=== PATIENT | female | born 1945 | race Hispanic/Latino ===

== ENCOUNTER 2020-02-06 12:02 | Emergency (ER) | payer OTHER ==
--- OUTSIDE RECORDS SUMMARY | 2020-02-06 12:04 | XMS REPORT ---
:1945 Author Organization eClinicalWorks Care Team Providers Name Role Phone Sylvia Sebastian Provider Role Unavailable Allergies No Known Allergies Problems Problem Type Condition Code Onset Dates Condition Statu s Problem Pain in left knee M25.562 Active Problem Other chronic pain G89.29 Active Problem Heart disease I51.9 Active Problem Fatigue, unspecified type R53.83 Ac tive Problem Body mass index (BMI) 45.0-49.9, Z68.42 Active adult Problem Shortness of breath R06.02 Active Problem Asthma J45.909 Active Problem Essential hypertension I10 Activ e Problem Pain in right knee M25.561 Active Problem Gallstone K80.20 Active Problem Edema R60.9 Active Problem Morbid obesity E66.01 Active Medications No Known Medications Results No Known Results Summary Purpose eClinicalWorks Submission
--- OUTSIDE RECORDS SUMMARY | 2020-02-06 12:04 | XMS REPORT ---
:1945 [facility] Team Providers Name Role Phone Sylvia Sebastian Provider Role Unavailable Allergies, Adverse Reactions, Alerts Substance Reaction Event Type N.K.D.A. Info Not Available Non Drug Allergy Problems Problem Type Condition Code Onset Dates Condition Statu s Problem Pain in left knee M25.562 Active Problem Other chronic pain G89.29 Active Problem Heart disease I51.9 Active Problem Shortness of breath R06.02 Active Assessment Pain in left knee M25.562 Active Problem Asthma J45.909 Active Assessment Other chronic pain G89.29 Active Problem Essential hypertension I10 Activ e Problem Pain in right knee M25.561 Active Problem Gallstone K80.20 Active Problem Edema R60.9 Active Problem Morbid obesity E66.01 Active Assessment Morbid obesity E66.01 Active Assessment Lipid screening Z13.220 Active Assessment Pain in right knee M25.561 Active Assessment Body mass index (BMI) 45.0-49.9, Z68.42 Active adult Assessment Essential hypertension I10 Activ e Assessment Fatigue, unspecified type R53.83 Ac tive Problem Fatigue, unspecified type R53.83 Ac tive Assessment Shortness of breath R06.02 Active Problem Body mass index (BMI) 45.0-49.9, Z68.42 Active adult Medications Medication Code Code Instructions Start End Status Dosage System Date Date Amlodipine [facility] 74668734467 10 MG Orally Active 1 ta blet Besylate Once a day Enalapril ND 04708285824 10 MG Orally Aug 21, Active 1 tab let Maleate Once a day for 2019 high blood pressure Voltaren [facility] [address]-15 75 MG Orally Aug 21, Inactive 1 t ablet Twice a day 2018 Meloxicam [facility] 74347908062 7.5 MG Orally Aug 21, Sep 20, Active 1-2 Once a day 2018 2018 tablets as needed for pain; take with food or milk Acetaminophen [facility] 87564735750 300-30 MG Oct 20, Active 1 ta blet -Codeine Orally Twice 2020 as needed daily for pain; take with food or milk Lasix [facility] 79054926847 20 MG Orally Active 1 table t Once a day as needed for swelling Results No Known Results Summary Purpose eClinicalWorks Submission
--- OUTSIDE RECORDS SUMMARY | 2020-02-06 12:04 | XMS REPORT ---
:1945 Author Organization eClinicalWorks Care Team Providers Name Role Phone Sylvia Sebastian Provider Role Unavailable Allergies No Known Allergies Problems Problem Type Condition Code Onset Dates Condition Statu s Problem Fatigue, unspecified type R53.83 Ac tive Problem Pain in left knee M25.562 Active Problem Body mass index (BMI) 45.0-49.9, Z68.42 Active adult Problem Asthma J45.909 Active Problem Shortness of breath R06.02 Active Problem Essential hypertension I10 Activ e Problem Edema R60.9 Active Problem Morbid obesity E66.01 Active Problem Vitamin D deficiency E55.9 Active Problem Other chronic pain G89.29 Active Problem Heart disease I51.9 Active Problem Pain in right knee M25.561 Active Problem Gallstone K80.20 Active Medications No Known Medications Results No Known Results Summary Purpose eClinicalWorks Submission
--- OUTSIDE RECORDS SUMMARY | 2020-02-06 12:04 | XMS REPORT ---
:1945 Author Organization [facility] Address [address] [place] [address] Care Team Providers Name Role Phone Unavailable Unavailable Unavailable Problems Condition Condition Condition Status Onset Resolution Last Treating Co mments Source Name Details Category Date Date Treatment Clinician Date Pain in Pain in Problem Active [facility] left [facility] left knee [facility] Other Other Problem Active [facility] chronic chronic [facility] pain pain [facility] Heart Heart Problem Active [facility] disease disease [facility] Shortness Shortness Problem Active [facility] of breath of breath [facility] Asthma Asthma Problem Active [facility] Essential Essential Problem Active [facility] hypertensi hypertensi Patricia kes - on on [facility] l [facility] Pain in Pain in Problem Active [facility] right knee right knee Patricia kes - [facility] Gallstone Gallstone Problem Active [facility] Edema Edema Problem Active [facility] Morbid Morbid Problem Active [facility] obesity obesity [facility] Body mass Body mass Problem Active [facility] index index [facility] - (BMI) (BMI) Memoria 45.0-49.9, 45.0-49.9, l adult adult [facility] Fatigue, Fatigue, Problem [facility] unspecifie unspecifie Patricia kes - d type d type [facility] Vitamin D Vitamin D Problem Active [facility] deficiency deficiency Patricia kes - [facility]ics Prediabete Prediabete Problem Active [facility] Chronic Chronic Diagnosis [facility] pain [facility] - syndrome syndrome [facility] a [facility] Allergies, Adverse Reactions, Alerts This patient has no known allergies or adverse reactions. Medications Ordered Filled Start Stop Current Ordering Indication Dosage Frequency Signature Comments Components Source Medication Medication Date Date Medication? Clinician (SIG) Name Name Gabapentin Gabapentin Yes Sylvia [address] [facility] 10-26 [place] for pain [facility] Procedures This patient has no known procedures. Encounters Start End Encounter Admission Attending Care Care Encounter Source Date/Time Date/Time Type Type Clinicians Facility Department ID 2020-01-23 2020-01-23 [facility] [id number] [facility] 16:41:00 16:41:00 [facility] Medicine Outpati ent Clinics 2019-12-25 2019-12-25 [facility] [id number] [facility] 13:50:00 13:50:00 [facility] Medicine Outpati ent Clinics 2019-10-26 2019-10-26 [facility] [id number] [facility] 16:15:00 16:15:00 [facility] Medicine Outpati ent Clinics 2019-10-04 2019-10-04 [facility] [id number] [facility] 23:40:00 23:40:00 [facility] Medicine Outpati ent Clinics 2019-09-21 2019-09-21 [facility] [id number] [facility] 16[facility]00:00 16:00:00 [facility] Medicine Outpati ent Clinics 2019-08-31 2019-08-31 [facility] [id number] [facility] 00:42:00 00:42:00 [facility] Medicine Outpati ent Clinics 2019-08-22 2019-08-22 [facility] [id number] 01:28:00 01:28:00 [facility] Medicine Outpati ent Clinics 2019-08-21 2019-08-21 [facility] [id number] [facility] 11:20:00 11:20:[address] [facility] Outpat[facility] ent Clinics Results This patient has no known results.
--- OUTSIDE RECORDS SUMMARY | 2020-02-06 12:04 | XMS REPORT ---
:1945 Author Organization eClinicalWorks Care Team Providers Name Role Phone Jaz Sylvia Provider Role Unavailable Allergies, Adverse Reactions, Alerts Substance Reaction Event Type N.K.D.A. Info Not Available Non Drug Allergy Problems Problem Type Condition Code Onset Dates Condition Statu s Problem Fatigue, unspecified type R53.83 Ac tive Problem Pain in left knee M25.562 Active Problem Body mass index (BMI) 45.0-49.9, Z68.42 Active adult Problem Edema R60.9 Active Problem Morbid obesity E66.01 Active Problem Vitamin D deficiency E55.9 Active Problem Other chronic pain G89.29 Active Problem Heart disease I51.9 Active Problem Pain in right knee M25.561 Active Problem Gallstone K80.20 Active Problem Asthma J45.909 Active Assessment Vitamin D deficiency E55.9 Active Problem Shortness of breath R06.02 Active Assessment Hyperglycemia R73.9 Active Problem Essential hypertension I10 Activ e Medications Medication Code Code Instructions Start End Date Status Dosage System Date Enalapril [facility] 70370180717 10 MG Orally Aug 21, Active 1 tab let Maleate Once a day for 2019 high blood pressure Diclofenac ND 54965526521 75 MG Orally Active 1 ta blet Sodium Twice a day Acetaminophen- [facility] 71240909545 300-30 MG Oct 20, Active 1 t ablet as Codeine Orally Twice 2019 needed for daily pain; take with food or milk Amlodipine ND 55437958183 10 MG Orally Active 1 ta blet Besylate Once a day Lasix ND 40842523870 20 MG Orally Active 1 table t as Once a day needed for swelling Vitamin D [facility] 40922012248 1.25 MG (76358 Sep 21November Active 1 c apsule (Ergocalcifero [place]) Orally Once 2018 l) weekly Results No Known Results Summary Purpose eClinicalWorks Submission
--- OUTSIDE RECORDS SUMMARY | 2020-02-06 12:04 | XMS REPORT ---
:1945 Author Organization eClinicalWorks Care Team Providers Name Role Phone Sylvia Sebastian Provider Role Unavailable Allergies No Known Allergies Problems Problem Type Condition Code Onset Dates Condition Statu s Problem Gallstone K80.20 Active Problem Asthma J45.909 Active Problem Pain in right knee M25.561 Active Problem Prediabetes R73.03 Active Problem Vitamin D deficiency E55.9 Active Problem Chronic pain syndrome G89.4 Active Problem Essential hypertension I10 Activ e Problem Shortness of breath R06.02 Active Problem Edema R60.9 Active Problem Morbid obesity E66.01 Active Assessment Chronic pain syndrome G89.4 Active Problem Body mass index (BMI) 45.0-49.9, Z68.42 Active adult Problem Pain in left knee M25.562 Active Problem Heart disease I51.9 Active Problem Fatigue, unspecified type R53.83 Ac tive Problem Other chronic pain G89.29 Active Medications Medication Code System Code Instructions Start End Date Status Dos age Date Gabapentin [facility] 63868969163 300 MG Orally Oct 26, Active 1 c apsule Twice a day; 2019 for pain start off taking in evening, then titrate to twice daily as tolerates Results No Known Results Summary Purpose eClinicalWorks Submission
--- OUTSIDE RECORDS SUMMARY | 2020-02-06 12:04 | XMS REPORT ---
[...] Active Problem Morbid obesity E66.01 Active Assessment Vitamin D deficiency E55.9 Active Assessment Prediabetes R73.03 Active Assessment Chronic pain syndrome G89.4 Active Problem Body mass index (BMI) 45.0-49.9, Z68.42 Active adult Problem Pain in left knee M25.562 Active Problem Heart disease I51.9 Active Problem Fatigue, unspecified type R53.83 Ac tive Problem Other chronic pain G89.29 Active Medications Medication Code Code Instructions Start End Date Status Dosage System Date Gabapentin ND 61734181452 300 MG Orally Oct 26, Active 1 c apsule Twice a day; 2019 for pain start off taking in evening, then titrate to twice daily as tolerates Enalapril ND 62258096417 10 MG Orally Aug 21, Active 1 tab let Maleate Once a day for 2019 high blood pressure Vitamin D ND 29671465474 1.25 MG (Sep 21November Active 1 c apsule (Ergocalcifero [place]) Orally Once 2018 l) weekly Diclofenac ND 79811533742 75 MG Orally Active 1 ta blet Sodium Twice a day Lasix ND 07154210569 20 MG Orally Active 1 table t as Once a day needed for swelling Vitamin D ND 07063831946 125 MCG (4999Oct 29, Active (otc ) 1 UT) Orally Once 2019 capsule daily Amlodipine ND 03380811943 10 MG Orally Active 1 ta blet Besylate Once a day Results No Known Results Summary Purpose eClinicalWorks Submission
--- OUTSIDE RECORDS SUMMARY | 2020-02-06 12:04 | XMS REPORT ---
[...] Active Problem Morbid obesity E66.01 Active Problem Body mass index (BMI) 45.0-49.9, Z68.42 Active adult Problem Pain in left knee M25.562 Active Problem Heart disease I51.9 Active Problem Fatigue, unspecified type R53.83 Ac tive Problem Other chronic pain G89.29 Active Medications Medication Code System Code Instructions Start End Date Status Dos age Date ProAir A [facility] 55517883254 108 (90 Base) December 26, Active 2 puff as MCG/ACT 2019 needed Inhalation every 4-6 hrs Results No Known Results Summary Purpose eClinicalWorks Submission
[2020-02-06] MEDS ORDERED: HYDROCODONE/APAP 5/325 MG TAB ONE (13:35)
--- NOTE | 2020-02-06 14:00 | RAD REPORT ---
EXAM DESCRIPTION: Shoulder Right 2 View - 02/06/2020 1:48 pm CLINICAL HISTORY: PAIN, fall with right shoulder pain COMPARISON: No comparisons TECHNIQUE: Internal and external rotation views of the right shoulder were obtained. FINDINGS: There is no fracture or dislocation. AC joint degenerative changes are present. Acromial humeral joint space is normal. Minimal tendon calcifications suspected along the posterolateral aspec t of the humeral head as well as at the deltoid attachment to the acromion. No pathologic bone proces s. No acute right upper chest finding. IMPRESSION: Degenerative change present as detailed. No fracture or acute finding seen.
--- NOTE | 2020-02-06 14:01 | EDPHYS ---
Physician Documentation [facility] Name: Nabila Jain Age: 74 yrs Sex: Female : 1945 Arrival Date: 02/06/2020 Time: 12:05 Bed 4 Private MD: Sylvia Sebastian ED Physician Fabiano Diaz HPI: 02/05 13:57 This 74 yrs old Female presents to ER via Wheelchair with complaints of ma2 Shoulder Pain, Arm Pain, Fall Injury. 13:57 The patient or guardian complains of decreased range of motion, pain. right shoulder. ma2 Onset: The symptoms/episode began/occurred gradually, 1 day(s) ago. Associated signs and symptoms: Pertinent negatives: chest pain, diaphoresis, dyspnea. Severity of symptoms: At their worst the symptoms were moderate, in the emergency department the symptoms are unchanged. The patient has not experienced similar symptoms in the past. Historical: - Allergies: 12:22 No Known Allergies; ss - Home Meds: 13:46 unknown BP medications [Active]; tw2 - PMHx: 12:22 cardiomegaly; Hypertension; ss - PSHx: 13:46 None; tw2 - Immunization history:: Adult Immunizations up to date. - Social history:: Smoking status: Patient denies any tobacco usage or history of. Patient/guardian denies using alcohol, street drugs, The patient lives with family. - Family history:: not pertinent. ROS: 13:57 Constitutional: Negative for fever, chills, and weight loss. ma2 13:57 All other systems are negative. Exam: 13:57 Constitutional: This is a well developed, well nourished patient who is awake, alert, ma2 and in no acute distress. Chest/axilla: Normal chest wall appearance and motion. Nontender with no deformity. No lesions are appreciated. Cardiovascular: Regular rate and rhythm with a normal S1 and S2. No gallops, murmurs, or rubs. Normal PMI, no JVD. No pulse deficits. Respiratory: Lungs have equal breath sounds bilaterally, clear to auscultation and percussion. No rales, rhonchi or wheezes noted. No increased work of breathing, no retractions or nasal flaring. Abdomen/GI: Soft, non-tender, with normal bowel sounds. No distension or tympany. No guarding or rebound. No evidence of tenderness throughout. Skin: Warm, dry with normal turgor. Normal color with no rashes, no lesions, and no evidence of cellulitis. MS/ Extremity: right shoulder tenderness yet able to fully range the shoulder. Pulses equal, no cyanosis. Neurovascular intact. Full, normal range of motion. Neuro: Awake and alert, GCS 15, oriented to person, place, time, and situation. Cranial nerves II-XII grossly intact. Motor strength 5/5 in all extremities. Sensory grossly intact. Cerebellar exam normal. Normal gait. Vital Signs: 12:20 BP 157 / 79; Pulse 72; Resp 16; Temp 98.2; Pulse Ox 96% on R/A; Weight 115.67 kg; Pain ss 9/10; 14:14 BP 160 / 6; Pulse 69; Resp 17; Pulse Ox 99% on R/A; tw2 MDM: 12:56 Patient medically screened. ma2 13:57 Differential diagnosis: Anterior dislocation without fracture, Posterior dislocation ma2 with fracture, Posterior dislocation without fracture, humeral head fracture. Data reviewed: vital signs, nurses notes. Counseling: I had a detailed discussion with the patient and/or guardian regarding: the historical points, exam findings, and any diagnostic results supporting the discharge/admit diagnosis, the presence of at least one elevated blood pressure reading (>120/80) during this emergency department visit, the need for outpatient follow up. Response to treatment: the patient's symptoms have markedly improved after treatment. 02/05 12:59 Order name: XRAY Shoulder RIGHT 2 view [facility] 02/05 14:00 Order name: Sling; Complete Time: 14:11 wv2 Administered Medications: 13:38 Drug: Carmel 5 mg-325 mg 1 tabs Route: PO; tw2 14:11 Follow up: Response: No adverse reaction; Pain is decreased; RASS: Alert and Calm (0) tw2 Disposition: 02/06/20 13:59 Discharged to Home. Impression: Pain in right shoulder. - Condition is Stable. - Discharge Instructions: Joint Pain. - Prescriptions for Cyclobenzaprine 10 mg Oral Tablet - take 1 tablet by ORAL route every 8 hours As needed; 30 tablet. Diclofenac Sodium 75 mg Oral Tablet Sustained Release - take 1 tablet by ORAL route 2 times per day; 30 tablet. - Medication Reconciliation Form, Thank You Letter, Antibiotic Education, Prescription Opioid Use form. - Follow up: Private Physician; When: Tomorrow; Reason: Continuance of care. Signatures: Dispatcher [employer] Paulina Garcia RN RN Dawna Butler RN RN tw2 Fabiano Diaz MD MD ma2 Corrections: (The following items were deleted from the chart) 14:15 13:59 02/06/2020 13:59 Discharged to Home. Impression: Pain in right shoulder. tw2 Condition is Stable. Forms are Medication Reconciliation Form, Thank You Letter, Antibiotic Education, Prescription Opioid Use. Follow up: Private Physician; When: Tomorrow; Reason: Continuance of care. ma2
--- NOTE | 2020-02-06 14:01 | ER ---
Nurse's Notes [facility] Name: Nabila Jain Age: 74 yrs Sex: Female : 1945 Arrival Date: 02/06/2020 Time: 12:05 Bed 4 Private MD: Sylvia Sebastian Diagnosis: Pain in right shoulder Presentation: 02/05 12:17 Chief complaint: Patient states: Fell from standing last night. Pt c/o R shoulder pain. ss Care prior to arrival: None. Mechanism of Injury: Fall from standing position. 12:17 Acuity: CHARLEEN 4 ss 12:17 Method Of Arrival: Wheelchair ss 12:20 Coronavirus screen: Patient denies a cough. Patient denies shortness of breath or ss difficulty breathing. Patient denies measured and/or subjective temperature greater than 100.4F prior to today's visit. Patient denies travel on a cruise ship or to a country the [facility] currently lists as an affected area. Patient denies contact with known and/or suspected case of COVID-19. Ebola Screen: Patient denies exposure to infectious person. Patient denies travel to an Ebola-affected area in the 21 days before illness onset. Initial Sepsis Screen: Does the patient meet any 2 criteria? No. Patient's initial sepsis screen is negative. Does the patient have a suspected source of infection? No. Patient's initial sepsis screen is negative. Risk Assessment: Do you want to hurt yourself or someone else? Patient reports no desire to harm self or others. Onset of symptoms was February 05, 2020. Historical: - Allergies: 12:22 No Known Allergies; ss - Home Meds: 13:46 unknown BP medications [Active]; tw2 - PMHx: 12:22 cardiomegaly; Hypertension; ss - PSHx: 13:46 None; tw2 - Immunization history:: Adult Immunizations up to date. - Social history:: Smoking status: Patient denies any tobacco usage or history of. Patient/guardian denies using alcohol, street drugs, The patient lives with family. - Family history:: not pertinent. Screenin:46 Abuse screen: Denies threats or abuse. Nutritional screening: No deficits noted. tw2 Tuberculosis screening: No symptoms or risk factors identified. Fall Risk Fall in past 12 months (25 points). Secondary diagnosis (15 points) impaired mobility. Assessment: 13:44 General: Appears in no apparent distress. uncomfortable, obese, Behavior is calm, tw2 cooperative, appropriate for age. Pain: Complains of pain in right shoulder. Neuro: Level of Consciousness is awake, alert, obeys commands, Oriented to person, place, time, situation. Cardiovascular: Patient's skin is warm and dry. Respiratory: Airway is patent Respiratory effort is even, unlabored, Respiratory pattern is regular, symmetrical. GI: No signs and/or symptoms were reported involving the gastrointestinal system. : No signs and/or symptoms were reported regarding the genitourinary system. EENT: No signs and/or symptoms were reported regarding the EENT system. Derm: No signs and/or symptoms reported regarding the dermatologic system. Musculoskeletal: Range of motion: limited in right shoulder Reports pain in right shoulder since last night when she fell and landed on the right shoulder.. 14:14 Reassessment: Patient appears in no apparent distress at this time. Patient and/or tw2 family updated on plan of care and expected duration. Pain level reassessed. Patient is alert, oriented x 3, equal unlabored respirations, skin warm/dry/pink. Patient states feeling better. Vital Signs: 12:20 BP 157 / 79; Pulse 72; Resp 16; Temp 98.2; Pulse Ox 96% on R/A; Weight 115.67 kg; Pain ss 9/10; 14:14 BP 160 / 6; Pulse 69; Resp 17; Pulse Ox 99% on R/A; tw2 ED Course: 12:05 Patient arrived in ED. am2 12:05 Sylvia Sebastian MD is Private Physician. am2 12:20 Triage completed. ss 12:22 Arm band placed on right wrist. ss 12:56 Fabiano Diaz MD is Attending Physician. ma2 13:00 Call light in reach. tw2 13:27 Dawna Butler RN is Primary Nurse. tw2 13:45 Placed in gown. Side rails up X 1. Warm blanket given. Pillow given. Verbal reassurance tw2 given. 13:50 XRAY Shoulder RIGHT 2 view In Process Unspecified. EDMS 14:14 No provider procedures requiring assistance completed. Patient did not have IV access tw2 during this emergency room visit. Administered Medications: 13:38 Drug: Firth 5 mg-325 mg 1 tabs Route: PO; tw2 14:11 Follow up: Response: No adverse reaction; Pain is decreased; RASS: Alert and Calm (0) tw2 Outcome: 13:59 Discharge ordered by . ma2 14:14 Discharged to home via wheelchair. tw2 14:14 Condition: stable 14:14 Discharge instructions given to patient, Instructed on discharge instructions, follow up and referral plans. no drinking with medication, no driving heavy equipment, medication usage, Demonstrated understanding of instructions, follow-up care, medications, Prescriptions given X 2. 14:15 Patient left the ED. tw2 Signatures: Dispatcher [employer] EDMS Paulina Joy RN RN ss Wise, Tara, RN RN tw2 Rufina Padgett am2 Fabiano Diaz MD MD wv2
[2020-02-06 14:38] VITALS: TEMP 98.2
[2020-02-06 14:40] VITALS: BP 160/6; O2SAT 99
== END 2020-02-06 14:15 | disposition home or self-care (01) ==
LOC: ER 12:02
DX: M25.511 Pain in right shoulder (principal); I10 Essential (primary) hypertension
CPT/HCPCS: 99283

== ENCOUNTER 2021-03-04 09:23 | Emergency (ER) | payer OTHER ==
--- OUTSIDE RECORDS SUMMARY | 2021-03-04 09:27 | XMS REPORT | Continuity of Care Document ---
:1945 Author Organization Formerly [facility] t Address [address] [place] [address] Care Team Providers Name Role Phone Unavailable Unavailable Unavailable Problems This patient has no known problems. Allergies, Adverse Reactions, Alerts This patient has no known allergies or adverse reactions. Medications Ordered Filled Start Stop Current Ordering Indication Dosage Frequency Signature Comments Components Source Medication Medication Date Date Medication? Clinician (SIG) Name Name Meloxicam Meloxicam 2020-0 2020- No Sylvia 1/[address] [facility] 5-29 08-29 [facility] tablet as [facility] - 00:00: 00:00 needed for [facility] 00 :00 pain; take l with food Outpati or milk ent Clinics ProAir HFA ProAir HFA Yes Sylvia [address] [facility] 4[facility]02 [facility] Gabapentin Gabapentin Yes Sylvia as [facility] Diclofenac Diclofenac Yes Sylvia [address] [facility] Sodium Sodium [facility] Vitamin D Vitamin D Yes Sylvia (otc) [address] [facility] capsule [facility] Amlodipine Amlodipine Yes Sylvia [address] [facility] Besylate Besylate Millender Patricia k[facility] Enalapril Enalapril Yes Sylvia [address] [facility] Maleate Maleate Mill[facility] Cyclobenzap Cyclobenzap Yes Sylvia [address] [facility] rine HCl rine HCl [facility] at bedtime [facility] Lasix Lasix Yes Sylvia [address] [facility] Millender as needed [facility] swelling [facility] Procedures This patient has no known procedures. Encounters Start End Encounter Admission Attending Care Care Encounter Source Date/Time Date/Time Type Type Clinicians Facility Department ID 2020-12-03 2020-12-03 [id number] 2020-10-16 2020-10-16 [facility] [id number] [facility] 2020-10-01 2020-10-01 [facility] [id number] [facility] 2020-09-24 2020-09-24 [facility] [id number] [facility] 2020-09-10 2020-09-10 [facility] [id number] [facility] 2020-09-02 2020-09-02 [facility] [id number] [facility] 2020-08-12 2020-08-12 [facility] [id number] [facility] 2020-07-03 2020-07-03 [facility] [id number] [facility] 2020-06-19 2020-06-19 [facility] [id number] [facility] 2020-05-23 2020-05-23 [facility] [id number] [facility] 15[facility]00[facility]00 15:00:00 [facility] Outpat[facility] Clinics 2020-04-23 2020-04-23 [facility] [id number] 16:40:00 16:40:[address] [facility] Medicine Outpati ent Clinics 2020-04-16 2020-04-16 [facility] [id number] [facility] 13:30:00 13:30:00 [facility] Medicine Outpati ent Clinics 2020-02-22 2020-02-22 [facility] [id number] [facility] 13[facility]40:00 13:40:00 [facility] Medicine Outpati ent Clinics 2020-01-23 2020-01-23 [facility] [id number] [facility] 16:41:00 16:41:00 [facility] Medicine Outpati ent Clinics 2019-12-25 2019-12-25 [facility] [id number] [facility] 13:50:00 13:50:00 [facility] Medicine Outpati ent Clinics 2019-10-26 2019-10-26 [facility] [id number] [facility] 16[facility]15:00 16:15:00 [facility] Medicine Outpati ent Clinics 2019-10-04 2019-10-04 [facility] [id number] [facility] 23:40:00 23:40:00 [facility] Medicine Outpati ent Clinics 2019-09-21 2019-09-21 [facility] [id number] [facility] 16:00:00 16:00:00 [facility] Medicine Outpati ent Clinics 2019-08-31 2019-08-31 [facility] [id number] [facility] 00:42:00 00:42:00 [facility] Medicine Outpati ent Clinics 2019-08-22 2019-08-22 [facility] [id number] 01:28:00 01:28:00 [facility] 2019-08-21 2019-08-21 Outpatient Betty Demarco [id number] [facility] 11:20:00 11:20:00 [facility] Clinics Results This patient has no known results.
[2021-03-04] MEDS ORDERED: LEVALBUTEROL 1.25 MG/3 ML NEB ONE (10:22)
[2021-03-04] MEDS ORDERED: FUROSEMIDE 40 MG/4 ML VIAL ONE (10:23)
[2021-03-04 10:58] LABS: Protime INR 0.97
[2021-03-04 11:01] LABS: Albumin 2.9 g/dL (3.4-5.0); Bilirubin Direct 0.1 mg/dL (0-0.2); Bilirubin Total 0.3 mg/dL (0.2-1.0); Magnesium 2.4 mg/dL (1.8-2.4); Potassium 3.7 mmol/L (3.5-5.1); Protein, Total 6.9 g/dL (6.4-8.2); Troponin (Emerg Dept Use Only) 0.03 ng/mL (0.0-0.045)
[2021-03-04 11:07] LABS: Absolute Lymphocytes (CBC) 2.4 K/uL (0.7-4.9); Basophils % 0.4 % (0-1.3); Hematocrit 37.2 % (36.0-45.0); Lymphocytes % 21.2 % (15.3-44.8); MPV 9.5 fL (7.6-11.3); RBC Red Blood Cell Count 4.11 M/uL (3.86-4.86)
--- NOTE | 2021-03-04 11:57 | RAD REPORT ---
EXAM DESCRIPTION: RAD - Chest Single View - 03/04/2021 10:31 am CLINICAL HISTORY: shortness of breath COMPARISON: Portable August 2015 TECHNIQUE: AP portable chest image was obtained 03/04/2021 10:31 am . FINDINGS: Exam is limited by under penetrated technique and very large body habitus. Heart size is u pper normal. Central vasculature and lung markings are prominent. No peripheral consolidation or mass . Retrocardiac left base assessment is limited. No measurable pleural effusion and no pneumothorax. No acute bony abnormality seen. No acute aortic findings suspected. IMPRESSION: Limited examination shows mild CHF/ volume overload pattern.
--- NOTE | 2021-03-04 12:57 | ER ---
Nurse's Notes [facility] Name: Nabila Jain Age: 75 yrs Sex: Female : 1945 Arrival Date: 03/04/2021 Time: 09:24 Bed 5 Private MD: Lucia Ramirez Diagnosis: Heart failure;Edema, unspecified Presentation: 03/04 09:37 Chief complaint: Patient states: SOB on exertion and leg swelling X 2 weeks. iw Coronavirus screen: At this time, the client does not indicate any symptoms associated with coronavirus-19. Ebola Screen: Patient negative for fever greater than or equal to 101.5 degrees Fahrenheit, and additional compatible Ebola Virus Disease symptoms Patient denies exposure to infectious person. Patient denies travel to an Ebola-affected area in the 21 days before illness onset. No symptoms or risks identified at this time. Initial Sepsis Screen: Does the patient meet any 2 criteria? No. Patient's initial sepsis screen is negative. Does the patient have a suspected source of infection? No. Patient's initial sepsis screen is negative. Risk Assessment: Do you want to hurt yourself or someone else? Patient reports no desire to harm self or others. Onset of symptoms was February 17, 2021. 09:37 Method Of Arrival: Wheelchair iw 09:37 Acuity: CHARLEEN 3 iw Triage Assessment: 13:18 General: Appears in no apparent distress. comfortable. Respiratory: Respiratory: ld1 Reports shortness of breath Onset: The symptoms/episode began/occurred at an unknown time. Historical: - Allergies: 09:41 NKA; iw - Home Meds: 10:31 gabapentin 300 mg oral cap twice a day [Active]; amlodipine 10 mg tab 1 tab once daily iw [Active]; meloxicam 7.5 mg oral tab 1 tab once daily [Active]; furosemide 20 mg Oral tab 1 tab once daily [Active]; enalapril maleate 10 mg Oral tab 1 tab once daily [Active]; - PMHx: 09:41 cardiomegaly; Hypertension; iw - PSHx: 09:41 gall stones; ; iw - Immunization history:: Adult Immunizations up to date. - Social history:: Smoking status: Patient denies any tobacco usage or history of. Patient/guardian denies using alcohol. Screenin:00 Fall Risk None identified. ld1 10:01 Abuse screen: Denies threats or abuse. Denies injuries from another. Nutritional sv screening: No deficits noted. Tuberculosis screening: No symptoms or risk factors identified. Assessment: 10:00 General: Appears in no apparent distress. comfortable, Behavior is calm, cooperative, ld1 appropriate for age. 10:00 Pain: Denies pain. Neuro: Level of Consciousness is awake, alert, obeys commands, ld1 Oriented to person, place, time, situation, Appropriate for age. Cardiovascular: Reports shortness of breath, Denies chest pain, Capillary refill < 3 seconds Patient's skin is warm and dry. Rhythm is sinus rhythm. Cardiovascular: Edema is 3+ to left foot and right foot pitting to left foot and right foot. Respiratory: Airway is patent Respiratory effort is even, unlabored, Respiratory pattern is regular, symmetrical, Breath sounds are diminished bilaterally. GI: Abdomen is round distended, obese, Bowel sounds present X 4 quads. : No signs and/or symptoms were reported regarding the genitourinary system. EENT: No signs and/or symptoms were reported regarding the EENT system. Derm: No signs and/or symptoms reported regarding the dermatologic system. Musculoskeletal: No signs and/or symptoms reported regarding the musculoskeletal system. 11:20 Reassessment: No changes from previously documented assessment. Patient and/or family ld1 updated on plan of care and expected duration. Pain level reassessed. Patient is alert, oriented x 3, equal unlabored respirations, skin warm/dry/pink. Laying in bed with daughter at bedside. Patient denies pain at this time. 12:30 Reassessment: No changes from previously documented assessment. Patient and/or family ld1 updated on plan of care and expected duration. Pain level reassessed. Patient is alert, oriented x 3, equal unlabored respirations, skin warm/dry/pink. Patient denies pain at this time. 13:17 Reassessment: No changes from previously documented assessment. Patient and/or family ld1 updated on plan of care and expected duration. Pain level reassessed. Patient is alert, oriented x 3, equal unlabored respirations, skin warm/dry/pink. Patient denies pain at this time. Patient states feeling better. Vital Signs: 09:41 BP 188 / 80; Pulse 97; Resp 22 S; Temp 97.9(O); Weight 117.93 kg; ld1 10:30 BP 169 / 73; Pulse 87; Resp 22; Pulse Ox 96% on R/A; ld1 11:20 BP 123 / 50; Pulse 84; Resp 20; Pulse Ox 98% on R/A; ld1 12:30 BP 122 / 61; Pulse 86; Resp 18; Pulse Ox 98% on R/A; ld1 13:17 BP 126 / 70; Pulse 88; Resp 20; Pulse Ox 99% on R/A; ld1 ED Course: 09:24 Patient arrived in ED. hh 09:25 Lucia Ramirez MD is Private Physician. hh 09:29 Silver Peralta PA is PHCP. jmm 09:29 Dandy Franklin MD is Attending Physician. [facility] 09:40 Triage completed. iw 09:41 Arm band placed on. iw 09:48 Holly Cantu, RN is Primary Nurse. ld1 09:57 Patient has correct armband on for positive identification. Placed in gown. Bed in low mh5 position. Call light in reach. Side rails up X2. Adult w/ patient. Warm blanket given. monitoring analyst on. Pulse ox on. NIBP on. 10:00 Peters cath inserted, using sterile technique, 16 Fr., by ED staff, balloon inflated, to sv gravity drainage, other done by Holly MATHUR returned clear yellow urine. Patient tolerated well. 10:10 EKG done, by ED staff, reviewed by Dandy Franklin MD. 5 10:28 Missed attempt(s): 22 gauge in left antecubital area. Bleeding controlled, band aid hb applied, catheter tip intact. 10:30 XRAY Chest (1 view) In Process Unspecified. EDMS 10:33 Inserted saline lock: 22 gauge in left antecubital area, using aseptic technique. Blood hb collected. 12:55 Lucia Ramirez MD is Referral Physician. [facility] 13:18 No provider procedures requiring assistance completed. IV discontinued, intact, ld1 bleeding controlled, No redness/swelling at site. Administered Medications: 10:17 Drug: Xopenex (levalbuterol) (3) 1.25 mg Route: Inhalation; ld1 10:33 Drug: Lasix (furosemide) 40 mg Route: IVP; Site: left antecubital; ld1 Outcome: 12:56 Discharge ordered by . jude 13:18 Discharged to home via wheelchair. ld1 13:18 Condition: stable 13:18 Discharge instructions given to patient, family, Instructed on discharge instructions, follow up and referral plans. medication usage, Demonstrated understanding of instructions, follow-up care, medications. 13:18 Patient left the ED. ld1 Signatures: Dispatcher [employer] EDMS Rosy Navas RN RN Silver Peralta PA PA jmm Williams, Irene, RN RN Annie Farfan RN RN hb Martinez, Maria [facility] Holly Cantu RN RN ld1 Dahlia Lomeli Corrections: (The following items were deleted from the chart) 10:10 09:37 Chief complaint: Patient states: SOB on exertion and keg swelling X 2 weeks iw iw 10:27 09:41 BP 188 / 80; Pulse 97bpm; Resp 22bpm; Spontaneous; iw iw 10:27 10:10 CORONAVIRUS+MR.LAB.BRZ drawn and sent. [facility] EDVA 11:08 09:41 BP 188 / 80; Pulse 97bpm; Resp 22bpm; Spontaneous; Temp 97.9F Oral; 117.93 kg; iw ld1
--- NOTE | 2021-03-04 12:57 | EDPHYS ---
Physician Documentation [facility] Name: Nabila Jain Age: 75 yrs Sex: Female : 1945 Arrival Date: 03/04/2021 Time: 09:24 Bed 5 Private MD: Lucia Ramirez ED Physician Dandy Franklin HPI: 03/04 09:57 This 75 yrs old Female presents to ER via Wheelchair with complaints of jmm Shortness Of Breath, Feet Swelling. 09:57 Onset: The symptoms/episode began/occurred gradually, 2 week(s) ago. The patient's jmm shortness of breath is aggravated by nothing, is alleviated by nothing. Associated signs and symptoms: Pertinent positives: non-productive cough. This is a 75 year old female with a history of cardiomegaly, htn that presents to the ED with complaints of cough, shortness of breath, wheezing worsening over the past 2 weeks. Prescribed diuretics have not helped. Denies fever. Complains of bilateral leg swelling. . Historical: - Allergies: 09:41 NKA; iw - Home Meds: 10:31 gabapentin 300 mg oral cap twice a day [Active]; amlodipine 10 mg tab 1 tab once daily iw [Active]; meloxicam 7.5 mg oral tab 1 tab once daily [Active]; furosemide 20 mg Oral tab 1 tab once daily [Active]; enalapril maleate 10 mg Oral tab 1 tab once daily [Active]; - PMHx: 09:41 cardiomegaly; Hypertension; iw - PSHx: 09:41 gall stones; ; iw - Immunization history:: Adult Immunizations up to date. - Social history:: Smoking status: Patient denies any tobacco usage or history of. Patient/guardian denies using alcohol. ROS: 10:33 Constitutional: Negative for fever, chills, and weight loss, Cardiovascular: Negative jmm for chest pain, palpitations, and edema. 10:33 Respiratory: Positive for shortness of breath. 10:33 MS/extremity: Positive for swelling. 10:33 All other systems are negative. Exam: 10:33 Constitutional: This is a well developed, well nourished patient who is awake, alert, jmm and in no acute distress. Head/Face: atraumatic. Eyes: EOMI, no conjunctival erythema appreciated ENT: Moist Mucus Membranes Neck: Trachea midline, Supple Chest/axilla: Normal chest wall appearance and motion. Cardiovascular: Regular rate and rhythm. No edema appreciated 10:33 Back: Normal ROM Skin: General appearance color normal MS/ Extremity: Moves all extremities, no obvious deformities appreciated, no edema noted to the lower extremities Neuro: Awake and alert, normal gait Psych: Behavior is normal, Mood is normal, Patient is cooperative and pleasant 10:33 Respiratory: the patient does not display signs of respiratory distress, Respirations: Breath sounds: wheezing: Vital Signs: 09:41 BP 188 / 80; Pulse 97; Resp 22 S; Temp 97.9(O); Weight 117.93 kg; ld1 10:30 BP 169 / 73; Pulse 87; Resp 22; Pulse Ox 96% on R/A; ld1 11:20 BP 123 / 50; Pulse 84; Resp 20; Pulse Ox 98% on R/A; ld1 12:30 BP 122 / 61; Pulse 86; Resp 18; Pulse Ox 98% on R/A; ld1 13:17 BP 126 / 70; Pulse 88; Resp 20; Pulse Ox 99% on R/A; ld1 MDM: 09:37 Patient medically screened. [facility] 12:55 Data reviewed: vital signs, nurses notes. Counseling: I had a detailed discussion with jude the patient and/or guardian regarding: the historical points, exam findings, and any diagnostic results supporting the discharge/admit diagnosis, lab results, radiology results, the need for outpatient follow up, to return to the emergency department if symptoms worsen or persist or if there are any questions or concerns that arise at home. ED course: Patient states she feels much better. Advised to increased lasix and f/u with cardio/pcp for reevaluation. Family/patient understood and agrees with the plan of care. . 03/04 09:38 Order name: Basic Metabolic Panel [facility] 03/04 09:38 Order name: CBC with Diff; Complete Time: 11:20 [facility] 03/04 09:38 Order name: LFT's; Complete Time: 11:02 [facility] 03/04 09:38 Order name: Magnesium; Complete Time: 11:02 [facility] 03/04 09:38 Order name: NT PRO-BNP; Complete Time: 11:02 [facility] 03/04 09:38 Order name: PT-INR; Complete Time: 11:20 [facility] 03/04 09:38 Order name: Troponin (emerg Dept Use Only); Complete Time: 11:02 [facility] 03/04 09:38 Order name: XRAY Chest (1 view); Complete Time: 12:08 [facility] 03/04 09:39 Order name: Basic Metabolic Panel; Complete Time: 11:02 [facility] 03/04 11:20 Order name: SARS-COV-2 RT PCR; Complete Time: 11:21 [facility] 03/04 13:05 Order name: Urine Dipstick-Ancillary; Complete Time: 13:11 [facility] 03/04 09:38 Order name: EKG; Complete Time: 09:39 jm 03/04 09:38 Order name: Cardiac monitoring; Complete Time: 09:48 [facility] 03/04 09:38 Order name: EKG - Nurse/Tech; Complete Time: 09:57 [facility] 03/04 09:38 Order name: IV Saline Lock; Complete Time: 10:37 [facility] 03/04 09:38 Order name: Labs collected and sent; Complete Time: 10:37 [facility] 03/04 09:38 Order name: O2 Per Protocol; Complete Time: 09:48 jmm 03/04 09:38 Order name: O2 Sat Monitoring; Complete Time: 09:48 [facility] 03/04 09:59 Order name: Peters; Complete Time: 10:00 jmm Administered Medications: 10:17 Drug: Xopenex (levalbuterol) (3) 1.25 mg Route: Inhalation; ld1 10:33 Drug: Lasix (furosemide) 40 mg Route: IVP; Site: left antecubital; ld1 Disposition: 13:52 Co-signature as Attending Physician, Dandy Franklin MD. rn Disposition: 03/04/21 12:56 Discharged to Home. Impression: Heart failure, Edema, unspecified. - Condition is Stable. - Discharge Instructions: Heart Failure, Peripheral Edema. - Prescriptions for Lasix 20 mg Oral Tablet - take 2 tablet by ORAL route once daily; 20 tablet. - Medication Reconciliation Form, Thank You Letter, Antibiotic Education, Prescription Opioid Use form. - Follow up: Lucia Ramirez MD; When: 2 - 3 days; Reason: Recheck today's complaints, Continuance of care, Re-evaluation by your physician. Signatures: Dispatcher [employer] EDMS Silver Peralta PA PA Mita Christopher RN RN iw Nieto, Roman, MD MD rn Dibbern, Lauren, RN RN ld1 Corrections: (The following items were deleted from the chart) 10:27 09:41 CORONAVIRUS+ ordered. [facility] EDAZ 13:18 12:56 03/04/2021 12:56 Discharged to Home. Impression: Heart failure; Edema, ld1 unspecified. Condition is Stable. Forms are Medication Reconciliation Form, Thank You Letter, Antibiotic Education, Prescription Opioid Use. Follow up: Lucia Ramirez; When: 2 - 3 days; Reason: Recheck today's complaints, Continuance of care, Re-evaluation by your physician. jude
[2021-03-04 13:06] LABS: Urine Blood Negative (Negative); Urine Glucose Negative (Negative); Urine Protein Negative (Negative); Urine Specific Gravity 1.025 (1.005-1.030)
[2021-03-04 13:39] VITALS: TEMP 97.9
[2021-03-04 13:45] VITALS: BP 126/70; O2SAT 99
--- NOTE | 2021-03-04 16:00 | EKG ---
Test Date: 2021-03-04 Test Time: 10:05:57 Chemical Unit Operator: HERNANDEZ MEASUREMENT RESULTS: Intervals: Rate: 86 TX: 184 QRSD: 92 QT: 376 QTc: 449 Mcclellan: P: 51 TX: 184 QRS: -36 T: 55 INTERPRETIVE STATEMENTS: Normal sinus rhythm Left axis deviation Incomplete right bundle branch block Nonspecific T wave abnormality Abnormal ECG Compared to ECG 01/08/2008 09:56:33 Incomplete right bundle-branch block now present T-wave abnormality now present Left ventricular hypertrophy no longer present Electronically Signed On 03-04-21 15:59:55 CDT by Pal Menjivar
== END 2021-03-04 13:18 | disposition home or self-care (01) ==
LOC: ER 09:23
DX: I50.9 Heart failure, unspecified (principal); R60.9 Edema, unspecified; I10 Essential (primary) hypertension; I51.7 Cardiomegaly; Z20.822 Contact with and (suspected) exposure to COVID-19
CPT/HCPCS: 93005; 85025; 80048; 36415; 83735; 85610; 80076; 81003; 84484; 83880; 71045; U0003; J1940; 51702; 96374; 99285

== ENCOUNTER 2021-04-23 13:11 | Inpatient (IN) | payer OTHER ==
--- OUTSIDE RECORDS SUMMARY | 2021-04-23 13:14 | XMS REPORT | Continuity of Care Document ---
:1945 Author Organization [facility] t Address [address] [place] [address] Care Team Providers Name Role Phone Unavailable [...] milk ent Clinics ProAir HFA ProAir HFA 2019-0 Yes Sylvia [address] [facility] [...] Date/Time Type Type Clinicians Facility Department ID 2021-03-11 2021-03-11 [id number] 2021-03-05 2021-03-05 [facility] [id number] 2020-12-03 2020-12-03 [facility] [id number] 2020-10-16 2020-10-16 [facility] [id number] 2020-10-01 2020-10-01 [id number] [facility] 2020-09-24 2020-09-24 [facility] [id number] [facility] 2020-09-10 2020-09-10 [facility] [id number] [facility] 2020-09-02 2020-09-02 [facility] [id number] [facility] 2020-08-12 2020-08-12 [facility] [id number] 2020-07-03 2020-07-03 [facility] [id number] 2020-06-19 2020-06-[address] [facility] [id number] [facility] 2020-05-23 2020-05-23 [facility] [id number] [facility] 15:00:00 15:00:00 [facility] l Medicine Outpati ent Clinics 2020-04-23 2020-04-23 [facility] [id number] [facility] 16:40:00 16:40:00 [facility] Medicine Outpati ent Clinics 2020-04-16 2020-04-16 [facility] [id number] [facility] 13:30:00 13:30:00 [facility] Medicine Outpati ent Clinics 2020-02-22 2020-02-22 [facility] [id number] 13[facility]40:00 13:40:00 [facility] Medicine Outpati ent Clinics 2020-01-23 2020-01-23 [facility] [id number] [facility] 16:41:00 16:41:00 [facility] Medicine Outpati ent Clinics 2019-12-25 2019-12-25 [facility] [id number] 13[facility]50:00 13:50:00 [facility] Medicine Outpati ent Clinics 2019-10-26 2019-10-26 [facility] [id number] 16[facility]15:00 16:15:00 [facility] Medicine Outpati ent Clinics 2019-10-04 2019-10-04 [facility] [id number] 23:40:00 23:40:00 [facility] Medicine Outpati ent Clinics 2019-09-21 2019-09-21 [facility] [id number] [facility] 16:00:00 16:00:00 [facility] 2019-08-31 2019-08-31 Out[facility] [id number] [facility] 00:42:00 00:42:00 [facility] 2019-08-22 2019-08-22 Outpatient Betty [facility] [id number] [facility] 01:28:00 01:28:00 [facility] 2019-08-21 2019-08-21 Out[facility] [id number] [facility] 11:20:00 11:20:00 [facility] ent Clinics Results This patient has no known results.
--- NOTE | 2021-04-23 16:45 | RAD REPORT ---
EXAM DESCRIPTION: RAD - Chest Single View - 04/23/2021 4:34 pm CLINICAL HISTORY: COUGH COMPARISON: Chest Single View dated 03/04/2021; CHEST SINGLE VIEW dated 09/18/2015; CHEST PA AND LAT 2 VIEW dated 08/18/2012; CHEST PA AND LAT 2 VIEW dated 08/17/2008 FINDINGS: Vascular congestion. No alveolar edema identified. No consolidation. CardiomegalyNo acute osseous abnormality. No significant pleural effusions or pneumothorax. IMPRESSION: Vascular congestion without sarah pulmonary edema or consolidative airspace disease.
[2021-04-23 17:26] LABS: Albumin 3.1 g/dL (3.4-5.0); Bilirubin Direct 0.2 mg/dL (0-0.2); Bilirubin Total 0.6 mg/dL (0.2-1.0); Potassium 3.3 mmol/L (3.5-5.1); Protein, Total 7.4 g/dL (6.4-8.2); Troponin (Emerg Dept Use Only) 0.09 ng/mL (0.0-0.045)
[2021-04-23 17:29] LABS: Absolute Lymphocytes (CBC) 2.2 K/uL (0.7-4.9); Hematocrit 34.5 % (36.0-45.0); Lymphocytes % 25.4 % (15.3-44.8); MPV 8.8 fL (7.6-11.3); RBC Red Blood Cell Count 3.77 M/uL (3.86-4.86)
[2021-04-23 17:42] LABS: Protime INR 1.15
[2021-04-23] MEDS ORDERED: ONDANSETRON 4 MG/2 ML VIAL ONE (18:13)
[2021-04-23] MEDS ORDERED: MORPHINE 2 MG/ML SYR ONE ×2 (18:13→19:06)
--- NOTE | 2021-04-23 18:35 | EDPHYS ---
Physician Documentation [facility] Name: Nabila Jain Age: 75 yrs Sex: Female : 1945 Arrival Date: 04/23/2021 Time: 13:13 Bed 8 Private MD: ED Physician Ramses Posadas HPI: 04/23 18:20 This 75 yrs old Female presents to ER via EMS with complaints of Edema. iván 18:20 The patient presents with pain, swelling, tenderness. The complaints affect the right iván leg and left leg. Context: The problem was sustained at an unknown site. Onset: The symptoms/episode began/occurred 3 day(s) ago. Modifying factors: The symptoms are alleviated by elevating leg, the symptoms are aggravated by movement, weight bearing. Associated signs and symptoms: The patient has no apparent associated signs or symptoms. no cp, weight gain, lower ext edema. Severity of symptoms: At their worst the symptoms were mild moderate in the emergency department the symptoms are unchanged. Historical: - Allergies: 13:15 NKA; aa5 - PMHx: 13:15 cardiomegaly; Hypertension; Diabetes mellitus; aa5 - Immunization history:: Client reports having NOT received the Covid vaccine. Flu vaccine is not up to date. - Social history:: Smoking status: Patient denies any tobacco usage or history of. - Family history:: not pertinent. ROS: 18:20 Constitutional: Negative for fever, chills, and weight loss, Eyes: Negative for injury, iván pain, redness, and discharge, ENT: Negative for injury, pain, and discharge, Neck: Negative for injury, pain, and swelling, Cardiovascular: Negative for chest pain, palpitations, and edema, Respiratory: Negative for shortness of breath, cough, wheezing, and pleuritic chest pain, Abdomen/GI: Negative for abdominal pain, nausea, vomiting, diarrhea, and constipation, Back: Negative for injury and pain, : Negative for injury, bleeding, discharge, and swelling, Skin: Negative for injury, rash, and discoloration, Neuro: Negative for headache, weakness, numbness, tingling, and seizure, Psych: Negative for depression, anxiety, suicide ideation, homicidal ideation, and hallucinations, Allergy/Immunology: Negative for hives, rash, and allergies, Endocrine: Negative for neck swelling, polydipsia, polyuria, polyphagia, and marked weight changes, Hematologic/Lymphatic: Negative for swollen nodes, abnormal bleeding, and unusual bruising. 18:20 MS/extremity: Positive for decreased range of motion, pain, swelling, tenderness, of the . Exam: 18:20 Constitutional: This is a well developed, well nourished patient who is awake, alert, iván and in no acute distress. Head/Face: Normocephalic, atraumatic. Eyes: Pupils equal round and reactive to light, extra-ocular motions intact. Lids and lashes normal. Conjunctiva and sclera are non-icteric and not injected. Cornea within normal limits. Periorbital areas with no swelling, redness, or edema. ENT: Nares patent. No nasal discharge, no septal abnormalities noted. Tympanic membranes are normal and external auditory canals are clear. Oropharynx with no redness, swelling, or masses, exudates, or evidence of obstruction, uvula midline. Mucous membranes moist. Neck: Trachea midline, no thyromegaly or masses palpated, and no cervical lymphadenopathy. Supple, full range of motion without nuchal rigidity, or vertebral point tenderness. No Meningismus. Chest/axilla: Normal chest wall appearance and motion. Nontender with no deformity. No lesions are appreciated. Cardiovascular: Regular rate and rhythm with a normal S1 and S2. No gallops, murmurs, or rubs. Normal PMI, no JVD. No pulse deficits. Respiratory: Lungs have equal breath sounds bilaterally, clear to auscultation and percussion. No rales, rhonchi or wheezes noted. No increased work of breathing, no retractions or nasal flaring. Abdomen/GI: Soft, non-tender, with normal bowel sounds. No distension or tympany. No guarding or rebound. No evidence of tenderness throughout. Back: No spinal tenderness. No costovertebral tenderness. Full range of motion. Female : Normal external genitalia. Skin: Warm, dry with normal turgor. Normal color with no rashes, no lesions, and no evidence of cellulitis. Neuro: Awake and alert, GCS 15, oriented to person, place, time, and situation. Cranial nerves II-XII grossly intact. Motor strength 5/5 in all extremities. Sensory grossly intact. Cerebellar exam normal. Normal gait. Psych: Awake, alert, with orientation to person, place and time. Behavior, mood, and affect are within normal limits. 18:20 Musculoskeletal/extremity: Extremities: grossly normal except: decreased ROM, swelling, tenderness, ROM: full active range of motion, full passive range of motion, Circulation is intact in all extremities. Sensation intact. DVT Exam: negative Homans' sign noted on exam, no appreciated bluish discoloration, no erythema, no increased warmth, pain, swelling, tenderness. 18:26 ECG was reviewed by the Attending Physician. [facility] Vital Signs: 13:14 BP 168 / 61; Pulse 77; Resp 18 S; Temp 98.6(TE); Pulse Ox 94% on R/A; aa5 17:54 BP 171 / 104; Pulse 83; Resp 17; Pulse Ox 99% ; hb 18:18 BP 169 / 109; Pulse 83; Resp 18; Pulse Ox 99% on R/A; hb 18:56 BP 163 / 90; Pulse 84; Resp 24; Pulse Ox 94% on R/A; hb 19:50 BP 162 / 86; Pulse 90; Resp 20; Pulse Ox 99% on R/A; ea 21:30 BP 131 / 60; Pulse 90; Resp 20; Pulse Ox 97% on R/A; jb4 MDM: 16:16 Patient medically screened. [facility] 18:24 Differential diagnosis: contusion, tendonitis. Data reviewed: vital signs, nurses [facility] notes, lab test result(s), EKG, radiologic studies, plain films. Data interpreted: secured entrance monitor: rate is 83 beats/min, rhythm is regular. Test interpretation: by ED physician or midlevel provider: ECG, plain radiologic studies. Counseling: I had a detailed discussion with the patient and/or guardian regarding: the historical points, exam findings, and any diagnostic results supporting the discharge/admit diagnosis, lab results, radiology results, the need for further work-up and treatment in the hospital. 04/23 16:19 Order name: Basic Metabolic Panel [facility] 04/23 16:19 Order name: CBC with Diff [facility] 04/23 16:19 Order name: LFT's; Complete Time: 18:09 [facility] 04/23 16:19 Order name: Magnesium; Complete Time: 18:09 [facility] 04/23 16:19 Order name: NT PRO-BNP; Complete Time: 18:09 [facility] 04/23 16:19 Order name: PT-INR; Complete Time: 18:09 [facility] 04/23 16:19 Order name: Troponin (emerg Dept Use Only); Complete Time: 18:06 [facility] 04/23 16:19 Order name: Lipase; Complete Time: 18:09 [facility] 04/23 16:19 Order name: Urine Culture [facility] 04/23 16:20 Order name: Basic Metabolic Panel; Complete Time: 18:09 [facility] 04/23 16:20 Order name: CBC with Automated Diff; Complete Time: 18:09 [facility] 04/23 18:26 Order name: COVID-19 : Document "Date of Symptom Onset" if Symptomatic. em1 04/23 19:13 Order name: Urine Dipstick-Ancillary [facility] 04/23 20:54 Order name: SARS-COV-2 RT PCR [facility] 04/23 16:19 Order name: XRAY Chest (1 view); Complete Time: 18:09 [facility] 04/23 16:19 Order name: EKG; Complete Time: 16:20 [facility] 04/23 16:19 Order name: Cardiac monitoring; Complete Time: 16:41 [facility] 04/23 16:19 Order name: EKG - Nurse/Tech; Complete Time: 16:41 [facility] 04/23 16:19 Order name: IV Saline Lock; Complete Time: 16:41 [facility] 04/23 16:19 Order name: Labs collected and sent; Complete Time: 16:41 [facility] 04/23 17:49 Order name: US Extremity Venous W Compression Fritz 04/23 17:49 Order name: Knee Right 3 View XRAY 04/23 16:19 Order name: O2 Per Protocol; Complete Time: 16:41 [facility] 04/23 16:19 Order name: O2 Sat Monitoring; Complete Time: 16:41 [facility] 04/23 18:50 Order name: Peters; Complete Time: 19:09 hb EC:26 Rate is 82 beats/min. Rhythm is regular. QRS Sterling is Normal. OH interval is normal. QRS iván interval is normal. QT interval is normal. No Q waves. T waves are Normal. No ST changes noted. Clinical impression: NSR w/ Non-specific ST/T Changes and No evidence of ischemia. Interpreted by me. Reviewed by me. Administered Medications: 17:54 Drug: morphine 2 mg Route: IVP; Site: right antecubital; hb 17:54 Drug: Zofran (Ondansetron) 4 mg Route: IVP; Site: right antecubital; hb 18:48 Follow up: Response: No adverse reaction hb 18:53 Drug: morphine 2 mg Route: IVP; Site: right antecubital; hb 20:00 Follow up: Response: No adverse reaction ea 18:53 Drug: Aspirin Chewable Tablet 324 mg Route: PO; hb 23:12 Follow up: Response: No adverse reaction ea 18:53 Drug: Potassium Effervescent Tablet 50 mEq Route: PO; hb 23:12 Follow up: Response: No adverse reaction ea 18:53 Drug: Lasix (furosemide) 20 mg Route: IVP; Site: right antecubital; hb 23:11 Follow up: Response: No adverse reaction ea 18:53 Drug: Lovenox (enoxaparin) 100 mg Route: Sub-Q; Site: abdomen; hb 23:11 Follow up: Response: No adverse reaction ea 19:09 Drug: Lasix (furosemide) 40 mg Route: IVP; Site: right antecubital; hb 23:11 Follow up: Response: No adverse reaction ea 19:34 Drug: Rocephin (cefTRIAXone) 1 grams Route: IV; Rate: per protocol; Site: right ea antecubital; 21:28 Follow up: Response: No adverse reaction; IV Status: Completed infusion ea Disposition Summary: 04/23/21 18:34 Hospitalization Ordered Hospitalization Status: Observation iván Provider: Carlos A Donnelly cha Location: Telemetry/MedSurg (observation) iván Condition: Stable iván Problem: new iván Symptoms: have improved iván Bed/Room Type: Standard iván Room Assignment: 207(04/23/21 21:36) tl1 Diagnosis - Systolic (congestive) heart failure iván - Type 2 diabetes mellitus with hyperglycemia iván - Hypokalemia iván - Essential (primary) hypertension iván - Obesity, unspecified iván - Edema, unspecified iván - UTI/ Urinary tract infection, site not specified iván Forms: - Medication Reconciliation Form iván - SBAR form iván Signatures: Dispatcher [employer] Ramses Lopes MD MD cha Williams, Irene, RN RN Ayde eBck RN RN aa5 Maik Campbell, FUR OPERATOR-C FUR OPERATOR-Cla1 Eliane Wagoner RN RN tl1 Annie Farfan RN RN Shi, Cristiana, RN RN ea Corrections: (The following items were deleted from the chart) 21:36 18:34 iván tl1
--- NOTE | 2021-04-23 18:35 | ER ---
Nurse's Notes [facility] Name: Nabila Jain Age: 75 yrs Sex: Female : 1945 Arrival Date: 04/23/2021 Time: 13:13 Bed 8 Private MD: Diagnosis: Systolic (congestive) heart failure;Type 2 diabetes mellitus with hyperglycemia;Hypokalemia;Essential (primary) hypertension;Obesity, unspecified;Edema, unspecified;UTI/ Urinary tract infection, site not specified Presentation: 04/23 13:14 Chief complaint: EMS states: edema X 2 months, worse over past two weeks. Coronavirus iw screen: At this time, the client does not indicate any symptoms associated with coronavirus-19. Ebola Screen: Patient negative for fever greater than or equal to 101.5 degrees Fahrenheit, and additional compatible Ebola Virus Disease symptoms Patient denies exposure to infectious person. Patient denies travel to an Ebola-affected area in the 21 days before illness onset. No symptoms or risks identified at this time. 13:14 Method Of Arrival: EMS: [facility] iw 13:14 Acuity: CHARLEEN 3 iw 13:14 Initial Sepsis Screen: Does the patient meet any 2 criteria? No. Patient's initial aa5 sepsis screen is negative. Does the patient have a suspected source of infection? No. Patient's initial sepsis screen is negative. Risk Assessment: Do you want to hurt yourself or someone else? Patient reports no desire to harm self or others. Onset of symptoms was 2020. Historical: - Allergies: 13:15 NKA; aa5 - PMHx: 13:15 cardiomegaly; Hypertension; Diabetes mellitus; aa5 - Immunization history:: Client reports having NOT received the Covid vaccine. Flu vaccine is not up to date. - Social history:: Smoking status: Patient denies any tobacco usage or history of. - Family history:: not pertinent. Screenin:42 Abuse screen: Denies threats or abuse. Denies injuries from another. Nutritional hb screening: No deficits noted. Tuberculosis screening: No symptoms or risk factors identified. Fall Risk None identified. Assessment: 16:42 General: Appears in no apparent distress. uncomfortable, Behavior is calm, cooperative. hb Pain: Denies pain. Neuro: Level of Consciousness is awake, alert, obeys commands, Oriented to person, place, time, situation. Cardiovascular: Patient's skin is warm and dry. Edema is 4+ to BLEs. Respiratory: Respiratory effort is even, unlabored, Respiratory pattern is regular, symmetrical. GI: No signs and/or symptoms were reported involving the gastrointestinal system. : No signs and/or symptoms were reported regarding the genitourinary system. EENT: No signs and/or symptoms were reported regarding the EENT system. Derm: Skin is pink, warm \T\ dry. Musculoskeletal: No signs and/or symptoms reported regarding the musculoskeletal system. 17:47 Reassessment: Patient appears in no apparent distress at this time. Patient and/or hb family updated on plan of care and expected duration. Pain level reassessed. Patient is alert, oriented x 3, equal unlabored respirations, skin warm/dry/pink. 18:18 Reassessment: Patient appears in no apparent distress at this time. Patient and/or hb family updated on plan of care and expected duration. Pain level reassessed. Patient is alert, oriented x 3, equal unlabored respirations, skin warm/dry/pink. 18:38 Reassessment: Maik TRAVELERS' AID WORKER at bedside. hb 19:50 General: Appears in no apparent distress. Behavior is calm, cooperative. Pain: Denies ea pain. Neuro: Level of Consciousness is awake, alert, obeys commands, Oriented to person, place, time, situation. Cardiovascular: Patient's skin is warm and dry. Respiratory: Respiratory effort is even, unlabored, Respiratory pattern is regular, symmetrical. Derm: Skin is pink, warm \T\ dry. 21:15 Reassessment: Patient appears in no apparent distress at this time. Patient and/or jb4 family updated on plan of care and expected duration. Pain level reassessed. Patient is alert, oriented x 3, equal unlabored respirations, skin warm/dry/pink. 23:10 Reassessment: Patient and/or family updated on plan of care and expected duration. Pain ea level reassessed. Patient is alert, oriented x 3, equal unlabored respirations, skin warm/dry/pink. Pt admitted to second floor, pt left ED via stretcher per audiology technician, pt tolerating well. Vital Signs: 13:14 BP 168 / 61; Pulse 77; Resp 18 S; Temp 98.6(TE); Pulse Ox 94% on R/A; aa5 17:54 BP 171 / 104; Pulse 83; Resp 17; Pulse Ox 99% ; hb 18:18 BP 169 / 109; Pulse 83; Resp 18; Pulse Ox 99% on R/A; hb 18:56 BP 163 / 90; Pulse 84; Resp 24; Pulse Ox 94% on R/A; hb 19:50 BP 162 / 86; Pulse 90; Resp 20; Pulse Ox 99% on R/A; ea 21:30 BP 131 / 60; Pulse 90; Resp 20; Pulse Ox 97% on R/A; jb4 ED Course: 13:13 Patient arrived in ED. iw 13:14 Triage completed. iw 13:14 Arm band placed on. aa5 16:16 Ramses Posadas MD is Attending Physician. iván 16:29 Gentry Roman, RN is Primary Nurse. bp 16:32 Inserted saline lock: 20 gauge in right antecubital area, using aseptic technique. hb Blood collected. 16:33 XRAY Chest (1 view) In Process Unspecified. EDMS 16:42 Annie Farfan, RN is Primary Nurse. hb 16:42 Patient has correct armband on for positive identification. Bed in low position. Call hb light in reach. alarm security or surveillance monitor on. Pulse ox on. NIBP on. 18:16 Knee Right 3 View XRAY In Process Unspecified. EDMS 18:31 US Extremity Venous W Compression Fritz In Process Unspecified. EDMS 18:31 Fabiano Sterling MD is Hospitalizing Provider. iván 18:34 Carlos A Donnelly is Hospitalizing Provider. iván 19:09 Peters cath inserted, using sterile technique, 16 Fr., by az, balloon inflated, to hb gravity drainage, urine specimen collected. 19:51 No provider procedures requiring assistance completed. Patient admitted, IV remains in ea place. Administered Medications: 17:54 Drug: morphine 2 mg Route: IVP; Site: right antecubital; hb 17:54 Drug: Zofran (Ondansetron) 4 mg Route: IVP; Site: right antecubital; hb 18:48 Follow up: Response: No adverse reaction hb 18:53 Drug: morphine 2 mg Route: IVP; Site: right antecubital; hb 20:00 Follow up: Response: No adverse reaction ea 18:53 Drug: Aspirin Chewable Tablet 324 mg Route: PO; hb 23:12 Follow up: Response: No adverse reaction ea 18:53 Drug: Potassium Effervescent Tablet 50 mEq Route: PO; hb 23:12 Follow up: Response: No adverse reaction ea 18:53 Drug: Lasix (furosemide) 20 mg Route: IVP; Site: right antecubital; hb 23:11 Follow up: Response: No adverse reaction ea 18:53 Drug: Lovenox (enoxaparin) 100 mg Route: Sub-Q; Site: abdomen; hb 23:11 Follow up: Response: No adverse reaction ea 19:09 Drug: Lasix (furosemide) 40 mg Route: IVP; Site: right antecubital; hb 23:11 Follow up: Response: No adverse reaction ea 19:34 Drug: Rocephin (cefTRIAXone) 1 grams Route: IV; Rate: per protocol; Site: right ea antecubital; 21:28 Follow up: Response: No adverse reaction; IV Status: Completed infusion ea Outcome: 18:34 Decision to Hospitalize by Provider. iván 19:51 Instructed on the need for admit. ea 23:09 Admitted to Med/surg accompanied by irasema, via stretcher, with chart, Report called to ea Receiving nurse on second floor 23:09 Condition: stable 23:11 Patient left the ED. ea Signatures: Dispatcher [employer] EDMS Ramses Posadas MD MD cha Williams, Irene, RN Ayde Zuñiga RN RN aa5 Annie Farfan RN RN hb Bryson, James, RN RN jb4 Cristiana Shi RN RN ea Peltier, Brian RN RN bp
--- NOTE | 2021-04-23 18:42 | RAD REPORT ---
EXAM DESCRIPTION: RAD - Knee Right 3 View - 04/23/2021 6:16 pm CLINICAL HISTORY: PAIN COMPARISON: Knee Right 2 View dated 03/14/2017 FINDINGS: Moderate to advanced medial compartment joint space narrowing and sclerosis. Spurring is n oted in both compartments. At least moderate if not severe degenerative changes are present at patell ofemoral compartment. Small knee effusion which is likely secondary to underlying degenerative change s. . IMPRESSION: No right knee fracture identified.
--- NOTE | 2021-04-23 18:42 | RAD REPORT ---
EXAM DESCRIPTION: US - Extrem Venous W Compress Fritz - 04/23/2021 6:31 pm CLINICAL HISTORY: Pain COMPARISON: None. TECHNIQUE: Real-time sonographic evaluation of the bilateral lower extremity deep venous systems was performed. FINDINGS: Normal compressibility, flow augmentation, phasic flow and spontaneous flow is identified in both the left and right lower extremity deep venous systems. No intraluminal filling defects seen. IMPRESSION: No DVT in either lower extremity.
[2021-04-23] MEDS ORDERED: ASPIRIN 81 MG CHEWABLE TABLET ONE (19:06)
[2021-04-23] MEDS ORDERED: FUROSEMIDE 20 MG/ 2ML VIAL ONE (19:06)
[2021-04-23] MEDS ORDERED: ENOXAPARIN 100 MG/ML SYR SQ ONE (19:07)
[2021-04-23] MEDS ORDERED: POTASSIUM 25 MEQ EFFERV TAB ONE (19:07)
[2021-04-23 19:13] LABS: Urine Blood Trace-intact (Negative); Urine Glucose Negative (Negative); Urine Protein Negative (Negative); Urine Specific Gravity 1.025 (1.005-1.030); Urine pH 5.5 (5.0-7.0)
[2021-04-23] MEDS ORDERED: FUROSEMIDE 40 MG/4 ML VIAL ONE (19:17)
--- NOTE | 2021-04-23 19:34 | P.HP ---
Certification for Inpatient Patient admitted to: Observation With expected LOS: <2 Midnights Patient will require the following post-hospital care: None Practitioner: I am a practitioner with admitting privileges, knowledge of patient current condition, hospital course, and medical plan of care. Services: Services provided to patient in accordance with Admission requirements found in Title 42 Section 412.3 of the Code of Federal Regulations Patient History Date of Service: 04/23/21 Primary Care Provider: Dr. Ramirez Reason for admission: CHF exacerbation History of Present Illness: 75-year-old female with history of CHFunknown EF, diabetes mellitus type 2, hypertension presents emergency department for lower extremity edema, shortness of breath. Daughter at bedside reports patient with increasing swelling over the course of the last couple of weeks, currently patient with 3+ pitting edema bilateral lower extremities and shortness of breath on exam. Patient evaluated in the emergency department, labs significant for potassium 3.3 GFR 74 BNP 204 troponin 0 0.09 urinalysis with nitrate positive. Patient without previous echocardiogram was scheduled for 1 but unable to make appointment, currently taking Lasix 20 mg p.o. daily at home. ED provider wishes to admit for CHF exacerbation. Allergies No Known Drug Allergies Allergy (Verified 04/01/15 22:27) Unknown No Known Allergie Allergy (Uncoded 03/14/17 21:53) Unknown Home Medications: Amlodipine [Norvasc*] 10 mg PO BID 04/01/15 Clindamycin HCl 300 mg PO Q6HR 04/01/15 lisinopriL [Prinivil*] 20 mg PO DAILY 04/02/15 predniSONE [Prednisone*] 100 mg PO DAILY #30 tab 04/05/15 - Past Medical/Surgical History Diabetic: No -: HTN -: Diabetes mellitus type 2 -: CHFunknown EF -: -: GALL STONES REMOVED Psychosocial/ Personal History: Patient lives at home with her family - Family History Father Notes: UNKNOWN- PATIENT WAS T[age] YEARS OLD WHEN FATHER . Mother Notes: UNKNOWN- PATIENT WAS 1 WHEN MOTHER . - Social History Alcohol use: No CD- Drugs: No Caffeine use: Yes Place of Residence: Home Review of Systems 10-point ROS is otherwise unremarkable Respiratory: Shortness of Breath Cardiovascular: Edema, As per HPI Physical Examination - Physical Exam General: Alert, In no apparent distress, Oriented x3 HEENT: Atraumatic, PERRLA, Mucous membr. moist/pink Neck: Supple, 2+ carotid pulse no bruit, No LAD Respiratory: Normal air movement, Crackles/rales Cardiovascular: Regular rate/rhythm, Normal S1 S2, Edema (3+ pitting edema bilateral lower extremity) Gastrointestinal: Normal bowel sounds, No tenderness Musculoskeletal: No tenderness Integumentary: No rashes Neurological: Normal speech, Normal strength at 5/5 x4 extr, Normal tone, Normal affect - Studies Laboratory Data (last 24 hrs) 04/23/21 17:10: PT 13.2 H, INR 1.15 04/23/21 17:10: WBC 8.50, Hgb 11.5 L, Hct 34.5 L, Plt Count 247 04/23/21 16:35: Sodium 142, Potassium 3.3 L, BUN 16, Creatinine 0.76, Glucose 119 H, Magnesium 2.0, Total Bilirubin 0.6, AST 17, ALT 22, Alkaline Phosphatase 64, Lipase 36 L Assessment and Plan - Plan Assessment: Acute on chronic CHFunknown EF Hypokalemia Diabetes mellitus type 2 Hypertension Plan: Acute on chronic CHFunknown EF: 1500 cc/day fluid restriction, daily weights. IV Lasix, echocardiogram ordered. Cardiology consulted. Peters catheter in place as patient is unable to ambulate to restroom/needs accurate intake/output. Appreciate further input from cardiology. Hypokalemia: Potassium protocol in place. Diabetes mellitus type 2: AC at bedtime Accu-Chek, sliding scale insulin therapy. Hypertension: Continue medications, adjust as necessary. DVT PPX: Lovenox Code status: Full Discharge Plan: Home Plan to discharge in: 24 Hours - Advance Directives Does patient have a Living Will: No Does patient have a Durable POA for Healthcare: No - Code Status/Comfort Care Code Status Assessed: Yes (Full code) Critical Care: No Time Spent Managing Pts Care (In Minutes): 55
[2021-04-23] MEDS ORDERED: CEFTRIAXONE/SWI 1gm 1 GM/10 ML SYR ONE (19:51)
[2021-04-23] MEDS ORDERED: ONDANSETRON 4 MG/2 ML VIAL IV PRN (22:31)
[2021-04-23] MEDS: INSULIN -REGULAR HUMAN 50 UNIT/0.5 ML ML SQ SCH (22:31)
[2021-04-23 23:34] VITALS: BMI 54.6
[2021-04-24 06:16] LABS: Absolute Lymphocytes (CBC) 2.3 K/uL (0.7-4.9); Basophils % 0.9 % (0-1.3); Hematocrit 32.5 % (36.0-45.0); Lymphocytes % 27.5 % (15.3-44.8); MPV 8.6 fL (7.6-11.3); RBC Red Blood Cell Count 3.55 M/uL (3.86-4.86)
[2021-04-24 06:39] LABS: Albumin 2.8 g/dL (3.4-5.0); Bilirubin Total 0.4 mg/dL (0.2-1.0); Potassium 3.3 mmol/L (3.5-5.1); Protein, Total 6.7 g/dL (6.4-8.2); Thyroid Stimulating Hormone 1.51 uIU/mL (0.360-3.740); Troponin I 0.09 ng/mL (0.0-0.045)
[2021-04-24] MEDS: INSULIN -REGULAR HUMAN 50 UNIT/0.5 ML ML SQ SCH ×4 (07:30→21:00)
[2021-04-24] MEDS ORDERED: POTASSIUM 25 MEQ EFFERV TAB PO ONE (09:00)
[2021-04-24] MEDS ORDERED: PNEUMOCOCCAL VACCINE 0.5 ML IMVAC ONE (09:00)
[2021-04-24] MEDS ORDERED: FUROSEMIDE 40 MG/4 ML VIAL IV SCH (09:00)
[2021-04-24] MEDS: ENOXAPARIN 40 MG/0.4 ML SQ SCH (09:53)
[2021-04-24] MEDS: ACETAMINOPHEN 500 MG TAB PO PRN ×2 (11:43→23:57)
--- NOTE | 2021-04-24 12:14 | P.PN ---
Subjective Date of Service: 04/24/21 Primary Care Provider: Dr. Ramirez Chief Complaint: CHF exacerbation Patient reports feeling better but not back to baseline. She is still complaining of shortness of breath. Currently on 3 L oxygen by nasal cannula. Physical Examination - Vital Signs Temperature: 100.4 F Blood Pressure: 127/62 Pulse: 78 Respirations: 18 Pulse Ox (%): 97 - Physical Exam General: In no apparent distress, Oriented x3, Obese HEENT: Mucous membr. moist/pink, Other (Oxygen by nasal cannula) Neck: JVD not distended Respiratory: Normal air movement, Crackles/rales (Bibasilar rales), Other (No wheezes) Cardiovascular: Regular rate/rhythm, Normal S1 S2, Edema (Bilateral lower extremities) Gastrointestinal: Normal bowel sounds, Soft and benign, Non-distended, No tenderness Musculoskeletal: No swelling Integumentary: No rashes, No erythema Neurological: Normal speech, Normal strength at 5/5 x4 extr - Studies Laboratory Data (last 24 hrs) 04/23/21 17:10: PT 13.2 H, INR 1.15 04/23/21 17:10: WBC 8.50, Hgb 11.5 L, Hct 34.5 L, Plt Count 247 04/23/21 16:35: Sodium 142, Potassium 3.3 L, BUN 16, Creatinine 0.76, Glucose 119 H, Magnesium 2.0, Total Bilirubin 0.6, AST 17, ALT 22, Alkaline Phosphatase 64, Lipase 36 L Assessment And Plan - Current Problems (Diagnosis) (1) Acute on chronic diastolic (congestive) heart failure Current Visit: Yes Status: Acute (2) Acute respiratory failure with hypoxia Current Visit: Yes Status: Acute (3) Diabetes mellitus type 2 in obese Current Visit: Yes Status: Acute (4) Obesity due to excess calories Current Visit: Yes Status: Acute (5) UTI (urinary tract infection) Current Visit: Yes Status: Acute - Plan Continue IV Lasix. Monitor renal function on the Lasix. Restrict fluid to 1500 mL per day. Echocardiogram is pending. Continue Coreg. Troponin mildly elevated but trended flat. Troponin elevation likely secondary to demand ischemia. No ACS Wean oxygen as tolerated. Start IV Rocephin for UTI. Insulin sliding scale for glucose management. Holding Metformin. Monitor and optimize electrolytes Increase activity as tolerated.
--- NOTE | 2021-04-24 14:06 | CON ---
Date of Consultation: 04/24/2021 Reason For Consultation: CHF. History Of Present Illness: A 75-year-old female, history of diabetes, hypertension, CHF, who presen lavon with worsening lower extremity edema, shortness of breath and orthopnea. Denies having any chest pain. Evaluation showed significant fluid retention status. The patient is currently taking 20 mg Lasix daily by mouth. Since admission, she has felt better. She felt better with IV diuresis. Past Medical History: As outlined above in HPI. Medications: Refer to reconciliation sheet for detailed list. Allergies: NO KNOWN DRUG ALLERGIES. Past Surgical History: . Family History: No premature coronary artery disease or cancer. Social History: Does not smoke or drink. Does not use any drugs. Review of Systems: All systems reviewed and they were negative except mentioned in the HPI. Physical Examination: Vital Signs: Temperature is 99.9, pulse 78, breathing at 18, blood pressure 127/62, saturating 97%. General: Pleasant elderly female, in no apparent distress. Head and Neck: Pupils are equal, reactive to light. Intact eye movements. No JVD. No cervical lym phadenopathy. Neck: Supple. Thyroid is not enlarged. Lungs: Clear to auscultation bilaterally. No rhonchi, rales, or crackles. No accessory muscle use. Heart: Regular rate and rhythm. No extra sounds. Abdomen: Soft, nontender. Bowel sounds positive. No organomegaly. No tenderness. No rigidity or rebound. Extremities: 3+ pitting edema. No clubbing, cyanosis. Intact pulses. Skin: No rash. Neurologic: Alert, awake, oriented x3. No acute focal deficits appreciated. Investigations: Creatinine is 1.06 and BUN is 18. Glucose 120. Troponin 0.07 and then 0.09. Chest x-ray, pulmonary edema. Assessment And Recommendation: 1.Acute on chronic congestive heart failure exacerbation. EF is not known. Obtain echocardiogram a nd change Lasix to 40 mg IV q.8 hours. Monitor BUN, creatinine, electrolytes, and please provide lisbet p venous thrombosis prophylaxis. 2.Troponin elevation, borderline, likely due to demand and congestive heart failure exacerbation. S he denies having any chest pain. However, I recommend that the patient will be appropriately diurese d over the weekend intravenously for symptoms relief and we will evaluate the echocardiogram today an d make further plans. The patient will need ischemia evaluation, which will be done once the heart f ailure symptoms are under better control. Thank you for the consult. /YAMEL Voice ID: [id number] Report ID: [id number]
[2021-04-24] MEDS: CEFTRIAXONE/SWI 1gm 1 GM/10 ML SYR IV SCH (16:43)
[2021-04-24] MEDS: FUROSEMIDE 40 MG/4 ML VIAL IV SCH (16:43)
[2021-04-25] MEDS: FUROSEMIDE 40 MG/4 ML VIAL IV SCH ×3 (02:16→16:29)
[2021-04-25] MEDS: TRAMADOL HCL 50 MG TAB PO PRN ×2 (03:22→09:59)
[2021-04-25 05:47] LABS: Absolute Lymphocytes (CBC) 2.9 K/uL (0.7-4.9); Basophils % 0.5 % (0-1.3); Hematocrit 30.4 % (36.0-45.0); MPV 8.8 fL (7.6-11.3); RBC Red Blood Cell Count 3.33 M/uL (3.86-4.86)
[2021-04-25 06:07] LABS: Albumin 2.7 g/dL (3.4-5.0); Bilirubin Total 0.5 mg/dL (0.2-1.0); Magnesium 1.9 mg/dL (1.8-2.4); Potassium 3.1 mmol/L (3.5-5.1); Protein, Total 6.8 g/dL (6.4-8.2)
[2021-04-25] MEDS: INSULIN -REGULAR HUMAN 50 UNIT/0.5 ML ML SQ SCH ×4 (07:30→21:00)
[2021-04-25] MEDS ORDERED: POTASSIUM CL SA 10 MEQ TAB PO ONE (09:00)
[2021-04-25] MEDS: POTASSIUM CL SA 10 MEQ TAB PO SCH (09:00)
[2021-04-25] MEDS: ENOXAPARIN 40 MG/0.4 ML SQ SCH (09:58)
[2021-04-25] MEDS: carvediloL 12.5 MG TAB PO SCH (09:59)
--- NOTE | 2021-04-25 11:36 | RAD REPORT ---
EXAM DESCRIPTION: RAD - Shoulder Left 2 View - 04/25/2021 11:01 am CLINICAL HISTORY: Shoulder pain COMPARISON: No comparisons FINDINGS: No left shoulder fracture dislocation. Moderate left AC joint degenerative changes. High-r iding humeral head may indicate rotator cuff pathology. IMPRESSION: No left shoulder fracture.
--- NOTE | 2021-04-25 13:11 | P.PN ---
Subjective Date of Service: 04/25/21 Primary Care Provider: Dr. Ramirez Chief Complaint: CHF exacerbation Patient denies She is still complaining of shortness of breath. Currently on 3 L oxygen by nasal cannula. Patient desaturate to 85% on room air. Not much urine output this morning. Physical Examination - Vital Signs Temperature: 99.5 F Blood Pressure: 128/67 Pulse: 82 Respirations: 20 Pulse Ox (%): 95 - Physical Exam General: In no apparent distress, Obese HEENT: Mucous membr. moist/pink Neck: JVD not distended Respiratory: Diminished, Other (Mild bibasilar crackles) Cardiovascular: Normal S1 S2, No murmurs, Edema (2+ bilateral lower extremity edema) Gastrointestinal: Normal bowel sounds, Soft and benign, Non-distended Musculoskeletal: No tenderness Integumentary: No rashes Neurological: Normal strength at 5/5 x4 extr Assessment And Plan - Current Problems (Diagnosis) (1) Acute on chronic diastolic (congestive) heart failure Current Visit: Yes Status: Acute (2) Acute respiratory failure with hypoxia Current Visit: Yes Status: Acute (3) Diabetes mellitus type 2 in obese Current Visit: Yes Status: Acute (4) Obesity due to excess calories Current Visit: Yes Status: Acute (5) UTI (urinary tract infection) Current Visit: Yes Status: Acute - Plan Increased IV Lasix dose. Repeat chest x-ray Monitor renal function on the Lasix. Restrict fluid to 1500 mL per day. Echocardiogram is pending. Continue Coreg. Troponin mildly elevated but trended flat. Troponin elevation likely secondary to demand ischemia. No ACS Wean oxygen as tolerated. Continue IV Rocephin for UTI. Urine culture grew mixed desirae. Insulin sliding scale for glucose management. Holding Metformin. Monitor and optimize electrolytes Increase activity as tolerated.
[2021-04-25 13:31] LABS: Arterial Blood Carboxyhemoglob 1.7 % (0-1.5); Blood Gas Oxyhemoglobin 79.1 % (94-97); Blood O2 Saturation 81.5 % (92-98.5)
--- NOTE | 2021-04-25 13:37 | RAD REPORT ---
EXAM DESCRIPTION: RAD - Chest Single View - 04/25/2021 12:59 pm CLINICAL HISTORY: Pulmonary edema. COMPARISON: Chest Single View dated 04/23/2021; Chest Single View dated 03/04/2021; CHEST SINGLE VIEW d ated 09/18/2015; CHEST PA AND LAT 2 VIEW dated 08/18/2012 FINDINGS: Decreased lung volumes. Cardiomegaly. Diffuse prominence of the pulmonary interstitium.No acute osseous abnormality. No significant pleural effusions or pneumothorax. IMPRESSION: Decreased lung volumes with vascular congestion, possibly interstitial edema as well. No consolidative airspace disease.
[2021-04-25] MEDS: CEFTRIAXONE/SWI 1gm 1 GM/10 ML SYR IV SCH (16:30)
[2021-04-26] MEDS: FUROSEMIDE 40 MG/4 ML VIAL IV SCH ×3 (00:41→16:14)
[2021-04-26] MEDS ORDERED: ALBUTEROL 2.5 MG/3 ML NEB SOL NEB ONE (01:34)
[2021-04-26] MEDS ORDERED: IPRATROPIUM BROM 0.5MG/2.5ML NEB ONE (01:34)
[2021-04-26] MEDS: TRAMADOL HCL 50 MG TAB PO PRN ×2 (03:04→11:02)
[2021-04-26 06:12] LABS: Absolute Lymphocytes (CBC) 2.1 K/uL (0.7-4.9); Basophils % 0.7 % (0-1.3); Hematocrit 30.8 % (36.0-45.0); Lymphocytes % 23.2 % (15.3-44.8); MPV 8.8 fL (7.6-11.3); RBC Red Blood Cell Count 3.36 M/uL (3.86-4.86)
[2021-04-26 06:30] LABS: Albumin 2.7 g/dL (3.4-5.0); Bilirubin Total 0.5 mg/dL (0.2-1.0); Magnesium 1.9 mg/dL (1.8-2.4); Potassium 3.4 mmol/L (3.5-5.1); Protein, Total 6.9 g/dL (6.4-8.2)
[2021-04-26] MEDS: INSULIN -REGULAR HUMAN 50 UNIT/0.5 ML ML SQ SCH ×4 (07:30→20:35)
[2021-04-26] MEDS: POTASSIUM CL SA 10 MEQ TAB PO SCH (09:00)
[2021-04-26] MEDS: ENOXAPARIN 40 MG/0.4 ML SQ SCH (09:00)
[2021-04-26] MEDS ORDERED: POTASSIUM CL SA 10 MEQ TAB PO ONE (09:00)
[2021-04-26] MEDS: carvediloL 12.5 MG TAB PO SCH (09:25)
--- NOTE | 2021-04-26 14:04 | P.PN ---
Subjective Date of Service: 04/26/21 Primary Care Provider: Dr. Ramirez Chief Complaint: CHF exacerbation Patient reports improvement in his shortness of breath. Oxygen requirement has decreased from 4 L to 2 L. Lower extremity edema is improving. Physical Examination - Vital Signs Temperature: 99.3 F Blood Pressure: 124/56 Pulse: 81 Respirations: 21 Pulse Ox (%): 91 - Physical Exam General: In no apparent distress, Oriented x3, Obese HEENT: Mucous membr. moist/pink Neck: JVD not distended Respiratory: Diminished, Other (Bibasilar crackles) Cardiovascular: Regular rate/rhythm, Normal S1 S2, Edema (2+ bilateral lower extremity edema) Gastrointestinal: Soft and benign, Non-distended Musculoskeletal: Swelling Integumentary: No erythema Neurological: Normal strength at 5/5 x4 extr - Studies Microbiology Data (last 24 hrs): 04/23/21 19:10 Clean Catch Urine [place] Count - Final >100,000 CFU/ML. 04/23/21 19:10 Clean Catch Urine - Final Escherichia Coli Assessment And Plan - Current Problems (Diagnosis) (1) Acute on chronic diastolic (congestive) heart failure Current Visit: Yes Status: Acute (2) Acute respiratory failure with hypoxia Current Visit: Yes Status: Acute (3) Diabetes mellitus type 2 in obese Current Visit: Yes Status: Acute (4) Obesity due to excess calories Current Visit: Yes Status: Acute (5) UTI (urinary tract infection) Current Visit: Yes Status: Acute - Plan Continue IV Lasix for 1 more day. Monitor renal function on the Lasix. Fluid restriction Echocardiogram is pending. Continue Coreg. Troponin mildly elevated but trended flat. No ACS Wean oxygen as tolerated. Continue IV Rocephin for UTI. Urine culture grew mixed desirae. Patient to complete 3 days of treatment. Insulin sliding scale for glucose management. Metformin on hold. Monitor and optimize electrolytes Increase activity as tolerated. PT evaluation.
[2021-04-26] MEDS: CEFTRIAXONE/SWI 1gm 1 GM/10 ML SYR IV SCH (16:14)
--- NOTE | 2021-04-26 17:56 | PN ---
Date of Progress Note: 04/26/2021 Subjective: Seen by bedside. She seems to be doing better. Breathing is improved and significant i mprovement in swelling. No chest pain. Mild orthopnea. Still present. Review of Systems: All other systems reviewed were negative. Physical Examination: Vital Signs: Temperature is 99.3, pulse 81, breathing at 21, blood pressure 124/56, saturating 92% o n oxygen. General: Pleasant elderly female, in no distress. Head and Neck: Pupils are equal, reactive to light. Intact eye movements. No JVD. No cervical lym phadenopathy. Neck: Supple. Thyroid is not enlarged. Lungs: Decreased breathing sounds bilaterally. No rhonchi, rales, or crackles. No accessory muscle use. Heart: Irregular. No extra sounds. Abdomen: Soft, nontender. Bowel sounds positive. No organomegaly. No masses or hernia. No rigidi ty or rebound. Extremities: No clubbing or cyanosis. Intact pulses. Skin: No rash noted. Neurologic: Alert, awake, oriented x3. No acute focal deficits appreciated. Lymph Nodes: No cervical or axillary lymphadenopathy. Investigations: BUN is 23, creatinine 1.1. Assessment And Recommendations: Acute on chronic congestive heart failure exacerbation. Echo was do ne and ejection fraction is normal. The patient is improving. Continue diuresis and plan for a Monica scan nuclear stress test if it is feasible to be done tomorrow, otherwise can be arranged for as an o utpatient. I believe the patient will benefit from 1 more day of IV diuretics and then switch to ora l by tomorrow. Thank you for the consult. /YAMEL Voice ID: [id number] Report ID: [id number]
[2021-04-27] MEDS: FUROSEMIDE 40 MG/4 ML VIAL IV SCH ×3 (01:08→17:33)
[2021-04-27 05:56] LABS: Basophils % 0.7 % (0-1.3); Hematocrit 32.1 % (36.0-45.0); Lymphocytes % 25.5 % (15.3-44.8); MPV 9.1 fL (7.6-11.3); RBC Red Blood Cell Count 3.52 M/uL (3.86-4.86)
[2021-04-27 06:17] LABS: Magnesium 2.2 mg/dL (1.8-2.4); Potassium 3.4 mmol/L (3.5-5.1)
[2021-04-27] MEDS: INSULIN -REGULAR HUMAN 50 UNIT/0.5 ML ML SQ SCH ×4 (07:30→21:00)
[2021-04-27] MEDS: POTASSIUM CL SA 10 MEQ TAB PO SCH (08:42)
[2021-04-27] MEDS: carvediloL 12.5 MG TAB PO SCH (08:42)
[2021-04-27] MEDS: ENOXAPARIN 40 MG/0.4 ML SQ SCH (08:42)
--- NOTE | 2021-04-27 08:57 | ECHO ---
HEIGHT: 5 ft 1 in WEIGHT: 290 lb 12.8 oz DATE OF STUDY: 04/24/[address]: Maik Campbell NP 2-DIMENSIONAL: YES M.MODE: YES DOPPLER: YES COLOR FLOW: YES TDS: YES PORTABLE: NO DEFINITY: NO BUBBLE STUDY: NO DIAGNOSIS: CONGESTIVE HEART FAILURE CARDIAC HISTORY: CATHERIZATION: NO SURGERY: NO PROSTHETIC VALVE: NO PACEMAKER: NO MEASUREMENTS (cm) DIASTOLIC (NORMALS) SYSTOLIC (NORMALS) IVSd 1.3 (0.6-1.2) LA Diam 3.4 (1.9-4.0) LVEF 52% LVIDd 4.9 (3.5-5.7) LVIDs 3.6 (2.0-3.5) %FS 26% LVPWd 1.3 (0.6-1.2) Ao Diam 2.6 (2.0-3.7) 2 DIMENSIONAL ASSESSMENT: RIGHT ATRIUM: NORMAL LEFT ATRIUM: NORMAL RIGHT VENTRICLE: NORMAL LEFT VENTRICLE: LEFT VENTRICULAR HYPERTROPHY TRICUSPID VALVE: NORMAL MITRAL VALVE: NORMAL PULMONIC VALVE: NOT SEEN WELL AORTIC VALVE: NOT SEEN WELL PERICARDIAL EFFUSION: NONE AORTIC ROOT: NORMAL LEFT VENTRICULAR WALL MOTION: NORMAL DOPPLER/COLOR FLOW: POOR STUDY. COMMENTS: VERY POOR WINDOWS. LEFT VENTRICULAR EJECTION FRACTION APPEARS NORMAL AT 55-60%. DIASTOLIC DYSFUNCTION. TECHNOLOGIST: Andie MUNOZ
[2021-04-27] MEDS ORDERED: POTASSIUM CL SA 10 MEQ TAB PO ONE (09:00)
--- NOTE | 2021-04-27 18:36 | P.PN ---
Subjective Date of Service: 04/27/21 Primary Care Provider: Dr. Ramirez Chief Complaint: CHF exacerbation Patient reports improvement in his shortness of breath. She is maintained on 2 L of oxygen by nasal canula. She is complaining of knee pain and would not participate in physical therapy today. Lower extremity edema has significantly improved. Physical Examination - Vital Signs Temperature: 98.2 F Blood Pressure: 144/63 Pulse: 85 Respirations: 16 Pulse Ox (%): 96 - Physical Exam General: In no apparent distress, Oriented x3, Obese Neck: Supple, JVD not distended Respiratory: Diminished (Bilateral), Other (Scattered wheezes) Cardiovascular: Regular rate/rhythm, Normal S1 S2, Edema (Edema of lower extremities improved) Gastrointestinal: Soft and benign, Non-distended, No tenderness Musculoskeletal: No erythema Integumentary: No rashes Neurological: Normal strength at 5/5 x4 extr Assessment And Plan - Current Problems (Diagnosis) (1) Acute on chronic diastolic (congestive) heart failure Current Visit: Yes Status: Acute (2) Acute respiratory failure with hypoxia Current Visit: Yes Status: Acute (3) Diabetes mellitus type 2 in obese Current Visit: Yes Status: Acute (4) Obesity due to excess calories Current Visit: Yes Status: Acute (5) UTI (urinary tract infection) Current Visit: Yes Status: Acute (6) COPD (chronic obstructive pulmonary disease) Current Visit: Yes Status: Acute - Plan Continue IV Lasix. Bronchodilators Monitor renal function on the Lasix. Fluid restriction Echocardiogram: Unremarkable. Normal EF. Continue Coreg. Troponin mildly elevated but trended flat. No ACS Patient with obesity hypoventilation and COPD. She is hypoxic on room air. Patient will need home oxygen. IV Rocephin transition to oral Omnicef to continue treatment for the UTI. Insulin sliding scale for glucose management. Metformin on hold. Monitor and optimize electrolytes Increase activity as tolerated. Continue PT as tolerated. Pain management for knee pain-tramadol p.r.n. Awaiting home oxygen for discharge to home with home health.
--- NOTE | 2021-04-27 20:06 | PN ---
Date of Progress Note: 04/27/2021 Subjective: The patient seen by bedside, doing clinically well. Does not have any chest pain. No s hortness of breath, lower extremity edema is significantly better. Review of Systems: All other systems were reviewed and were negative. Physical Examination: Vital Signs: Temperature is 98.2, pulse 85, breathing at 16, blood pressure 144/60, saturating 96%. General: Pleasant elderly female, in no distress. She is obese. Head and Neck: Pupils are equal, reactive to light. Intact eye movements. No JVD. No cervical lym phadenopathy. Neck: Supple. Thyroid is not enlarged. Lungs: Clear to auscultation bilaterally. No rhonchi, rales, or crackles. No accessory muscle use. Heart: Regular rate and rhythm. No extra sounds. Abdomen: Soft, nontender. Bowel sounds positive. No organomegaly. No masses or hernia. No rigidi ty or rebound. Extremities: No clubbing, cyanosis. Intact pulses. Skin: No rashes. Neurologic: Alert, awake, oriented x3. No acute focal deficits appreciated. Investigations: Labs were reviewed. Assessment And Recommendations: Acute on chronic systolic and diastolic congestive heart failure exa cerbation. I believe she can be switched to oral Lasix 40 mg twice a day and potassium supplements. The patient can be released. Follow up with Dr. Menjivar as an outpatient as scheduled. /YAMEL Voice ID: [id number] Report ID: [id number]
[2021-04-27] MEDS: CEFDINIR 300 MG CAP PO SCH (21:09)
[2021-04-28] MEDS: FUROSEMIDE 40 MG/4 ML VIAL IV SCH ×3 (01:19→16:57)
[2021-04-28] MEDS ORDERED: HYDRALAZINE HCL 20 MG/ML VIAL IV ONE (04:06)
[2021-04-28] MEDS ORDERED: IPRATROPIUM BROM 0.5MG/2.5ML NEB ONE (05:13)
[2021-04-28] MEDS ORDERED: ALBUTEROL 2.5 MG/3 ML NEB SOL NEB ONE (05:13)
[2021-04-28 06:09] LABS: Magnesium 2.1 mg/dL (1.8-2.4); Potassium 3.1 mmol/L (3.5-5.1)
[2021-04-28] MEDS: INSULIN -REGULAR HUMAN 50 UNIT/0.5 ML ML SQ SCH ×4 (07:23→21:00)
[2021-04-28] MEDS: POTASSIUM CL SA 10 MEQ TAB PO SCH (07:23)
[2021-04-28] MEDS ORDERED: POTASSIUM CL SA 10 MEQ TAB PO ONE (07:30)
[2021-04-28] MEDS: ENOXAPARIN 40 MG/0.4 ML SQ SCH (09:00)
[2021-04-28] MEDS: CEFDINIR 300 MG CAP PO SCH ×2 (09:07→20:42)
[2021-04-28] MEDS: carvediloL 12.5 MG TAB PO SCH (09:07)
--- NOTE | 2021-04-28 11:06 | RAD REPORT ---
EXAM DESCRIPTION: RAD - Chest Single View - 04/28/2021 10:29 am CLINICAL HISTORY: f/u edema, chf COMPARISON: Chest Single View dated 04/25/2021; Chest Single View dated 04/23/2021; Chest Single View dated 03/04/2021; CHEST SINGLE VIEW dated 09/18/2015 FINDINGS: Diffuse prominence of the pulmonary interstitium. Cardiomegaly.No acute osseous abnormalit y. No significant pleural effusions or pneumothorax. IMPRESSION: Diffuse prominence of the pulmonary interstitium may reflect vascular congestion. No ade eolar edema or consolidative airspace disease. Similar appearance to 04/25/2021.
--- NOTE | 2021-04-28 15:05 | P.PN ---
Subjective Date of Service: 04/28/21 Primary Care Provider: Dr. Ramirez Chief Complaint: CHF exacerbation Subjective: No new changes (feels ok, breathing hard, didn't sleep well last night, out of breath from having to move for bed calderón. wants to go home, but hasn't gotten out of bed in several days) Review of Systems 10-point ROS is otherwise unremarkable Physical Examination - Vital Signs Temperature: 98.0 F Blood Pressure: 138/63 Pulse: 84 Respirations: 20 Pulse Ox (%): 94 Assessment & Plan Physician Review Additional Text: Physical Exam General: mild distress/ breathing heavy Respiratory: diminished bilaterally with basilar crackles, mild labored respirations at rest Cardiovascular: Regular rate/rhythm, Normal S1 S2, trace-1+ b/l edema Gastrointestinal: Soft, nontender, nondistended Musculoskeletal: No erythema / no swelling Integumentary: No rashes Neuro: moves all extremities Assessment And Plan acute hypoxemic respiratory failure secondary to acute on chronic diastolic CHF DM2, non-insulin dependent super morbid obesity UTI COPD reduce dose of IV lasix to BID from q8h -avoid dose overnight, dueñas removed on 04/27 Echocardiogram: Unremarkable. Normal EF. Continue Coreg. Troponin mildly elevated but trended flat. No ACS Patient with obesity hypoventilation and COPD. She is hypoxic on room air. Patient will need home oxygen. IV Rocephin transition to oral Omnicef to continue treatment for the UTI. Insulin sliding scale for glucose management. Metformin on hold. Increase activity as tolerated. Continue PT as tolerated. patient has not gotten out of bed in several days, daughter concerned she won't be able to lift the patient at home patient seems to be max/full assist at this time encouraged to participate more with PT Dispo: daughter asking about rehab potential - she would definitely benefit from rehab, however i think she needs to be participate more Time Spent Managing Pts Care (In Minutes): 40
[2021-04-28] MEDS ORDERED: HYDRALAZINE HCL 20 MG/ML VIAL IV PRN (16:00)
[2021-04-28] MEDS: TRAMADOL HCL 50 MG TAB PO PRN (22:32)
[2021-04-29 06:12] LABS: Absolute Lymphocytes (CBC) 2.5 K/uL (0.7-4.9); Basophils % 0.8 % (0-1.3); Hematocrit 31.6 % (36.0-45.0); Lymphocytes % 31.3 % (15.3-44.8); MPV 9.2 fL (7.6-11.3); RBC Red Blood Cell Count 3.45 M/uL (3.86-4.86)
[2021-04-29 06:27] LABS: Albumin 2.6 g/dL (3.4-5.0); Bilirubin Total 0.5 mg/dL (0.2-1.0); Magnesium 2.2 mg/dL (1.8-2.4); Potassium 3.2 mmol/L (3.5-5.1); Protein, Total 6.7 g/dL (6.4-8.2)
[2021-04-29] MEDS: INSULIN -REGULAR HUMAN 50 UNIT/0.5 ML ML SQ SCH ×2 (07:30→11:30)
[2021-04-29] MEDS ORDERED: POTASSIUM CL SA 10 MEQ TAB PO ONE (07:30)
[2021-04-29] MEDS: ENOXAPARIN 40 MG/0.4 ML SQ SCH (09:00)
[2021-04-29] MEDS: POTASSIUM CL SA 10 MEQ TAB PO SCH (09:00)
[2021-04-29] MEDS: FUROSEMIDE 40 MG/4 ML VIAL IV SCH (09:16)
[2021-04-29] MEDS: CEFDINIR 300 MG CAP PO SCH (09:18)
[2021-04-29] MEDS: carvediloL 12.5 MG TAB PO SCH (09:18)
[2021-04-29 12:22] VITALS: BP 106/57; TEMP 97.5
--- NOTE | 2021-04-29 12:49 | P.DS ---
Admission Date: 04/25/21 Discharge Date: 04/29/21 Primary Care Provider: Dr. Ramirez Disposition: DC HOME/HOME HEALTH CARE Discharge Condition: FAIR Reason for Admission: CHF exacerbation Consultations: Cardiology - Dr. Stewart / Dr. Menjivar Procedures: CXR (04/23): Vascular congestion. No alveolar edema identified. No consolidation. CardiomegalyNo acute osseous abnormality. No significant pleural effusions or pneumothorax. IMPRESSION: Vascular congestion without sarah pulmonary edema or consolidative airspace disease. b/l venous doppler (04/23): No DVT in either lower extremity. Echo (04/24): VERY POOR WINDOWS. LEFT VENTRICULAR EJECTION FRACTION APPEARS NORMAL AT 55-60%. DIASTOLIC DYSFUNCTION. Problem List acute hypoxemic respiratory failure secondary to acute on chronic diastolic CHF DM2, non-insulin dependent super morbid obesity UTI chronic COPD Brief History of Present Illness: 75-year-old female with history of CHFunknown EF, diabetes mellitus type 2, hypertension presents emergency department for lower extremity edema, shortness of breath. Daughter at bedside reports patient with increasing swelling over the course of the last couple of weeks, currently patient with 3+ pitting edema bilateral lower extremities and shortness of breath on exam. Patient evaluated in the emergency department, labs significant for potassium 3.3 GFR 74 BNP 204 troponin 0 0.09 urinalysis with nitrate positive. Patient without previous echocardiogram was scheduled for 1 but unable to make appointment, currently taking Lasix 20 mg p.o. daily at home. ED provider wishes to admit for CHF exacerbation. Hospital Course: She had gradual improvement of her symptoms with IV lasix. Echocardiogram revealed normal EF, +diastolic dysfunction. troponin mildly elevated but trended flat. Cardiology was consulted, recommended no further workup/evaluation, ACS ruled out. She had generalized weakness / debilitation, but improved as well. On day of discharge she was ambulating to bedside commode and breathing comfortably on 2-3 L NC. Discharged home with home health / PT, with home oxygen, and prescription for lasix. She was incidentally found to have bacteruria which was treated for UTI as it was unclear if the mild confusion she had was secondary to this. Vital Signs/Physical Exam: Physical Exam General: NAD Respiratory: diminished bilaterally, nonlabored respirations on 3L NC Cardiovascular: Regular rate/rhythm, Normal S1 S2, trace b/l edema to ankles Gastrointestinal: Soft, nontender, nondistended Musculoskeletal: No erythema / no swelling Integumentary: No rashes Neuro: moves all extremities Temp Pulse Resp BP Pulse Ox 97.5 F 76 19 106/57 L 95 04/29/21 12:00 04/29/21 12:00 04/29/21 12:00 04/29/21 12:00 04/29/21 12:00 Laboratory Data at Discharge: WBC 7.90 K/uL (4.3-10.9) 04/29/21 05:46 Hgb 10.6 g/dL (12.0-15.0) L 04/29/21 05:46 Hct 31.6 % (36.0-45.0) L 04/29/21 05:46 Plt Count 241 K/uL (152-406) 04/29/21 05:46 PT 13.2 SECONDS (9.5-12.5) H 04/23/21 17:10 INR 1.15 04/23/21 17:10 Sodium 140 mmol/L (136-145) 04/29/21 05:46 Potassium 3.2 mmol/L (3.5-5.1) L 04/29/21 05:46 BUN 25 mg/dL (7-18) H 04/29/21 05:46 Creatinine 1.02 mg/dL (0.55-1.3) 04/29/21 05:46 Glucose 111 mg/dL (74-106) H 04/29/21 05:46 Magnesium 2.2 mg/dL (1.8-2.4) 04/29/21 05:46 Total Bilirubin 0.5 mg/dL (0.2-1.0) 04/29/21 05:46 AST 18 U/L (15-37) 04/29/21 05:46 ALT 20 U/L (12-78) 04/29/21 05:46 Alkaline Phosphatase 51 U/L (45-117) 04/29/21 05:46 Troponin I 0.09 ng/mL (0.0-0.045) H 04/24/21 06:03 Triglycerides 91 mg/dL (<150) 04/24/21 06:03 Cholesterol 153 mg/dL (<200) 04/24/21 06:03 HDL Cholesterol 41 mg/dL (40-60) 04/24/21 06:03 Cholesterol/HDL Ratio 3.73 04/24/21 06:03 Lipase 36 U/L (73-393) L 04/23/21 16:35 Home Medications: Carvedilol [Coreg] 1 tab PO DAILY 04/23/21 Meloxicam 1 tab PO DAILY 04/23/21 Metformin HCl 500 mg PO BID 04/23/21 Potassium Chloride 1 tab PO DAILY 04/23/21 Cefdinir [Cefdinir*] 300 mg PO Q12HR #2 cap 04/27/21 traMADol HCL [Ultram*] 50 mg PO Q6H PRN #20 tab 04/27/21 Furosemide 2 tab PO DAILY 30 Days #60 tablet 04/29/21 New Medications: Cefdinir [Cefdinir*] 300 mg PO Q12HR #2 cap Furosemide 2 tab PO DAILY 30 Days #60 tablet traMADol HCL [Ultram*] 50 mg PO Q6H PRN #20 tab PRN Reason: Pain Scale 5-7 (Moderate) Physician Discharge Instructions: PROBLEM: CHF, UTI GOAL: Clear understanding of disease process E-scripts sent to [facility] in [place]. INSTRUCTIONS: Your symptoms were due to acute congestive heart failure and you improved with IV lasix to help remove the fluid. You were also found to have some bacteria in your urine concerning for a urinary tract infection. You were treated with antibiotics and discharged with 1 more day of antibiotics. You are discharged home with home health and physical therapy. Please follow up with your Primary Care Provider in 3-5 days. Follow up with Cardiology in ~2 weeks. Diet: 1800 calorie diabetic diet Activity: As tolerated DME DME: Home Oxygen Date Ordered: 04/28/21 Name of Company: [facility] Services Needed: Home Health Name of Company: [facility] Date or Referral: 04/28/21 IMMUNIZATION Influenza Vaccine Indicated: Influenza Vaccine Given: Date Given: Pneumonia Vaccine Indicated: Yes Pneumonia Vaccine Given: No Date Given: Follow up with a [facility] of your choice: JOHNNY SAHA, TOBI S [address] [place] [id number] MEHNAZ SAHA, JUNO [address] [place] [id number] Diet: ADA Activity: Ad delonte Followup: [facility] [Primary Care Provider] - Time spent managing pt's care (in minutes): 40
[2021-04-29 13:00] VITALS: O2SAT 96
== END 2021-04-29 16:13 | disposition home health service (06) | DRG 291 ==
LOC: ER 13:11 → OBSVTOIN 19:36 → ERHOLD 19:36 → INTOOBSV 19:36 → 2ND 21:43 → OBSVTOIN 04-25 16:16
PROVIDERS: ADMIT Internal Medicine; ATTEND Internal Medicine
DX: I11.0 Hypertensive heart disease with heart failure (principal); J96.01 Acute respiratory failure with hypoxia; Z68.43 Body mass index [BMI] 50.0-59.9, adult; N39.0 Urinary tract infection, site not specified; E66.2 Morbid (severe) obesity with alveolar hypoventilation; I50.33 Acute on chronic diastolic (congestive) heart failure; E11.9 Type 2 diabetes mellitus without complications; J44.9 Chronic obstructive pulmonary disease, unspecified; E87.6 Hypokalemia; Z20.822 Contact with and (suspected) exposure to COVID-19
CPT/HCPCS: 36415; 51702; 71045; 80048; 80053; 80061; 80076; 81003; 82805; 82947; 83690; 83735; 83880; 84132; 84439; 84443; 84484; 85025; 85610; 87077; 87086; 87088; 87186; 93005; 93306; 93970; 94640; 96365; 96366; 96372; 96375; 97110; 97116; 97161; 97530; 99285; G0378; J0360; J0696; J1650; J1940; J2270; J2405; U0003

== ENCOUNTER 2021-12-03 14:37 | Emergency (ER) | payer OTHER ==
--- OUTSIDE RECORDS SUMMARY | 2021-12-03 14:40 | XMS REPORT | Continuity of Care Document ---
:[address] [facility] t Address [address] [place] [address] Care Team Providers Name Role Phone [phone] Attending Clinician Unavailable Dara Ramirez Attending Clinician Unavailable Gideon Attending Clinician Unavailable Jaz Attending Clinician Unavailable [id number] Admitting Clinician Unavailable Problems This patient has no known [...] milk ent Clinics ProAir HFA ProAir HFA 0 Yes Sylvia [address] [facility] [...] Date/Time Type Type Clinicians Facility Department ID 2021-10-22 Out[place] 3 [id number] [place] [id number] [facility] 12:39:34 0807 2021-10-22 Outpatient 3 [id number] [facility] REF [id number] [facility] 12:38:20 0804 2021-10-21 Outpatient Ramirez, Na STLMLC ST[facility]ML[facility] [id number] [facility] 13:43:38 [id number] [facility] 2021-10-21 Outpatient Ramirez, Na STLMLC STLMLC [id number] [facility] 13:30:30 [id number] [facility] 2021-10-21 Outpatient Ramirez, Na STLMLC STLMLC [id number] [facility] 13:29:49 [id number] [facility] 2021-10-21 Outpatient Ramirez, Na STLMLC STLMLC [id number] [facility] 13:14:45 [id number] [facility] 2021-10-21 Outpatient Ramirez, Na STLMLC STLMLC [id number] [facility] 13:14:19 [id number] [facility] 2021-10-21 Outpatient Ramirez, Na STLMLC STLMLC [id number] [facility] 12[facility]44:50 [id number] [facility] 2021-10-21 Outpatient Ramirez, Na STLMLC STLMLC [id number] [facility] 12:38:32 [id number] [facility] 2021-10-21 Outpatient Ramirez, Na STLMLC STLMLC [id number] [facility] 12:37:09 [id number] [facility] 2021-10-21 Outpatient Ramirez, Na STLMLC STLMLC [id number] [facility] 12:32:08 [id number] [facility] 2021-10-21 Outpatient James, Na STLMLC STLMLC [id number] [facility] 12:29:25 [id number] [facility] 2021-10-21 Outpatient James, Na STLC STLMLC [id number] [facility] 12:18:08 [id number] [facility] 2021-10-21 Outpatient James, Na STLMLC STLMLC [id number] [facility] 12:17:07 [id number] [facility] 2021-10-21 Outpatient Trevon Meneses STLC STLC [id number] [facility] 12:16:47 [id number] [facility] 2021-10-21 Outpatient Trevon Meneses STLC STLC [id number] [facility] 12:13:25 [id number] [facility] 2021-10-21 Outpatient Trevon Meneses STLC STLC [id number] [facility] 12:08:59 [id number] [facility] 2021-10-21 Outpatient Trevon Meneses STLC STLC [id number] [facility] 12:00:30 [id number] [facility] 2021-10-21 Outpatient Jaz [facility] STLC [id number] [facility] [address] 11:52:47 Sylvia [id number] [facility] 2021-10-21 Outpatient Jaz, STLC STLC [id number] 11:48:48 Sylvia [id number] [facility] 2021-10-21 Outpatient Jaz, STLC STLC [id number] 11:48:25 Sylvia 71130 [facility] 2021-10-21 Outpatient Jaz, STLC STLC [id number] [facility] [address] 11:41:35 Sylvia 87420 [facility] 2021-10-21 Outpatient Jaz, STLMLC STLC [id number] 11:19:52 Sylvia [id number] [facility] 2021-10-21 Outpatient Jaz [facility]DE[facility]AH[facility] STLC [id number] 11:19:15 Sylvia [id number] [facility] 2021-10-21 Outpatient Jaz [facility]DE[facility]AH[facility] STLC [id number] 11:04:48 Sylvia [id number] [facility] 2021-04-20 2021-04-20 Outpatient STLC STLC [id number] [facility] 2021-03-11 2021-03-11 Outpatient [facility]LMLC STLC [id number] [facility] 2021-03-05 2021-03-05 Outpatient STLC STLC [id number] [facility] 2020-12-03 2020-12-03 Outpatient STLMLC STLC [id number] [facility] 2020-10-16 2020-10-16 Outpatient STLMLC STLC [id number] [facility] 2020-10-01 2020-10-01 Outpatient STLMLC STLC [id number] [facility] 2020-09-24 2020-09-24 Outpatient STLMLC [facility]C [id number] [facility] 2020-09-10 2020-09-10 Outpatient STLMLC STLC [id number] [facility] 2020-09-02 2020-09-02 Outpatient STLMLC STLC [id number] [facility] 2020-08-12 2020-08-12 Outpatient [facility] [id number] [facility] 2020-07-03 2020-07-03 Outpatient [facility] [id number] [facility] 2020-06-19 2020-06-19 Outpatient [facility] [id number] [facility] 2020-05-23 2020-05-23 [facility] [id number] [facility] 15:00:00 15:00:00 [facility] Medicine l Medicine Outpati ent Clinics 2020-04-23 2020-04-23 [facility] [id number] [facility] 16[facility]40:00 16:40:00 [facility] Medicine Medicine Outpati ent Clinics 2020-04-16 2020-04-16 [facility] [id number] 13:30:00 13:30:00 [facility] Medicine Medicine Outpati ent Clinics 2020-02-22 2020-02-22 [facility] [id number] 13:40:00 13:40:00 [facility] Medicine Outpati ent Clinics 2020-01-23 2020-01-23 [facility] [id number] 16:41:00 16:41:00 [facility] Medicine Medicine Outpati ent Clinics 2019-12-25 2019-12-25 [facility] [id number] [facility] 13:50:00 13:50:00 [facility] Medicine l Medicine Outpati ent Clinics 2019-10-26 2019-10-26 [facility] [id number] [facility] 16:15:00 16:15:00 [facility] Medicine Outpati ent Clinics 2019-10-04 2019-10-04 [facility] [id number] [facility] 23:40:00 23:40:00 t [facility] Medicine Outpati ent Clinics 2019-09-21 2019-09-21 [place] [id number] 16:00:00 16:00:00 [facility] Medicine Outpati ent Clinics 2019-08-31 2019-08-31 [facility] [id number] [facility] 00:42:00 00:42:00 [facility] Medicine Outpati ent Clinics 2019-08-22 2019-08-22 [place] [id number] 01:28:00 01:28:00 [facility] Medicine Outpati ent Clinics 2019-08-21 2019-08-21 Outpatient Betty Hernándezt [id number] 11:20:00 11:20:00 [facility] Outpat[facility] ent Clinics Results This patient has no known results.
[2021-12-03 15:06] LABS: Absolute Lymphocytes (CBC) 0.7 K/uL (0.7-4.9); Hematocrit 40.1 % (36.0-45.0); Lymphocytes % 17.8 % (15.3-44.8); MPV 9.4 fL (7.6-11.3); RBC Red Blood Cell Count 4.59 M/uL (3.86-4.86)
[2021-12-03 15:17] LABS: Albumin 3.1 g/dL (3.4-5.0); Potassium 3.8 mmol/L (3.5-5.1); Protein, Total 7.3 g/dL (6.4-8.2)
[2021-12-03] MEDS ORDERED: Ringers Lactate 1,000 ML IV ONE (15:42)
[2021-12-03] MEDS ORDERED: ONDANSETRON 4 MG/2 ML VIAL ONE (15:42)
--- NOTE | 2021-12-03 15:46 | ER ---
Nurse's Notes [facility] Name: Nabila Jain Age: 76 yrs Sex: Female : 1945 Arrival Date: 12/03/2021 Time: 14:41 Bed 5 Private MD: Diagnosis: Nausea with vomiting, unspecified;Diarrhea, unspecified Presentation: 12/03 14:45 Chief complaint: EMS states: NVD since last night; pt denies ABD pain. Coronavirus vg1 screen: Vaccine status: Patient reports being unvaccinated. Client denies travel out of the [place] in the last 14 days. diarrhea, nausea, vomiting. Client presents with at least one sign or symptom that may indicate coronavirus-19. Standard/surgical mask placed on the client. Ebola Screen: Patient negative for fever greater than or equal to 101.5 degrees Fahrenheit, and additional compatible Ebola Virus Disease symptoms. Initial Sepsis Screen: Does the patient meet any 2 criteria? No. Patient's initial sepsis screen is negative. Does the patient have a suspected source of infection? No. Patient's initial sepsis screen is negative. Risk Assessment: Do you want to hurt yourself or someone else? Patient reports no desire to harm self or others. Onset of symptoms was December 02, 2021. 14:45 Method Of Arrival: EMS: [facility] 14:45 Acuity: CHARLEEN 3 vg1 Triage Assessment: 14:46 General: Appears in no apparent distress. comfortable, Behavior is calm, cooperative. vg1 Pain: Denies pain. EENT: No signs and/or symptoms were reported regarding the EENT system. Neuro: Level of Consciousness is awake, alert, obeys commands, Oriented to person, place, time, situation. Cardiovascular: Patient's skin is warm and dry. Respiratory: Airway is patent Respiratory effort is even, unlabored. GI: Reports diarrhea, nausea, vomiting, since 12/02/2021. : No signs and/or symptoms were reported regarding the genitourinary system. Derm: Skin is intact, is healthy with good turgor. Musculoskeletal: Circulation, motion, and sensation intact. Historical: - Allergies: 14:46 NKA; vg1 - Home Meds: 14:46 carvedilol oral [Active]; furosemide 20 mg Oral tab 1 tab once daily [Active]; vg1 gabapentin 300 mg Oral cap twice a day [Active]; Metformin Oral [Active]; Tramadol Oral [Active]; - PMHx: 14:46 cardiomegaly; diabetes mellitus; Hypertension; vg1 - Immunization history:: Client reports having NOT received the Covid vaccine. - Social history:: Smoking status: Patient denies any tobacco usage or history of. Screenin:50 Abuse screen: Denies threats or abuse. Nutritional screening: No deficits noted. vg1 Tuberculosis screening: No symptoms or risk factors identified. Fall Risk No fall in past 12 months (0 pts). No secondary diagnosis (0 pts). IV access (20 points). Ambulatory Aid- None/Bed Rest/Nurse Assist (0 pts). Gait- Normal/Bed Rest/Wheelchair (0 pts) Mental Status- Oriented to own ability (0 pts). Total Mohr Fall Scale indicates No Risk (0-24 pts). Assessment: 14:51 Reassessment: SEE TRIAGE. vg1 15:51 Reassessment: Patient appears in no apparent distress at this time. Patient and/or vg1 family updated on plan of care and expected duration. Pain level reassessed. Patient is alert, oriented x 3, equal unlabored respirations, skin warm/dry/pink. Patient denies pain at this time. 15:52 Reassessment: Spoke with pt son of pt status of discharge, son upset do to pt d/c, vg1 stated 'yall are wrong for discharging my mom, if anything happens to her yall are going to be in trouble'. Explained to pt son, pt is stable and provider explained disposition to pt and pt agreed with discharge. Vital Signs: 14:45 BP 160 / 90; Pulse 99; Resp 18; Temp 98.8(O); Pulse Ox 96% on R/A; Weight 113.4 kg; vg1 Height 4 ft. 11 in. (149.86 cm); Pain 0/10; 15:50 BP 149 / 72; Pulse 91; Resp 18; Pulse Ox 95% on R/A; vg1 14:45 Body Mass Index 50.49 (113.40 kg, 149.86 cm) vg1 ED Course: 14:41 Patient arrived in ED. em1 14:41 Isaiah Mondragon DO is Attending Physician. ms3 14:44 Meagan Del Toro, RN is Primary Nurse. vg1 14:46 Triage completed. vg1 14:50 Patient has correct armband on for positive identification. Bed in low position. Call vg1 light in reach. Side rails up X2. 14:50 Initial lab(s) drawn, by ED staff, sent to lab. Inserted saline lock: 20 gauge in right vg1 antecubital area, using aseptic technique. Blood collected. Inserted saline lock: ,using aseptic technique. completed by KESHIA, iphone developer. 14:51 Arm band placed on. vg1 15:45 Magan Burdick MD is Referral Physician. ms3 16:03 No provider procedures requiring assistance completed. IV discontinued, intact, vg1 bleeding controlled, No redness/swelling at site. Pressure dressing applied. Administered Medications: 15:40 Drug: Zofran (Ondansetron) 4 mg Route: IVP; Site: right antecubital; vg1 16:03 Follow up: Response: No adverse reaction; Marked relief of symptoms vg1 16:03 Not Given (Physician Discretion): Lactated Ringers Solution 1000 ml IV at 1000 ml/hr vg1 continuous Outcome: 15:45 Discharge ordered by . ms3 16:03 Discharged to home via wheelchair. vg1 16:03 Condition: good 16:03 Discharge instructions given to patient, Instructed on discharge instructions, follow up and referral plans. medication usage, Demonstrated understanding of instructions, follow-up care, medications, Prescriptions given X 1. 16:11 Patient left the ED. vg1 Signatures: Matthew Landry em1 Meagan Del Toro, RN RN vg1 Isaiah Mondragon DO DO ms3 Corrections: (The following items were deleted from the chart) 15:57 14:51 GI: Reports vg1 vg1
--- NOTE | 2021-12-03 15:46 | EDPHYS ---
Physician Documentation [facility] [place] [place] Name: Nabila Jain Age: 76 yrs Sex: Female : 1945 Arrival Date: 12/03/2021 Time: 14:41 Bed 5 Private MD: ED Physician Isaiah Mondragon HPI: 12/03 14:41 This 76 yrs old Female presents to ER via EMS with complaints of ms3 Nausea/Vomiting/Diarrhea. 14:41 The patient presents to the emergency department with nausea, vomiting, that is ms3 intermittent, 3 times today, diarrhea. Onset: The symptoms/episode began/occurred 2 day(s) ago. Possible causes: unknown. The symptoms are aggravated by nothing. The symptoms are alleviated by nothing. Associated signs and symptoms: Pertinent negatives: abdominal pain, fever. 76 yo female presents via [facility] for N/V/D x 2 days. Patient's last episode of emesis per EMS was 1030. Patient denies pain. Patient denies alleviating or inciting factors. Patient denies fevers, chills, shortness of breath or chest pain.. Historical: - Allergies: 14:46 NKA; vg1 - Home Meds: 14:46 carvedilol oral [Active]; furosemide 20 mg Oral tab 1 tab once daily [Active]; vg1 gabapentin 300 mg Oral cap twice a day [Active]; Metformin Oral [Active]; Tramadol Oral [Active]; - PMHx: 14:46 cardiomegaly; diabetes mellitus; Hypertension; vg1 - Immunization history:: Client reports having NOT received the Covid vaccine. - Social history:: Smoking status: Patient denies any tobacco usage or history of. ROS: 14:41 Constitutional: Negative for fever, and chills. Eyes: Negative for injury, pain, ms3 redness, and discharge, ENT: Negative for injury, pain, and discharge, Neck: Negative for injury, pain, and swelling, Cardiovascular: Negative for chest pain, and palpitations. Respiratory: Negative for shortness of breath, cough, wheezing, and pleuritic chest pain, Back: Negative for injury and pain, MS/Extremity: Negative for injury and deformity, Skin: Negative for injury, rash, and discoloration, Neuro: Negative for headache, weakness, numbness, tingling. 14:41 Abdomen/GI: Positive for nausea, vomiting, and diarrhea. 14:41 All other systems are negative. Exam: 14:41 Constitutional: This is a well developed, well nourished patient who is awake, alert, ms3 and in no acute distress. Head/Face: Normocephalic, atraumatic. Eyes: Pupils equal round and reactive to light, extra-ocular motions intact. Lids and lashes normal. Conjunctiva and sclera are non-icteric and not injected. Periorbital areas with no swelling, redness, or edema. Neck: Trachea midline, no cervical lymphadenopathy. Supple, full range of motion without nuchal rigidity, or vertebral point tenderness. No Meningismus. Chest/axilla: Normal chest wall appearance and motion. Nontender with no deformity. Cardiovascular: Regular rate and rhythm with a normal S1 and S2. No gallops, murmurs, or rubs. Normal PMI, no JVD. No pulse deficits. Respiratory: Lungs have equal breath sounds bilaterally, clear to auscultation and percussion. No rales, rhonchi or wheezes noted. No increased work of breathing, no retractions or nasal flaring. Abdomen/GI: Soft, non-tender, with normal bowel sounds. No distension or tympany. No guarding or rebound. No evidence of tenderness throughout. Back: No spinal tenderness. No costovertebral tenderness. Full range of motion. Skin: Warm, dry with normal turgor. Normal color with no rashes, no lesions, and no evidence of cellulitis. MS/ Extremity: Pulses equal, no cyanosis. Neurovascular intact. Full, normal range of motion. Neuro: Awake and alert, GCS 15, oriented to person, place, time, and situation. Cranial nerves II-XII grossly intact. Motor strength 5/5 in all extremities. Sensory grossly intact. Cerebellar exam normal. Normal gait. Vital Signs: 14:45 BP 160 / 90; Pulse 99; Resp 18; Temp 98.8(O); Pulse Ox 96% on R/A; Weight 113.4 kg; vg1 Height 4 ft. 11 in. (149.86 cm); Pain 0/10; 15:50 BP 149 / 72; Pulse 91; Resp 18; Pulse Ox 95% on R/A; vg1 14:45 Body Mass Index 50.49 (113.40 kg, 149.86 cm) vg1 MDM: 14:41 Patient medically screened. ms3 14:41 Differential diagnosis: gastritis, viral gastroenteritis, gastroenteritis, Electrolyte ms3 abnormality vs anemia. 15:45 Data reviewed: vital signs, nurses notes, lab test result(s), CBC, electrolytes. Data ms3 interpreted: Pulse oximetry: on room air is 95 %. Counseling: I had a detailed discussion with the patient and/or guardian regarding: the historical points, exam findings, and any diagnostic results supporting the discharge/admit diagnosis, lab results, the need for outpatient follow up, to return to the emergency department if symptoms worsen or persist or if there are any questions or concerns that arise at home. ED course: Discussed labs and PE findings with patient. Patient to follow up with PMD as instructed. Patient understands/ agrees with plan. All questions answered. Return precautions given to include worsening symptoms, or any other concerns. On re-evaluation patient is a/o x4, nad, non-toxic, ambulatory in ED, speaking full sentences.. 12/03 14:42 Order name: CMP; Complete Time: 15:30 ms3 12/03 14:42 Order name: CBC with Diff; Complete Time: 15:30 ms3 12/03 15:03 Order name: Glucose, Ancillary Testing; Complete Time: 15:30 EDMS Administered Medications: 15:40 Drug: Zofran (Ondansetron) 4 mg Route: IVP; Site: right antecubital; vg1 16:03 Follow up: Response: No adverse reaction; Marked relief of symptoms vg1 16:03 Not Given (Physician Discretion): Lactated Ringers Solution 1000 ml IV at 1000 ml/hr vg1 continuous Disposition Summary: 12/03/21 15:45 Discharge Ordered Location: Home ms3 Condition: Stable ms3 Diagnosis - Nausea with vomiting, unspecified ms3 - Diarrhea, unspecified ms3 Followup: ms3 - With: Magan Burdick MD - When: 1 - 2 days - Reason: Recheck today's complaints Discharge Instructions: - Discharge Summary Sheet ms3 - Diarrhea, Adult ms3 - Nausea and Vomiting, Adult ms3 Forms: - Medication Reconciliation Form ms3 - Thank You Letter ms3 - Antibiotic Education ms3 - Prescription Opioid Use ms3 Prescriptions: - Zofran 4 mg Oral Tablet - take 1 tablet by ORAL route every 12 hours As needed; 10 tablet; Refills: 0, ms3 Product Selection Permitted Signatures: Dispatcher [employer] Meagan Pruett, KAREEN RN vg1 Isaiah Mondragon DO DO ms3
[2021-12-03 16:57] VITALS: TEMP 98.8
[2021-12-03 16:58] VITALS: BP 149/72; O2SAT 95
== END 2021-12-03 16:11 | disposition home or self-care (01) ==
LOC: ER 14:37
DX: R11.2 Nausea with vomiting, unspecified (principal); R19.7 Diarrhea, unspecified; I10 Essential (primary) hypertension; E11.9 Type 2 diabetes mellitus without complications; I51.7 Cardiomegaly
CPT/HCPCS: 85025; 36415; 82947; 80053; 96374; 99284; J7120; J2405

== ENCOUNTER 2021-12-12 06:53 | Inpatient (IN) | payer OTHER ==
--- OUTSIDE RECORDS SUMMARY | 2021-12-12 06:56 | XMS REPORT | Continuity of Care Document ---
:1945 Author Organization [facility] t Address [address] [place] [address] Care Team Providers Name Role Phone [phone] Attending Clinician Unavailable Dara Ramirez Attending Clinician Unavailable Gideon Attending Clinician Unavailable Jaz Attending Clinician Unavailable [id number] Admitting Clinician Unavailable Problems This patient has [...] Clinicians Facility Department ID 2021-10-22 Outpatient 3 [id number] [place] [id number] [facility] 12:39:34 0807 2021-10-22 Outpatient 3 [id number] [facility] REF [id number] [facility] 12:38:20 0804 2021-10-21 Outpatient Ramirez, Na STLMLC STLMLC [id number] [facility] 13:43:38 [id number] [facility] 2021-10-21 Outpatient Ramirez, Na STLMLC STLMLC [id number] [facility] 13:30:30 [id number] [facility] 2021-10-21 Outpatient Ramirez, Na STLMLC STLMLC [id number] [facility] 13:29:49 [id number] [facility] 2021-10-21 Outpatient Ramirez, Na STLMLC STLMLC [id number] [facility] 13:14:45 [id number] [facility] 2021-10-21 Outpatient Ramirez, Na STLMLC STLMLC [id number] [facility] 13:14:19 [id number] [facility] 2021-10-21 Outpatient Ramirez, Na STLMLC STLMLC [id number] [facility] 12:44:50 [id number] [facility] 2021-10-21 Outpatient Ramirez, Na STLMLC STLMLC [id number] [facility] 12:38:32 [id number] [facility] 2021-10-21 Outpatient Ramirez, Na STLMLC STLMLC [id number] [facility] 12:37:09 [id number] [facility] 2021-10-21 Outpatient Ramirez, Na STLMLC STLMLC [id number] [facility] 12:32:08 [id number] [facility] 2021-10-21 Outpatient James, Na STLMLC STLMLC [id number] [facility] 12:29:25 [id number] [facility] 2021-10-21 Outpatient James, Na STLC STLMLC [id number] [facility] 12:18:08 [id number] [facility] 2021-10-21 Outpatient James, Na STLMLC STLMLC [id number] [facility] 12:17:07 [id number] [facility] 2021-10-21 Outpatient Trevon eMneses STLC STLC [id number] [facility] 12:16:47 [id number] [facility] 2021-10-21 Outpatient Trevon Meneses STLC STLC [id number] [facility] 12:13:25 [id number] [facility] 2021-10-21 Outpatient Trevon Meneses STLC STLC [id number] [facility] 12:08:59 [id number] [facility] 2021-10-21 Outpatient Trevon Meneses STLC STLC [id number] [facility] 12:00:30 [id number] [facility] 2021-10-21 Outpatient Jaz [facility] STLC [id number] [facility] [address] 11:52:47 Sylvia 75625 [facility] 2021-10-21 Outpatient Jaz, STLC STLC [id number] 11:48:48 Sylvia 41654 [facility] 2021-10-21 Outpatient Jaz, STLC STLC [id number] 11:48:25 Sylvia 83935 [facility] 2021-10-21 Outpatient Jaz, STLC STLC [id number] [facility] [address] 11:41:35 Sylvia 12299 [facility] 2021-10-21 Outpatient Jaz, STLMLC STLC [id number] [facility] [address] 11:19:52 Sylvia [id number] [facility] 2021-10-21 Outpatient Jaz [facility] STLC [id number] [address] 11:19:15 Sylvia [id number] [facility] 2021-10-21 Outpatient Jaz [facility] STLC [id number] 11:04:48 Sylvia [id number] [facility] 2021-04-20 2021-04-20 Outpatient STLC STLC [id number] [facility]00 [facility] 2021-03-11 2021-03-11 Outpatient STLMLC STLC [id number] [facility] 2021-03-05 2021-03-05 Outpatient STLC STLC [id number] [facility] 2020-12-03 2020-12-03 Outpatient STLMLC STLC [id number] [facility] 2020-10-16 2020-10-16 Outpatient [facility]LMLC ST[facility] [id number] [facility] 2020-10-01 2020-10-01 Outpatient STLMLC STLC [id number] [facility] 2020-09-24 2020-09-24 Outpatient STLMLC [facility]C [id number] [facility] 2020-09-10 2020-09-10 Outpatient [facility]LMLC STLC [id number] [facility] 2020-09-02 2020-09-02 Outpatient [facility]LMLC ST[facility] [id number] [facility] 2020-08-12 2020-08-12 Outpatient [facility] [id number] [facility] 2020-07-03 2020-07-03 Outpatient [facility] [id number] [facility] 2020-06-19 2020-06-19 Outpatient [facility] [id number] [facility] 2020-05-23 2020-05-23 [facility] [id number] [facility] 15:00:00 15:00:00 [facility] Medicine Outpati ent Clinics 2020-04-23 2020-04-23 [facility] [id number] [facility] 16:40:00 16:40:00 [facility] Medicine Outpati ent Clinics 2020-04-16 2020-04-16 [facility] [id number] [facility] 13:30:00 13:30:00 t [facility] Medicine Medicine Outpati ent Clinics 2020-02-22 2020-02-22 [facility] [id number] [facility] 13:40:00 13:40:00 [facility] Medicine Outpati ent Clinics 2020-01-23 2020-01-23 [facility] [id number] [facility] 16:41:00 16:41:00 [facility] Medicine Medicine Outpati ent Clinics 2019-12-25 2019-12-25 [facility] [id number] [facility] 13:50:00 13:50:00 [facility] Medicine l Medicine Outpati ent Clinics 2019-10-26 2019-10-26 [facility] [id number] [facility] 16:15:00 16:15:00 [facility] Medicine Outpati ent Clinics 2019-10-04 2019-10-04 [facility] [id number] [facility] 23:40:00 23:40:00 t [facility] Medicine Outpati ent Clinics 2019-09-21 2019-09-21 [facility] [id number] [facility] 16:00:00 16:00:00 [facility] Medicine Outpati ent Clinics 2019-08-31 2019-08-31 [facility] [id number] [facility] 00:42:00 00:42:00 [facility] Medicine Outpati ent Clinics 2019-08-22 2019-08-22 [facility] [id number] [facility] 01:28:00 01:28:00 [facility] Medicine Outpati ent Clinics 2019-08-21 2019-08-21 Outpatient Betty Hernándezt [id number] 11:20:00 11:20:00 [facility] Outpat[facility] ent Clinics Results This patient has no known results.
[2021-12-12 08:01] LABS: Absolute Lymphocytes (CBC) 0.6 K/uL (0.7-4.9); Hematocrit 38.9 % (36.0-45.0); Lymphocytes % 6.9 % (15.3-44.8); MPV 8.7 fL (7.6-11.3); RBC Red Blood Cell Count 4.36 M/uL (3.86-4.86)
[2021-12-12 08:19] LABS: Potassium 4.3 mmol/L (3.5-5.1)
[2021-12-12 08:26] LABS: SARS-COV-2 RT PCR NEGATIVE (NEGATIVE)
--- NOTE | 2021-12-12 08:42 | EDPHYS ---
Physician Documentation [facility] Name: Nabila Jain Age: 76 yrs Sex: Female : 1945 Arrival Date: 12/12/2021 Time: 06:55 Bed 19 Private MD: ED Physician Mp Moreland HPI: 12/12 08:35 This 76 yrs old Female presents to ER via EMS with complaints of chest pain, kb shortness of breath. 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 States pt is on home O2 intermittently, but isn't sure why. [facility] pt does have CHF. EMS reports 88% O2 sat on room air upon their arrival. States O2 was next to bed, but pt was not wearing it. . 08:35 The patient or guardian reports chest pain that is located primarily in the anterior kb chest wall, left. Onset: this morning. The pain does not radiate. Associated signs and symptoms: Pertinent positives: lower extremity swelling, shortness of breath. The chest pain is described as a heaviness. Duration: The patient or guardian reports a single episode, that is still ongoing. Modifying factors: The symptoms are alleviated by nothing. the symptoms are aggravated by nothing. Severity of pain: At its worst the pain was mild moderate in the emergency department the pain is unchanged. The patient has experienced similar episodes in the past. The patient has not recently seen a physician. Historical: - PMHx: 08:39 cardiomegaly; diabetes mellitus; Hypertension; cb5 - Immunization history:: Adult Immunizations up to date, Client reports having NOT received the Covid vaccine. - Social history:: Smoking status: Patient denies any tobacco usage or history of. ROS: 08:08 Constitutional: Negative for fever, chills, and weight loss. kb 08:08 Cardiovascular: Positive for chest pain, Negative for edema, orthopnea, palpitations, paroxysmal nocturnal dyspnea. 08:08 Respiratory: Positive for shortness of breath, Negative for cough, dyspnea on exertion, hemoptysis, orthopnea, pleurisy, sputum production, wheezing. Exam: 08:04 Constitutional: This is a well developed, well nourished patient who is awake, alert, kb and in no acute distress. Head/Face: Normocephalic, atraumatic. ENT: Moist Mucous membranes Cardiovascular: Regular rate and rhythm with a normal S1 and S2. No gallops, murmurs, or rubs. No pulse deficits. Abdomen/GI: Soft, non-tender. No distention Skin: Warm, dry with normal turgor. Normal color. MS/ Extremity: Pulses equal, no cyanosis. Neurovascular intact. Full, normal range of motion. 08:04 ECG was reviewed by the Attending Physician. 08:04 Respiratory: mild respiratory distress is noted, moderate respiratory distress is noted, Respirations: labored breathing, that is moderate, Breath sounds: are clear throughout. Vital Signs: 06:55 BP 150 / 85; Pulse 106; Resp 18; Temp 98.6; Pulse Ox 96% ; Weight 107.95 kg; Height 5 cb5 ft. 6 in. (167.64 cm); Pain 4/10; 08:34 BP 150 / 96; Pulse 102; Resp 18; Pulse Ox 97% ; Pain 2/10; cb5 09:30 BP 142 / 73; Pulse 100; Resp 16; Pulse Ox 100% ; Pain 2/10; cb5 11:00 BP 100 / 58; Pulse 91; Resp 16; Pulse Ox 98% ; Pain 2/10; cb5 06:55 Body Mass Index 38.41 (107.95 kg, 167.64 cm) cb5 MDM: 07:01 Patient medically screened. 08:08 Data reviewed: vital signs, nurses notes. Data interpreted: Pulse oximetry: on 2L(s) kb per nasal canula, is 95 %. Interpretation: normal. 08:34 Counseling: I had a detailed discussion with the patient and/or guardian regarding: the kb historical points, exam findings, and any diagnostic results supporting the discharge/admit diagnosis, lab results, radiology results, the need for further work-up and treatment in the hospital. 08:42 The patient was given aspirin in the Emergency Department. Physician consultation: pascale Driver MD was contacted at 08:42, regarding admission, to the telemetry unit. patient's condition, and will see patient in ED, would like consultation with cardiology. 08:43 Physician consultation: Michel Stewart MD message sent. pascale 12/12 07:01 Order name: Basic Metabolic Panel; Complete Time: 08:25 pascale 12/12 07:01 Order name: CBC with Diff; Complete Time: 08:49 kb 12/12 07:01 Order name: NT PRO-BNP; Complete Time: 08:25 kb 12/12 07:01 Order name: Troponin HS; Complete Time: 08:25 kb 12/12 07:02 Order name: COVID-19/FLU A+B (Document "Date of Onset" if Symptomatic); Complete Time: kb 08:26 12/12 08:05 Order name: CBC Smear Scan; Complete Time: 08:49 EDMS 12/12 07:01 Order name: XRAY Chest (1 view); Complete Time: 08:53 kb 12/12 07:01 Order name: EKG; Complete Time: 07:02 kb 12/12 07:01 Order name: Cardiac monitoring; Complete Time: 08:40 kb 12/12 07:01 Order name: EKG - Nurse/Tech; Complete Time: 07:06 kb 12/12 07:01 Order name: IV Saline Lock; Complete Time: 08:40 kb 12/12 11:24 Order name: US; Complete Time: 11:33 EDMS 12/12 07:01 Order name: Labs collected and sent; Complete Time: 08:40 kb 12/12 07:01 Order name: O2 Per Protocol; Complete Time: 07:22 kb 12/12 07:01 Order name: O2 Sat Monitoring; Complete Time: 07:22 kb 12/12 09:15 Order name: Peters; Complete Time: 09:27 kb EC:04 Rate is 107 beats/min. Rhythm is regular. Left axis deviation noted. MS interval is kb normal at 194 msec. QRS interval is normal at 88 msec. QT interval is normal at 322 msec. Administered Medications: 09:03 Drug: Lasix (furosemide) 40 mg Route: IVP; Site: right forearm; cb5 09:10 Drug: Aspirin Chewable Tablet 324 mg Route: PO; cb5 Disposition: 12/13 09:36 Co-signature as Attending Physician, Mp Moreland MD I agree with the assessment and kdr plan of care. 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 [facility] pt is on home O2 at all times, but isn't sure why. [facility] pt does have CHF. EMS reports 88% O2 sat on room air upon their arrival. [facility] O2 was next to bed, but pt was not wearing it. . kb 11:40 08:41 kb eb
--- NOTE | 2021-12-12 08:42 | ER ---
Nurse's Notes [facility] Name: Nabila Jain Age: 76 yrs Sex: Female : 1945 Arrival Date: 12/12/2021 Time: 06:55 Bed 19 Private MD: Diagnosis: Acute on chronic combined systolic (congestive) and diastolic (congestive) heart failure;Chest pain, unspecified;Acute pulmonary edema Presentation: 12/12 06:55 Chief complaint: Patient states: back pain. Coronavirus screen: Client denies travel cb5 out of the [place] in the last 14 days. At this time, the client does not indicate any symptoms associated with coronavirus-19. Ebola Screen: Patient negative for fever greater than or equal to 101.5 degrees Fahrenheit, and additional compatible Ebola Virus Disease symptoms. Initial Sepsis Screen: Does the patient meet any 2 criteria? No. Patient's initial sepsis screen is negative. Does the patient have a suspected source of infection? No. Patient's initial sepsis screen is negative. Risk Assessment: Do you want to hurt yourself or someone else? Patient reports no desire to harm self or others. 06:55 Method Of Arrival: EMS: [facility] cb5 06:55 Acuity: CHARLEEN 3 cb5 Triage Assessment: 06:55 General: Appears uncomfortable, Behavior is cooperative, appropriate for age, restless. cb5 Pain: Complains of pain in back Pain currently is 5 out of 10 on a pain scale. Historical: - PMHx: 08:39 cardiomegaly; diabetes mellitus; Hypertension; cb5 - Immunization history:: Adult Immunizations up to date, Client reports having NOT received the Covid vaccine. - Social history:: Smoking status: Patient denies any tobacco usage or history of. Screenin:00 Abuse screen: Denies threats or abuse. Denies injuries from another. Nutritional cb5 screening: No deficits noted. Tuberculosis screening: No symptoms or risk factors identified. 08:39 Fall Risk None identified. cb5 Assessment: 07:00 General: Appears. cb5 07:00 Pain: Complains of pain in back pain Pain currently is 5 out of 10 on a pain scale. cb5 Neuro: No deficits noted. Level of Consciousness is awake, alert, obeys commands. Cardiovascular: Rhythm is sinus tachycardia. Respiratory: Airway is patent Respiratory effort is even, Breath sounds with wheezes in right posterior lower lobe. GI: No deficits noted. : No deficits noted. EENT: No deficits noted. Derm: No deficits noted. Musculoskeletal: Reports pain in lower back. 08:00 Reassessment: Patient and/or family updated on plan of care and expected duration. Pain cb5 level reassessed. 09:29 Reassessment: Patient and/or family updated on plan of care and expected duration. Pain cb5 level reassessed. 10:30 Reassessment: Patient and/or family updated on plan of care and expected duration. Pain cb5 level reassessed. 11:50 Reassessment: gave report to Jose G Prince [facility] Vital Signs: 06:55 BP 150 / 85; Pulse 106; Resp 18; Temp 98.6; Pulse Ox 96% ; Weight 107.95 kg; Height 5 cb5 ft. 6 in. (167.64 cm); Pain 4/10; 08:34 BP 150 / 96; Pulse 102; Resp 18; Pulse Ox 97% ; Pain 2/10; cb5 09:30 BP 142 / 73; Pulse 100; Resp 16; Pulse Ox 100% ; Pain 2/10; cb5 11:00 BP 100 / 58; Pulse 91; Resp 16; Pulse Ox 98% ; Pain 2/10; cb5 06:55 Body Mass Index 38.41 (107.95 kg, 167.64 cm) 5 ED Course: 06:55 Patient arrived in ED. sf1 07:01 Erika Vidal FNP-C is [facility]. kb 07:01 Mp Moreland MD is Attending Physician. kb 07:06 Patient has correct armband on for positive identification. Bed in low position. Call [facility] light in reach. Side rails up X2. Adult w/ patient. Warm blanket given. radiation monitor on. Pulse ox on. NIBP on. 07:06 EKG done, by ED staff, reviewed by Erika DUNN. 5 07:22 COVID-19/FLU A+B (Document "Date of Onset" if Symptomatic) Sent. 5 07:22 COVID swab sent to lab. 5 07:52 XRAY Chest (1 view) In Process Unspecified. EDMS 08:04 Inserted saline lock: 20 gauge in right forearm, using aseptic technique. Blood ic1 collected. 08:29 Tarsha Love, RN is Primary Nurse. cb5 08:32 Triage completed. cb5 08:40 Arm band placed on left wrist. cb5 08:40 No provider procedures requiring assistance completed. cb5 08:41 Prince Driver MD is Hospitalizing Provider. kb 09:27 Peters cath inserted, using sterile technique, 18 Fr., by vt, balloon inflated, to cb5 gravity drainage. Administered Medications: 09:03 Drug: Lasix (furosemide) 40 mg Route: IVP; Site: right forearm; cb5 09:10 Drug: Aspirin Chewable Tablet 324 mg Route: PO; cb5 Outcome: 08:41 Decision to Hospitalize by Provider. kb 11:58 Patient left the ED. eb Signatures: Dispatcher [employer] EDMS Erika Vidal, LIFT SUPERVISOR-C LIFT SUPERVISOR-Nabila Randhawa Zoe Hunt Iesha, RN RN ic1 Tarsha Love, RN RN cb5 Yumiko Keys RN RN sf1
[2021-12-12 08:48] LABS: Blood Morphology Comment NOT SEEN (NOT SEEN); Platelet Estimate ADEQ; White Blood Cell Scan OK (OK)
--- NOTE | 2021-12-12 08:49 | RAD REPORT ---
EXAM DESCRIPTION: Cesia Single View3 7:52 am CLINICAL HISTORY: Chest pain COMPARISON: 2020 FINDINGS: [id number] bilateral pulmonary opacities. Heart remains enlarged IMPRESSION: These findings probably indicate CHF
[2021-12-12] MEDS ORDERED: FUROSEMIDE 40 MG/4 ML VIAL ONE (09:07)
[2021-12-12] MEDS ORDERED: ASPIRIN 81 MG CHEWABLE TABLET ONE (09:07)
--- NOTE | 2021-12-12 09:55 | P.HP ---
Certification for Inpatient Patient admitted to: Inpatient With expected LOS: >2 Midnights Practitioner: I am a practitioner with admitting privileges, knowledge of patient current condition, hospital course, and medical plan of care. Services: Services provided to patient in accordance with Admission requirements found in Title 42 Section 412.3 of the Code of Federal Regulations Patient History Date of Service: 12/12/21 Reason for admission: Chest pain and shortness of breath History of Present Illness: Patient is a 76-year-old [place]-speaking female with a known past medical history of congestive heart failure, chronic respiratory failure on supplemental oxygen at home, type 2 diabetes mellitus, hypertension and morbid obesity. She is presenting to the ER today via EMS after she woke up with a sudden onset of chest pain and shortness of breath. A family member was at bedside to facilitate history. Apparently, she has been doing well all this time until what happened today. She was last seen here in March 2021 after hospitalization for CHF exacerbation. During this admission, her chest x-ray showing volume overload suggestive of CHF exacerbation. Her high-sensitivity troponin was 302. She has a left lower extremity edema. Allergies No Known Drug Allergies Allergy (Verified 04/23/21 23:42) Unknown Home Medications: Carvedilol [Coreg] 1 tab PO DAILY 04/23/21 Meloxicam 1 tab PO DAILY 04/23/21 Metformin HCl 500 mg PO BID 04/23/21 Potassium Chloride 1 tab PO DAILY 04/23/21 Cefdinir [Cefdinir*] 300 mg PO Q12HR #2 cap 04/27/21 traMADol HCL [Ultram*] 50 mg PO Q6H PRN #20 tab 04/27/21 Furosemide 2 tab PO DAILY 30 Days #60 tablet 04/29/21 - Past Medical/Surgical History Diabetic: No -: HTN -: Diabetes mellitus type 2 -: CHFunknown EF -: -: GALL STONES REMOVED Psychosocial/ Personal History: Patient lives at home with her family - Family History Father Notes: UNKNOWN- PATIENT WAS TEN YEARS OLD WHEN FATHER . Mother Notes: UNKNOWN- PATIENT WAS 1 WHEN MOTHER . - Social History Alcohol use: No CD- Drugs: No Caffeine use: Yes Physical Examination - Physical Exam General: Cooperative, Moderate distress, Obese HEENT: Atraumatic, Normocephalic Neck: JVD distended Respiratory: Diminished Cardiovascular: Regular rate/rhythm, Normal S1 S2, Edema Gastrointestinal: Soft and benign, Non-distended Neurological: Normal speech, Normal affect - Studies Laboratory Data (last 24 hrs) 12/12/21 07:53: WBC 8.40 D, Hgb 12.8, Hct 38.9, Plt Count 201 D 12/12/21 07:53: Sodium 141, Potassium 4.3, BUN 25 H, Creatinine 1.30, Glucose 126 H Assessment and Plan - Problems (Diagnosis) (1) Acute on chronic diastolic (congestive) heart failure Current Visit: No Status: Acute (2) Acute respiratory failure with hypoxia Current Visit: No Status: Acute (3) COPD (chronic obstructive pulmonary disease) Current Visit: No Status: Acute (4) Diabetes mellitus type 2 in obese Current Visit: No Status: Acute (5) Obesity due to excess calories Current Visit: No Status: Acute (6) Hypertension Current Visit: No Status: Chronic (7) NSTEMI (non-ST elevated myocardial infarction) Current Visit: Yes Status: Acute - Advance Directives Does patient have a Living Will: No Does patient have a Durable POA for Healthcare: No Physician Review Additional Text: Assessment Patient is a 76 year old [place]ayan-speaking female with a PMH of morbid obesity, COPD, chronic respiratory failure and CHF. She is presenting with an acute onset of shortness of breath and chest pain that woke her up from sleep. CXR suggestive of pulmonary edema and CHF exacerbation. She also has elevated troponin at 302. Acute on chronic respiratory failure CHF exacerbation NSTEMI COPD HTN Type II diabetes mellitus PLAN: Plan to transfer for a urgent coronary angiogram We will continue patient on diuresis at 40 mg twice daily 2D echo has been ordered Monitor ins and out I will obtain a Doppler of the lower extremity to rule out DVTs Troponin elevation is most likely secondary to demand ischemia. Nevertheless, I will obtain a cardiology consult given her co-morbidities Will at least start ASA and high intensity statin. Follow up TTE DVT ppx Resume home medications once reconciled
[2021-12-12] MEDS ORDERED: HYDROMORPHONE HCL 1 MG/ML INJ IV ONE (10:00)
--- NOTE | 2021-12-12 11:23 | RAD REPORT ---
EXAM DESCRIPTION: US - Extrem Venous W Compress Fritz - 12/12/2021 11:11 am CLINICAL HISTORY: Pain COMPARISON: None. TECHNIQUE: Real-time sonographic evaluation of the bilateral lower extremity deep venous systems was performed. FINDINGS: Normal compressibility, flow augmentation, phasic flow and spontaneous flow is identified in both the left and right lower extremity deep venous systems. No intraluminal filling defects seen. IMPRESSION: No DVT in either lower extremity.
[2021-12-12] MEDS ORDERED: TRAMADOL HCL 50 MG TAB PO PRN (12:11)
[2021-12-12] MEDS ORDERED: HEPARIN/D5W 25,000 UNIT/500 ML BAG IV SCH (13:34)
[2021-12-12 14:03] VITALS: O2SAT 93
[2021-12-12 14:12] VITALS: BMI 41.7
[2021-12-12] MEDS ORDERED: HEPARIN 5000 UNIT/ML 1 ML VIAL IV ONE (15:00)
--- NOTE | 2021-12-12 16:01 | P.DS ---
Admission Date: 12/12/21 Discharge Date: 12/12/21 Reason for Admission: Chest pain and shortness of breath - Problems (1) Acute on chronic diastolic (congestive) heart failure Current Visit: No Status: Acute (2) Acute respiratory failure with hypoxia Current Visit: No Status: Acute (3) COPD (chronic obstructive pulmonary disease) Current Visit: No Status: Acute (4) Diabetes mellitus type 2 in obese Current Visit: No Status: Acute (5) Obesity due to excess calories Current Visit: No Status: Acute (6) Hypertension Current Visit: No Status: Chronic (7) NSTEMI (non-ST elevated myocardial infarction) Current Visit: Yes Status: Acute Brief History of Present Illness: Patient is a 76-year-old Nigerian-speaking female with a known past medical history of congestive heart failure, chronic respiratory failure on supplemental oxygen at home, type 2 diabetes mellitus, hypertension and morbid obesity. She is presenting to the ER today via EMS after she woke up with a sudden onset of chest pain and shortness of breath. A family member was at bedside to facilitate history. Apparently, she has been doing well all this time until what happened today. She was last seen here in March 2021 after hospitalization for CHF exacerbation. During this admission, her chest x-ray showing volume overload suggestive of CHF exacerbation. Her high-sensitivity troponin was 302. She has a left lower extremity edema. Hospital Course: 76-year-old Nigerian-speaking female with a known past medical history of morbid obesity, congestive heart failure and chronic respiratory failure. She was admitted with chest pain and shortness of breath which woke her up from sleep. She had troponin elevation and they have increased approximately 4 fold. Maximum troponin of 1189 (high-sensitivity troponin). Patient was started on heparin infusion. Cardiology onsite recommended transfer for urgent coronary angiogram. Patient was accepted at [facility] in [facility]. Vital Signs/Physical Exam: Temp Pulse Resp BP Pulse Ox 98.6 F 89 24 H 106/53 L 100 12/12/21 12:00 12/12/21 12:00 12/12/21 12:00 12/12/21 12:00 12/12/21 12:00 Laboratory Data at Discharge: WBC 8.40 K/uL (4.3-10.9) D 12/12/21 07:53 Hgb 12.8 g/dL (12.0-15.0) 03/19/22 07:53 Hct 38.9 % (36.0-45.0) 12/12/21 07:53 Plt Count 201 K/uL (152-406) D 12/12/21 07:53 APTT 39.3 SECONDS (24.3-36.9) H 12/12/21 14:36 Sodium 141 mmol/L (136-145) 12/12/21 07:53 Potassium 4.3 mmol/L (3.5-5.1) 12/12/21 07:53 BUN 25 mg/dL (7-18) H 12/12/21 07:53 Creatinine 1.30 mg/dL (0.55-1.3) 12/12/21 07:53 Glucose 126 mg/dL (74-106) H 12/12/21 07:53 Home Medications: RX: Carvedilol [Coreg] 1 tab PO DAILY 04/23/21 RX: Meloxicam 1 tab PO DAILY 04/23/21 RX: Metformin HCl 500 mg PO BID 04/23/21 RX: Potassium Chloride 1 tab PO DAILY 04/23/21 RX: Cefdinir [Cefdinir*] 300 mg PO Q12HR #2 cap 04/27/21 RX: traMADol HCL [Ultram*] 50 mg PO Q6H PRN #20 tab 04/27/21 RX: Furosemide 2 tab PO DAILY 30 Days #60 tablet 04/29/21 Followup: NONE,NONE [Primary Care Provider] -
[2021-12-12] MEDS ORDERED: HEPARIN 5000 UNIT/ML 1 ML VIAL SQ SCH (17:00)
[2021-12-12] MEDS ORDERED: FUROSEMIDE 40 MG/4 ML VIAL IV SCH (17:00)
[2021-12-12] MEDS ORDERED: carvediloL 12.5 MG TAB PO SCH (18:00)
--- NOTE | 2021-12-12 19:12 | CON ---
Date of Consultation: 12/12/2021 Reason For Consultation: Heart failure and chest pain. History Of Present Illness: 76-year-old female, history of congestive heart failure, on oxygen at [facility] with chronic respiratory failure, diabetes, hypertension, morbid obesity, presented to the emergen cy room with chest pain and shortness of breath and has lower extremity edema, and orthopnea. The kya levin is a poor historian. Past Medical History: As outlined above in HPI. Medications: Refer reconciliation sheet for detailed list. Past Surgical History: . Allergies: NO KNOWN DRUG ALLERGIES. Family History: No premature coronary artery disease or cancer. Social History: Does not smoke or drink. Does not use any drugs. Review of Systems: All systems reviewed and they were negative except as mentioned in the HPI. Physical Examination: Vital Signs: Reviewed. Head and Neck: Pupils are equal, reactive to light. Intact eye movements. No JVD. No cervical lym phadenopathy. Neck: Supple. Thyroid is not enlarged. Lungs: Decreased breathing sounds with faint crackles in the bases. No accessory muscle use or musc le retraction. Heart: Regular rate and rhythm with no extra sounds. Abdomen: Soft, nontender. Bowel sounds positive. No organomegaly. No masses or hernia. No rigidi ty or rebound. Extremities: No clubbing, cyanosis. Intact pulses. 3+ pitting edema. Neurologic: Alert, awake, no acute focal deficits appreciated. Lymph Nodes: No cervical lymphadenopathy. Investigations: Hemoglobin is 12.8. Creatinine is 1.3. Her troponin went up from 302 to 1189. Assessment And Recommendation: Non-ST elevation myocardial infarction. A significant rise in her tr oponin and she appears very short of breath. I load her with aspirin, continue IV heparin, and I rec ommend that she be transferred for urgent coronary angiogram during the weekend as she appears in acu te congestive heart failure and not doing well clinically. The patient is hypotensive, she is not go ing to allow for proper diuresis. A transfer to a higher level of care facility for rather urgent co ronary angiogram is recommended. I will discuss with Dr. Driver. SR/MODL Voice ID: [id number] Report ID: [id number]
[2021-12-12] MEDS ORDERED: ATORVASTATIN 40 MG TAB PO SCH (21:00)
[2021-12-12 21:41] LABS: Arterial Blood Carboxyhemoglob 1.1 % (0-1.5); Blood Gas Oxyhemoglobin 92.8 % (94-97); Blood O2 Saturation 95.2 % (92-98.5)
--- NOTE | 2021-12-12 21:42 | P.PN ---
Date of Service: 12/12/21 Rapid response was called at 1938 by nursing staff. I immediately went to evaluate the patient who was found to be sitting in the recliner nursing staff was concerned as patient was difficult to arouse from sleeping in the recliner. Daughter was at bedside reports that patient seemed like she was just tired and typically does have difficulty arousing. I obtained a repeat EKG which demonstrated normal sinus rhythm without STEMI or other acute changes, ABG was obtained as well which was acceptable. EMS was at bedside at that point to transfer patient to receiving facility, they were told that we would be holding the patient for a few more hours and dismissed. Patient remained stable over the course the next few hours is back at baseline per daughter vital signs are stable last set 146/66 respiratory rate 22 heart rate 90 normal sinus rhythm she is 95% on 2 L per nasal cannula temperature was 98.7 patient is alert, oriented x3 sitting in bed complaining of pain to her backside from the bed. I discussed the case with hospitalist at [facility] in [place] to update on the events and current condition, she accepted the patient. Family updated patient to be transported this evening for urgent cardiac evaluation.
[2021-12-12 23:07] VITALS: BP 146/66; TEMP 98.7
[2021-12-13] MEDS ORDERED: carvediloL 12.5 MG TAB PO SCH (09:00)
[2021-12-13] MEDS ORDERED: ASPIRIN EC 81 MG TAB PO SCH (09:00)
--- NOTE | 2021-12-14 08:24 | EKG ---
Test Date: 2021-12-12 Test Time: 07:19:21 [employer] Tr[employer] Helper: HERNANDEZ MEASUREMENT RESULTS: Intervals: Rate: 107 CO: 194 QRSD: 88 QT: 322 QTc: 429 [place]: P: 56 CO: 194 QRS: -47 T: 77 INTERPRETIVE STATEMENTS: Sinus tachycardia Left anterior fascicular block Minimal voltage criteria for LVH, may be normal variant Abnormal ECG Compared to ECG 04/23/2021 16:36:45 Left anterior fascicular block now present Left ventricular hypertrophy now present Sinus rhythm no longer present Left-axis deviation no longer present Electronically Signed On 12-14-21 08:20:59 CDT by Pal Menjivar
--- NOTE | 2021-12-15 08:47 | EKG ---
Test Date: 2021-12-12 Test Time: 19:46:43 [employer] Consultant: RT Canseco MEASUREMENT RESULTS: Intervals: Rate: 97 NE: 184 QRSD: 86 QT: 352 QTc: 447 [place]: P: 31 NE: 184 QRS: -44 T: 8 INTERPRETIVE STATEMENTS: Normal sinus rhythm with sinus arrhythmia Left axis deviation Abnormal ECG Compared to ECG 12/12/2021 07:19:21 Left-axis deviation now present Sinus tachycardia no longer present Left anterior fascicular block no longer present Left ventricular hypertrophy no longer present Electronically Signed On 12-15-21 08:42:39 CDT by Pal Menjivar
== END 2021-12-12 21:58 | disposition short-term general hospital (02) | DRG 280 ==
LOC: ER 06:53 → ERHOLD 09:16 → 2ND 11:48
PROVIDERS: ADMIT Internal Medicine; ATTEND Internal Medicine
DX: I21.4 Non-ST elevation (NSTEMI) myocardial infarction (principal); J96.20 Acute and chronic respiratory failure, unspecified whether with hypoxia or hypercapnia; I50.33 Acute on chronic diastolic (congestive) heart failure; Z68.41 Body mass index [BMI] 40.0-44.9, adult; I11.0 Hypertensive heart disease with heart failure; J44.9 Chronic obstructive pulmonary disease, unspecified; I95.9 Hypotension, unspecified; E11.9 Type 2 diabetes mellitus without complications; E66.01 Morbid (severe) obesity due to excess calories; Z99.81 Dependence on supplemental oxygen; Z20.822 Contact with and (suspected) exposure to COVID-19
CPT/HCPCS: 0240U; 36415; 51702; 71045; 80048; 82805; 82947; 83036; 83880; 84484; 85025; 85730; 93005; 93970; 94760; 96374; 99285; J1644; J1940

== ENCOUNTER 2022-01-22 16:09 | Inpatient (IN) | payer OTHER ==
--- OUTSIDE RECORDS SUMMARY | 2022-01-22 16:13 | XMS REPORT | Continuity of Care Document ---
:1945 [facility] Organization [facility] t Address [address] [place] [address] Care Team Providers Name Role Phone [phone] Attending Clinician Unavailable Dara Ramirez Attending Clinician Unavailable Gideon Attending Clinician Unavailable Jaz Attending Clinician Unavailable SIMONE NIELSEN Attending Clinician Unavailab yobani KELLEY Attending Clinician Unavailable [id number] Admitting Clinician Unavailable SIMONE NIELSEN Admitting Clinician Unavailab le Payers Payer Name Policy Type Policy Number Effective Date Expiration Date S ource MEDICARE A B [id number] 2011 00:00:00 Problems This patient has no known problems. Allergies, Adverse Reactions, Alerts Allergy Allergy Status Severity Reaction(s) Onset Inactive Treating Comm ents Source Name Type Date Date Clinician NO KNOWN Allergy Active [facility] Medications Ordered Filled Start Stop Current Ordering Indication Dosage Frequency Signature Comments Components Source Medication Medication Date Date Medication? Clinician (SIG) Name Name Meloxicam Meloxicam 2020- No Sylvia 1/[address] [facility] 02-21- [facility] tablet as [facility] - 00:00: 00:00 needed for [facility] 00 :00 pain; take l with food Outpati or milk ent Clinics ProAir HFA ProAir HFA Yes Sylvia [address] [facility] 4-02 [facility] Gabapentin Gabapentin Yes Sylvia as [facility] Diclofenac Diclofenac Yes Sylvia [address] [facility] Sodium Sodium [facility] Vitamin D Vitamin D Yes Sylvia (otc) [address] [facility] capsule [facility] Amlodipine Amlodipine Yes Sylvia [address] [facility] Besylate Besylate [facility] Patricia kes [facility] Enalapril Enalapril Yes Sylvia [address] [facility] Maleate Maleate [facility] Cyclobenzap Cyclobenzap Yes Sylvia [address] [facility] rine HCl rine HCl [facility] at bedtime [facility] Lasix Lasix Yes Sylvia [address] [facility] Millender as needed [facility] Vital Signs Vital Name Observation Time Observation Value Comments Source WEIGHT 2021-12-18 04:00:00 122.199 kg WEIGHT 2021-12-17 05:00:00 122.018 kg WEIGHT 2021-12-16 05:00:00 122.925 kg WEIGHT 2021-12-15 04:00:00 126.4 kg HEIGHT 2021-12-13 00:00:00 157.5 cm WEIGHT 2021-12-13 00:00:00 125 kg WEIGHT 2021-12-18 04:00:00 122.199 kg WEIGHT 2021-12-17 05:00:00 122.018 kg WEIGHT 2021-12-16 05:00:00 122.925 kg WEIGHT 2021-12-15 04:00:00 126.4 kg HEIGHT 2021-12-13 00:00:00 157.5 cm WEIGHT 2021-12-13 00:00:00 125 kg Procedures This patient has no known procedures. Encounters Start End Encounter Admission Attending Care Care Encounter Source Date/Time Date/Time Type Type Clinicians Facility Department ID 2021-10-22 Out[place] [id number] [id number] [facility] 12:39:34 0807 2021-10-22 Outpatient [id number] [facility] REF [id number] [facility] 12:38:20 0804 2021-10-21 Outpatient Ramirez, Na STLMLC [facility] [id number] [facility] 13:43:38 [id number] [facility] 2021-10-21 Outpatient Ramirez, Na [facility]LMLC [facility] [id number] [facility] 13:30:30 [id number] [facility] 2021-10-21 Outpatient Ramirez, Na [facility]LMLC ST[facility] [id number] [facility] 13:29:49 [id number] [facility] 2021-10-21 Outpatient Ramirez, Na [facility]LMLC [facility] [id number] [facility] 13:14:45 [id number] [facility] 2021-10-21 Outpatient Ramirez, Na STLMLC STLMLC [id number] [facility] 13:14:19 [id number] [facility] 2021-10-21 Outpatient Ramirez, Na STLMLC [facility] [id number] [facility] 12:44:50 [id number] [facility] 2021-10-21 Outpatient Ramirez, Na [facility]LMLC [facility] [id number] [facility] 12:38:32 [id number] [facility] 2021-10-21 Outpatient Ramirez, Na [facility]LML[facility] [id number] [facility] 12:37:09 [id number] [facility] 2021-10-21 Outpatient Ramirez, Na [facility]LMLC ST[facility] [id number] [facility] 12:32:08 [id number] [facility] 2021-10-21 Outpatient Ramirez, Na [facility]LMLC [facility] [id number] [facility] 12:29:25 [id number] [facility] 2021-10-21 Outpatient Ramirez, Na [facility]LML[facility] ST[facility] [id number] [facility] 12:18:08 [id number] [facility] 2021-10-21 Outpatient Ramirez, Na [facility]LMLC [facility] [id number] [facility] 12:17:07 [id number] [facility] 2021-10-21 [facility] [id number] [facility] 12:16:47 [id number] [facility] 2021-10-21 [facility] [id number] [facility] 12:13:25 [id number] [facility] 2021-10-21 [facility] [id number] [facility] [address] 12:08:59 [id number] [facility] 2021-10-21 [facility] [id number] [facility] [address] 12:00:30 [id number] [facility] 2021-10-21 Outpatient Jaz, [facility] [id number] 11:52:47 Sylvia [id number] [facility] 2021-10-21 Outpatient Jaz, [facility] [id number] 11:48:48 Sylvia [id number] [facility] 2021-10-21 [id number] 11:[facility]25 Sylvia [id number] [facility] 2021-10-21 Outpatient Jaz, [facility] [id number] 11:41:35 Sylvia [id number] [facility] 2021-10-21 [facility] [id number] 11:[facility]:52 [facility]via [id number] [facility] 2021-10-21 [facility] [id number] 11:19:15 Sylvia [id number] [facility] 2021-10-21 Outpatient Jaz, [facility] [id number] 11:04:48 Sylvia [id number] [facility] 2021-12-12 2021-12-19 Inpatient [facility] Card[facility] 2 [id number] [facility] 23:31:00 00:46:00 [facility] 2021-04-20 2021-04-20 Outpatient [facility] [id number] [facility] 2021-03-11 2021-03-11 Outpatient [facility] [id number] [facility] 2021-03-05 2021-03-05 Outpatient [facility] [id number] [facility] 2020-12-03 2020-12-03 Outpatient [facility] [id number] [facility] 2020-10-16 2020-10-16 Outpatient [facility] [id number] [facility] 2020-10-01 2020-10-01 Outpatient [facility] [id number] [facility] 2020-09-24 2020-09-24 Outpatient [facility] [id number] [facility] 2020-09-10 2020-09-10 Outpatient [facility] [id number] [facility] 2020-09-02 2020-09-02 Outpatient [facility] [id number] [facility] 2020-08-12 2020-08-12 Outpatient [facility] [id number] [facility] 2020-07-03 2020-07-03 Outpatient [facility] [id number] [facility] 2020-06-19 2020-06-19 Outpatient [facility] [id number] [facility]00 [facility] Outpati ent Clinics 2020-05-23 2020-05-23 [facility] [id number] [facility] 15:00:00 15:00:00 [facility] Medicine Outpati ent Clinics 2020-04-23 2020-04-23 [facility] [id number] [facility] 16:40:00 16:40:00 [facility] Medicine Outpati ent Clinics 2020-04-16 2020-04-16 [facility] [id number] [facility] 13:30:00 13:30:00 [facility] Medicine Outpati ent Clinics 2020-02-22 2020-02-22 [facility] [id number] [facility] 13:40:00 13:40:00 [facility] Outpati ent Clinics 2020-01-23 2020-01-23 [facility] [id number] [facility] 16:41:00 16:41:00 [facility] Outpati ent Clinics 2019-12-25 2019-12-25 [facility] [id number] [facility] 13[facility]50:00 13:50:00 [facility] Outpati ent Clinics 2019-10-26 2019-10-26 [facility] [id number] [facility] 16:15:00 16:15:00 [facility] Outpati ent Clinics 2019-10-04 2019-10-04 [facility] [id number] [facility] 23:40:00 23:40:00 [facility] Outpati ent Clinics 2019-09-21 2019-09-21 [facility] [id number] [facility] 16:00:00 16:00:00 [facility] Outpati ent Clinics 2019-08-31 2019-08-31 [facility] [id number] [facility] 00:42:00 00:42:00 [facility] 2019-08-22 2019-08-22 Outpatient Betty Hernándezt [id number] 01:28:00 01:28:00 [facility] 2019-08-21 2019-08-21 [place] [id number] 11:20:00 11:20:00 [facility] Results Test Description Test Time Test Comments Results Result Comments Source BLOOD CULTURE 2021-12-21 10:00:48 Test Item Value Reference Range Interpretation Comme nts CULTURE (BEAKER) (test code = 1095) No growth in 5 days BLOOD [id number] 10:00:47 Test Item Value Reference Range Interpretation Comments CULTURE (BEAKER) (test No growth in 5 days code = 1095) BLOOD [id number] 08:58:19 Test Item Value Reference Range Interpretation Comments CULTURE A From Aerobic An d (BEAKER) (test Anaerobic Bot tles Same code = 1095) organism has be en isolated from cultures(s) of the same body site within 3 days. Repeat identification and susceptibility testing performed only after consultation wi the clinical microb iology laboratory.Refe r to previous cultur e ofProteus mirab ilis GRAM STAIN From anaerobic RESULT (BEAKER) bottle only: gram (test code = variable rods 1123) GRAM STAIN From aerobic RESULT (BEAKER) bottle only: gram (test code = variable rods [id number]) RAD, CHEST, 1 VIEW, NON [id number] 18:50:00Reason for exam:->post PICC placement.Should this be performed at the bedside?->[facility] 1945 Sex: FFINAL REPORT Chest, one view. HISTORY: post PICC placement. COMPARISON: Radiograph from 12/13/2021 IMPRESSION: Interval insertion of a right PICC with the tip over the superior cavoatrial junction. There are prominent interstitial opacities of lungs which are concerning for interstitial pulmonary edema. No pleural effusion or pneumothorax. The cardiac silhouette is unchanged in size. No acute bone abnormality. Signed: Cristiano Tejada Verified Date/Time: 12/18/2021 18:50:34 POCT-GLUCOSE [id number] 16:04:01 Test Item Value Reference Range Interpretation Comments POC-GLUCOSE METER 113 mg/dL 70-110 H : TESTED A T [facility] [address] (BEAKER) (test code [address], = 1538) [place] [address] 384: Medical Record Transcriber/Techni bandar ID = [id number] for S Mamie means POCT-GLUCOSE [id number] 11:41:36 Test Item Value Reference Range Interpretation Comments POC-GLUCOSE METER 115 mg/dL 70-110 H : TESTED A T [facility] [address] (BEAKER) (test code [address], = 1538) [place] [address] 384: Medical Record Transcriber/Techni bandar ID = [id number] for R Amelia hancock POCT-GLUCOSE [id number] 06:09:01 Test Item Value Reference Range Interpretation Comments POC-GLUCOSE METER 107 mg/dL 70-110 : TESTED A T [facility] [address] (BEAKER) (test code [address], = 1538) [place] [address] 384: Medical Record Transcriber/Techni bandar ID = [id number] for B otz, Ana POCT-GLUCOSE [id number] 20:32:11 Test Item Value Reference Range Interpretation Comments POC-GLUCOSE METER 109 mg/dL 70-110 : TESTED A T [facility] [address] (BEAKER) (test code [address], = 1538) [place] [address] 384: Medical Record Transcriber/Techni bandar ID = [id number] for B Ana wilson POCT-GLUCOSE [id number] 15:47:51 Test Item Value Reference Range Interpretation Comments POC-GLUCOSE METER 108 mg/dL 70-110 : TESTED A T [facility] [address] (BEAKER) (test code [address], = 1538) [place] [address] 384: Medical Record Transcriber/Techni bandar ID = [id number] for T u-Cami, Aquilito POCT-GLUCOSE [id number] 10:52:11 Test Item Value Reference Range Interpretation Comments POC-GLUCOSE METER 108 mg/dL 70-110 : TESTED A T [facility] [address] (BEAKER) (test code [address], = 1538) [place] [address] 384: Medical Record Transcriber/Techni bandar ID = [id number] for T u-Cami, Aquilito BLOOD [id number] 10:13:51 Test Item Value Reference Range Interpretation Comments CULTURE A From Aerobic An d (BEAKER) (test Anaerobic Bot tles Same code = 1095) organism has be en isolated from cultures(s) of the same body site within 3 days. Repeat identification and susceptibility testing performed only after consultation wi th the clinical microb iology laboratory.Refe r to previous cultur e ofProteus mirab ilis GRAM STAIN From aerobic RESULT (BEAKER) bottle only: gram (test code = negative rods 1123) GRAM STAIN From anaerobic RESULT (BEAKER) bottle only: gram (test code = variable rods [id number]) TSH/FREE T4 IF [id number] 05:27:19 Test Item Value Reference Range Interpretation Comments THYROID STIMULATING HORMONE 2.380 uIU/mL 0.350-5.500 (BEAKER) (test code = 772) Medical Record Transcriber ID - ZCHRISBASIC METABOLIC [id number] 05:10:27 Test Item Value Reference Range Interpretation Comments SODIUM (BEAKER) 140 meq/L 135-148 (test code = 381) POTASSIUM (BEAKER) 3.7 meq/L 3.5-5.5 (test code = 379) CHLORIDE (BEAKER) 99 meq/L 98-106 (test code = 382) CO2 (BEAKER) (test 30 meq/L code = 355) BLOOD UREA NITROGEN 40 mg/dL 10-26 H (BEAKER) (test code = 354) CREATININE (BEAKER) 0.82 mg/dL 0.50-1.20 (test code = 358) GLUCOSE RANDOM 112 mg/dL 70-110 H (BEAKER) (test code = 652) CALCIUM (BEAKER) 8.7 mg/dL 8.5-10.5 (test code = 697) EGFR (BEAKER) (test 68 mL/min/1.73 ESTIMA KATH GFR IS code = 1092) sq m NOT ACCURATE CREATININE CLEARANCE IN PREDICTING GLOMERULAR FILTRATION RATE . ESTIMATED GFR I S NOT APPLICABLE FOR DIALYSIS PATIEN TS. Medical Record Transcriber ID - ZCHRISPOCT-GLUCOSE [id number] 04:35:23 Test Item Value Reference Range Interpretation Comments POC-GLUCOSE METER 111 mg/dL 70-110 H : TESTED A T [facility] [address] (BEAKER) (test code [address], = 1538) [place] [address] 384: Medical Record Transcriber/Techni bandar ID = [id number] for Magalys Hillmanl POCT-GLUCOSE [id number] 20:40:35 Test Item Value Reference Range Interpretation Comments POC-GLUCOSE METER 109 mg/dL 70-110 : TESTED A T [facility] [address] (BEAKER) (test code [address], = 1538) [place] [address] 384: Medical Record Transcriber/Techni bandar ID = [id number] for Marito Hillmanquel POCT-GLUCOSE [id number] 15:58:46 Test Item Value Reference Range Interpretation Comments POC-GLUCOSE METER 118 mg/dL 70-110 H : TESTED A T [facility] [address] (BEAKER) (test code [address], = 1538) [place] [address] 384: Medical Record Transcriber/Techni bandar ID = [id number] for Wil eugene Iris POCT-GLUCOSE [id number] 11:20:32 Test Item Value Reference Range Interpretation Comments POC-GLUCOSE METER 112 mg/dL 70-110 H : TESTED A T [facility] [address] (BEAKER) (test code [address], = 1538) [place] [address] 384: Medical Record Transcriber/Techni bandar ID = [id number] for Wil eugene Iris POCT-GLUCOSE [id number] 06:13:03 Test Item Value Reference Range Interpretation Comments POC-GLUCOSE METER 98 mg/dL 70-110 : TESTED A T [facility] [address] (BEAKER) (test code = [address], 1538) [facility] 77 384: Medical Record Transcriber/Techni bandar ID = [id number] for Arlene Tay BASIC METABOLIC [id number] 04:12:42 Test Item Value Reference Range Interpretation Comments SODIUM (BEAKER) 140 meq/L 135-148 (test code = 381) POTASSIUM (BEAKER) 3.6 meq/L 3.5-5.5 Specimen slightly (test code = 379) hemolyzed CHLORIDE (BEAKER) 103 meq/L 98-106 (test code = 382) CO2 (BEAKER) (test 24 meq/L 20-31 code = 355) BLOOD UREA NITROGEN 48 mg/dL 10-26 H (BEAKER) (test code = 354) CREATININE (BEAKER) 0.86 mg/dL 0.50-1.20 Specimen slightly (test code = 358) hemolyzed GLUCOSE RANDOM 103 mg/dL 70-110 (BEAKER) (test code = 652) CALCIUM (BEAKER) 8.5 mg/dL 8.5-10.5 (test code = 697) EGFR (BEAKER) (test 64 mL/min/1.73 ESTIMA KATH GFR IS code = 1092) sq m NOT ACCURATE CREATININE CLEARANCE IN PREDICTING GLOMERULAR FILTRATION RATE . ESTIMATED GFR I S NOT APPLICABLE FOR DIALYSIS PATIEN TS. Medical Record Transcriber ID - [id number] W/PLT COUNT & AUTO [id number] 03:42:27 Test Item Value Reference Range Interpretation Comments WHITE BLOOD CELL COUNT (BEAKER) 13.4 K/ L 4.0-10.0 H (test code = 775) RED BLOOD CELL COUNT (BEAKER) 3.88 M/ L 4.00-5.00 L (test code = 761) HEMOGLOBIN (BEAKER) (test code = 11.2 GM/DL 12.0-15.5 L 410) HEMATOCRIT (BEAKER) (test code = 35.2 % 36.0-46.0 L 411) MEAN CORPUSCULAR VOLUME (BEAKER) 90.7 fL 82.0-99.0 (test code = 753) MEAN CORPUSCULAR HEMOGLOBIN 28.9 pg 27.0-33.0 (BEAKER) (test code = 751) MEAN CORPUSCULAR HEMOGLOBIN CONC 31.8 GM/DL 32.0-36.0 L (BEAKER) (test code = 752) RED CELL DISTRIBUTION WIDTH 15.2 % 12.0-15.0 H (BEAKER) (test code = 412) PLATELET COUNT (BEAKER) (test 122 K/CU MM 150-430 L code = 756) MEAN PLATELET VOLUME (BEAKER) 11.9 fL 6.0-11.5 H (test code = 754) NUCLEATED RED BLOOD CELLS 0 /100 WBC 0-0 (BEAKER) (test code = 413) NEUTROPHILS RELATIVE PERCENT 74 % (BEAKER) (test code = 429) LYMPHOCYTES RELATIVE PERCENT 16 % (BEAKER) (test code = 430) MONOCYTES RELATIVE PERCENT 9 % (BEAKER) (test code = 431) EOSINOPHILS RELATIVE PERCENT 1 % (BEAKER) (test code = 432) BASOPHILS RELATIVE PERCENT 0 % (BEAKER) (test code = 437) NEUTROPHILS ABSOLUTE COUNT 9.83 K/ L 1.80-8.00 H (BEAKER) (test code = 670) LYMPHOCYTES ABSOLUTE COUNT 2.09 K/ L 1.48-4.50 (BEAKER) (test code = 414) MONOCYTES ABSOLUTE COUNT (BEAKER) 1.22 K/ L 0.00-1.30 (test code = 415) EOSINOPHILS ABSOLUTE COUNT 0.08 K/ L 0.00-0.50 (BEAKER) (test code = 416) BASOPHILS ABSOLUTE COUNT (BEAKER) 0.04 K/ L 0.00-0.20 (test code = 417) IMMATURE GRANULOCYTES-RELATIVE 1 % 0-0 H PERCENT (BEAKER) (test code = 2801) POCT-GLUCOSE [id number] 21:18:49 Test Item Value Reference Range Interpretation Comments POC-GLUCOSE METER 103 mg/dL 70-110 : TESTED A T [facility] [address] (BEAKER) (test code [facility] [address] THE, = 1538) [place] [address] 384: Medical Record Transcriber/Techni bandar ID = [id number] for Arlene Tay POCT-GLUCOSE [id number] 15:31:36 Test Item Value Reference Range Interpretation Comments POC-GLUCOSE METER 115 mg/dL 70-110 H : TESTED A T [facility] [address] (BEAKER) (test code [facility] [address], = 1538) [place] [address] 384: Medical Record Transcriber/Techni bandar ID = [id number] for H Alba lam POCT-GLUCOSE [id number] 11:34:02 Test Item Value Reference Range Interpretation Comments POC-GLUCOSE METER 135 mg/dL 70-110 H : TESTED A T [facility] [address]16[address] (BEAKER) (test code [address], = 1538) [place] [address] 384: Medical Record Transcriber/Techni bandar ID = [id number] for H Alba lam BLOOD [id number] 08:26:19 Test Item Value Reference Range Interpretation Comments CULTURE A From Aerobic An d (BEAKER) (test Anaerobic Bot tles Same code = 1095) organism has be en isolated from cultures(s) of the same body site and collection date . Repeat identifi cation and susceptibil ity testing perform ed only after consultat ion with the [facility] microbiology laboratory.Refe r to previous cultur e ofProteus mirab ilis GRAM STAIN From aerobic and RESULT (BEAKER) anaerobic (test code = bottles: gram 1123) negative rods BLOOD [id number] 08:25:37 Test Item Value Reference Range Interpretation Comments CULTURE (BEAKER) (test PROTEUS A From Aerobic code = 1095) MIRABILIS And Anaerobic Bottles Proteus mirabilis Amikacin (test code = S 1) Ampicillin + Sulbactam S (test code = 6) Aztreonam (test code = S 32) Cefazolin (test code = S 9) Cefepime (test code = S 51) Cefoxitin (test code = R 68) Ceftazidime (test code S = 27) Ceftriaxone (test code S = 52) Ertapenem (test code = S 38) Gentamicin (test code = S 18) Levofloxacin (test code R = 22) Meropenem (test code = S 34) Piperacillin + S Tazobactam (test code = 29) Tobramycin (test code = S 25) Trimethoprim + R Sulfamethoxazole (test code = 47) GRAM STAIN RESULT From aerobic and (BEAKER) (test code = anaerobic 1123) bottles: gram negative rods POCT-GLUCOSE [id number] 05:55:11 Test Item Value Reference Range Interpretation Comments POC-GLUCOSE METER 125 mg/dL 70-110 H : TESTED A T [facility] [address] (BEAKER) (test code [facility] [address] [facility], = 1538) [facility] 77 384: Medical Record Transcriber/Techni bandar ID = [id number] for Arlene Tay BASIC METABOLIC [id number] 04:22:40 Test Item Value Reference Range Interpretation Comments SODIUM (BEAKER) 143 meq/L 135-148 (test code = 381) POTASSIUM (BEAKER) 4.0 meq/L 3.5-5.5 (test code = 379) CHLORIDE (BEAKER) 102 meq/L 98-106 (test code = 382) CO2 (BEAKER) (test 27 meq/L 20-31 code = 355) BLOOD UREA NITROGEN 65 mg/dL 10-26 H (BEAKER) (test code = 354) CREATININE (BEAKER) 1.93 mg/dL 0.50-1.20 H (test code = 358) GLUCOSE RANDOM 136 mg/dL 70-110 H (BEAKER) (test code = 652) CALCIUM (BEAKER) 8.5 mg/dL 8.5-10.5 (test code = 697) EGFR (BEAKER) (test 25 mL/min/1.73 ESTIMA KATH GFR IS code = 1092) sq m NOT ACCURATE CREATININE CLEARANCE IN PREDICTING GLOMERULAR FILTRATION RATE . ESTIMATED GFR I S NOT APPLICABLE FOR DIALYSIS PATIEN TS. Medical Record Transcriber ID - [id number] W/PLT COUNT & AUTO [id number] 04:03:41 Test Item Value Reference Range Interpretation Comments WHITE BLOOD CELL COUNT (BEAKER) 21.8 K/ L 4.0-10.0 H (test code = 775) RED BLOOD CELL COUNT (BEAKER) 3.81 M/ L 4.00-5.00 L (test code = 761) HEMOGLOBIN (BEAKER) (test code = 11.2 GM/DL 12.0-15.5 L 410) HEMATOCRIT (BEAKER) (test code = 34.7 % 36.0-46.0 L 411) MEAN CORPUSCULAR VOLUME (BEAKER) 91.1 fL 82.0-99.0 (test code = 753) MEAN CORPUSCULAR HEMOGLOBIN 29.4 pg 27.0-33.0 (BEAKER) (test code = 751) MEAN CORPUSCULAR HEMOGLOBIN CONC 32.3 GM/DL 32.0-36.0 (BEAKER) (test code = 752) RED CELL DISTRIBUTION WIDTH 15.9 % 12.0-15.0 H (BEAKER) (test code = 412) PLATELET COUNT (BEAKER) (test 121 K/CU MM 150-430 L code = 756) MEAN PLATELET VOLUME (BEAKER) 12.1 fL 6.0-11.5 H (test code = 754) NUCLEATED RED BLOOD CELLS 0 /100 WBC 0-0 (BEAKER) (test code = 413) NEUTROPHILS RELATIVE PERCENT 84 % (BEAKER) (test code = 429) LYMPHOCYTES RELATIVE PERCENT 8 % (BEAKER) (test code = 430) MONOCYTES RELATIVE PERCENT 6 % (BEAKER) (test code = 431) EOSINOPHILS RELATIVE PERCENT 0 % (BEAKER) (test code = 432) BASOPHILS RELATIVE PERCENT 0 % (BEAKER) (test code = 437) NEUTROPHILS ABSOLUTE COUNT 18.37 K/ L 1.80-8.00 H (BEAKER) (test code = 670) LYMPHOCYTES ABSOLUTE COUNT 1.75 K/ L 1.48-4.50 (BEAKER) (test code = 414) MONOCYTES ABSOLUTE COUNT (BEAKER) 1.31 K/ L 0.00-1.30 H (test code = 415) EOSINOPHILS ABSOLUTE COUNT 0.03 K/ L 0.00-0.50 (BEAKER) (test code = 416) BASOPHILS ABSOLUTE COUNT (BEAKER) 0.04 K/ L 0.00-0.20 (test code = 417) IMMATURE GRANULOCYTES-RELATIVE 2 % 0-0 H PERCENT (BEAKER) (test code = 2801) POCT-GLUCOSE [id number] 21:15:57 Test Item Value Reference Range Interpretation Comments POC-GLUCOSE METER 150 mg/dL 70-110 H : TESTED A T [facility] [id number] (BEAKER) (test code [facility] [address] [facility], = 1538) [place] [id number] 384: Medical Record Transcriber/Techni bandar ID = [id number] for F belensArlene SODIUM, RANDOM [id number] 17:18:05 Test Item Value Reference Range Interpretation Comments SODIUM URINE (BEAKER) (test code = 70 meq/L 243) Reference Range: No NormalsOperator ID - [id number], RANDOM URINE 2021-12-14 17:18:04 Test Item Value Reference Range Interpretation Comments CREATININE URINE (BEAKER) (test 49.1 mg/dL code = 375) Reference Range: No NormalsOperator ID - [id number] W/ MICROSCOPIC 2021-12-14 17:15:37 Test Item Value Reference Range Interpretation Comments COLOR (BEAKER) (test code = 470) Misty CLARITY (BEAKER) (test code = 469) Turbid SPECIFIC GRAVITY UA (BEAKER) (test 1.014 1.001-1.035 code = 468) PH UA (BEAKER) (test code = 467) 5.0 5.0-8.0 PROTEIN UA (BEAKER) (test code = 30 mg/dL Negative A 464) GLUCOSE UA (BEAKER) (test code = Negative Negative 365) KETONES UA (BEAKER) (test code = Negative Negative 371) BILIRUBIN UA (BEAKER) (test code = Negative Negative 462) BLOOD UA (BEAKER) (test code = 461) Large Negative A NITRITE UA (BEAKER) (test code = Negative Negative 465) LEUKOCYTE ESTERASE UA (BEAKER) Large Negative A (test code = 466) UROBILINOGEN UA (BEAKER) (test code < mg/dL 0.2-1.0 = 463) RBC UA (BEAKER) (test code = 519) 134 /HPF WBC UA (BEAKER) (test code = 520) 2297 /HPF BACTERIA (BEAKER) (test code = 517) Moderate SQUAMOUS EPITHELIAL (BEAKER) (test 2 /HPF code = 516) SOURCE(BEAKER) (test code = 2795) Medical Record Transcriber ID - [auto]Medical Record Transcriber ID - techU/S, RENAL, [id number] 17:01:00 Reason for exam:->khalida [facility] 1945 Sex: FFINAL REPORT Ultrasound of the Kidneys, 12/14/2021. Clinical History: Abnormal renal function. Discussion:Sonographic evaluation of the kidneys is performed. Right kidney: 12.1 cm in length, normal in size, with cortical thickness of 1.9 cm. Normal cortical echogenicity. No mass. No shadowing calculus. No hydronephrosis. Left kidney: 11.7 cm in length, normal in size, with cortical thickness of 1.6 cm. Normal cortical echogenicity. No mass. A 4 mm cortical echogenic focus is present in the interpolar region. No hydronephrosis. Limited Doppler evaluation demonstrates normal color Doppler flow within bilateral renal alpesh. Fluid: No perinephric fluid. Bladder:Empty, Peters catheter is present. IMPRESSION:Small nonobstructing left renal calculus. Otherwise unremarkable exam. Signed: Sathish Ariasort Verified Date/Time: 12/14/2021 17:01:45 Reading Location: [facility] Radiology Reading Room POCT- GLUCOSE [id number] 16:35:29 Test Item Value Reference Range Interpretation Comments POC-GLUCOSE METER 155 mg/dL 70-110 H : TESTED A T [facility] [address] ([employer]) (test code [facility], = 1538) [place] [id number] 384: Medical Record Transcriber/Techni bandar ID = [id number] for H Missy adams POCT-GLUCOSE [id number] 11:12:03 Test Item Value Reference Range Interpretation Comments POC-GLUCOSE METER 172 mg/dL 70-110 H : TESTED A T [facility] [address] (BEAKER) (test code [facility], = 1538) [place] [address] 384: Medical Record Transcriber/Techni bandar ID = [id number] for H osanford, Missy POCT-GLUCOSE [id number] 07:18:20 Test Item Value Reference Range Interpretation Comments POC-GLUCOSE METER 172 mg/dL 70-110 H : TESTED A T [facility] [address] (BEAKER) (test code [facility], = 1538) [facility] 77 384: Medical Record Transcriber/Techni bandar ID = [id number] for Rian Lomeli BASIC METABOLIC [id number] 04:52:38 Test Item Value Reference Range Interpretation Comments SODIUM (BEAKER) 142 meq/L 135-148 (test code = 381) POTASSIUM (BEAKER) 4.7 meq/L 3.5-5.5 (test code = 379) CHLORIDE (BEAKER) 105 meq/L 98-106 (test code = 382) CO2 (BEAKER) (test 25 meq/L 20-31 code = 355) BLOOD UREA NITROGEN 58 mg/dL 10-26 H (BEAKER) (test code = 354) CREATININE (BEAKER) 3.03 mg/dL 0.50-1.20 H (test code = 358) GLUCOSE RANDOM 189 mg/dL 70-110 H (BEAKER) (test code = 652) CALCIUM (BEAKER) 8.0 mg/dL 8.5-10.5 L (test code = 697) EGFR (BEAKER) (test 15 mL/min/1.73 ESTIMA KATH GFR IS code = 1092) sq m NOT ACCURATE CREATININE CLEARANCE IN PREDICTING GLOMERULAR FILTRATION RATE . ESTIMATED GFR I S NOT APPLICABLE FOR DIALYSIS PATIEN TS. Medical Record Transcriber ID - [id number] (HEMOGRAM ONLY)2021-12-14 04:26:28 Test Item Value Reference Range Interpretation Comments WHITE BLOOD CELL COUNT (BEAKER) 24.4 K/ L 4.0-10.0 H (test code = 775) RED BLOOD CELL COUNT (BEAKER) 3.54 M/ L 4.00-5.00 L (test code = 761) HEMOGLOBIN (BEAKER) (test code = 10.4 GM/DL 12.0-15.5 L 410) HEMATOCRIT (BEAKER) (test code = 32.8 % 36.0-46.0 L 411) MEAN CORPUSCULAR VOLUME (BEAKER) 92.7 fL 82.0-99.0 (test code = 753) MEAN CORPUSCULAR HEMOGLOBIN 29.4 pg 27.0-33.0 (BEAKER) (test code = 751) MEAN CORPUSCULAR HEMOGLOBIN CONC 31.7 GM/DL 32.0-36.0 L (BEAKER) (test code = 752) RED CELL DISTRIBUTION WIDTH 16.1 % 12.0-15.0 H (BEAKER) (test code = 412) PLATELET COUNT (BEAKER) (test 114 K/CU MM 150-430 L code = 756) MEAN PLATELET VOLUME (BEAKER) 12.2 fL 6.0-11.5 H (test code = 754) NUCLEATED RED BLOOD CELLS 0 /100 WBC 0-0 (BEAKER) (test code = 413) POCT-GLUCOSE [id number] 22:30:13 Test Item Value Reference Range Interpretation Comments POC-GLUCOSE METER 190 mg/dL 70-110 H : TESTED A T [facility] [address] (BEAKER) (test code [facility], = 1538) [place] [address] 384: Medical Record Transcriber/Techni bandar ID = [id number] for Rian Lomeli POCT-GLUCOSE [id number] 17:23:11 Test Item Value Reference Range Interpretation Comments POC-GLUCOSE METER 227 mg/dL 70-110 H : TESTED A T [facility] [address] (BEAKER) (test code [facility], = 1538) [place] [address] 384: Medical Record Transcriber/Techni bandar ID = [id number] for Laurel Morales BLOOD GAS, [id number] 15:33:02 Test Item Value Reference Range Interpretation Comments PH ARTERIAL (BEAKER) (test code = 7.33 7.35-7.45 L 383) PCO2 ARTERIAL (BEAKER) (test code 45 mm Hg 35-45 = 384) PO2 ARTERIAL (BEAKER) (test code 67 mm Hg 80-90 L = 385) O2 SATURATION ARTERIAL (BEAKER) 92.2 % 96.0-97.0 L (test code = 386) HCO3 ARTERIAL (BEAKER) (test code 23 mmol/L 21-29 = 388) BASE EXCESS ARTERIAL (BEAKER) -2.5 mmol/L -2.0-3.0 L (test code = 387) PATIENT TEMPERATURE (BEAKER) 37.0 (test code = 1818) FIO2 (BEAKER) (test code = 1819) 35.0 [id number] 13:02:37 Test Item Value Reference Range Interpretation Comments PARTIAL THROMBOPLASTIN TIME 107.8 seconds 23.2-36.1 H (BEAKER) (test code = 760) POCT-GLUCOSE [id number] 11:10:40 Test Item Value Reference Range Interpretation Comments POC-GLUCOSE METER 167 mg/dL 70-110 H : TESTED A T [facility] [address] (BEAKER) (test code [facility], = 1538) [place] [address] 384: Medical Record Transcriber/Techni bandar ID = [id number] for Julianna rosario, Laurel POCT-GLUCOSE [id number] 07:31:56 Test Item Value Reference Range Interpretation Comments POC-GLUCOSE METER 122 mg/dL 70-110 H : TESTED A T [facility] [address] (BEAKER) (test code [facility], = 1538) [place] [address] 384: Medical Record Transcriber/Techni bandar ID = [id number] for Julianna rosario, Laurel [id number] 07:25:52 Test Item Value Reference Range Interpretation Comments PARTIAL THROMBOPLASTIN TIME 65.4 seconds 23.2-36.1 H (BEAKER) (test code = 760) RAD, CHEST, 1 VIEW, NON [id number] 06:57:00Reason for exam:->shortness of breathShould this be performed at the bedside?->Yes [facility] 1945 Sex: FFINAL REPORT INDICATION: shortness of breath COMPARISON: None TECHNIQUE: Single frontal view of the chest. FINDINGS: Lungs and pleura: Mild diffuse interstitial thickening,representing singly or in combination, interstitial edema and/or pneumonitis. No effusion.Heart and mediastinum: Normal heart size. Unremarkable mediastinal contours.Osseous structures: No acute abnormality.Other: None. IMPRESSION: Mild diffuse interstitial thickening, representing singly or in combination, interstitial edema and/or pneumonitis. Signed: Josselyn Lockwood MDReport Verified Date/Time:12/13/2021 06:57:44 ONIN [id number] 06:50:07 Test Item Value Reference Range Interpretation Comments TROPONIN I (BEAKER) (test code = 0.21 ng/mL 0.00-0.15 HH 397) Troponin I (TnI) levels must be interpreted in the context of the presenting symptoms and the clinical findings. Elevated TnI levels indicate myocardial damage, but are not specific for ischemic heart disease. Elevated TnI levels are seen in patients with other cardiac conditions (including myocarditis and congestive heart failure), and slight TnI elevations occur in patients with other conditions, including sepsis, renal failure, acidosis, acute neurological disease, and persistent tachyarrhythmia.Medical Record Transcriber ID - [id number] (HEMOGRAM ONLY)2021-12-13 06:19:49 Test Item Value Reference Range Interpretation Comments WHITE BLOOD CELL COUNT (BEAKER) 23.4 K/ L 4.0-10.0 H (test code = 775) RED BLOOD CELL COUNT (BEAKER) 3.74 M/ L 4.00-5.00 L (test code = 761) HEMOGLOBIN (BEAKER) (test code = 10.9 GM/DL 12.0-15.5 L 410) HEMATOCRIT (BEAKER) (test code = 34.8 % 36.0-46.0 L 411) MEAN CORPUSCULAR VOLUME (BEAKER) 93.0 fL 82.0-99.0 (test code = 753) MEAN CORPUSCULAR HEMOGLOBIN 29.1 pg 27.0-33.0 (BEAKER) (test code = 751) MEAN CORPUSCULAR HEMOGLOBIN CONC 31.3 GM/DL 32.0-36.0 L (BEAKER) (test code = 752) RED CELL DISTRIBUTION WIDTH 15.9 % 12.0-15.0 H (BEAKER) (test code = 412) PLATELET COUNT (BEAKER) (test 121 K/CU MM 150-430 L code = 756) MEAN PLATELET VOLUME (BEAKER) 11.5 fL 6.0-11.5 (test code = 754) NUCLEATED RED BLOOD CELLS 0 /100 WBC 0-0 (BEAKER) (test code = 413) POCT-GLUCOSE [id number] 06:18:04 Test Item Value Reference Range Interpretation Comments POC-GLUCOSE METER 111 mg/dL 70-110 H : TESTED A T [facility] [address] ([facility]) (test code [facility], = 1538) [place] [address] 384: Medical Record Transcriber/Techni bandar ID = [id number] for G aspar, Deede LACTIC ACID, [id number] 01:36:01 Test Item Value Reference Range Interpretation Comments LACTATE BLOOD VENOUS (2) (BEAKER) 1.88 mmol/L 0.50-2.20 (test code = 2872) Medical Record Transcriber ID - [id number], CAROTID, [id number] 01:35:00Unlisted Reason for Exam - Click Yes and Enter Reason Below->No [facility] 1945 Sex: FFINAL REPORT EXAM: CT, CTANGIO BRAIN, CT, CAROTID, ANGIO INDICATION: Neuro deficit, acute, stroke suspected TECHNIQUE: Helical CTA of the head and CTA of the neck with IV contrast. Multiplanar reconstructed images. 3D reconstructions with MIP images were performed. This exam was performed according to our departmental dose-optimization program, which includes automated exposure control, adjustment of the mA and/or kV according to patient size and/or use of iterative reconstruction technique. COMPARISON: Same day noncontrast CT head. FINDINGS: Examination is somewhat limited by motion degradation involving the intracranial structures at the vertex. Within this constraint, results are as follows. CTA HEAD: Anterior Circulation:Right intracranial internal carotid artery(ICA): Atherosclerotic changes without significant narrowing. Right anterior cerebral artery (FREDDIE): Mildly hypoplastic with the remainder of the right FREDDIE partially supplied by the anterior communicating artery.Right middle cerebral artery (MCA): Normal Left intracranial internal carotid artery (ICA):Atherosclerotic changes without significant narrowing. Left anterior cerebral artery (FREDDIE): NormalLeft middle cerebral artery (MCA): Normal Anterior communicating artery (AComm): PresentPosterior communicating arteries (PComm): Right PComm present. Left PComm not well visualized. Posterior Circulation:Right posterior cerebral artery (WARBLE SAW OPERATOR): Hypoplastic P1 segment with the remainder of the right WARBLE SAW OPERATOR supplied by the right posterior communicating arteryLeft posterior cerebral artery (WARBLE SAW OPERATOR): Normal Right vertebral artery (VA): NormalLeft vertebral artery (VA): NormalBasilar artery (BA): Normal Other: Normal Dural Venous Sinuses: Normal CTA NECK:Aortic arch and proximal great vessels: Normal Right carotid arterial system: No stenosis. There is retropharyngeal course of the right common carotid artery and ICA.Left carotid arterial system: No stenosis. There is retropharyngeal course of the left commoncarotid artery. Right vertebral artery: NormalLeft vertebral artery: Normal Where applicable, evaluation of internal carotid artery (ICA) stenosis was performed using NASCET-like criteria, where the site of greatest stenosis is compared to the diameter of the ICA distal to the stenosis at a point where the ICA carpenter become parallel. Neck Soft Tissues: Unremarkable Osseous Structures: No acute bone abnormality Included Lung Apices: Unremarkable IMPRESSION: Exam is somewhat limited by motion degradation, as described. However, there is no large vessel cut off or hemodynamically significant stenosison CTA of the head and neck. Signed: Apryl Ritter [facility] Verified Date/Time: 12/13/2021 01:35:53 [facility] [id number] 01:35:00Unlisted Reason for Exam - Click Yes and Enter Reason Below->No [facility] 1945 Sex: FFINAL REPORT EXAM: CT, CTANGIO BRAIN, CT, CAROTID, ANGIO INDICATION: Neuro deficit, acute, stroke suspected TECHNIQUE: Helical CTA of the head and CTA of the neck with IV contrast. Multiplanar reconstructed images. 3D reconstructions with MIP images were performed. This exam was performed according to our departmental dose-optimization program, which includes automated exposure control, adjustment of the mA and/or kV according to patient size and/or use of iterative reconstruction technique. COMPARISON: Same day noncontrast CT head. FINDINGS: Examination is somewhat limited by motion degradation involving the intracranial structures at the vertex. Within this constraint, results are as follows. CTA HEAD: Anterior Circulation:Right intracranial internal carotid artery(ICA): Atherosclerotic changes without significant narrowing. Right anterior cerebral artery (FREDDIE): Mildly hypoplastic with the remainder of the right FREDDIE partially supplied by the anterior communicating artery.Right middle cerebral artery (MCA): Normal Left intracranial internal carotid artery (ICA):Atherosclerotic changes without significant narrowing. Left anterior cerebral artery (FREDDIE): NormalLeft middle cerebral artery (MCA): Normal Anterior communicating artery (AComm): PresentPosterior communicating arteries (PComm): Right PComm present. Left PComm not well visualized. Posterior Circulation:Right posterior cerebral artery (WARBLE SAW OPERATOR): Hypoplastic P1 segment with the remainder of the right WARBLE SAW OPERATOR supplied by the right posterior communicating arteryLeft posterior cerebral artery (WARBLE SAW OPERATOR): Normal Right vertebral artery (VA): NormalLeft vertebral artery (VA): NormalBasilar artery (BA): Normal Other: Normal Dural Venous Sinuses: Normal CTA NECK:Aortic arch and proximal great vessels: Normal Right carotid arterial system: No stenosis. There is retropharyngeal course of the right common carotid artery and ICA.Left carotid arterial system: No stenosis. There is retropharyngeal course of the left commoncarotid artery. Right vertebral artery: NormalLeft vertebral artery: Normal Where applicable, evaluation of internal carotid artery (ICA) stenosis was performed using NASCET-like criteria, where the site of greatest stenosis is compared to the diameter of the ICA distal to the stenosis at a point where the ICA carpenter become parallel. Neck Soft Tissues: Unremarkable Osseous Structures: No acute bone abnormality Included Lung Apices: Unremarkable IMPRESSION: Exam is somewhat limited by motion degradation, as described. However, there is no large vessel cut off or hemodynamically significant stenosison CTA of the head and neck. Signed: Apryl Ritter MDReport Verified Date/Time: 12/13/2021 01:35:53 LIPID [id number] 01:32:38 Test Item Value Reference Range Interpretation Comments TRIGLYCERIDES (BEAKER) 60 mg/dL Speci men moderately (test code = 540) hemolyzed CHOLESTEROL (BEAKER) 127 mg/dL Specime n moderately (test code = 631) hemolyzed HDL CHOLESTEROL (BEAKER) 42 mg/dL (test code = 976) LDL CHOLESTEROL 73 mg/dL CALCULATED (BEAKER) (test code = 633) Triglyceride Reference Range: Low Risk <150 Borderline 150-199 High Risk 200-499 Very High Risk >=500Cholesterol Reference Range: Low Risk <200 Borderline 200-239 High Risk >240HDL Cholesterol Reference Range: Low Risk >=60 High Risk <40LDL Cholesterol Reference Range: Optimal <100 Near Optimal 100-129 Borderline 130-159 High 160-189 Very High >=190 Medical Record Transcriber ID - [id number] W/ REFLEX URINE [id number] 01:21:21 Test Item Value Reference Range Interpretation Comments COLOR (BEAKER) (test code = 470) Misty CLARITY (BEAKER) (test code = 469) Cloudy SPECIFIC GRAVITY UA (BEAKER) (test 1.015 1.001-1.035 code = 468) PH UA (BEAKER) (test code = 467) 9.0 5.0-8.0 H PROTEIN UA (BEAKER) (test code = 100 mg/dL Negative A 464) GLUCOSE UA (BEAKER) (test code = Negative Negative 365) KETONES UA (BEAKER) (test code = Negative Negative 371) BILIRUBIN UA (BEAKER) (test code = Negative Negative 462) BLOOD UA (BEAKER) (test code = Large Negative A 461) NITRITE UA (BEAKER) (test code = Negative Negative 465) LEUKOCYTE ESTERASE UA (BEAKER) Moderate Negative A (test code = 466) UROBILINOGEN UA (BEAKER) (test < mg/dL 0.2-1.0 code = 463) RBC UA (BEAKER) (test code = 519) 265 /HPF WBC UA (BEAKER) (test code = 520) 19 /HPF BACTERIA (BEAKER) (test code = Occasional 517) MUCUS (BEAKER) (test code = 1574) Rare SQUAMOUS EPITHELIAL (BEAKER) (test 1 /HPF code = 516) HYALINE CASTS (BEAKER) (test code 17 /LPF = 514) AMORPHOUS CRYSTALS (BEAKER) (test Rare code = 1584) SOURCE(BEAKER) (test code = 2795) Medical Record Transcriber ID - [auto]Medical Record Transcriber ID - techBLOOD GAS, [id number] 01:02:06 Test Item Value Reference Range Interpretation Comments PH ARTERIAL (BEAKER) (test code = 7.35 7.35-7.45 383) PCO2 ARTERIAL (BEAKER) (test code 48 mm Hg 35-45 H = 384) PO2 ARTERIAL (BEAKER) (test code = 78 mm Hg 80-90 L 385) O2 SATURATION ARTERIAL (BEAKER) 94.9 % 96.0-97.0 L (test code = 386) HCO3 ARTERIAL (BEAKER) (test code 26 mmol/L 21-29 = 388) BASE EXCESS ARTERIAL (BEAKER) 0.2 mmol/L -2.0-3.0 (test code = 387) PATIENT TEMPERATURE (BEAKER) (test 37.0 code = 1818) FIO2 (BEAKER) (test code = 1819) 28.0 CT, BRAIN/STROKE [id number] 00:55:00 [facility] : 1945 Sex: FFINAL REPORT EXAM: CT, BRAIN/STROKE PROTOCOL INDICATION: Head trauma, mental status change TECHNIQUE: CT images from skull base to vertex without IV contrast. This exam was performed according to the departmental dose optimization program which includes automated exposurecontrol, adjustment of the mA and/or kV according to the patient size, and/or use of an iterative rec onstruction technique. COMPARISON: None. FINDINGS: Parenchyma: No evidence of acute infarction. No hemorrhage. No mass or mass effect. Patchy areas of hypoattenuation are present in the cerebral white matter that are nonspecific but compatible with mild chronic microvascular ischemic changes. Extra-axial Collection: None Ventricular System: Normal Osseous Structures: No acute osseous abnormality. Included Orbits: Normal Paranasal Sinuses: Predominantly clear Tympanomastoid Cavities: Normal Other: None IMPRESSION: 1. No acute abnormality on CT head without contrast. 2. Mild chronic microvascular ischemic changes. Discussed with Dr. Jack (sp?) At 12:55 AM 12/13/2021 Signed: Apryl Ritter Verified Date/Time: 12/13/2021 00:55:29 PROTHROMBIN TIME/INR 2021-12-13 00:45:34 Test Item Value Reference Range Interpretation Comments PROTIME (BEAKER) (test code = 14.7 seconds 11.8-14.4 H 759) INR (ELIO) (test code = 370) 1.21 1.20-1.50 RECOMMENDED COUMADIN/WARFARIN INR THERAPY RANGESSTANDARD DOSE: 2.0 - 3.0 Includes: PROPHYLAXIS forvenous thrombosis, systemic embolization; TREATMENT for venous thrombosis and/or pulmonary embolus.HIGH RISK: Target INR is 2.5-3.5 for patients with mechanical heart valves.TROPONIN [id number] 00:41:04 Test Item Value Reference Range Interpretation Comments TROPONIN I (BEAKER) (test code = 0.23 ng/mL 0.00-0.15 397) Troponin I (TnI) levels must be interpreted in the context of the presenting symptoms and the clinical findings. Elevated TnI levels indicate myocardial damage, but are not specific for ischemic heart disease. Elevated TnI levels are seen in patients with other cardiac conditions (including myocarditis and congestive heart failure), and slight TnI elevations occur in patients with other conditions, including sepsis, renal failure, acidosis, acute neurological disease, and persistent tachyarrhythmia.Medical Record Transcriber ID - [id number] METABOLIC [id number] 00:34:01 Test Item Value Reference Range Interpretation Comments SODIUM (BEAKER) 141 meq/L 135-148 (test code = 381) POTASSIUM (BEAKER) 5.1 meq/L 3.5-5.5 Specimen moderately (test code = 379) hemolyzed CHLORIDE (BEAKER) 105 meq/L 98-106 (test code = 382) CO2 (BEAKER) (test 22 meq/L 20-31 code = 355) BLOOD UREA NITROGEN 32 mg/dL 10-26 H (BEAKER) (test code = 354) CREATININE (BEAKER) 2.22 mg/dL 0.50-1.20 H Specimen moderately (test code = 358) hemolyzed GLUCOSE RANDOM 125 mg/dL 70-110 H (BEAKER) (test code = 652) CALCIUM (BEAKER) 8.3 mg/dL 8.5-10.5 L (test code = 697) EGFR (BEAKER) (test 22 mL/min/1.73 ESTIMA KATH GFR IS code = 1092) sq m NOT ACCURATE CREATININE CLEARANCE IN PREDICTING GLOMERULAR FILTRATION RATE . ESTIMATED GFR I S NOT APPLICABLE FOR DIALYSIS PATIEN TS. Medical Record Transcriber ID - [id number] 00:27:47 Test Item Value Reference Range Interpretation Comments PARTIAL THROMBOPLASTIN TIME 63.5 seconds 23.2-36.1 H (BEAKER) (test code = 760) CBC W/PLT COUNT & AUTO [id number] 00:16:08 Test Item Value Reference Range Interpretation Comments WHITE BLOOD CELL COUNT (BEAKER) 27.2 K/ L 4.0-10.0 H (test code = 775) RED BLOOD CELL COUNT (BEAKER) 3.89 M/ L 4.00-5.00 L (test code = 761) HEMOGLOBIN (BEAKER) (test code = 11.5 GM/DL 12.0-15.5 L 410) HEMATOCRIT (BEAKER) (test code = 36.1 % 36.0-46.0 411) MEAN CORPUSCULAR VOLUME (BEAKER) 92.8 fL 82.0-99.0 (test code = 753) MEAN CORPUSCULAR HEMOGLOBIN 29.6 pg 27.0-33.0 (BEAKER) (test code = 751) MEAN CORPUSCULAR HEMOGLOBIN CONC 31.9 GM/DL 32.0-36.0 L (BEAKER) (test code = 752) RED CELL DISTRIBUTION WIDTH 15.9 % 12.0-15.0 H (BEAKER) (test code = 412) PLATELET COUNT (BEAKER) (test 159 K/CU MM 150-430 code = 756) MEAN PLATELET VOLUME (BEAKER) 11.4 fL 6.0-11.5 (test code = 754) NUCLEATED RED BLOOD CELLS 0 /100 WBC 0-0 (BEAKER) (test code = 413) NEUTROPHILS RELATIVE PERCENT 87 % (BEAKER) (test code = 429) LYMPHOCYTES RELATIVE PERCENT 6 % (BEAKER) (test code = 430) MONOCYTES RELATIVE PERCENT 6 % (BEAKER) (test code = 431) EOSINOPHILS RELATIVE PERCENT 0 % (BEAKER) (test code = 432) BASOPHILS RELATIVE PERCENT 0 % (BEAKER) (test code = 437) NEUTROPHILS ABSOLUTE COUNT 23.66 K/ L 1.80-8.00 H (BEAKER) (test code = 670) LYMPHOCYTES ABSOLUTE COUNT 1.55 K/ L 1.48-4.50 (BEAKER) (test code = 414) MONOCYTES ABSOLUTE COUNT (BEAKER) 1.57 K/ L 0.00-1.30 H (test code = 415) EOSINOPHILS ABSOLUTE COUNT 0.02 K/ L 0.00-0.50 (BEAKER) (test code = 416) BASOPHILS ABSOLUTE COUNT (BEAKER) 0.09 K/ L 0.00-0.20 (test code = 417) IMMATURE GRANULOCYTES-RELATIVE 1 % 0-0 H PERCENT (BEAKER) (test code = 2801) POCT-GLUCOSE [id number] 00:05:57 Test Item Value Reference Range Interpretation Comments POC-GLUCOSE METER 125 mg/dL 70-110 H : TESTED A T [facility] [address] ([employer]) (test code [facility], = 1538) [facility] 77 384: Medical Record Transcriber/Techni bandar ID = [id number] for Ashwini Quinteros
[2022-01-22] MEDS ORDERED: HYDROCODONE/APAP 5/325 MG TAB ONE (18:36)
--- NOTE | 2022-01-22 19:11 | RAD REPORT ---
EXAM DESCRIPTION: US - UPPER EXTREMITY VENOUS UNILATE - 01/22/2022 6:37 pm CLINICAL HISTORY: Right upper extremity swelling COMPARISON: None. FINDINGS: Echogenic material is present within the right axillary and right basilic veins. Veins are partially compressible. The right internal jugular, subclavian, brachial, cephalic, radial and ulnar veins demonstrate phasi c signal.The veins are generally compressible. Doppler demonstrates good flow IMPRESSION: Nonocclusive thrombus within the right axillary and right basilic veins appears subacute
[2022-01-22] MEDS ORDERED: dexAMETHasone 10 MG/ML VIAL ONE (20:02)
[2022-01-22 20:30] LABS: Absolute Lymphocytes (CBC) 2.4 K/uL (0.7-4.9); Hematocrit 34.6 % (36.0-45.0); MPV 9.6 fL (7.6-11.3)
[2022-01-22 20:35] LABS: Protime INR 1.04
[2022-01-22 21:12] LABS: Bilirubin Total 0.5 mg/dL (0.2-1.0); Potassium 4.2 mmol/L (3.5-5.1); Protein, Total 7.1 g/dL (6.4-8.2)
[2022-01-22 21:13] LABS: Troponin High Sensitivity 138.6 pg/mL (<58.9)
[2022-01-22] MEDS ORDERED: ENOXAPARIN 100 MG/ML SYR SQ ONE (23:03)
--- NOTE | 2022-01-22 23:23 | EDPHYS ---
Physician Documentation [facility] Name: Nabila Jain Age: 76 yrs Sex: Female : 1945 Arrival Date: 01/22/2022 Time: 16:18 Bed 18 Private MD: Madi Flannery E ED Physician Arcenio Carter HPI: 01/22 17:28 This 76 yrs old Female presents to ER via Wheelchair with complaints of Arm jmm Pain - swelling. 17:28 The patient or guardian complains of pain. Onset: The symptoms/episode began/occurred jmm gradually, 1 week(s) ago. Modifying factors: The symptoms are alleviated by nothing. the symptoms are aggravated by nothing. Is a 76-year-old female with a history of diabetes mellitus and hypertension the presents emerged part with complaints of right upper extremity pain radiating into the right trapezius region. Swelling began approximately a week ago. Patient recently had an IV placed in the same arm. Denies fever or chills.. Historical: - Allergies: 16:43 NKA; ab2 - Home Meds: 17:22 amlodipine 10 mg tab 1 tab once daily [Active]; carvedilol Oral [Active]; enalapril young maleate 10 mg Oral tab 1 tab once daily [Active]; furosemide 20 mg Oral tab 1 tab once daily [Active]; gabapentin 300 mg Oral cap twice a day [Active]; meloxicam 7.5 mg Oral tab 1 tab once daily [Active]; Metformin Oral [Active]; Tramadol Oral [Active]; unknown BP medications [Active]; - PMHx: 16:43 cardiomegaly; diabetes mellitus; Hypertension; ab2 - Immunization history:: Adult Immunizations up to date. - Social history:: Smoking status: Patient denies any tobacco usage or history of. ROS: 17:28 Constitutional: Negative for fever, chills, and weight loss, Cardiovascular: Negative jmm for chest pain, palpitations, and edema, Respiratory: Negative for shortness of breath, cough, wheezing, and pleuritic chest pain. 17:28 MS/extremity: Positive for swelling. 17:28 All other systems are negative. Exam: 17:28 Constitutional: This is a well developed, well nourished patient who is awake, alert, jmm and in no acute distress. Head/Face: atraumatic. Eyes: EOMI, no conjunctival erythema appreciated ENT: Moist Mucus Membranes Neck: Trachea midline, Supple Chest/axilla: Normal chest wall appearance and motion. Cardiovascular: Regular rate and rhythm. No edema appreciated Respiratory: Normal respirations, no respiratory distress appreciated Abdomen/GI: Non distended, soft Back: Normal ROM Skin: General appearance color normal 17:28 Musculoskeletal/extremity: Mild swelling and erythema noted to the right arm, full radial pulse, full auto damage adjuster strength, compartments are soft, neurovascular intact. 17:28 Skin: Appearance: Color: normal in color. 17:28 Neuro: Orientation: is normal, Mentation: is normal, Memory: is normal. 17:28 Psych: Behavior/mood is pleasant, cooperative. Vital Signs: 16:42 BP 130 / 61; Pulse 66; Resp 18; Temp 98.2(TE); Pulse Ox 94% ; Weight 125.65 kg; Height ab2 5 ft. 1 in. (154.94 cm); Pain 0/10; 21:00 BP 167 / 70; Pulse 64; Resp 18; Temp 97.5; Pulse Ox 100% on R/A; Pain 0/10; lesa 22:48 BP 157 / 73; Pulse 62; Resp 16; Pulse Ox 100% on R/A; Pain 0/10; lesa 23:11 Weight 119.7 kg; lesa 01/23 00:37 BP 163 / 75; Pulse 72; Resp 18; Pulse Ox 100% on R/A; Pain 0/10; lesa 01/22 23:11 Body Mass Index 49.86 (119.70 kg, 154.94 cm) lesa MDM: 01/22 17:28 Patient medically screened. [facility] 20:03 Data reviewed: vital signs, nurses notes. Counseling: I had a detailed discussion with jude the patient and/or guardian regarding: the historical points, exam findings, and any diagnostic results supporting the discharge/admit diagnosis, lab results, radiology results, the need for outpatient follow up. 20:08 Transition of care: After a detail discussion of the patient's case, care is [facility] transferred to Arcenio Carter MD. 23:20 Differential diagnosis: contusion, abrasion, tendonitis. Data interpreted: Pulse mh7 oximetry: on room air is 100 %. Interpretation: normal. Response to treatment: the patient's symptoms have mildly improved after treatment. 01/22 19:18 Order name: CBC with Diff; Complete Time: 20:58 [facility] 01/22 19:37 Order name: Troponin High Sensitivity; Complete Time: 21:19 [facility] 01/22 19:37 Order name: PT-INR; Complete Time: 20:58 [facility] 01/22 20:31 Order name: Comprehensive Metabolic Panel; Complete Time: 21:19 EDTN 01/22 21:28 Order name: BNP; Complete Time: 22:29 la1 01/22 18:02 Order name: UPPER EXTREMITY VENOUS UNILATE; Complete Time: 19:15 [facility] 01/22 19:32 Order name: CT Chest For PE Angio [facility] 01/22 21:22 Order name: Chest Single View XRAY [facility] 01/22 22:35 Order name: COVID-19 SARS RT PCR (Document "Date of Onset" if Symptomatic); Complete la1 Time: 23:59 01/22 19:18 Order name: Saline Lock; Complete Time: 22:38 [facility] 01/22 21:20 Order name: EKG; Complete Time: 21:21 [facility] 01/22 21:20 Order name: EKG - Nurse/Tech; Complete Time: 22:57 [facility] Administered Medications: 18:37 Drug: HYDROcodone-acetaminophen 5 mg-325 mg 1 tabs Route: PO; young 18:37 Follow up: Response: No adverse reaction young 22:57 Drug: Decadron - Dexamethasone 10 mg Route: IVP; Site: left forearm; lesa 23:08 Follow up: Response: No adverse reaction lesa 23:10 Drug: Lovenox (enoxaparin) 1 mg/kg Route: Sub-Q; Site: abdomen; lesa Disposition: 01/23 07:11 Co-signature as Attending Physician, Arcenio Carter MD. [facility] Disposition Summary: 01/22/22 23:22 Hospitalization Ordered Hospitalization Status: Inpatient Admission [facility] Provider: Wilfredo Franklin Location: Telemetry/MedSurg (Inpatient) [facility] Condition: Stable [facility] Problem: new [facility] Symptoms: have improved [facility] Bed/Room Type: Standard [facility] Room Assignment: [facility](01/23/22 00:27) Diagnosis - Acute embolism and thrombosis of deep veins of right upper extremity [facility] - Elevated Troponin [facility] Discharge Instructions: - Discharge Summary Sheet jmm - Deep Vein Thrombosis jm Forms: - Medication Reconciliation Form [facility] - SBAR form [facility] Prescriptions: - Eliquis DVT-PE Treat 30D Start 5 mg (74 tabs) Oral tablets,dose pack - take 1 tablet by ORAL route as directed; 74 tablet; Refills: 0, Product jmm Selection Permitted Signatures: Dispatcher [employer] EDTN Silver Peralta PA PA singh Campbell, Maik, KNOT CUTTER-C KNOT CUTTER-Cla1 Karina Del Toro, RN RN Arcenio Woodruff MD MD [facility] Nina Perdue, RN RN Annie Ang RN Mk Barnhart Corrections: (The following items were deleted from the chart) 01/22 18:02 17:35 Extremity Venous Uni Ltd+US.RAD.BRZ ordered. EDMS EDMS 20:31 19:19 COMPREHENSIVE METABOLIC PANEL+C.LAB.BRZ ordered. EDTN EDMS 01/23 00:27 01/22 23:22 mh7
--- NOTE | 2022-01-22 23:23 | ER ---
Nurse's Notes [facility] Name: Nabila Jain Age: 76 yrs Sex: Female : 1945 Arrival Date: 01/22/2022 Time: 16:18 Bed 18 Private MD: Madi Flannery E Diagnosis: Acute embolism and thrombosis of deep veins of right upper extremity;Elevated Troponin Presentation: 01/22 16:42 Chief complaint: Patient's son or daughter states: "She's been having swelling in her ab2 Right arm for about a week and it started getting better but yesterday got wore." Pt denies any injury or pain. Coronavirus screen: Vaccine status: Patient reports receiving the 1st dose of the Covid vaccine. Client denies travel out of the [place] in the last 14 days. At this time, the client does not indicate any symptoms associated with coronavirus-19. Ebola Screen: Patient negative for fever greater than or equal to 101.5 degrees Fahrenheit, and additional compatible Ebola Virus Disease symptoms Patient denies exposure to infectious person. Patient denies travel to an Ebola-affected area in the 21 days before illness onset. No symptoms or risks identified at this time. Initial Sepsis Screen: Does the patient meet any 2 criteria? No. Patient's initial sepsis screen is negative. Does the patient have a suspected source of infection? No. Patient's initial sepsis screen is negative. Risk Assessment: Do you want to hurt yourself or someone else? Patient reports no desire to harm self or others. Onset of symptoms is unknown. 16:42 Method Of Arrival: Wheelchair ab2 16:42 Acuity: CHARLEEN 3 ab2 Triage Assessment: 16:44 General: Appears in no apparent distress. comfortable, Behavior is calm, cooperative, ab2 appropriate for age. Pain: Denies pain. Cardiovascular: Denies chest pain, shortness of breath, Patient's skin is warm and dry. Respiratory: Airway is patent Respiratory effort is even, unlabored, Respiratory pattern is regular, symmetrical. Derm: Musculoskeletal: Swelling present in right arm. Historical: - Allergies: 16:43 NKA; ab2 - Home Meds: 17:22 amlodipine 10 mg tab 1 tab once daily [Active]; carvedilol Oral [Active]; enalapril young maleate 10 mg Oral tab 1 tab once daily [Active]; furosemide 20 mg Oral tab 1 tab once daily [Active]; gabapentin 300 mg Oral cap twice a day [Active]; meloxicam 7.5 mg Oral tab 1 tab once daily [Active]; Metformin Oral [Active]; Tramadol Oral [Active]; unknown BP medications [Active]; - PMHx: 16:43 cardiomegaly; diabetes mellitus; Hypertension; ab2 - Immunization history:: Adult Immunizations up to date. - Social history:: Smoking status: Patient denies any tobacco usage or history of. Screenin:21 Abuse screen: Denies threats or abuse. Denies injuries from another. Nutritional young screening: No deficits noted. Tuberculosis screening: No symptoms or risk factors identified. Fall Risk None identified. Assessment: 17:21 General: Appears in no apparent distress. Behavior is calm, cooperative. Pain: young Complains of pain in anterior aspect of right shoulder. Musculoskeletal: Reports Pain is 6 out of 10 on a pain scale. swelling in right arm. 19:55 Reassessment: I attempted to start a SL, but was unsuccessful, so I asked my charge lesa nurse to attempt. 21:01 Reassessment: We are awaiting the lab results to see if the SL is warranted. The lesa provider is aware that neither my charge, nor I, was able to get one placed. 21:41 Reassessment: The pt is to be admitted, so the PHYSICAL THERAPIST AIDE is at bedside attempting to place a lesa line with the US. 01/23 00:41 Reassessment: Registration has "flipped" the pt and report has been called to Ivory. [email or web address] The pt will be taken up via w/c. Vital Signs: 01/22 16:42 BP 130 / 61; Pulse 66; Resp 18; Temp 98.2(TE); Pulse Ox 94% ; Weight 125.65 kg; Height ab2 5 ft. 1 in. (154.94 cm); Pain 0/10; 21:00 BP 167 / 70; Pulse 64; Resp 18; Temp 97.5; Pulse Ox 100% on R/A; Pain 0/10; lesa 22:48 BP 157 / 73; Pulse 62; Resp 16; Pulse Ox 100% on R/A; Pain 0/10; lesa 23:11 Weight 119.7 kg; lesa 01/23 00:37 BP 163 / 75; Pulse 72; Resp 18; Pulse Ox 100% on R/A; Pain 0/10; lesa 01/22 23:11 Body Mass Index 49.86 (119.70 kg, 154.94 cm) lesa ED Course: 01/22 16:18 Patient arrived in ED. am2 16:18 Madi Flannery MD is Private Physician. am2 16:43 Triage completed. ab2 16:44 Arm band placed on left wrist. ab2 17:18 Silver Peralta PA is PHCP. jmm 17:18 Mp Moreland MD is Attending Physician. jmm 17:21 Annie Espinoza, RN is Primary Nurse. young 17:21 Bed in low position. young 17:21 No provider procedures requiring assistance completed. young 18:39 UPPER EXTREMITY VENOUS UNILATE In Process Unspecified. EDMS 20:11 Arcenio Carter MD is Attending Physician. jmm 20:14 Initial lab(s) drawn, by me, sent to lab. Missed attempt(s): 22 gauge in left bb antecubital area. Bleeding controlled, band aid applied, catheter tip intact. 21:19 Notified ED physician of a critical lab result(s). troponin of 138.6. bb 22:19 Chest Single View XRAY In Process Unspecified. EDMS 22:35 CT Chest For PE Angio In Process Unspecified. EDMS 22:38 COVID-19 SARS RT PCR (Document "Date of Onset" if Symptomatic) Sent. lesa 23:01 COVID-19 SARS RT PCR (Document "Date of Onset" if Symptomatic) Sent. lesa 23:21 Wilfredo Franklin MD is Hospitalizing Provider. [facility] Administered Medications: 18:37 Drug: HYDROcodone-acetaminophen 5 mg-325 mg 1 tabs Route: PO; young 18:37 Follow up: Response: No adverse reaction young 22:57 Drug: Decadron - Dexamethasone 10 mg Route: IVP; Site: left forearm; lesa 23:08 Follow up: Response: No adverse reaction lesa 23:10 Drug: Lovenox (enoxaparin) 1 mg/kg Route: Sub-Q; Site: abdomen; lesa Outcome: 23:22 Decision to Hospitalize by Provider. [facility] 01/23 00:40 Admitted to lesa 00:40 Condition: stable lesa 01:15 Patient left the ED. lesa Signatures: Dispatcher [employer] Silver Vargas PA PA jmm Ballard, Brenda, RN RN Rufina Torres am2 Arcenio Carter MD MD [facility] Nina Perdue, Annie Garcia RN, RN RN ha Bleininger, Alexis ab2
--- NOTE | 2022-01-22 23:23 | P.HP ---
Certification for Inpatient Patient admitted to: Observation With expected LOS: <2 Midnights Patient will require the following post-hospital care: None Practitioner: I am a practitioner with admitting privileges, knowledge of patient current condition, hospital course, and medical plan of care. Services: Services provided to patient in accordance with Admission requirements found in Title 42 Section 412.3 of the Code of Federal Regulations Patient History Date of Service: 01/22/22 Reason for admission: DVT, elevated troponin History of Present Illness: 76-year-old female patient with history of diabetes type 2not insulin- dependent, hypertension, chronic diastolic congestive heart failure presents emergency department for right upper extremity swelling. Patient was seen here on 12/12/2021 for NSTEMI and transferred to tertiary center for further evaluation, it was found that patient had UTI/bacteremia at that time patient and family unsure if she had any further cardiac work-up. Patient was treated with IV antibiotics outpatient and PICC line with 1 week of IV antibiotics. Has since been removed patient is noted swelling to the right upper extremity for the last 1 week which was the reason for presentation to the emergency department patient was evaluated emergency department she was found to have a DVT in the right upper extremity nonocclusive thrombus within the right axillary and right basilic veins. Initially plan was to discharge patient on oral anticoagulant but labs were obtained which revealed a troponin of 138.6high- sensitivity CT PE protocol was negative for signs of pulmonary embolism ED provider wishes to admit under observation for DVT, elevated troponin. Allergies No Known Drug Allergies Allergy (Verified 04/23/21 23:42) Unknown Home Medications: Carvedilol [Coreg] 1 tab PO DAILY 04/23/21 Meloxicam 1 tab PO DAILY 04/23/21 Metformin HCl 500 mg PO BID 04/23/21 Potassium Chloride 1 tab PO DAILY 04/23/21 Cefdinir [Cefdinir*] 300 mg PO Q12HR #2 cap 04/27/21 traMADol HCL [Ultram*] 50 mg PO Q6H PRN #20 tab 04/27/21 Furosemide 2 tab PO DAILY 30 Days #60 tablet 04/29/21 - Past Medical/Surgical History Diabetic: No -: HTN -: Diabetes mellitus type 2 -: CHFdiastolic -: -: GALL STONES REMOVED Psychosocial/ Personal History: Patient lives at home with her family - Family History Father Notes: UNKNOWN- PATIENT WAS T[age] YEARS OLD WHEN FATHER . Mother Notes: UNKNOWN- PATIENT WAS 1 WHEN MOTHER . - Social History Smoking Status: Never smoker Alcohol use: No CD- Drugs: No Caffeine use: Yes Place of Residence: Home Review of Systems 10-point ROS is otherwise unremarkable Musculoskeletal: Other (RUE swelling) Physical Examination - Physical Exam General: Alert, In no apparent distress, Oriented x3, Obese HEENT: Atraumatic, PERRLA, Mucous membr. moist/pink, EOMI, Sclerae nonicteric Neck: Supple, 2+ carotid pulse no bruit, No LAD, Without JVD or thyroid abnormality Respiratory: Clear to auscultation bilaterally, Normal air movement Cardiovascular: Regular rate/rhythm, Normal S1 S2 Capillary refill: <2 Seconds Gastrointestinal: Normal bowel sounds, No tenderness Musculoskeletal: No tenderness Integumentary: No rashes Neurological: Normal speech, Normal strength at 5/5 x4 extr, Normal tone, Normal affect - Studies Laboratory Data (last 24 hrs) 01/22/22 20:15: PT 11.5, INR 1.04 01/22/22 20:15: Sodium 135 L, Potassium 4.2, BUN 23 H, Creatinine 0.88, Glucose 103, Total Bilirubin 0.5, AST 19, ALT 17, Alkaline Phosphatase 54 01/22/22 20:15: Sodium Cancelled, Potassium Cancelled, BUN Cancelled, Creatinine Cancelled, Glucose Cancelled, Total Bilirubin Cancelled, AST Cancelled, ALT Cancelled, Alkaline Phosphatase Cancelled 01/22/22 20:15: WBC 6.1, Hgb 11.4 L, Hct 34.6 L, Plt Count 172 Assessment and Plan - Plan Assessment: Right upper extremity DVT Elevated troponin suspect demand ischemia/acute on chronic diastolic CHF Diabetes mellitus type IOels-wyhbisr-fagzfjdtb Hypertension Plan: Right upper extremity DVT: Continue Lovenox, likely switch to NOAC tomorrow. No PE. Elevated troponin suspect demand ischemia/acute on chronic diastolic CHF: Trend troponin, monitor on telemetry, continue Lasix. Last echocardiogram shows normal EF, diastolic dysfunction. Diabetes mellitus type ZDeby-fdzbysz-isstrphzr: ACH S Accu-Chek, sliding scale insulin Hypertension: Continue home meds. DVT PPX: Full dose Lovenox Code status: Full code Discharge Plan: Home Plan to discharge in: 24 Hours - Advance Directives Does patient have a Living Will: No Does patient have a Durable POA for Healthcare: No - Code Status/Comfort Care Code Status Assessed: Yes (Full code) Critical Care: No Time Spent Managing Pts Care (In Minutes): 55
[2022-01-23] MEDS ORDERED: TRAMADOL HCL 50 MG TAB PO PRN ×2 (02:40→17:39)
[2022-01-23] MEDS ORDERED: ONDANSETRON 4 MG/2 ML VIAL IV PRN (02:40)
[2022-01-23] MEDS ORDERED: ACETAMINOPHEN 500 MG TAB PO PRN (02:40)
[2022-01-23] MEDS: HYDRALAZINE HCL 20 MG/ML VIAL IV PRN ×2 (02:55→10:52)
[2022-01-23 04:25] LABS: Absolute Lymphocytes (CBC) 1.1 K/uL (0.7-4.9); Hematocrit 36.2 % (36.0-45.0); Lymphocytes % 19.1 % (15.3-44.8); MPV 10.1 fL (7.6-11.3); RBC Red Blood Cell Count 3.97 M/uL (3.86-4.86)
[2022-01-23 04:57] LABS: Albumin 3.2 g/dL (3.4-5.0); Bilirubin Total 0.4 mg/dL (0.2-1.0); Potassium 3.7 mmol/L (3.5-5.1); Protein, Total 7.5 g/dL (6.4-8.2)
[2022-01-23 05:01] LABS: Troponin High Sensitivity 142.5 pg/mL (<58.9)
[2022-01-23] MEDS: INSULIN -REGULAR HUMAN 50 UNIT/0.5 ML ML SQ SCH ×4 (07:30→21:00)
[2022-01-23] MEDS ORDERED: Enoxaparin 120 MG/0.8 ML SYR SQ SCH (09:00)
[2022-01-23] MEDS: FUROSEMIDE 20 MG/ 2ML VIAL IV SCH ×2 (09:05→17:12)
--- NOTE | 2022-01-23 09:44 | EKG ---
Test Date: 2022-01-22 Test Time: 22:44:56 [place] Knitter: CURT MEASUREMENT RESULTS: Intervals: Rate: 60 WA: 214 QRSD: 104 QT: 466 QTc: 466 Helotes: P: 62 WA: 214 QRS: -37 T: 48 INTERPRETIVE STATEMENTS: Sinus rhythm with 1st degree AV block Left axis deviation Incomplete right bundle branch block Abnormal ECG Compared to ECG 12/12/2021 19:46:43 First degree AV block now present Incomplete right bundle-branch block now present Sinus arrhythmia no longer present Electronically Signed On 01-23-22 09:43:32 CDT by Pal Menjivar
[2022-01-23] MEDS ORDERED: BISACODYL 10 MG RECTAL SUPP PR ONE (11:40)
[2022-01-23] MEDS ORDERED: lisinopriL 10 MG TAB PO ONE (11:47)
[2022-01-23] MEDS ORDERED: carvediloL 6.25 MG TAB PO ONE (15:56)
--- NOTE | 2022-01-23 17:45 | RAD REPORT ---
EXAM DESCRIPTION: RAD - Chest Single View - 01/22/2022 10:18 pm CLINICAL HISTORY: 76 years, Female, SWELLING COMPARISON: None. FINDINGS: Single view of the chest was obtained portable. No prior films are available for compariso n. The lung volume is slightly decreased. The cardiomediastinal silhouette demonstrate to be unremark able. The heart is not enlarged. The thoracic aorta is mildly tortuous. The pulmonary vasculature is normal distribution. Costophrenic angles are sharp. No areas of consolidation or masses are seen. The rest of the soft tissue and bony structures demonstrate to be unremarkable. IMPRESSION: No acute cardiopulmonary disease. Electronically signed by: Tab Atkins MD 01/22/2022 10:39 PM CDT Due to temporary technical issues with the PACS/Fluency reporting system, reports are being signed by the in house radiologists without review as a courtesy to insure prompt reporting. The interpreting radiologist is fully responsible for the content of the report.
--- NOTE | 2022-01-23 17:48 | RAD REPORT ---
EXAM DESCRIPTION: CT - Chest For Pe Angio - 01/23/2022 12:50 am CLINICAL HISTORY: 76 years Female shortness of breath, dvt TECHNIQUE: Contiguous axial images obtained through the chest were obtained from the thoracic inlet to the level of the upper abdomen during the pulmonary arterial phase of intravenous contrast adminis tration. Coronal and sagittal reformatted and MIP images provided. This CT exam was performed according to our departmental dose-optimization program, which includes on e or more of the following dose reduction techniques: automated exposure control, adjustment of the m A and/or kV according to patient size, and/or use of iterative reconstruction technique. COMPARISON: No prior exams provided for comparison. FINDINGS: There is no pulmonary embolus. The thoracic aorta is normal without aneurysm or dissection. The heart is normal in size without evette cardial effusion. Mild bibasilar air trapping and atelectasis. The lungs are otherwise clear. No pleural effusion or pn eumothorax. No lymphadenopathy in the chest. There are no visualized acute osseous or upper abdominal abnormalities. Chronic degenerative changes in the spine. IMPRESSION: No pulmonary embolus. Mild bibasilar air trapping and atelectasis. No other acute cardiopulmonary findings. Electronically signed by: Milena Farias MD 01/22/2022 11:06 PM CDT Due to temporary technical issues with the PACS/Fluency reporting system, reports are being signed by the in house radiologists without review as a courtesy to insure prompt reporting. The interpreting radiologist is fully responsible for the content of the report.
--- NOTE | 2022-01-23 17:55 | P.PN ---
Date of Service: 01/23/22 Subjective: denies chest pain, no SOB, RUE swelling about the same feels constipated ROS: 10 point ROS as noted above, otherwise negative Physical Exam: Gen: AOx3, NAD, obese HEENT: normal conjunctiva, sclera anicteric CV: regular rate/rhythm, no murmur Abd: soft, Nontender MSK: no tenderness RUE edematous, nontender Problem List: Right upper extremity DVT s/p PICC line Elevated troponin suspect demand ischemia/acute on chronic diastolic CHF Diabetes mellitus type [id number]-[id number] Hypertension stable, trop rising, likely demand in setting of HTN cardiology consulted hypertensive, IV PRN if needed obtain home meds, restart transition to eliquis, covered by insurance sliding scale insulin VTE: eliquis Code: Full code Dispo: home, likely tomorrow
--- NOTE | 2022-01-23 20:16 | CON ---
Date of Consultation: 01/23/2022 The patient was admitted to Dr. Franklin on 01/22/2022. I saw the patient on 01/23/2022. Reason For Consultation: Elevated troponin. History Of Present Illness: Ms. Jain is 76, has a history of cardiomyopathy, diabetes, hypertens ion. She sees Dr. Patel normally. Came in with a right upper extremity DVT, but no cardiac symptoms. Was found to be hypertensive at 189/86. She denied any chest pain, nausea, vomiting, diaphoresis, PND, orthopnea, pedal edema, palpitations, or syncope. Her troponin was elevated at 142. Past Medical History: As stated above. Allergies: NONE. Review of Systems: Negative. Social History: Negative. Family History: Negative. Medications: At home include, Coreg, Norvasc, Lasix, Neurontin, metformin, and potassium. Physical Examination: General: Mrs. Jain is morbidly obese. Vital Signs: Stable, afebrile, sinus rhythm. Blood pressure 189/96. HEENT: Negative. Neck: Supple with no bruit. Chest: Clear. Cardiac: Reveals a regular rhythm and rate. No murmurs, gallops, or rubs. Abdomen: Obese. Extremities: Revealed chronic edema in the left lower extremity. She had a swollen right upper extr emity. Diagnostic Data: Her troponin was 142. Venous Doppler showed right upper extremity DVT with axillar y vein. Impression And Plan: Elevated troponin secondary to deep vein thrombosis. She needs to be on Loveno x, Lasix, hydralazine, and insulin to continue. She should go home on Eliquis or Xarelto. We will r epeat an ultrasound of her upper extremity at 3 months and decide on how long she will be on anticoag ulation. Her other problems including diabetes, hypertension, chronic diastolic congestive heart travis lure, seems to be stable at this point. She, because of her body size, is not really a candidate for any outpatient Lexiscan. Maybe a catheterization down the road through her right wrist if she had a ny cardiac symptoms. When she goes home, she will continue her home medication plus an anticoagulant . According to her and her family, her blood pressure is much better controlled at home. CECILIA/YAMEL Voice ID: [id number] Report ID: [id number]
[2022-01-23] MEDS: APIXABAN 5 MG TABLET PO SCH (21:42)
[2022-01-23] MEDS: carvediloL 6.25 MG TAB PO SCH (21:43)
[2022-01-23] MEDS ORDERED: ALBUTEROL 2.5 MG/3 ML NEB SOL NEB PRN (23:29)
[2022-01-24 00:03] VITALS: O2SAT 96
[2022-01-24 01:09] LABS: Urine Appearance Clear (Clear); Urine Bilirubin Negative (Negative); Urine Blood Negative (Negative); Urine Color Yellow (Yellow); Urine Glucose Negative (Negative); Urine Protein Trace (Negative); Urine Specific Gravity 1.015 (1.005-1.030); Urine pH 8.5 (5.0-7.0)
[2022-01-24 01:11] LABS: Urine Microscopic Reflex ORDER UMIC
[2022-01-24 01:52] LABS: Urine Bacteria LOADED /HPF (<20); Urine RBC <5 /HPF (NONE SEEN)
[2022-01-24 01:53] LABS: Urine Mucus 1+ /HPF (NONE SEEN)
[2022-01-24] MEDS: HYDRALAZINE HCL 20 MG/ML VIAL IV PRN (04:44)
[2022-01-24 05:47] VITALS: TEMP 97.7
[2022-01-24 06:00] LABS: Absolute Lymphocytes (CBC) 2.3 K/uL (0.7-4.9); Hematocrit 33.3 % (36.0-45.0); Lymphocytes % 20.6 % (15.3-44.8)
[2022-01-24 06:15] LABS: Albumin 3.3 g/dL (3.4-5.0); Bilirubin Total 0.6 mg/dL (0.2-1.0); Potassium 3.6 mmol/L (3.5-5.1); Protein, Total 7.1 g/dL (6.4-8.2)
[2022-01-24] MEDS: INSULIN -REGULAR HUMAN 50 UNIT/0.5 ML ML SQ SCH (07:30)
[2022-01-24] MEDS ORDERED: LOSARTAN POTASSIUM 50 MG TABLET PO SCH (09:00)
[2022-01-24] MEDS ORDERED: GABAPENTIN 300 MG CAP PO SCH (09:00)
[2022-01-24] MEDS: APIXABAN 5 MG TABLET PO SCH (09:54)
[2022-01-24] MEDS: FUROSEMIDE 20 MG/ 2ML VIAL IV SCH (09:55)
[2022-01-24] MEDS: carvediloL 6.25 MG TAB PO SCH (09:55)
[2022-01-24 09:56] VITALS: BP 175/72
--- NOTE | 2022-01-24 16:55 | P.DS ---
Admission Date: 01/23/22 Discharge Date: 01/24/22 Disposition: ROUTINE DISCHARGE Reason for Admission: DVT, elevated troponin Consultations: Cardiology - Dr. Menjivar Procedures: Problem List: Right upper extremity DVT s/p PICC line Elevated troponin secondary to demand ischemia - HTN, DVT Diabetes mellitus type UEynf-[id number]-zftyyazzn Hypertension Brief History of Present Illness: 76yo F, PMH: DM2, HTN, chronic diastolic CHF (HFpEF). Presented to ED due to right upper extremity swelling for ~1 week. Patient recently had PICC line in RUE while treated for UTI/bacteremia a few weeks ago. Found to have RUE non-occlusive thrombus within right axillary and basilic veins. CTA negative for PE. Hospital Course: Patient was found to have a DVT in her right upper extremity. She was noted to have high blood pressure and elevated troponins (cardiac enzymes) which were stable and trended down. Cardiology was consulted and recommended no further inpatient evaluation. Thayer this troponin leak was secondary to DVT and hypertension. Patient did not have any cardiac symptoms, no shortness of breath, no chest pain, no EKG changes. CTA negative for pulmonary emboli She will follow up with Cardiology in 2-3 weeks. Discharged home with prescription for Eliquis. Discussed minimum of 3 months, and plans to repeat U/S at that time to evaluate for DVT. Patient's blood pressure improved with re-initiation of her home medications. Suspect a degree of white coat hypertension and patient felt more stressed in the hospital. This is a provoked DVT, where she recently had a PICC line. Follow up with PCP within 1 week. Patient's urine was noted to have +bacteria, +nitrite, but also with squamous epithelial cells. She has remained afebrile. She has not had any UTI symptoms. Has recent history of bacteremia from UTI ~1 month ago and completed 14 days of IV antibiotics. Likely contaminated specimen, however given history, patient will be sent with 5 day course of cefpodoxime. She will follow up with PCP to f/u cultures. Vital Signs/Physical Exam: Temp Pulse Resp BP Pulse Ox 97.7 F 81 18 175/72 H 97 01/24/22 08:00 01/24/22 09:55 01/24/22 08:00 01/24/22 09:55 01/24/22 08:00 Physical Exam: Gen: AOx3, NAD, obese HEENT: normal conjunctiva, sclera anicteric CV: regular rate/rhythm, no murmur Abd: soft, nontender, nondistended MSK: no tenderness RUE: mild edema, nontender Laboratory Data at Discharge: WBC 11.1 K/uL (4.3-10.9) H D 01/24/22 05:32 Hgb 11.1 g/dL (12.0-15.0) L 01/24/22 05:32 Hct 33.3 % (36.0-45.0) L 01/24/22 05:32 Plt Count 196 K/uL (152-406) 01/24/22 05:32 PT 11.5 SECONDS (9.5-12.5) 01/22/22 20:15 INR 1.04 01/22/22 20:15 Sodium 139 mmol/L (136-145) 01/24/22 05:32 Potassium 3.6 mmol/L (3.5-5.1) 01/24/22 05:32 BUN 17 mg/dL (7-18) 01/24/22 05:32 Creatinine 0.86 mg/dL (0.55-1.3) 01/24/22 05:32 Glucose 137 mg/dL (74-106) H 01/24/22 05:32 Total Bilirubin 0.6 mg/dL (0.2-1.0) 01/24/22 05:32 AST 16 U/L (15-37) 01/24/22 05:32 ALT 17 U/L (12-78) 01/24/22 05:32 Alkaline Phosphatase 52 U/L (45-117) 01/24/22 05:32 Triglycerides 69 mg/dL (<150) 01/23/22 03:48 Cholesterol 158 mg/dL (<200) 01/23/22 03:48 HDL Cholesterol 55 mg/dL (40-60) 01/23/22 03:48 Cholesterol/HDL Ratio 2.87 01/23/22 03:48 Home Medications: Carvedilol [Coreg] 1 tab PO BID 04/23/21 Metformin HCl 500 mg PO BID 04/23/21 Potassium Chloride 1 tab PO DAILY 04/23/21 Apixaban [Eliquis] 1 packet PO SEECOM 30 Days #1 tab.ds.pk 01/23/22 Furosemide 2 tab PO BID 01/23/22 Gabapentin 3 cap PO DAILY 01/23/22 Losartan Potassium [Cozaar] 25 mg PO DAILY 01/23/22 traMADol HCL [Ultram*] 50 mg PO Q8H PRN 01/23/22 Cefpodoxime Proxetil 100 mg PO BID 5 Days #10 tablet 01/24/22 New Medications: Cefpodoxime Proxetil 100 mg PO BID 5 Days #10 tablet Apixaban [Eliquis] 1 packet PO SEECOM 30 Days #1 tab.ds.pk Followup: Madi Flannery MD [Primary Care Provider] - 1 Week Time spent managing pt's care (in minutes): 45
== END 2022-01-24 10:37 | disposition home or self-care (01) | DRG 314 ==
LOC: ER 16:09 → ERHOLD 22:34 → 2ND 01-23 00:30 → OBSVTOIN 01-23 22:04
PROVIDERS: ADMIT Hospitalist; ATTEND Hospitalist
DX: T82.868A Thrombosis due to vascular prosthetic devices, implants and grafts, initial encounter (principal); I50.33 Acute on chronic diastolic (congestive) heart failure; I82.621 Acute embolism and thrombosis of deep veins of right upper extremity; Z68.42 Body mass index [BMI] 45.0-49.9, adult; E11.9 Type 2 diabetes mellitus without complications; R77.8 Other specified abnormalities of plasma proteins; I11.0 Hypertensive heart disease with heart failure; E66.9 Obesity, unspecified; I25.2 Old myocardial infarction; Z20.822 Contact with and (suspected) exposure to COVID-19
CPT/HCPCS: 36415; 71045; 71275; 80053; 80061; 81003; 81015; 82947; 83880; 84484; 85025; 85610; 87077; 87086; 87088; 87186; 93005; 93971; 94640; 96372; 96374; 99285; G0378; J0360; J1100; J1650; J1815; J1940; Q9967; U0003

== ENCOUNTER 2024-08-16 14:46 | Emergency (ER) | payer MEDICARE ==
--- NOTE | 2024-08-16 15:39 | RAD REPORT ---
EXAMINATION: US BILATERAL LOWER EXTREMITY VENOUS DOPPLER CLINICAL INDICATION: PAIN TECHNIQUE: Complete bilateral duplex sonography of the BILATERAL lower extremity veins was performed. The examination included compression for vein patency, color Doppler imaging and flow augmentation in response to distal compression of the distal external iliac, common femoral, femoral, popliteal, t ibial, and great and small saphenous veins. COMPARISON: No prior exam. FINDINGS: Duplex sonography testing of the veins of the BILATERAL lower extremity was performed. Color flow ken ging shows all veins to be compressible with [id number] color filling. Pulsatile and phasic flow is present within all lower extremity deep and superficial veins examined. IMPRESSION: There is no deep vein or superficial vein thrombosis.
--- NOTE | 2024-08-16 15:44 | RAD REPORT ---
EXAMINATION: XR RIGHT HIP CLINICAL INDICATION: . PAIN RIGHT TECHNIQUE: Multiple views of the right hip were obtained. COMPARISON: No prior exam. FINDINGS: No evidence of fracture or dislocation. Normal alignment. No radiographic evidence of AVN. The bones are demineralized. Mild arthritic changes. IMPRESSION: Mild arthritic changes.
--- NOTE | 2024-08-16 15:45 | RAD REPORT ---
EXAMINATION: XR LEFT KNEE CLINICAL INDICATION: PAIN TECHNIQUE: Multiple projections of the left knee were obtained. COMPARISON: No prior exam. FINDINGS: Severe osteoarthritis of the medial compartment is noted with [id number]. Large osteophyt es are present. Small moderate suprapatellar joint effusion. No fracture apparent.
[2024-08-16] MEDS ORDERED: HYDROCODONE/APAP 10/325 TAB ONE (16:18)
--- NOTE | 2024-08-16 16:50 | ER ---
Nurse's Notes [facility] Name: Nabila Jain Age: 78 yrs Sex: Female : 1945 Arrival Date: 08/16/2024 Time: 14:46 Bed 25 Private MD: Diagnosis: Pain in right hip;Pain in left knee Presentation: 08/16 14:55 Chief complaint: Patient states: right hip and left knee/calf pain x 1 week. No fall. tm6 Coronavirus screen: Client denies travel out of the [place] in the last 14 days. Ebola Screen: Patient negative for fever greater than or equal to 101.5 degrees Fahrenheit, and additional compatible Ebola Virus Disease symptoms Patient denies exposure to infectious person. Patient denies travel to an Ebola-affected area in the 21 days before illness onset. No symptoms or risks identified at this time. Risk Assessment: Do you want to hurt yourself or someone else? Patient reports no desire to harm self or others. 14:55 Method Of Arrival: Wheelchair tm6 14:55 Acuity: CHARLEEN 4 tm6 16:46 Initial Sepsis Screen: Does the patient meet any 2 criteria? No. Patient's initial me1 sepsis screen is negative. Does the patient have a suspected source of infection? No. Patient's initial sepsis screen is negative. Onset of symptoms is unknown. Triage Assessment: 14:58 General: Appears in no apparent distress. Behavior is calm, cooperative. Pain: tm6 Complains of pain in right hip and left leg Pain currently is 10 out of 10 on a pain scale. EENT: No signs and/or symptoms were reported regarding the EENT system. Neuro: Level of Consciousness is awake, alert, obeys commands, Oriented to person, place, time, situation. Cardiovascular: Patient's skin is warm and dry. Respiratory: Airway is patent Respiratory effort is even, unlabored, Respiratory pattern is regular, symmetrical. GI: No signs and/or symptoms were reported involving the gastrointestinal system. Abdomen is round. : No signs and/or symptoms were reported regarding the genitourinary system. Derm: No signs and/or symptoms reported regarding the dermatologic system. Musculoskeletal: Reports pain in right hip and left leg. 16:46 General: Appears in no apparent distress. Behavior is calm, cooperative. Pain: me1 Complains of pain in left leg and pelvis and right hip Pain currently is 8 out of 10 on a pain scale. Quality of pain is described as aching, Pain began gradually, one week ago Is continuous. EENT: No signs and/or symptoms were reported regarding the EENT system. Neuro: Level of Consciousness is awake, alert, obeys commands, Oriented to person, place, time, situation. Cardiovascular: Patient's skin is warm and dry. Respiratory: Airway is patent Respiratory effort is even, unlabored, Respiratory pattern is regular, symmetrical. GI: No signs and/or symptoms were reported involving the gastrointestinal system. Abdomen is round. : No signs and/or symptoms were reported regarding the genitourinary system. Derm: No signs and/or symptoms reported regarding the dermatologic system. Skin is intact, is healthy with good turgor, Skin is pink, warm \T\ dry. Musculoskeletal: Reports pain in left leg and pelvis and right hip. Historical: - Allergies: 14:55 NKA; tm6 - PMHx: 14:55 cardiomegaly; diabetes mellitus; Hypertension; tm6 - PSHx: 14:55 tubal ligation (Hypertension); Cholecystectomy; tm6 - Immunization history:: Client reports having NOT received the Covid vaccine. - Infectious Disease History:: Denies. - Social history:: Smoking status: Patient denies any tobacco usage or history of. Patient/guardian denies using alcohol. Screenin:23 [facility] ED Fall Risk Assessment (Adult) History of falling in the last 3 months, tm6 including since admission No falls in past 3 months (0 pts) Confusion or Disorientation No (0 pts) Intoxicated or Sedated No (0 pts) Impaired Gait No (0 pts) Mobility Assist Device Used No (0 pt) Altered Elimination No (0 pt) Score/Fall Risk Level 0 - 2 = Low Risk Oriented to surroundings, Maintained a safe environment, Educated pt \T\ family on fall prevention, incl call for assistance when getting out of bed. Abuse screen: Denies threats or abuse. Denies injuries from another. Nutritional screening: No deficits noted. Tuberculosis screening: No symptoms or risk factors identified. Assessment: 16:51 Reassessment: No changes from previously documented assessment. ma1 Vital Signs: 14:57 Temp 98.1(O); Weight 111.58 kg; Height 5 ft. 1 in. ; Pain 10/10; tm6 14:59 BP 172 / 74; Pulse 57; Resp 17; Pulse Ox 96% on R/A; MAP 104 mmHg; tm6 16:22 BP 188 / 73; Pulse 53; Pulse Ox 100% on R/A; MAP 103 mmHg; Pain 10/10; tm6 17:00 BP 171 / 85; Pulse 59; Resp 16; Temp 98.4; Pulse Ox 99% ; me1 17:00 Pain 4/10; me1 14:57 Body Mass Index 46.48 (111.58 kg, 154.94 cm) tm6 14:57 Pain Scale: Adult tm6 16:22 Pain Scale: Adult tm6 17:00 Pain Scale: Adult me1 ED Course: 14:49 Patient arrived in ED. mr 14:53 Ramses Waddell PA is PHCP. cp 14:53 Ramses Posadas MD is Attending Physician. cp 14:55 Triage completed. tm6 14:58 Arm band placed on left wrist. tm6 15:27 US Extremity Venous W Compression Fritz In Process Unspecified. EDMS 15:38 XRAY Hip RIGHT 2 view In Process Unspecified. EDMS 15:38 XRAY Knee LEFT 3 view In Process Unspecified. EDMS 16:02 Araceli Condon, RN is Primary Nurse. me1 16:23 Patient has correct armband on for positive identification. Call light in reach. tm6 Provided Education on: use of call jamison. Client placed on continuous cardiac and pulse oximetry monitoring. NIBP monitoring applied. Pulse ox on. NIBP on. 16:46 Sathish Narayanan MD is Referral Physician. cp 17:05 No provider procedures requiring assistance completed. Patient did not have IV access me1 during this emergency room visit. Administered Medications: 16:22 Drug: HYDROcodone-acetaminophen PO 10 mg-325 mg 1 tabs PO once Route: PO; tm6 17:00 Follow up: Pain 4/10 Adult; Response: No adverse reaction; Pain is decreased me1 Medication: 16:23 VIS not applicable for this client. tm6 Outcome: 16:49 Discharge ordered by . cp 17:05 Discharged to home via wheelchair, with family, me1 17:05 Condition: stable 17:05 Discharge instructions given to patient, family, Instructed on discharge instructions, follow up and referral plans. medication usage, Demonstrated understanding of instructions, follow-up care, medications, Prescriptions given X 1, 17:05 Patient left the ED. me1 Signatures: Dispatcher [employer] EDMS Julieth Irizarry, Reg Reg mr Ramses Waddell, Araceli Adan cp RN RN me1 Marlena Marroquin RN RN tm6 Corrections: (The following items were deleted from the chart) 16:49 14:55 Chief complaint: Patient states: right hip and left knee/calf pain x 1 week. No me1 fall tm6
--- NOTE | 2024-08-16 16:50 | EDPHYS ---
Physician Documentation [facility] Name: Nabila Jain Age: 78 yrs Sex: Female : 1945 Arrival Date: 08/16/2024 Time: 14:46 Bed 25 Private MD: DAVIS Physician Ramses Posadas HPI: 08/16 15:01 This 78 yrs old Female presents to ER via Wheelchair with complaints of Leg cp Pain, Hip Pain. 15:01 The patient presents with pain, that is acute. The complaints affect the left leg and cp right hip and left knee. Context: resulted from an unknown cause, the patient can partially bear weight, the patient is able to ambulate, with moderate difficulty, Problem is a result from a previous injury: No. Onset: The symptoms/episode began/occurred 1 week(s) ago. Modifying factors: the symptoms are aggravated by movement, weight bearing. 15:01 Associated signs and symptoms: Pertinent positives: calf tenderness, Pertinent cp negatives fever, numbness, warmth, injury. Treatment prior to arrival includes: no previous treatment. Historical: - Allergies: 14:55 NKA; tm6 - PMHx: 14:55 cardiomegaly; diabetes mellitus; Hypertension; tm6 - PSHx: 14:55 tubal ligation (Hypertension); Cholecystectomy; tm6 - Immunization history:: Client reports having NOT received the Covid vaccine. - Infectious Disease History:: Denies. - Social history:: Smoking status: Patient denies any tobacco usage or history of. Patient/guardian denies using alcohol. ROS: 15:05 Constitutional: Negative for body aches, chills, fever, poor PO intake, cp 15:05 Eyes: Negative for injury, pain, redness, and discharge, cp 15:05 Neck: Negative for pain with movement, pain at rest, stiffness, 15:05 Cardiovascular: Negative for chest pain, edema, palpitations, 15:05 Respiratory: Negative for cough, shortness of breath, wheezing, 15:05 Abdomen/GI: Negative for abdominal pain, nausea, vomiting, and diarrhea, 15:05 Back: Negative for pain at rest, pain with movement, 15:05 MS/extremity: Positive for pain, of the left leg and right hip and left knee, Negative for injury or acute deformity, decreased range of motion, 15:05 Neuro: Negative for altered mental status, headache, numbness, weakness, 15:05 All other systems are negative, Exam: 15:10 Head/Face: Normocephalic, atraumatic. cp 15:10 Constitutional: The patient appears in no acute distress, alert, awake, non-toxic, well developed, well nourished, obese, 15:10 Eyes: Periorbital structures: appear normal, Conjunctiva: normal, no exudate, no cp injection, Lids and lashes: appear normal, bilaterally, 15:10 ENT: External ear(s): are unremarkable, Nose: is normal, Mouth: Lips: moist, Oral mucosa: moist, Posterior pharynx: Airway: no evidence of obstruction, patent, 15:10 Neck: ROM/movement: is normal, is supple, without pain, no range of motions limitations, no nuchal rigidity, 15:10 Chest/axilla: Inspection: 15:10 Cardiovascular: Rate: bradycardic, Rhythm: regular, Edema: is not appreciated, JVD: is not appreciated, 15:10 Respiratory: the patient does not display signs of respiratory distress, Respirations: normal, no use of accessory muscles, no retractions, labored breathing, is not present, Breath sounds: are clear throughout, 15:10 Abdomen/GI: Inspection: obese Palpation: abdomen is soft and non-tender, in all quadrants, 15:10 Back: pain, is absent, ROM is normal, cp 15:10 Musculoskeletal/extremity: Extremities: noted in the right hip: pain, There is no cp evidence of decreased ROM, deformity, noted in the left knee: pain, no evidence of decreased ROM, deformity, swelling, ROM: limited passive range of motion due to pain, in the right hip and left knee, 15:10 Neuro: Orientation: to person, place \T\ time. Mentation: is normal, Vital Signs: 14:57 Temp 98.1(O); Weight 111.58 kg; Height 5 ft. 1 in. ; Pain 10/10; tm6 14:59 BP 172 / 74; Pulse 57; Resp 17; Pulse Ox 96% on R/A; MAP 104 mmHg; tm6 16:22 BP 188 / 73; Pulse 53; Pulse Ox 100% on R/A; MAP 103 mmHg; Pain 10/10; tm6 17:00 BP 171 / 85; Pulse 59; Resp 16; Temp 98.4; Pulse Ox 99% ; me1 17:00 Pain 4/10; me1 14:57 Body Mass Index 46.48 (111.58 kg, 154.94 cm) tm6 14:57 Pain Scale: Adult tm6 16:22 Pain Scale: Adult tm6 17:00 Pain Scale: Adult me1 MDM: 14:59 Medical Screening Exam initiated cp 16:00 Differential diagnosis: closed fracture, DJD, septic joint, chronic pain. cp 16:48 Data reviewed: vital signs, nurses notes, radiologic studies, plain films, ultrasound, cp and as a result, I will discharge patient. 16:48 I considered the following discharge prescriptions or medication management in the cp emergency department Medications were administered in the Emergency Department. See MAR. Care significantly affected by the following chronic conditions: Diabetes, Hypertension, Obesity. Counseling: I had a detailed discussion with the patient and/or guardian regarding the historical points, exam findings, and any diagnostic results supporting the discharge/admit diagnosis, radiology results, the need for outpatient follow up, a family practitioner, a orthopedic surgeon, to return to the emergency department if symptoms worsen or persist or if there are any questions or concerns that arise at home. Response to treatment: the patient's symptoms have mildly improved after treatment, and as a result, I will discharge patient. 08/16 15:01 Order name: US Extremity Venous W Compression Fritz; Complete Time: 16:34 cp 08/16 15:01 Order name: XRAY Hip RIGHT 2 view; Complete Time: 16:34 cp 08/16 15:01 Order name: XRAY Knee LEFT 3 view; Complete Time: 16:34 cp Administered Medications: 16:22 Drug: HYDROcodone-acetaminophen PO 10 mg-325 mg 1 tabs PO once Route: PO; tm6 17:00 Follow up: Pain 4/10 Adult; Response: No adverse reaction; Pain is decreased me1 Disposition Summary: 08/16/24 16:49 Discharge Ordered Notes: Location: Home cp Problem: new cp Symptoms: have improved cp Condition: Stable cp Diagnosis - Pain in right hip cp - Pain in left knee cp Followup: cp - With: Sathish Narayanan MD - When: 1 week - Reason: Recheck today's complaints Discharge Instructions: - Discharge Summary Sheet cp - Joint Pain cp - Arthritis cp - How to Use a Knee Brace cp - Hip Pain cp Forms: - Medication Reconciliation Form cp - Antibiotic Education cp - Prescription Opioid Use cp - Patient Portal Instructions cp - Leadership Thank You Letter cp Prescriptions: - Celebrex 200 mg Oral Capsule - take 1 capsule ORAL route every 12 hours As needed take with food; 40 capsule; cp Refills: 0, Product Selection Permitted Signatures: Dispatcher [employer] EDMS Ramses Waddell PA PA cp Masterson, Tawney, RN RN tm6 Araceli Condon RN me1 Corrections: (The following items were deleted from the chart) 15:01 15:01 Hip Right 2 View+RAD.RAD.BRZ ordered. EDMS EDMS 15:01 15:01 Knee Left 3 View+RAD.RAD.BRZ ordered. EDMS EDMS
[2024-08-16 19:53] VITALS: BP 171/85; TEMP 98.4; O2SAT 99
== END 2024-08-16 17:05 | disposition home or self-care (01) ==
LOC: ER 14:46
DX: M25.551 Pain in right hip (principal); M25.562 Pain in left knee
CPT/HCPCS: 93970; 99284

== ENCOUNTER 2025-01-18 15:24 | Emergency (ER) | payer MEDICARE ==
[2025-01-18] MEDS ORDERED: NA CHLORIDE 0.9% 1,000 ML ONE (16:46)
[2025-01-18] MEDS ORDERED: ONDANSETRON 4 MG/2 ML VIAL ONE (16:46)
[2025-01-18 16:54] LABS: Absolute Eosinophils 0.3 K/uL (0-0.5); Absolute Lymphocytes (CBC) 2.1 K/uL (0.7-4.9); Absolute Monocytes 0.6 K/uL (0.1-1.3); Absolute Neutrophil 3.1 K/uL (1.8-8.0); Basophils % 0.8 % (0-1.3); Eosinophils % 4.8 % (0-4.4); Hematocrit 36.4 % (36.0-45.0); Hemoglobin 12.3 g/dL (12.0-15.0); Lymphocytes % 33.9 % (15.3-44.8); MCH 30.4 pg (27.0-35.0); MCHC 33.9 g/dL (32.0-36.0); MCV 89.8 fL (80-100); MPV 8.7 fL (7.6-11.3); Neutrophils % 50.5 % (41.7-73.7); Platelets 173 thou/uL (152-406); RBC Red Blood Cell Count 4.06 M/uL (3.86-4.86); Red Cell Distribution Width 13.8 % (12.1-15.2)
[2025-01-18 17:14] LABS: Specific Gravity 1.026 (1.005-1.030); Urine Bacteria 20-50 /HPF (<20); Urine Bilirubin NEGATIVE (Negative); Urine Blood 1+ (Negative); Urine Clarity Extremely Turbid (Clear); Urine Color Yellow (Yellow); Urine Crystals Unidentified Few /HPF (None Seen); Urine Culture Reflex Order REFLEXED; Urine Glucose NEGATIVE (Negative); Urine Ketones NEGATIVE (Negative); Urine Microscopic Reflex YN ORDER UMIC; Urine Mucus 2+ /HPF (None Seen); Urine Nitrite 2+ (Negative); Urine Protein 1+ (Negative); Urine Urobilinogen Normal (Normal); Urine WBC >50 /HPF (<5)
[2025-01-18 17:18] LABS: ALT/SGPT 15 U/L (13-56); AST/SGOT < 10 U/L (15-37); Albumin 3.4 g/dL (3.4-5.0); Albumin/Globulin Ratio 0.9 (1.1-1.8); Alkaline Phosphatase 80 U/L (45-117); Anion Gap 6.4 mEq/L (5.0-15.0); BUN Blood Urea Nitrogen 26 mg/dL (7-18); Bicarbonate 31 mEq/L (21-32); Bilirubin Total 0.5 mg/dL (0.2-1.0); Globulin 3.9 g/dL (2.3-3.5); Glomerular Filtration Rate 55 ml/min (=/>90); Glucose Level 95 mg/dL (74-106); Lipase 22 U/L (13-75); Potassium 3.4 mEq/L (3.5-5.1); Protein, Total 7.3 g/dL (6.4-8.2); Sodium Level 141 mEq/L (136-145)
[2025-01-18] MEDS ORDERED: CEFTRIAXONE 1000 MG/VIAL ONE (17:18)
--- NOTE | 2025-01-18 17:31 | ER ---
Nurse's Notes [facility] Name: Nabila Jain Age: 79 yrs Sex: Female : 1945 Arrival Date: 01/18/2025 Time: 15:24 Bed 9 Private MD: Diagnosis: UTI/ Urinary tract infection, site not specified Presentation: 01/18 15:42 Chief complaint: Patient states: Lower back pain X 1 week. Denies injury. Denies ld1 urinary symptoms. Coronavirus screen: At this time, the client does not indicate any symptoms associated with coronavirus-19. Ebola Screen: No symptoms or risks identified at this time. Initial Sepsis Screen: Does the patient meet any 2 criteria? No. Patient's initial sepsis screen is negative. Does the patient have a suspected source of infection? No. Patient's initial sepsis screen is negative. Risk Assessment: Do you want to hurt yourself or someone else? Patient reports no desire to harm self or others. Onset of symptoms was January 18, 2025. 15:42 Method Of Arrival: Wheelchair ld1 15:42 Acuity: CHARLEEN 3 ld1 Triage Assessment: 15:42 General: Appears in no apparent distress. comfortable, Behavior is calm, cooperative, ld1 appropriate for age. Pain: Complains of pain in low back area Pain does not radiate. Pain currently is 8 out of 10 on a pain scale. Quality of pain is described as throbbing, Pain began suddenly, Is continuous. EENT: No signs and/or symptoms were reported regarding the EENT system. Neuro: Level of Consciousness is awake, alert, obeys commands, Oriented to person, place, time, situation. Cardiovascular: Capillary refill < 3 seconds Patient's skin is warm and dry. Respiratory: Airway is patent Respiratory effort is even, unlabored. GI: Abdomen is round non-distended. : No signs and/or symptoms were reported regarding the genitourinary system. Derm: No signs and/or symptoms reported regarding the dermatologic system. Musculoskeletal: No signs and/or symptoms reported regarding the musculoskeletal system. Historical: - Allergies: 15:33 NKA; ld1 - PMHx: 15:33 cardiomegaly; diabetes mellitus; Hypertension; ld1 - PSHx: 15:33 Cholecystectomy; tubal ligation (en); ld1 - Immunization history:: Adult Immunizations up to date. - Infectious Disease History:: Denies. - Social history:: Smoking status: Patient denies any tobacco usage or history of. Screenin:48 [facility] ED Fall Risk Assessment (Adult) History of falling in the last 3 months, me1 including since admission No falls in past 3 months (0 pts) Confusion or Disorientation No (0 pts) Intoxicated or Sedated No (0 pts) Impaired Gait Yes (1 pt) Mobility Assist Device Used Yes (1 pt) Altered Elimination No (0 pt) Score/Fall Risk Level 0 - 2 = Low Risk Maintained a safe environment, Provided non-skid footwear, Hourly rounding (assess needs \T\ fall precautionary measures) done. Abuse screen: Denies threats or abuse. Nutritional screening: No deficits noted. Tuberculosis screening: No symptoms or risk factors identified. Assessment: 16:48 General: Appears uncomfortable, obese, well groomed, well developed, Behavior is calm, me1 cooperative, appropriate for age, Reports right lower back/right flank pain. Pain: Complains of pain in low back area Pain does not radiate. Pain currently is 8 out of 10 on a pain scale. Quality of pain is described as sharp, Pain began about a week ago. Neuro: Level of Consciousness is awake, alert, obeys commands, Oriented to person, place, time, situation, Appropriate for age. Cardiovascular: Patient's skin is warm and dry. Respiratory: Airway is patent Respiratory effort is even, unlabored, Respiratory pattern is regular, symmetrical. GI: No signs and/or symptoms were reported involving the gastrointestinal system. : Reports pain in right flank(s), lower quadrant(s) since about a week ago Denies burning with urination, urinary frequency, urgency. EENT: No signs and/or symptoms were reported regarding the EENT system. Derm: Skin is intact, is healthy with good turgor, Skin is pink, warm \T\ dry. Musculoskeletal: No signs and/or symptoms reported regarding the musculoskeletal system. Vital Signs: 15:42 Pulse 59; Resp 18; Temp 97.7(TE); Pulse Ox 97% on R/A; Weight 114.76 kg; Height 5 ft. 0 ld1 in. ; Pain 8/10; 15:44 BP 180 / 73; ld1 17:47 BP 174 / 69; Pulse 62; Resp 17; Temp 98.1; Pulse Ox 98% ; me1 15:42 Body Mass Index 49.41 (114.76 kg, 152.4 cm) ld1 15:42 Pain Scale: Adult ld1 ED Course: 15:26 Patient arrived in ED. im 15:28 Daniel Marcus FNP-C is PHCP. dr5 15:28 Ramses Posadas MD is Attending Physician. dr5 15:42 Arm band placed on right wrist. ld1 15:43 Triage completed. ld1 16:32 Araceli Condon, KAREEN is Primary Nurse. me1 16:48 Patient has correct armband on for positive identification. Bed in low position. Call me1 light in reach. Side rails up X2. Provided Education on: POC. Verbalized understanding.. Client placed on continuous cardiac and pulse oximetry monitoring. NIBP monitoring applied. Pulse ox on. NIBP on. 16:48 Initial lab(s) drawn, by me, sent to lab. Inserted saline lock: 22 gauge in right ap3 antecubital area, using aseptic technique. Blood collected. Flushed with 10 mL NS. 16:48 CBC with Diff Sent. ap3 16:48 CMP Sent. ap3 16:48 Lipase Sent. ap3 16:48 No provider procedures requiring assistance completed. me1 17:05 Urine collected: clean catch specimen, clear. me1 17:48 IV discontinued, intact, bleeding controlled, No redness/swelling at site. Pressure me1 dressing applied. Administered Medications: 16:58 Drug: Ondansetron IVP 4 mg IVP once; over 2 minutes Route: IVP; Site: right antecubital;me1 17:16 Follow up: Response: No adverse reaction; Nausea is decreased me1 16:58 Drug: NS 0.9% IV 1000 ml IV at 1 bolus Per protocol; to be given as a bolus over 60 me1 minutes Route: IV; Rate: 1 bolus; Site: right antecubital; 17:43 Follow up: Response: No adverse reaction; IV Status: Completed infusion; IV Intake: me1 1000ml 17:22 Drug: Rocephin IV 1 grams IV at per protocol once; Given slow IV push per pharmacy me1 instructions Route: IV; Rate: per protocol; Site: right antecubital; 17:43 Follow up: IV Status: Completed infusion me1 Medication: 16:48 VIS not applicable for this client. me1 Intake: 17:43 IV: 1000ml; Total: 1000ml. me1 Outcome: 17:31 Discharge ordered by . dr5 17:48 Discharged to home via wheelchair, with family, me1 17:48 Condition: stable 17:48 Discharge instructions given to patient, family, Instructed on discharge instructions, follow up and referral plans. medication usage, Demonstrated understanding of instructions, follow-up care, medications, Prescriptions given X 1, 17:48 Patient left the ED. me1 Addendum: 01/21/2025 16:21 Addendum: Culture Results: Positive urine culture. No further action required. Bacteria i w sensitive to prescribed antibiotic. Signatures: Mita Worrell, RN RN iw Rufina Murray RN RN ap3 Holly Mondragon RN RN ld1 Cindi Gentile Michelle, RN RN me1 Daniel Marcus, CHILD AND FAMILY COUNSELOR-C CHILD AND FAMILY COUNSELOR-Cdr5 Corrections: (The following items were deleted from the chart) 01/18 15:44 15:42 Chief complaint: Patient states: Lower back pain X 1 week ld1 ld1 16:47 15:42 General: Appears in no apparent distress. comfortable, Behavior is calm, me1 cooperative, appropriate for age, ld1
--- NOTE | 2025-01-18 17:31 | EDPHYS ---
Physician Documentation [facility] Name: Nabila Jain Age: 79 yrs Sex: Female : 1945 Arrival Date: 01/18/2025 Time: 15:24 Bed 9 Private MD: ED Physician Ramses Posadas HPI: 01/18 19:17 This 79 yrs old Female presents to ER via Wheelchair with complaints of Flank dr5 Pain, Low Back Pain. 19:17 The patient complains of pain in the right mid back. Onset: The symptoms/episode dr5 began/occurred 1 week(s) ago. Patient is a 79-year-old female with history of diabetes and hypertension coming in with dysuria as well as right sided flank pain has been going on for the past week. Patient reports that she was hoping that the pain would go away but only worsened. Patient denies fever or recent antibiotic use. Historical: - Allergies: 15:33 NKA; ld1 - PMHx: 15:33 cardiomegaly; diabetes mellitus; Hypertension; ld1 - PSHx: 15:33 Cholecystectomy; tubal ligation (en); ld1 - Immunization history:: Adult Immunizations up to date. - Infectious Disease History:: Denies. - Social history:: Smoking status: Patient denies any tobacco usage or history of. ROS: 19:18 Constitutional: as per hpi dr5 Exam: 19:18 Constitutional: This is a well developed, well nourished patient who is awake, alert, dr5 and in no acute distress. Head/Face: Normocephalic, atraumatic. Eyes: Pupils equal round and reactive to light, extra-ocular motions intact. Lids and lashes normal. Conjunctiva and sclera are non-icteric and not injected. Cornea within normal limits. Periorbital areas with no swelling, redness, or edema. Chest/axilla: Normal chest wall appearance and motion. Nontender with no deformity. No lesions are appreciated. Cardiovascular: Regular rate and rhythm with a normal S1 and S2. Normal PMI, no JVD. No pulse deficits. Respiratory: Lungs have equal breath sounds bilaterally, clear to auscultation. No rales, rhonchi or wheezes noted. No increased work of breathing, no retractions or nasal flaring. 19:18 Skin: Warm, dry with normal turgor. Normal color with no rashes, no lesions, and no evidence of cellulitis. Neuro: Awake and alert, GCS 15, oriented to person, place, time, and situation. Cranial nerves II-XII grossly intact. Motor strength 5/5 in all extremities. Sensory grossly intact. Cerebellar exam normal. Normal gait. 19:18 Back: pain, that is mild, of the right mid back, CVA tenderness, that is mild, is noted on the right, Vital Signs: 15:42 Pulse 59; Resp 18; Temp 97.7(TE); Pulse Ox 97% on R/A; Weight 114.76 kg; Height 5 ft. 0 ld1 in. ; Pain 8/10; 15:44 BP 180 / 73; ld1 17:47 BP 174 / 69; Pulse 62; Resp 17; Temp 98.1; Pulse Ox 98% ; me1 15:42 Body Mass Index 49.41 (114.76 kg, 152.4 cm) ld1 15:42 Pain Scale: Adult ld1 MDM: 15:30 Medical Screening Exam initiated dr5 19:18 Differential diagnosis: nephrolithiasis, pyelonephritis, UTI. Data reviewed: vital dr5 signs, nurses notes. I considered the following discharge prescriptions or medication management in the emergency department Medications were administered in the Emergency Department. See MAR. Historians other than the Patient: Daughter/Son: Daughter. Care significantly affected by the following chronic conditions: Diabetes, Hypertension. Care significantly affected by the following Social Determinants of Health: Poor access to healthcare and/or lack of insurance, Poor access to transportation, Problems related to employment. Counseling: I had a detailed discussion with the patient and/or guardian regarding the historical points, exam findings, and any diagnostic results supporting the discharge/admit diagnosis, the presence of at least one elevated blood pressure reading (>120/80) during this emergency department visit, lab results, the need for outpatient follow up, for definitive care, a family practitioner, to return to the emergency department if symptoms worsen or persist or if there are any questions or concerns that arise at home. ED course: Patient found to have mild right CVA tenderness. 1 g Rocephin given for urinary tract infection. Will give patient cefpodoxime twice daily for the next 10 days. Recommend alternating Tylenol Motrin as needed for pain and fever. Informed patient that we will do urine culture and change antibiotic if needed. All questions answered. Follow-up primary care doctor this week.. 01/18 15:54 Order name: CBC with Diff; Complete Time: 17:04 [facility] 01/18 15:54 Order name: CMP; Complete Time: 17:25 [facility] 01/18 15:54 Order name: Lipase; Complete Time: 17:25 [facility] 01/18 15:54 Order name: Urinalysis w/ reflexes; Complete Time: 17:15 [facility] 01/18 17:17 Order name: Urine Culture EDNE 01/18 15:54 Order name: IV Saline Lock; Complete Time: 16:48 [facility] 01/18 15:54 Order name: Labs collected and sent; Complete Time: 16:48 dr5 Administered Medications: 16:58 Drug: Ondansetron IVP 4 mg IVP once; over 2 minutes Route: IVP; Site: right antecubital;me1 17:16 Follow up: Response: No adverse reaction; Nausea is decreased me1 16:58 Drug: NS 0.9% IV 1000 ml IV at 1 bolus Per protocol; to be given as a bolus over 60 me1 minutes Route: IV; Rate: 1 bolus; Site: right antecubital; 17:43 Follow up: Response: No adverse reaction; IV Status: Completed infusion; IV Intake: me1 1000ml 17:22 Drug: Rocephin IV 1 grams IV at per protocol once; Given slow IV push per pharmacy me1 instructions Route: IV; Rate: per protocol; Site: right antecubital; 17:43 Follow up: IV Status: Completed infusion me1 Disposition Summary: 01/18/25 17:31 Discharge Ordered Notes: Location: Home dr5 Condition: Stable dr5 Diagnosis - UTI/ Urinary tract infection, site not specified dr5 Followup: dr5 - With: Emergency Department - When: As needed - Reason: Worsening of condition Followup: dr5 - With: Private Physician - When: 1 - 2 days - Reason: Recheck today's complaints, Continuance of care, Re-evaluation by your physician Discharge Instructions: - Discharge Summary Sheet dr5 - Urinary Tract Infection, Adult, [id number] dr5 Forms: - Medication Reconciliation Form dr5 - Antibiotic Education dr5 - Patient Portal Instructions dr5 - Leadership Thank You Letter dr5 Prescriptions: - cefpodoxime 200 mg Oral tablet - take 1 tablet ORAL route every 12 hours for 10 days with food; 20 tablet; dr5 Refills: 0, Product Selection Permitted Signatures: Dispatcher [employer] EDMS Holly Mondragon, RN RN ld1 Araceli Condon RN RN me1 Daniel Marcus, PAO-C [employer] GENER[employer] MANAGER-Cdr5 Corrections: (The following items were deleted from the chart) 15:54 15:54 CBC+H.LAB.BRZ ordered. EDMS EDMS 15:54 15:54 COMPREHENSIVE METABOLIC PANEL+C.LAB.BRZ ordered. EDMS EDMS 15:54 15:54 LIPASE+C.LAB.BRZ ordered. EDMS EDMS 15:54 15:54 Urinalysis+U.LAB.BRZ ordered. EDMS EDMS
[2025-01-18 17:56] VITALS: BP 174/69; TEMP 98.1; O2SAT 98
== END 2025-01-18 17:48 | disposition home or self-care (01) ==
LOC: ER 15:24
DX: N39.0 Urinary tract infection, site not specified (principal)
CPT/HCPCS: 96365; 87088; 85025; 81001; 87086; 36415; 83690; 80053; 96375; 99284; J2405; J7030; J0696; 87077; 87186

== ENCOUNTER 2025-04-26 19:28 | Inpatient (IN) | payer MEDICARE ==
--- NOTE | 2025-04-26 19:59 | RAD REPORT ---
EXAMINATION: ONE VIEW CHEST XR CLINICAL INDICATION: DYSPNEA TECHNIQUE: Frontal chest projection is submitted. Examination is limited by patient positioning and t echnique. COMPARISON: 03/08/2025 FINDINGS: Mild bilateral pulmonary edema is suspected. The heart is upper limit of normal in size. No displaced fractures identified. IMPRESSION: Mild CHF versus volume overload pattern is suspected.
[2025-04-26 20:28] LABS: Absolute Lymphocytes (CBC) 1.9 K/uL (0.7-4.9); Hematocrit 34.1 % (36.0-45.0); Hemoglobin 11.5 g/dL (12.0-15.0); MCH 30.4 pg (27.0-35.0); MCHC 33.6 g/dL (32.0-36.0); MCV 90.4 fL (80-100); MPV 9.8 fL (7.6-11.3); Nucleated RBC Absolute Count 0.0 (0-0); Nucleated Red Blood Cells % 0.1 % (0-0); RBC Red Blood Cell Count 3.77 M/uL (3.86-4.86); White Blood Count 8.70 thou/uL (4.3-10.9)
[2025-04-26 20:37] LABS: PT Prothrombin Time 13.4 SECONDS (10-13.0); Protime INR 1.19
--- NOTE | 2025-04-26 20:50 | RAD REPORT ---
EXAMINATION: US BILATERAL LOWER EXTREMITY VENOUS DOPPLER CLINICAL INDICATION: bilat leg pain TECHNIQUE: Complete bilateral duplex sonography of the BILATERAL lower extremity veins was performed. The examination included compression for vein patency, color Doppler imaging and flow augmentation in response to distal compression of the distal external iliac, common femoral, femoral, popliteal, t ibial, and great and small saphenous veins. COMPARISON: No prior exam. FINDINGS: Duplex sonography testing of the veins of the BILATERAL lower extremity was performed. Color flow ken ging shows all veins to be compressible with [id number] color filling. Pulsatile and phasic flow is present within all lower extremity deep and superficial veins examined. IMPRESSION: There is no deep vein or superficial vein thrombosis.
[2025-04-26 20:54] LABS: ALT/SGPT 15.0 U/L (13-56); Albumin 3.3 g/dL (3.4-5.0); Albumin/Globulin Ratio 0.8 (1.1-1.8); Alkaline Phosphatase 89.0 U/L (45-117); Anion Gap 9.6 mEq/L (5.0-15.0); BUN Blood Urea Nitrogen 19.0 mg/dL (7-18); Bilirubin Indirect, Calculated 0.4 mg/dL (0.2-0.8); Globulin 3.9 g/dL (2.3-3.5); Glucose Level 134.0 mg/dL (74-106); NT PRO-BNP 264.0 pg/mL (<450)
[2025-04-26 20:55] LABS: AST/SGOT 16.0 U/L (15-37); Magnesium 2.2 mg/dL (1.6-2.4); Potassium 3.6 mEq/L (3.5-5.1)
[2025-04-26 21:00] LABS: Troponin High Sensitivity 100.5 pg/mL (<58.9)
--- NOTE | 2025-04-26 21:08 | EDPHYS ---
Physician Documentation [facility] Name: Nabila Jain Age: 79 yrs Sex: Female : 1945 Arrival Date: 04/26/2025 Time: 19:28 Bed 14 Private MD: Madi Flannery E ED Physician Ashlyn Archer HPI: 04/26 19:51 This 79 yrs old Female presents to ER via Wheelchair with complaints of sp3 Shortness Of Breath, Trouble Walking. 19:51 71-year-old female with history of prior CVA, diabetes, hypertension currently on sp3 antiplatelet agents now presents to the ED with chief complaint shortness of breath particularly on exertion and bilateral knee pain. Pain extends to the posterior portion of the knee. No significant swelling reported. Patient also has history of CHF admission x 1. Dr. Flannery is her PCP. She denies any chest pain, back pain, syncope, jaw pain, left arm pain, other anginal equivalents, fever, headache, neck pain, abdominal pain, vomit, diarrhea, or any other signs or symptoms on ROS at this time.. Historical: - Allergies: 19:37 NKA; jb4 - PMHx: 19:37 cardiomegaly; Cerebrovascular accident; diabetes mellitus; Hypertension; jb4 - PSHx: 19:37 tubal ligation; Cholecystectomy; jb4 - Immunization history:: Adult Immunizations unknown. - Infectious Disease History:: Denies. - Social history:: Smoking status: Patient denies any tobacco usage or history of. ROS: 19:53 Constitutional: Negative for fever, chills, and weight loss, Eyes: Negative for injury, sp3 pain, redness, and discharge, ENT: Negative for injury, pain, and discharge, Neck: Negative for injury, pain, and swelling, Abdomen/GI: Negative for abdominal pain, nausea, vomiting, diarrhea, and constipation, Back: Negative for injury and pain, Skin: Negative for injury, rash, and discoloration, Neuro: Negative for headache, weakness, numbness, tingling, and seizure, Psych: Negative for depression, anxiety, suicide ideation, homicidal ideation, and hallucinations, Allergy/Immunology: Negative for hives, rash, and allergies, Endocrine: Negative for neck swelling, polydipsia, polyuria, polyphagia, and marked weight changes, 19:53 All other systems are negative, Exam: 19:53 Constitutional: This is a well developed, well nourished patient who is awake, alert, sp3 and in no acute distress. Head/Face: Normocephalic, atraumatic. Eyes: Pupils equal round and reactive to light, extra-ocular motions intact. Lids and lashes normal. Conjunctiva and sclera are non-icteric and not injected. Cornea within normal limits. Periorbital areas with no swelling, redness, or edema. Neck: Trachea midline, no thyromegaly or masses palpated, and no cervical lymphadenopathy. Supple, full range of motion without nuchal rigidity, or vertebral point tenderness. No Meningismus. Chest/axilla: Normal chest wall appearance and motion. Nontender with no deformity. No lesions are appreciated. Cardiovascular: Regular rate and rhythm with a normal S1 and S2. No gallops, murmurs, or rubs. Normal PMI, no JVD. No pulse deficits. Abdomen/GI: Soft, non-tender, with normal bowel sounds. No distension or tympany. No guarding or rebound. No evidence of tenderness throughout. Back: No spinal tenderness. No costovertebral tenderness. Full range of motion. Skin: Warm, dry with normal turgor. Normal color with no rashes, no lesions, and no evidence of cellulitis. Neuro: Awake and alert, GCS 15, oriented to person, place, time, and situation. Cranial nerves II-XII grossly intact. Motor strength 5/5 in all extremities. Sensory grossly intact. Cerebellar exam normal. Normal gait. Psych: Awake, alert, with orientation to person, place and time. Behavior, mood, and affect are within normal limits. 19:53 Respiratory: Diminished breath sounds bilaterally. Exam limited by body habitus/obesity. No significant respiratory distress. Breathing at 18 breaths/min and pulse oxygenation at 95% on room air., 20:50 ECG was reviewed by the Attending Physician. EKG demonstrates normal sinus rhythm at 68 sp3 bpm with a first-degree AV block with MS interval 224, leftward axis poor R wave progression and nonspecific diffuse ST/T changes without evidence of acute ischemia. Vital Signs: 19:35 BP 141 / 61; Pulse 72; Resp 18; Temp 98.4(O); Pulse Ox 95% on R/A; Weight 115.67 kg jb4 (R); Height 5 ft. 4 in. ; Pain 8/10; 20:45 BP 121 / 71; Pulse 66; Resp 24 S; Pulse Ox 95% on R/A; ss12 21:42 BP 152 / 77; Pulse 63; Resp 20 S; Pulse Ox 95% on R/A; ss12 22:30 BP 131 / 79; Pulse 61; Resp 16 S; Pulse Ox 97% on R/A; ss12 19:35 Body Mass Index 43.77 (115.67 kg, 162.56 cm) jb4 19:35 Pain Scale: Adult jb4 Rody Coma Score: 20:45 Eye Response: spontaneous(4). Motor Response: obeys commands(6). Verbal Response: ss12 oriented(5). Total: 15. MDM: 19:37 Medical Screening Exam initiated sp3 19:54 Data reviewed: vital signs, nurses notes, old medical records, lab test result(s), EKG, sp3 radiologic studies. ED course: 79-year-old female with PMH above now with shortness of breath and bilateral knee pain. Differential diagnosis includes congestive heart failure, pneumonia, bronchitis, acute coronary syndrome, among others. I do not have a high suspicion of pulmonary embolism. Will assess bilateral lower extremity ultrasounds. Disposition probable admission for cardiac rule out at minimum. Other treatment modalities as indicated.. 21:02 ED course: Patient with troponin at 100 with normal creatinine. BNP is normal. Chest sp3 x-ray demonstrates mild CHF pattern. Will admit patient for cardiology consultation and serial cardiac markers.. 04/26 19:35 Order name: Basic Metabolic Panel; Complete Time: 21: 3 04/26 19:35 Order name: CBC with Diff; Complete Time: 21:00 3 04/26 19:35 Order name: LFT's; Complete Time: 21: 3 04/26 19:35 Order name: Magnesium; Complete Time: 21: 3 04/26 19:35 Order name: NT PRO-BNP; Complete Time: 21: 3 04/26 19:35 Order name: PT-INR; Complete Time: 21:00 3 04/26 19:35 Order name: Troponin HS; Complete Time: 21: 3 04/26 19:35 Order name: XRAY Chest (1 view); Complete Time: 21:00 3 04/26 19:51 Order name: US Extremity Venous W Compression Fritz; Complete Time: 21:00 sp3 04/26 19:35 Order name: Cardiac monitoring; Complete Time: 20:21 sp3 04/26 19:35 Order name: EKG - Nurse/Tech; Complete Time: 23:05 sp3 04/26 19:35 Order name: IV Saline Lock; Complete Time: 20:21 sp3 04/26 19:35 Order name: Labs collected and sent; Complete Time: 20:21 sp3 04/26 19:35 Order name: O2 Per Protocol; Complete Time: 20:21 sp3 04/26 19:35 Order name: O2 Sat Monitoring; Complete Time: 20:21 sp3 Administered Medications: 21:30 Drug: Aspirin PO 325 mg PO once Route: PO; ss12 23:05 Follow up: Response: No adverse reaction ss12 Disposition Summary: 04/26/25 21:08 Hospitalization Ordered Notes: Hospitalization Status: Inpatient Admission sp3 Provider: Wilfredo Franklin sp3 [facility] sp3 Condition: Stable sp3 Problem: new sp3 Symptoms: are unchanged sp3 Bed/Room Type: Standard sp3 Room Assignment: 221(04/26/25 21:51) rv1 Diagnosis - NSTEMI, Dyspnea sp3 Forms: - Medication Reconciliation Form sp3 - SBAR form sp3 - Leadership Thank You Letter sp3 Signatures: Dispatcher [employer] Benjamin Brewer RN RN jb4 Ashlyn Archer MD MD sp3 Laura Majano rv1 Vashti Kingston RN RN ss12 Corrections: (The following items were deleted from the chart) 21:51 21:08 sp3 rv1
--- NOTE | 2025-04-26 21:08 | ER ---
Nurse's Notes [facility] Name: Nabila Jain Age: 79 yrs Sex: Female : 1945 Arrival Date: 04/26/2025 Time: 19:28 Bed 14 Private MD: Madi Flannery E Diagnosis: NSTEMI, Dyspnea Presentation: 04/26 19:35 Chief complaint: Patient states: I started having shortness of breath yesterday and jb4 today my left knee is hurting. Coronavirus screen: At this time, the client does not indicate any symptoms associated with coronavirus-19. Ebola Screen: No symptoms or risks identified at this time. Initial Sepsis Screen: Does the patient meet any 2 criteria? No. Patient's initial sepsis screen is negative. Does the patient have a suspected source of infection? No. Patient's initial sepsis screen is negative. Risk Assessment: Do you want to hurt yourself or someone else? Patient reports no desire to harm self or others. Onset of symptoms was April 25, 2025. Transition of care: patient was not received from another setting of care. 19:35 Method Of Arrival: Wheelchair jb4 19:35 Acuity: CHARLEEN 2 jb4 Triage Assessment: 23:06 Respiratory: Reports shortness of breath on exertion Onset: The symptoms/episode ss12 began/occurred gradually, the patient has moderate shortness of breath. Historical: - Allergies: 19:37 NKA; jb4 - PMHx: 19:37 cardiomegaly; Cerebrovascular accident; diabetes mellitus; Hypertension; jb4 - PSHx: 19:37 tubal ligation; Cholecystectomy; jb4 - Immunization history:: Adult Immunizations unknown. - Infectious Disease History:: Denies. - Social history:: Smoking status: Patient denies any tobacco usage or history of. Screenin:00 Tuberculosis screening: No symptoms or risk factors identified. ss12 23:05 [facility] ED Fall Risk Assessment (Adult) History of falling in the last 3 months, ss12 including since admission No falls in past 3 months (0 pts) Confusion or Disorientation No (0 pts) Intoxicated or Sedated No (0 pts) Impaired Gait No (0 pts) Mobility Assist Device Used No (0 pt) Altered Elimination No (0 pt) Score/Fall Risk Level 0 - 2 = Low Risk Oriented to surroundings, Maintained a safe environment, Educated pt \T\ family on fall prevention, incl call for assistance when getting out of bed, Assessed \T\ reinforced patient's understanding of fall precautions. Abuse screen: Denies threats or abuse. Denies injuries from another. Nutritional screening: No deficits noted. Assessment: 20:00 General: Appears in no apparent distress. comfortable, Behavior is calm, cooperative, ss12 quiet. Pain: Denies pain. Neuro: No deficits noted. Level of Consciousness is awake, alert, obeys commands, Oriented to person, place, time, situation. Cardiovascular: No deficits noted. Denies chest pain, Patient's skin is warm and dry. Rhythm is sinus rhythm with 1st degree heart block. Respiratory: Airway is patent Respiratory effort is even, exerted on ambulation Breath sounds are clear bilaterally. GI: No deficits noted. No signs and/or symptoms were reported involving the gastrointestinal system. Abdomen is round non-distended. : No deficits noted. No signs and/or symptoms were reported regarding the genitourinary system. EENT: No deficits noted. No signs and/or symptoms were reported regarding the EENT system. Derm: No deficits noted. No signs and/or symptoms reported regarding the dermatologic system. Musculoskeletal: No deficits noted. No signs and/or symptoms reported regarding the musculoskeletal system. 21:00 Reassessment: Patient appears in no apparent distress at this time. Patient and/or ss12 family updated on plan of care and expected duration. Pain level reassessed. Patient is alert, oriented x 3, equal unlabored respirations, skin warm/dry/pink. 22:50 Reassessment: Patient appears in no apparent distress at this time. Patient and/or ss12 family updated on plan of care and expected duration. Pain level reassessed. Patient is alert, oriented x 3, equal unlabored respirations, skin warm/dry/pink. Vital Signs: 19:35 BP 141 / 61; Pulse 72; Resp 18; Temp 98.4(O); Pulse Ox 95% on R/A; Weight 115.67 kg jb4 (R); Height 5 ft. 4 in. ; Pain 8/10; 20:45 BP 121 / 71; Pulse 66; Resp 24 S; Pulse Ox 95% on R/A; ss12 21:42 BP 152 / 77; Pulse 63; Resp 20 S; Pulse Ox 95% on R/A; ss12 22:30 BP 131 / 79; Pulse 61; Resp 16 S; Pulse Ox 97% on R/A; ss12 19:35 Body Mass Index 43.77 (115.67 kg, 162.56 cm) jb4 19:35 Pain Scale: Adult jb4 Wayland Coma Score: 20:45 Eye Response: spontaneous(4). Motor Response: obeys commands(6). Verbal Response: ss12 oriented(5). Total: 15. ED Course: 19:32 Patient arrived in ED. gm2 19:33 Madi Flannery MD is Private Physician. gm2 19:33 Ashlyn Archer MD is Attending Physician. sp3 19:37 Triage completed. jb4 19:37 Arm band placed on right wrist. jb4 19:53 XRAY Chest (1 view) In Process Unspecified. EDMS 20:00 Vashti Kingston RN is Primary Nurse. ss12 20:00 Inserted saline lock: 22 gauge in right upper arm, using aseptic technique. Blood ss12 collected. Flushed with 10 mL NS. 20:21 Basic Metabolic Panel Sent. ss12 20:21 CBC with Diff Sent. ss12 20:21 LFT's Sent. ss12 20:21 Magnesium Sent. ss12 20:21 NT PRO-BNP Sent. ss12 20:21 PT-INR Sent. ss12 20:21 Troponin HS Sent. ss12 20:45 US Extremity Venous W Compression Fritz In Process Unspecified. EDMS 21:07 Wilfredo Franklin MD is Hospitalizing Provider. sp3 23:05 No provider procedures requiring assistance completed. ss12 23:06 Patient has correct armband on for positive identification. Provided Education on: plan ss12 of care. 23:07 Patient admitted, IV remains in place. ss12 Administered Medications: 21:30 Drug: Aspirin PO 325 mg PO once Route: PO; ss12 23:05 Follow up: Response: No adverse reaction ss12 Medication: 23:06 VIS not applicable for this client. ss12 Outcome: 21:08 Decision to Hospitalize by Provider. sp3 23:06 Admitted to Med/surg accompanied by tech, via stretcher, ss12 23:06 Condition: stable 23:07 Patient left the ED. ss12 Signatures: Dispatcher [employer] EDAK Benjamin Montejo RN RN jb4 Ashlyn Archer MD MD sp3 Eliza Singh gm2 Vashti Kingston RN RN ss12 Corrections: (The following items were deleted from the chart) 19:38 19:35 Pulse 72bpm; Resp 18bpm; Pulse Ox 95% RA; Temp 98.4F Oral; 115.67 kg Reported; jb4 Height 5 ft. 4 in.; BMI: 43.7; Pain 8/10, Adult; jb4 21:42 21:27 BP 121 / 71; Pulse 66bpm; Resp 24bpm; Spontaneous; Pulse Ox 95% RA; 12 ss12 21:42 21:27 GCS: 15, ss12 ss12 23:04 23:03 BP 131 / 79; Pulse 61bpm; Resp 16bpm; Spontaneous; Pulse Ox 97% RA; 12 ss12
[2025-04-26] MEDS ORDERED: ASPIRIN 325 MG TAB ONE (21:38)
--- NOTE | 2025-04-26 21:51 | P.HP ---
Certification for Inpatient Patient admitted to: Inpatient With expected LOS: >2 Midnights Patient will require the following post-hospital care: None Practitioner: I am a practitioner with admitting privileges, knowledge of patient current condition, hospital course, and medical plan of care. Services: Services provided to patient in accordance with Admission requirements found in Title 42 Section 412.3 of the Code of Federal Regulations <Nathanael Tamayo - Last Filed: 04/27/25 07:14> Patient History Date of Service: 04/26/25 Reason for admission: Acute on chronic CHF exacerbation vs asthma,/ NSTEMI History of Present Illness: Patient is a 79 years old female predominantly Mosotho-speaking, with past medical history of diastolic CHF, asthma, essential hypertension, CVA in , cardiomegaly, type II prediabetic mellitus, morbid obesity, brought to the ER today due to worsening generalized body weakness with di fficulty ambulating, shortness of breath with no associated chest pain. According to the patient daughter present at bedside, she states yesterday patient started having shortness of breath, with generalized body weakness, states her shortness of breath progressively worsened today associated with increased generalized body weakness and difficulty to ambulate with no associated chest pain. Patient daughter also mentioned of bilateral lower extremities edema, but on admission assessment patient with mild edema on bilateral lower extremities.. On admission assessment, patient was fully awake, alert and oriented x 3, communicates predominantly Mosotho, denies of any chest pain at this time, respirations even and nonlabored at this time, bilateral lungs with increased scattered crackles and rhonchi, and diminished breath sounds, patient is able to communicate in full sentences. Patient initial troponin 100.5, EKG with no ST elevations, denies of any chest pain. It appears patient presentation is a combined acute on chronic CHF exacerbation versus asthma and questionable NSTEMI. Is unclear at this time if patient initial troponin of 100.5 is related to demand and supply, no associated chest pain while at home, or in the ER. Will proceed with troponin every 8 hours to evaluate further results. - Past Medical/Surgical History Diabetic: No -: HTN -: Diabetes mellitus type 2 -: CHFdiastolic -: DVT to left -: asthma -: Cardiomegaly. -: Essential hypertension. -: -: Cholecystectomy. -: Tubal ligation. Psychosocial/ Personal History: Patient lives at home with her family - Family History Family History: Reviewed- Non-Contributory - Family History Father Notes: UNKNOWN- PATIENT WAS T[age] YEARS OLD WHEN FATHER . Mother Notes: UNKNOWN- PATIENT WAS 1 WHEN MOTHER . - Social History Smoking Status: Never smoker Alcohol use: No CD- Drugs: No Caffeine use: Yes Place of Residence: Home <IggyNathanael sky - Last Filed: 04/27/25 07:14> Date of Service: 04/26/25 <Fabiano Sterling Ricco - Last Filed: 05/08/25 04:51> Allergies No Known Drug Allergies Allergy (Verified 04/23/21 23:42) Unknown Home Medications: Aspirin 81 mg PO DAILY 03/08/25 Carvedilol [Coreg] 12.5 mg PO BID 03/08/25 Fluticasone/Umeclidin/Vilanter [Trelegy Ellipta 100-62.5-25] 1 puff IH PRN PRN 03/08/25 Furosemide [Lasix*] 40 mg PO DAILY 03/08/25 Gabapentin 300 mg PO BID 03/08/25 Sacubitril/Valsartan [Entresto 24 mg-26 mg Tablet] 1 tab PO BID 03/08/25 Atorvastatin Calcium [Lipitor] 40 mg PO BEDTIME 30 Days #30 tab 03/11/25 Clopidogrel Bisulfate [Plavix*] 75 mg PO DAILY 30 Days #30 tab 03/11/25 Folic Acid 1 mg PO DAILY 30 Days #30 tab 03/11/25 Ipratropium Neb [Atrovent*] 0.5 mg NEB Q8HP #60 amp 04/29/25 Levalbuterol [Xopenex*] 1.25 mg NEB Q8H #60 amp 04/29/25 Nebulizer 1 each MC DAILY #1 ea 04/29/25 Nebulizer Accessories [Aeroneb Go] 1 each MC DAILY #1 ea 04/29/25 levoFLOXacin [Levaquin*] 500 mg PO DAILY #7 tab 04/29/25 predniSONE [Prednisone*] 20 mg PO DAILY #20 tab 04/29/25 Review of Systems 10-point ROS is otherwise unremarkable General: Weakness Respiratory: SOB with Excertion, Other (Bilateral crackles and rhonchi.) Cardiovascular: Orthopnea, Edema (Mild edema bilateral lower extremities) <Ngole,Nathanael - Last Filed: 04/27/25 07:14> Physical Examination - Physical Exam General: Alert, Oriented x3, Cooperative HEENT: Atraumatic, Normocephalic, PERRLA, Mucous membr. moist/pink, Sclerae nonicteric Neck: Supple, 2+ carotid pulse no bruit, Without JVD or thyroid abnormality Respiratory: Diminished, Crackles/rales Cardiovascular: Normal pulses, Regular rate/rhythm, Normal S1 S2, No gallops, No rubs, No murmurs, Edema (Nonpitting bilateral lower extremities mild edema) Capillary refill: <2 Seconds Gastrointestinal: Normal bowel sounds, W/out hepatomegaly, No ascites, No tenderness, No masses Musculoskeletal: No clubbing, No contractures, No erythema, No tenderness, No warmth Integumentary: No rashes, No breakdown, No significant lesion, No erythema, No warmth, No cyanosis Neurological: Normal speech, Normal tone, Sensation intact, Normal reflexes 2+, Normal affect, Other (Generalized weakness.) Lymphatics: No axilla or inguinal lymphadenopathy - Studies Laboratory Data (last 24 hrs) 04/26/25 04/26/25 04/26/25 20:15 20:15 20:15 WBC 8.70 Hgb 11.5 L Hct 34.1 L Plt Count 143 L PT 13.4 H INR 1.19 Sodium 139 Potassium 3.6 BUN 19 H Creatinine 0.99 Glucose 134 H Magnesium 2.2 Total Bilirubin 0.6 AST 16 ALT 15 Alkaline Phosphatase 89 <Nathanael Tamayo - Last Filed: 04/27/25 07:14> Female Exam - Breasts Breasts: Normal configuration <Nathanael Tamayo - Last Filed: 04/27/25 07:14> Assessment and Plan - Plan Patient is a pleasant 79-year-old female admitted inpatient with diagnosis of combined acute on chronic CHF exacerbation versus COPD exacerbation/NSTEMI. Patient currently denies of any chest pain, no respiratory distress noted at this time. (1)Acute on chronic CHF exacerbation vs COPD exacerbation/NSTEMI. Patient initial troponin 100.5, denies of any chest pain while in ER and prior to arrival. -Order troponin every 8 hours for further evaluation. It appears patient initial troponin may be more related to demand and supply, no associated chest pain. Continue to monitor patient for any condition change. -Order echocardiogram. -Lasix 40 mg IV x 1, follow with Lasix 40 mg IV daily. -Consult molding machine operator. -Daily EKG x 3. -DuoNeb treatment as needed every 6 hours. -Spiriva inhaler 1 spray daily. -2 L oxygen supplement can titrate based on patient demand. -Continue home medication Entresto 24 mg-26 mg p.o. twice daily. -Carvedilol 12.5 mg p.o. twice daily. - Levaquin 250 mg p.o. daily. -Prednisone 20 mg p.o. daily. (2)Chronic hypercholesteremia. -Continue atorvastatin 40 mg p.o. at bedtime. (3)Chronic type 2 diabetes mellitus. -ACHS with mild sliding scale coverage. (4)Explained the entire treatment plan to the patient, solicit questions answered and voiced understanding. Discharge Plan: Home Plan to discharge in: Greater than 2 days - Advance Directives Does patient have a Living Will: No Does patient have a Durable POA for Healthcare: No - Code Status/Comfort Care Code Status Assessed: Yes Code Status: Full Code Critical Care: No Time Spent Managing Pts Care (In Minutes): 55 <Nathanael Tamayo - Last Filed: 04/27/25 07:14> Date of Service: 04/26/25 Chart has been reviewed. Events of the last 24 hours have been noted. Case discussed with DORI. I performed a substantial part of the MDM during this patient's care today. I personally made or approved the documented management plan and acknowledge its risk of complications. I agree with the findings and documentation provided in the DORI's notes <Fabiano Sterling - Last Filed: 05/08/25 04:51>
[2025-04-26 23:27] VITALS: BMI 43.6
[2025-04-26] MEDS: ALBUTEROL 2.5 MG/3 ML NEB SOL NEB PRN (23:49)
[2025-04-27] MEDS: FUROSEMIDE 40 MG/4 ML VIAL IV STA (01:25)
[2025-04-27] MEDS ORDERED: IPRATROPIUM BROM 0.5MG/2.5ML NEB PRN (02:19)
[2025-04-27] MEDS: ENOXAPARIN 40 MG/0.4 ML SQ STA (02:26)
[2025-04-27 02:58] LABS: Sqamous Epithelial <5 /HPF (None Seen); Urine Crystals Unidentified Few /HPF (None Seen); Urine Culture Reflex Order NOT NEEDED; Urine Microscopic Reflex YN ORDER UMIC
[2025-04-27 05:59] LABS: Absolute Lymphocytes (CBC) 2.2 K/uL (0.7-4.9); Hematocrit 34.4 % (36.0-45.0); Hemoglobin 11.6 g/dL (12.0-15.0); MCH 30.1 pg (27.0-35.0); MCHC 33.6 g/dL (32.0-36.0); MCV 89.6 fL (80-100); MPV 10.0 fL (7.6-11.3); Nucleated RBC Absolute Count 0.0 (0-0); Nucleated Red Blood Cells % 0.1 % (0-0); RBC Red Blood Cell Count 3.84 M/uL (3.86-4.86); White Blood Count 7.30 thou/uL (4.3-10.9)
[2025-04-27 06:29] LABS: Albumin 3.2 g/dL (3.4-5.0); Albumin/Globulin Ratio 0.9 (1.1-1.8); Alkaline Phosphatase 81 U/L (45-117); Anion Gap 7.0 mEq/L (5.0-15.0); BUN Blood Urea Nitrogen 18 mg/dL (7-18); Globulin 3.6 g/dL (2.3-3.5); Glucose Level 105 mg/dL (74-106); Magnesium 2.0 mg/dL (1.6-2.4); NT PRO-BNP 162 pg/mL (<450); Potassium 3.0 mEq/L (3.5-5.1)
[2025-04-27 06:31] LABS: ALT/SGPT < 14 U/L (13-56); AST/SGOT < 10 U/L (15-37)
[2025-04-27] MEDS: INSULIN REGULAR (HUMAN) 100 UNIT/ML SQ SCH (07:30)
[2025-04-27] MEDS ORDERED: levoFLOXacin 250 MG TAB PO SCH (09:00)
[2025-04-27] MEDS ORDERED: ENOXAPARIN 40 MG/0.4 ML SQ SCH (09:00)
[2025-04-27] MEDS: ASPIRIN EC 81 MG TAB PO SCH (09:28)
[2025-04-27] MEDS: FUROSEMIDE 40 MG/4 ML VIAL IV SCH (09:28)
[2025-04-27] MEDS: predniSONE 20 MG TAB PO SCH (09:28)
[2025-04-27] MEDS: POTASSIUM CL SA 10 MEQ TAB PO ONE (09:28)
[2025-04-27] MEDS: levoFLOXacin 500 MG TAB PO SCH (09:28)
--- NOTE | 2025-04-27 18:58 | CON ---
Date of Consultation: 04/27/2025 Reason For Consultation: Questionable shortness of breath. History Of Present Illness: A 79-year-old female with history of CHF, hypertension, CVA, enlarged he art, diabetes type 2 and follows up with Cardiology in [place], presents because of having shortness of breath along with generalized body weakness. Denies having any chest pain. Had some lower extre mity edema. Saw her by bedside. Denies having any chest pain and there was no further shortness of breath. She appears to be more comfortable. Her lower extremity edema is better. Past Medical History: As outlined above in the HPI. Medications: Refer reconciliation sheet for detailed list. Allergies: NO KNOWN DRUG ALLERGIES. Family History: No premature coronary artery disease or cancer. Social History: She does not smoke or drink. Does not use any drugs. Review of Systems: All systems reviewed and they were negative except as mentioned in the HPI. Physical Examination: Vital Signs: Reviewed. Head and Neck: Pupils are equal, reactive to light. Intact eye movements. No JVD. No cervical lym phadenopathy. Neck is supple. Thyroid is not enlarged. Lungs: Clear to auscultation bilaterally. No rhonchi, wheezing, or crackles. No accessory muscle u se. Heart: Regular. No extra sounds. Abdomen: Soft, nontender. Bowel sounds positive. No organomegaly. No masses or hernia. No rigidi ty or rebound. Extremities: No edema, clubbing, or cyanosis. Intact pulses. Skin: No rash. No nodules. Neurologic: Alert, awake, oriented x3. No acute focal deficits appreciated. Investigations: BUN 18, creatinine 0.88. Troponin is -37 and then 90 and the chest x-ray, mild CHF. Assessment And Recommendations: 1. Acute on chronic congestive heart failure exacerbation. Recommend diuresis she is appropriately o n Lasix. She appears to be approaching her euvolemic state. Carefully monitor BUN, creatinine, elec trolytes, and patient is to follow up with her primary customer agent post discharge. 2. Borderline elevated troponin. No chest pain, this is demand, but further workup might be warrante d depends on her overall condition. She is well known to her customer agent in [place]. I advised th e family to follow up with primary customer agent early next week. I do not recommend any further [facility] cardiac workup now as there is no significant delta on this troponin and there is no chest pain . 3. Dyslipidemia, on statin. Continue Lipitor 40 mg at bedtime. Cardiology will sign off on the case to follow up with her primary customer agent postdischarge. SR/MODL Voice ID: [id number] Report ID: [id number]
[2025-04-27] MEDS: ENOXAPARIN 40 MG/0.4 ML SQ SCH (21:13)
[2025-04-27] MEDS: GABAPENTIN 300 MG CAP PO SCH (21:13)
[2025-04-27] MEDS: SACUBITRIL/VALSARTAN 24/26 MG TAB PO SCH (21:13)
[2025-04-27] MEDS: ATORVASTATIN 40 MG TAB PO SCH (21:13)
[2025-04-28 05:06] LABS: Absolute Lymphocytes (CBC) 1.8 K/uL (0.7-4.9); Hematocrit 33.1 % (36.0-45.0); Hemoglobin 11.3 g/dL (12.0-15.0); MCH 30.3 pg (27.0-35.0); MCHC 34.0 g/dL (32.0-36.0); MCV 89.3 fL (80-100); MPV 10.1 fL (7.6-11.3); Nucleated RBC Absolute Count 0.0 (0-0); Nucleated Red Blood Cells % 0.0 % (0-0); RBC Red Blood Cell Count 3.71 M/uL (3.86-4.86); White Blood Count 9.10 thou/uL (4.3-10.9)
[2025-04-28 05:26] LABS: ALT/SGPT 20.0 U/L (13-56); AST/SGOT 11.0 U/L (15-37); Albumin 2.8 g/dL (3.4-5.0); Albumin/Globulin Ratio 0.7 (1.1-1.8); Alkaline Phosphatase 79.0 U/L (45-117); Anion Gap 8.5 mEq/L (5.0-15.0); BUN Blood Urea Nitrogen 24.0 mg/dL (7-18); Globulin 3.9 g/dL (2.3-3.5); Glucose Level 130.0 mg/dL (74-106); Magnesium 2.0 mg/dL (1.6-2.4); NT PRO-BNP 116.0 pg/mL (<450); Potassium 3.5 mEq/L (3.5-5.1)
[2025-04-28 05:29] LABS: C-Reactive Protein 54.1 mg/L (<3.00)
[2025-04-28 05:42] LABS: Troponin High Sensitivity 61.6 pg/mL (<58.9)
[2025-04-28] MEDS: POTASSIUM CL SA 10 MEQ TAB PO ONE (08:56)
[2025-04-28] MEDS: TIOTROPIUM 5 SPRAYS/INHALER IH SCH (09:00)
[2025-04-28 10:58] VITALS: O2SAT 95
[2025-04-28] MEDS ORDERED: ALBUTEROL 2.5 MG/3 ML NEB SOL NEB PRN (15:39)
[2025-04-29] MEDS: ACETAMINOPHEN 500 MG TAB PO PRN (01:24)
[2025-04-29] MEDS: IBUPROFEN 600 MG TAB PO ONE (05:16)
[2025-04-29] MEDS: TIOTROPIUM 5 SPRAYS/INHALER IH SCH (08:44)
--- NOTE | 2025-04-29 14:56 | P.PN ---
Date of Service: 04/27/25 Subjective Patient is still feeling weak and lethargic; still with lower extremity edema Physical Examination - Vitals reviewed - Physical Exam General: Alert, Oriented x3, Cooperative Respiratory: Diminished, Crackles/rales Cardiovascular: RRR with TALYA II/ Gastrointestinal: Normal bowel sounds, W/out hepatomegaly, No ascites, No tenderness, No masses Musculoskeletal: No clubbing, No contractures, No erythema, No tenderness, No warmth Integumentary: No rashes, No breakdown, No significant lesion, No erythema, No warmth, No cyanosis Neurological: No focal deficits; generalized weakness Assessment and Plan - Assessment/Plan Patient is a pleasant 79-year-old female admitted inpatient with diagnosis of combined acute on chronic CHF exacerbation versus COPD exacerbation/NSTEMI. Patient currently denies of any chest pain, no respiratory distress noted at this time. (1) Acute on chronic CHF exacerbation vs COPD exacerbation/NSTEMI. Patient initial troponin 100.5, denies of any chest pain while in ER and prior to arrival. -Order troponin every 8 hours for further evaluation. It appears patient initial troponin may be more related to demand and supply, no associated chest pain. Continue to monitor patient for any condition change. -Order echocardiogram. -Lasix 40 mg IV x 1, follow with Lasix 40 mg IV daily. -Consult tip stretcher. -Daily EKG x 3. -DuoNeb treatment as needed every 6 hours. -Spiriva inhaler 1 spray daily. -2 L oxygen supplement can titrate based on patient demand. -Continue home medication Entresto 24 mg-26 mg p.o. twice daily. -Carvedilol 12.5 mg p.o. twice daily. - Levaquin 250 mg p.o. daily. -Prednisone 20 mg p.o. daily. (2) Chronic hypercholesteremia. -Continue atorvastatin 40 mg p.o. at bedtime. (3) Chronic type 2 diabetes mellitus. -ACHS with mild sliding scale coverage. (4) Explained the entire treatment plan to the patient, solicit questions answered and voiced understanding. Discharge Plan: Home Plan to discharge in: Greater than 2 days - Advance Directives Does patient have a Living Will: No Does patient have a Durable POA for Healthcare: No - Code Status/Comfort Care Code Status Assessed: Yes Code Status: Full Code Critical Care: No Time Spent Managing Pts Care (In Minutes): 30
--- NOTE | 2025-04-29 14:57 | P.PN ---
Date of Service: 04/28/25 Subjective Condiiton continue to improve Physical Examination - Vitals reviewed - Physical Exam General: Alert, Oriented x3, Cooperative Respiratory: Diminished, Crackles/rales Cardiovascular: RRR with TALYA II/ Gastrointestinal: Normal bowel sounds, W/out hepatomegaly, No ascites, No tenderness, No masses Musculoskeletal: No clubbing, No contractures, No erythema, No tenderness, No warmth Integumentary: No rashes, No breakdown, No significant lesion, No erythema, No warmth, No cyanosis Neurological: No focal deficits; generalized weakness Assessment and Plan - Assessment/Plan Patient is a pleasant 79-year-old female admitted inpatient with diagnosis of combined acute on chronic CHF exacerbation versus COPD exacerbation/NSTEMI. Patient currently denies of any chest pain, no respiratory distress noted at this time. (1) Acute on chronic CHF exacerbation vs COPD exacerbation/NSTEMI. Patient initial troponin 100.5, denies of any chest pain while in ER and prior to arrival. -Order troponin every 8 hours for further evaluation. It appears patient initial troponin may be more related to demand and supply, no associated chest pain. Continue to monitor patient for any condition change. -Order echocardiogram. -Lasix 40 mg IV x 1, follow with Lasix 40 mg IV daily. -Consult [employer] advisor. -Daily EKG x 3. -DuoNeb treatment as needed every 6 hours. -Spiriva inhaler 1 spray daily. -2 L oxygen supplement can titrate based on patient demand. -Continue home medication Entresto 24 mg-26 mg p.o. twice daily. -Carvedilol 12.5 mg p.o. twice daily. - Levaquin 250 mg p.o. daily. -Prednisone 20 mg p.o. daily. (2) Chronic hypercholesteremia. -Continue atorvastatin 40 mg p.o. at bedtime. (3) Chronic type 2 diabetes mellitus. -ACHS with mild sliding scale coverage. (4) Explained the entire treatment plan to the patient, solicit questions answered and voiced understanding. Discharge Plan: Home Plan to discharge in: Greater than 2 days - Advance Directives Does patient have a Living Will: No Does patient have a Durable POA for Healthcare: No - Code Status/Comfort Care Code Status Assessed: Yes Code Status: Full Code Critical Care: No Time Spent Managing Pts Care (In Minutes): 30
[2025-04-29 17:29] VITALS: BP 117/57; TEMP 98
== END 2025-04-29 18:21 | disposition home health service (06) | DRG 280 ==
LOC: ER 19:28 → ERHOLD 21:43 → 2ND 22:38
PROVIDERS: ADMIT Hospitalist; ATTEND Hospitalist
DX: I11.0 Hypertensive heart disease with heart failure (principal); I50.33 Acute on chronic diastolic (congestive) heart failure; I21.A1 Myocardial infarction type 2; Z68.41 Body mass index [BMI] 40.0-44.9, adult; J44.1 Chronic obstructive pulmonary disease with (acute) exacerbation; E66.01 Morbid (severe) obesity due to excess calories; I44.0 Atrioventricular block, first degree; E11.9 Type 2 diabetes mellitus without complications; E78.00 Pure hypercholesterolemia, unspecified; Z90.49 Acquired absence of other specified parts of digestive tract; Z86.73 Personal history of transient ischemic attack (TIA), and cerebral infarction without residual deficits; Z79.82 Long term (current) use of aspirin; Z79.02 Long term (current) use of antithrombotics/antiplatelets; Z79.52 Long term (current) use of systemic steroids; Z79.899 Other long term (current) drug therapy
CPT/HCPCS: 36415; 71045; 80048; 80053; 80076; 81001; 82947; 83735; 83880; 84132; 84484; 85025; 85610; 86140; 93005; 93970; 94640; 97116; 97162; 97530; 99285; J1650; J1815; J1938; J7512; J7613

== ENCOUNTER 2025-05-02 21:12 | Inpatient (IN) | payer MEDICARE ==
[2025-05-02] MEDS ORDERED: ASPIRIN 81 MG CHEWABLE TABLET ONE (21:37)
[2025-05-02 21:46] LABS: Absolute Lymphocytes (CBC) 1.9 K/uL (0.7-4.9); Hematocrit 37.0 % (36.0-45.0); Hemoglobin 12.4 g/dL (12.0-15.0); MCH 29.8 pg (27.0-35.0); MCHC 33.4 g/dL (32.0-36.0); MCV 89.1 fL (80-100); MPV 9.5 fL (7.6-11.3); Nucleated RBC Absolute Count 0.0 (0-0); Nucleated Red Blood Cells % 0.2 % (0-0); RBC Red Blood Cell Count 4.16 M/uL (3.86-4.86); White Blood Count 11.90 thou/uL (4.3-10.9)
[2025-05-02 21:51] LABS: PT Prothrombin Time 13.1 SECONDS (10-13.0); PTT, Activated Partial Thromb 42.0 SECONDS (27.2-37.4); Protime INR 1.16
[2025-05-02 22:04] LABS: ALT/SGPT 22 U/L (13-56); AST/SGOT 14 U/L (15-37); Albumin 3.3 g/dL (3.4-5.0); Albumin/Globulin Ratio 0.8 (1.1-1.8); Alkaline Phosphatase 82 U/L (45-117); Anion Gap 10.9 mEq/L (5.0-15.0); BUN Blood Urea Nitrogen 33 mg/dL (7-18); Globulin 4.3 g/dL (2.3-3.5); Glucose Level 139 mg/dL (74-106); Magnesium 2.3 mg/dL (1.6-2.4); Potassium 3.9 mEq/L (3.5-5.1); Troponin High Sensitivity 56.1 pg/mL (<58.9)
[2025-05-02 22:06] LABS: Bilirubin Indirect, Calculated 0.2 mg/dL (0.2-0.8)
[2025-05-02 22:10] LABS: Blood Morphology Comment NOT SEEN (NOT SEEN); White Blood Cell Scan OK (OK)
--- NOTE | 2025-05-02 22:14 | RAD REPORT ---
EXAM: CT Ct Stroke Brain Wo Cont HISTORY: STROKE ALERT COMPARISON: 03/08/2025 TECHNIQUE: Multiple contiguous axial images were obtained for a CT of the brain without contrast. Sag ittal and coronal reformats were performed. One or more of the following dose reduction techniques were used: Automated exposure control, adjus tment of the mA and kV according to patient size, and iterative reconstruction. Unless otherwise specified, incidental findings do not require dedicated imaging follow-up. FINDINGS: No evidence of hydrocephalus, intracranial hemorrhage, or extra-axial fluid collection. The brain is normal in morphology. The calvarium is intact. The visualized paranasal sinuses and mastoid air cells are essentially clear . IMPRESSION: No evidence of acute intracranial abnormality. THIS REPORT CONTAINS FINDINGS THAT MAY BE CRITICAL TO PATIENT CARE. The findings were verbally commun icated via telephone to Frederick Cyr MD on 05/02/2025 10:12 PM.
--- NOTE | 2025-05-02 22:20 | RAD REPORT ---
EXAMINATION: CTA HEAD CLINICAL INDICATION: Female, 79 years old. STROKE ALERT TECHNIQUE: Axial CT images were obtained through the head after intravenous contrast utilizing angiog raphic protocol with 3D post-processing (maximum intensity projection images, volume rendered images and/or shaded surface rendered images). One or more of the following dose reduction technique s were used: Automated exposure control, adjustment of the mA and/or kV according to patient size, and/or iterative reconstruction. Unless otherwise specified, incidental findings do not require dedic ated imaging follow-up. COMPARISON: No prior exam. FINDINGS: ICA: The petrous, cavernous, and supraclinoid segments of the bilateral internal carotid arteries are normal. FREDDEI: Anterior cerebral arteries are normal bilaterally. The anterior communicating artery is patent with a 3 mm posteriorly projecting saccular aneurysm. MCA: Middle cerebral arteries are normal bilaterally. IN HOME BABY SITTER: Posterior cerebral arteries are normal bilaterally. Vertebrobasilar: The vertebral arteries are patent. The basilar artery is normal in appearance. 3D images confirm these findings. IMPRESSION: No evidence of large vessel occlusion or hemodynamically significant stenosis. 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 THIS REPORT CONTAINS FINDINGS THAT MAY BE CRITICAL TO PATIENT CARE. The findings were verbally commun icated via telephone to Frederick Cyr MD on 05/02/2025 10:12PM.
--- NOTE | 2025-05-02 22:26 | RAD REPORT ---
EXAMINATION: CT Neck Angio CLINICAL INDICATION: Female, 79 years old. [facility] right facial asymmetry Bed Name: 3 TECHNIQUE: Axial CT images were obtained from the aortic arch to the skull base after intravenous con trast utilizing angiographic protocol. Multiplanar reformats, as well as 3D post-processing (maximum intensity projection images, volume rendered images and/or shaded surface rendered images) w ere generated and reviewed. One or more of the following dose reduction techniques were used: Automated exposure control, adjustment of the mA and/or kV according to patient size, and/or iterativ e reconstruction. Unless otherwise specified, incidental findings do not require dedicated imaging follow-up. COMPARISON: No prior exam. FINDINGS: Dense venous contrast along the right internal jugular vein, and venous plexus throughout the cervica l vertebral column bilaterally results in streak artifact which limits evaluation of the right carotid vessels with significant limitation along the bilateral vertebral arteries. AORTA: The imaged aortic arch is normal. Normal three-vessel configuration of the arch. CCA: The common carotid arteries are patent and normal in caliber. ICA/ECA: Bilateral internal and external carotid arteries are patent with bilateral ICA tortuosity. T here is no significant internal carotid artery stenosis. VERTEBRAL: The cervical vertebral arteries are patent to the skull base. Vertebral arteries are codom inant. SOFT TISSUE: No significant neck soft tissue abnormalities. The visualized lung apices are clear. 3D images confirm these findings. IMPRESSION: No significant flow abnormality of the neck vessels is identified. NASCET criteria used to quantify ICA stenosis, with the following grading scheme: Mild 0-49% stenosis Moderate 50-69% stenosis Severe 70-99% stenosis Reference: [place] Symptomatic Carotid Endarterectomy Trial Collaborators; Jose Antonio ROPER, Missy IZQUIERDO, Terrence RB, et al. Beneficial effect of carotid endarterectomy in symptomatic patients with high-grade carotid stenosis. N Engl J Med. 1990May 10;325(7):445-53.
--- NOTE | 2025-05-02 22:35 | RAD REPORT ---
EXAMINATION: ONE VIEW CHEST XR CLINICAL INDICATION: Female, 79 years old.,CHEST PAIN TECHNIQUE: Frontal chest projection is submitted. Examination is limited by patient positioning and t echnique. COMPARISON: 05/07/2025 FINDINGS: The lungs are somewhat hypoinflated, with moderate central interstitial prominence, stable. No pneum othorax or sizable effusion. The heart is moderately enlarged. Mediastinal contours are unremarkable. IMPRESSION: Central congestive changes or CHF, stable.
--- NOTE | 2025-05-02 22:54 | ER ---
Nurse's Notes [facility] Name: Nabila Jain Age: 79 yrs Sex: Female : 1945 Arrival Date: 05/02/2025 Time: 21:12 Bed 3 Private MD: Diagnosis: Transient ischemic attack, Acute dysarthria Presentation: 05/02 21:10 Chief complaint: Patient's son or daughter states: noticie pt had right facial droop \\R\\ km10 7 pm. Concerned because pt had previous stroke March 08, 2025 EMS states: family called EMS for stroke-like symptoms, " right sided facial droop". 21:10 Coronavirus screen: At this time, the client does not indicate any symptoms associated km10 with coronavirus-19. Ebola Screen: No symptoms or risks identified at this time. Initial Sepsis Screen: Does the patient meet any 2 criteria? No. Patient's initial sepsis screen is negative. Does the patient have a suspected source of infection? No. Patient's initial sepsis screen is negative. Risk Assessment: Do you want to hurt yourself or someone else? Patient reports no desire to harm self or others. Onset of symptoms was May 02, 2025. Care prior to arrival: None. Activity prior to arrival: None. Mechanism of Injury: No Mechanism of Injury. 21:10 Method Of Arrival: EMS km10 21:10 Acuity: CHARLEEN 2 km10 Triage Assessment: 21:30 General: Appears in no apparent distress. Behavior is calm, cooperative, appropriate km10 for age. Pain: Denies pain. Neuro: Level of Consciousness is awake, alert, obeys commands, Oriented to person, place, time, situation, Appropriate for age Ocular Pathologist are equal bilaterally Moves all extremities. Gait is steady, Speech is slurred, Facial droop on right, Intact Denies weakness numbness. Respiratory: Airway is patent Respiratory effort is even, unlabored, Respiratory pattern is regular, symmetrical. Historical: - Allergies: 21:28 NKA; km10 - Home Meds: 21:28 Plavix Oral [Active]; Lasix Oral [Active]; Entresto oral [Active]; Prednisone Oral km10 [Active]; - PMHx: 21:28 cardiomegaly; Cerebrovascular accident; diabetes mellitus; Hypertension; km10 - PSHx: 21:28 Cholecystectomy; tubal ligation; km10 - Infectious Disease History:: Denies. - Social history:: Smoking status: unknown. - Family history:: not pertinent. Screenin:31 [facility] ED Fall Risk Assessment (Adult) History of falling in the last 3 months, km10 including since admission No falls in past 3 months (0 pts) Confusion or Disorientation No (0 pts) Intoxicated or Sedated No (0 pts) Impaired Gait Yes (1 pt) Mobility Assist Device Used Yes (1 pt) Altered Elimination No (0 pt) Score/Fall Risk Level 0 - 2 = Low Risk Oriented to surroundings, Maintained a safe environment, Educated pt \\T\\ family on fall prevention, incl call for assistance when getting out of bed, Hourly rounding (assess needs \\T\\ fall precautionary measures) done, Used ambulatory aids as needed (educated on \\T\\ assisted with). Abuse screen: Denies threats or abuse. Denies injuries from another. Nutritional screening: No deficits noted. Tuberculosis screening: No symptoms or risk factors identified. 22:00 [place] Swallow Protocol Exclusion Criteria: Brief Cognitive Screen What is your name? km10 Normal, Where are you right now? Normal, What year is it? Normal. Oral Mechanism Examination Facial Symmetry: Normal, Motion: Normal, Lip Closure: Normal, Oral Mechanism Result: Normal. 3 oz Water Swallow Challenge: Pt able to drink all water without stopping, coughing, choking or throat clearing: Yes Result: PASS. Assessment: 23:45 Reassessment: Patient appears in no apparent distress at this time. Patient and/or km10 family updated on plan of care and expected duration. Pain level reassessed. Patient is alert, oriented x 3, equal unlabored respirations, skin warm/dry/pink. Vital Signs: 21:10 BP 147 / 63; Pulse 63; Resp 16; Temp 97.9; Pulse Ox 97% on R/A; Weight 114.76 kg; km10 Height 4 ft. 10 in. ; 22:30 BP 147 / 42; Pulse 67; Resp 16; Pulse Ox 99% on R/A; km10 23:41 BP 163 / 61; Pulse 58; Resp 16; Pulse Ox 100% on R/A; km10 21:10 Body Mass Index 52.88 (114.76 kg, 147.32 cm) [facility] Rody Coma Score: 21:12 Eye Response: spontaneous(4). Motor Response: obeys commands(6). Verbal Response: sp4 oriented(5). Total: 15. 22:30 Eye Response: spontaneous(4). Motor Response: obeys commands(6). Verbal Response: km10 oriented(5). Total: 15. 23:41 Eye Response: spontaneous(4). Motor Response: obeys commands(6). Verbal Response: km10 oriented(5). Total: 15. NIH Stroke Scale Scores: 21:12 NIHSS Score: 2 sp4 21:15 NIHSS Score: 2 km10 21:45 NIHSS Score: 2 km10 22:15 NIHSS Score: 1 km10 22:45 NIHSS Score: 1 km10 23:15 NIHSS Score: 1 km10 ED Course: 21:20 Patient arrived in ED. rv1 21:25 Frederick Cyr MD is Attending Physician. sp4 21:28 Triage completed. km10 21:30 Inserted saline lock: 20 gauge in right antecubital area, using aseptic technique. km10 Blood collected. Flushed with 10 mL NS. 21:30 No provider procedures requiring assistance completed. km10 21:31 Arm band placed on right wrist. km10 21:35 Patient has correct armband on for positive identification. Placed in gown. Bed in low km10 position. Call light in reach. Side rails up X2. Adult w/ patient. Provided Education on: plan of care, stroke education. Client placed on continuous cardiac and pulse oximetry monitoring. NIBP monitoring applied. court recording monitor on. Door closed. Noise minimized. Warm blanket given. Pillow given. 21:55 CT Stroke Brain w/o Contrast In Process Unspecified. EDMS 21:58 CT Head Angio In Process Unspecified. EDMS 21:58 CT Neck Angio In Process Unspecified. EDMS 22:05 Stroke CXR 1 View In Process Unspecified. EDMS 22:10 Mago Manzano RN is Primary Nurse. km10 22:53 Olga Lidia Salazar MD is Hospitalizing Provider. sp4 Administered Medications: 22:10 Drug: Aspirin PO Chewable Tablet 324 mg PO once; 81 mg tablets x 4 Route: PO; km10 23:46 Follow up: Response: No adverse reaction km10 Outcome: 22:53 Decision to Hospitalize by Provider. sp4 05/03 00:39 Admitted to Tele accompanied by irasema, via stretcher, km10 Condition: stable Discharge instructions given to patient, family, Instructed on the need for admit, Demonstrated understanding of instructions, 00:40 Patient left the ED. km10 NIH Stroke Scale - NIH Stroke Score Date: 05/02/2025 Time: 21:12 Total Score = 2 10. Dysarthria (speech clarity - read or repeat words) - 1(Mild to Moderate) 11. Extinction and Inattention (visual/tactile/auditory/spatial/personal) - 0(No abnormality) 1a. Level of Consciousness (LOC) - 0(Alert) 1b. Level of Consciousness (LOC) (Month \\T\\ Age) - 0(Both) 1c. LOC Commands (Open \\T\\ Closes Eyes/Customer Project Manager) - 0(Both) 2. Best Gaze (Lateral Gaze Paresis) - 0(Normal) 3. Visual Field Loss - 0(No visual loss) 4. Facial Palsy - 1(Minor Paralysis) 5a. Left Arm: Motor (10-second hold) - 0(No drift) 5b. Right Arm: Motor (10-second hold) - 0(No drift) 6a. Left Leg: Motor (5-second hold - always test supine) - 0(No drift) 6b. Right Leg: Motor (5-second hold - always test supine) - 0(No drift) 7. Limb Ataxia (finger/nose \\T\\ heel/gabriel - test with eyes open) - 0(Absent) 8. Sensory Loss (pinprick arms/legs/face) - 0(Normal) 9. Best Language: Aphasia (description/naming/reading) - 0(No aphasia) Initials: sp4 NIH Stroke Scale - NIH Stroke Score Date: 05/02/2025 Time: 21:15 Total Score = 2 10. Dysarthria (speech clarity - read or repeat words) - 1(Mild to Moderate) 11. Extinction and Inattention (visual/tactile/auditory/spatial/personal) - 0(No abnormality) 1a. Level of Consciousness (LOC) - 0(Alert) 1b. Level of Consciousness (LOC) (Month \\T\\ Age) - 0(Both) 1c. LOC Commands (Open \\T\\ Closes Eyes/Customer Project Manager) - 0(Both) 2. Best Gaze (Lateral Gaze Paresis) - 0(Normal) 3. Visual Field Loss - 0(No visual loss) 4. Facial Palsy - 1(Minor Paralysis) 5a. Left Arm: Motor (10-second hold) - 0(No drift) 5b. Right Arm: Motor (10-second hold) - 0(No drift) 6a. Left Leg: Motor (5-second hold - always test supine) - 0(No drift) 6b. Right Leg: Motor (5-second hold - always test supine) - 0(No drift) 7. Limb Ataxia (finger/nose \\T\\ heel/gabriel - test with eyes open) - 0(Absent) 8. Sensory Loss (pinprick arms/legs/face) - 0(Normal) 9. Best Language: Aphasia (description/naming/reading) - 0(No aphasia) Initials: [facility] NIH Stroke Scale - NIH Stroke Score Date: 05/02/2025 Time: 21:45 Total Score = 2 10. Dysarthria (speech clarity - read or repeat words) - 1(Mild to Moderate) 11. Extinction and Inattention (visual/tactile/auditory/spatial/personal) - 0(No abnormality) 1a. Level of Consciousness (LOC) - 0(Alert) 1b. Level of Consciousness (LOC) (Month \\T\\ Age) - 0(Both) 1c. LOC Commands (Open \\T\\ Closes Eyes/Customer Project Manager) - 0(Both) 2. Best Gaze (Lateral Gaze Paresis) - 0(Normal) 3. Visual Field Loss - 0(No visual loss) 4. Facial Palsy - 1(Minor Paralysis) 5a. Left Arm: Motor (10-second hold) - 0(No drift) 5b. Right Arm: Motor (10-second hold) - 0(No drift) 6a. Left Leg: Motor (5-second hold - always test supine) - 0(No drift) 6b. Right Leg: Motor (5-second hold - always test supine) - 0(No drift) 7. Limb Ataxia (finger/nose \\T\\ heel/gabriel - test with eyes open) - 0(Absent) 8. Sensory Loss (pinprick arms/legs/face) - 0(Normal) 9. Best Language: Aphasia (description/naming/reading) - 0(No aphasia) Initials: [facility] NIH Stroke Scale - NIH Stroke Score Date: 05/02/2025 Time: 22:15 Total Score = 1 10. Dysarthria (speech clarity - read or repeat words) - 0(Normal) 11. Extinction and Inattention (visual/tactile/auditory/spatial/personal) - 0(No abnormality) 1a. Level of Consciousness (LOC) - 0(Alert) 1b. Level of Consciousness (LOC) (Month \\T\\ Age) - 0(Both) 1c. LOC Commands (Open \\T\\ Closes Eyes/Customer Project Manager) - 0(Both) 2. Best Gaze (Lateral Gaze Paresis) - 0(Normal) 3. Visual Field Loss - 0(No visual loss) 4. Facial Palsy - 1(Minor Paralysis) 5a. Left Arm: Motor (10-second hold) - 0(No drift) 5b. Right Arm: Motor (10-second hold) - 0(No drift) 6a. Left Leg: Motor (5-second hold - always test supine) - 0(No drift) 6b. Right Leg: Motor (5-second hold - always test supine) - 0(No drift) 7. Limb Ataxia (finger/nose \\T\\ heel/gabriel - test with eyes open) - 0(Absent) 8. Sensory Loss (pinprick arms/legs/face) - 0(Normal) 9. Best Language: Aphasia (description/naming/reading) - 0(No aphasia) Initials: km10 NIH Stroke Scale - NIH Stroke Score Date: 05/02/2025 Time: 22:45 Total Score = 1 10. Dysarthria (speech clarity - read or repeat words) - 0(Normal) 11. Extinction and Inattention (visual/tactile/auditory/spatial/personal) - 0(No abnormality) 1a. Level of Consciousness (LOC) - 0(Alert) 1b. Level of Consciousness (LOC) (Month \\T\\ Age) - 0(Both) 1c. LOC Commands (Open \\T\\ Closes Eyes/Customer Project Manager) - 0(Both) 2. Best Gaze (Lateral Gaze Paresis) - 0(Normal) 3. Visual Field Loss - 0(No visual loss) 4. Facial Palsy - 1(Minor Paralysis) 5a. Left Arm: Motor (10-second hold) - 0(No drift) 5b. Right Arm: Motor (10-second hold) - 0(No drift) 6a. Left Leg: Motor (5-second hold - always test supine) - 0(No drift) 6b. Right Leg: Motor (5-second hold - always test supine) - 0(No drift) 7. Limb Ataxia (finger/nose \\T\\ heel/gabriel - test with eyes open) - 0(Absent) 8. Sensory Loss (pinprick arms/legs/face) - 0(Normal) 9. Best Language: Aphasia (description/naming/reading) - 0(No aphasia) Initials: km10 NIH Stroke Scale - NIH Stroke Score Date: 05/02/2025 Time: 23:15 Total Score = 1 10. Dysarthria (speech clarity - read or repeat words) - 0(Normal) 11. Extinction and Inattention (visual/tactile/auditory/spatial/personal) - 0(No abnormality) 1a. Level of Consciousness (LOC) - 0(Alert) 1b. Level of Consciousness (LOC) (Month \\T\\ Age) - 0(Both) 1c. LOC Commands (Open \\T\\ Closes Eyes/Customer Project Manager) - 0(Both) 2. Best Gaze (Lateral Gaze Paresis) - 0(Normal) 3. Visual Field Loss - 0(No visual loss) 4. Facial Palsy - 1(Minor Paralysis) 5a. Left Arm: Motor (10-second hold) - 0(No drift) 5b. Right Arm: Motor (10-second hold) - 0(No drift) 6a. Left Leg: Motor (5-second hold - always test supine) - 0(No drift) 6b. Right Leg: Motor (5-second hold - always test supine) - 0(No drift) 7. Limb Ataxia (finger/nose \\T\\ heel/gabriel - test with eyes open) - 0(Absent) 8. Sensory Loss (pinprick arms/legs/face) - 0(Normal) 9. Best Language: Aphasia (description/naming/reading) - 0(No aphasia) Initials: km10 Signatures: Dispatcher [employer] Laura Shankar rv1 Frederick Cyr MD MD sp4 Mago Manzano RN RN km10
--- NOTE | 2025-05-02 22:54 | EDPHYS ---
Physician Documentation [facility] Name: Nabila Jain Age: 79 yrs Sex: Female : 1945 Arrival Date: 05/02/2025 Time: 21:12 Bed 3 Private MD: ED Physician Frederick Cyr HPI: 05/02 21:26 This 79 yrs old Female presents to ER via Unassigned with complaints of right sp4 facial asymmetry . 22:53 Patient presents with acute facial asymmetry and slurring of the speech reported by sp4 family starting at 7 PM. Patient herself has no complaints. Patient presents with EMS.. Patient's medications include aspirin 81 mg daily, carvedilol 12.5 mg p.o. twice daily, Trelegy daily, furosemide 40 mg daily, gabapentin 300 mg twice daily, Entresto 24 mg, 26 mg p.o. twice daily, atorvastatin 40 mg bedtime, clopidogrel 75 mg daily, folic acid 1 mg p.o. daily.. Historical: - Allergies: 21:28 NKA; km10 - Home Meds: 21:28 Plavix Oral [Active]; Lasix Oral [Active]; Entresto oral [Active]; Prednisone Oral km10 [Active]; - PMHx: 21:28 cardiomegaly; Cerebrovascular accident; diabetes mellitus; Hypertension; km10 - PSHx: 21:28 Cholecystectomy; tubal ligation; km10 - Infectious Disease History:: Denies. - Social history:: Smoking status: unknown. - Family history:: not pertinent. ROS: 05/03 00:44 Constitutional: Negative for fever, chills, and weight loss, slurred speech, sp4 positive facial asymmetry All other systems are negative, Exam: 05/02 21:12 ECG was reviewed by the Attending Physician. EKG at 2208 sinus rhythm first-degree AV sp4 block left axis deviation, otherwise unremarkable. Significant muscle tremor artifact 22:35 Radiologist reports: EXAM: CT Ct Stroke Brain Wo Cont HISTORY: STROKE ALERT COMPARISON: sp4 03/08/2025 TECHNIQUE: Multiple contiguous axial images were obtained for a CT of the brain without contrast. Sagittal and coronal reformats were performed. One or more of the following dose reduction techniques were used: Automated exposure control, adjustment of the mA and kV according to patient size, and iterative reconstruction. Unless otherwise specified, incidental findings do not require dedicated imaging follow-up. FINDINGS: No evidence of hydrocephalus, intracranial hemorrhage, or extra-axial fluid collection. The brain is normal in morphology. The calvarium is intact. The visualized paranasal sinuses and mastoid air cells are essentially clear. IMPRESSION: No evidence of acute intracranial abnormality. THIS REPORT CONTAINS FINDINGS THAT MAYBE CRITICAL TO PATIENT CARE. The findings were verbally communicated via telephone to Frederick Cyr MD on 05/02/2025 10:12 PM. 22:35 Constitutional: This is a well developed, well nourished patient who is awake, alert, and in no acute distress. Head/Face: Normocephalic, atraumatic. Eyes: Pupils equal round and reactive to light, extra-ocular motions intact. Lids and lashes normal. Conjunctiva and sclera are not injected. Cornea within normal limits. Periorbital areas with no swelling, redness, or edema. ENT: Nares patent. No nasal discharge, no septal abnormalities noted. Tympanic membranes are normal and external auditory canals are clear. Oropharynx with no redness, swelling, or masses, exudates, or evidence of obstruction, uvula midline. Mucous membranes moist. Neck: Trachea midline, no thyromegaly or masses palpated, and no cervical lymphadenopathy. Supple, full range of motion without nuchal rigidity, or vertebral point tenderness. Chest/axilla: Normal chest wall appearance and motion. Nontender with no deformity. No lesions are appreciated. Cardiovascular: Regular rate and rhythm with a normal S1 and S2. No gallops, murmurs, or rubs. No pulse deficits. Respiratory: Lungs have equal breath sounds bilaterally, clear to auscultation and percussion. No rales, rhonchi or wheezes noted. No increased work of breathing, no retractions or nasal flaring. Abdomen/GI: Soft, with normal bowel sounds. No distension or tympany. No guarding or rebound. No evidence of tenderness throughout. Back: No spinal tenderness. No costovertebral tenderness. Skin: Warm, dry with normal turgor. Normal color with no rashes, no lesions, and no evidence of cellulitis. MS/ Extremity: Pulses equal, no cyanosis. Neurovascular intact. Full, normal range of motion. Neuro: Awake and alert, GCS 15, oriented to person, place, time, and situation. Mild right-sided facial droop otherwise intact cranial nerves. Motor strength 5/5 in all extremities. Sensory grossly intact. Psych: Awake, alert, with orientation to person, place and time. Behavior, mood, and affect are within normal limits Vital Signs: 21:10 BP 147 / 63; Pulse 63; Resp 16; Temp 97.9; Pulse Ox 97% on R/A; Weight 114.76 kg; km10 Height 4 ft. 10 in. ; 22:30 BP 147 / 42; Pulse 67; Resp 16; Pulse Ox 99% on R/A; km10 23:41 BP 163 / 61; Pulse 58; Resp 16; Pulse Ox 100% on R/A; km10 21:10 Body Mass Index 52.88 (114.76 kg, 147.32 cm) km10 NIH Stroke Scale Scores: 21:12 NIHSS Score: 2 sp4 21:15 NIHSS Score: 2 km10 21:45 NIHSS Score: 2 km10 22:15 NIHSS Score: 1 km10 22:45 NIHSS Score: 1 km10 23:15 NIHSS Score: 1 km10 [place] Coma Score: 21:12 Eye Response: spontaneous(4). Motor Response: obeys commands(6). Verbal Response: sp4 oriented(5). Total: 15. 22:30 Eye Response: spontaneous(4). Motor Response: obeys commands(6). Verbal Response: km10 oriented(5). Total: 15. 23:41 Eye Response: spontaneous(4). Motor Response: obeys commands(6). Verbal Response: km10 oriented(5). Total: 15. MDM: 21:27 Medical Screening Exam initiated sp4 22:33 Differential diagnosis: CVA, TIA, Dementia, paralysis, metabolic disorder, drug sp4 effects. TNKase (Tenecteplase) Screening: Contraindications: Other: Mild deficits with history of prior CVA also patient is on Plavix. Data reviewed: vital signs, nurses notes. ED course: EXAMINATION: CTA HEAD CLINICAL INDICATION: Female, 79 years old. STROKE ALERT TECHNIQUE: Axial CT images were obtained through the head after intravenous contrast utilizing angiographic protocol with 3D post-processing (maximum intensity projection images, volume rendered images and/or shaded surface rendered images). One or more of the following dose reduction techniques were used: Automated exposure control, adjustment of the mA and/or kV according to patient size, and/or iterative reconstruction. Unless otherwise specified, incidental findings do not require dedicated imaging follow-up. COMPARISON: No prior exam. FINDINGS: ICA: The petrous, cavernous, and supraclinoid segments of the bilateral internal carotid arteries are normal. FREDDIE: Anterior cerebral arteries are normal bilaterally. The anterior communicating artery is patent with a 3 mm posteriorly projecting saccular aneurysm. MCA: Middle cerebral arteries are normal bilaterally. PUTTY GLAZER: Posterior cerebral arteries are normal bilaterally. Vertebrobasilar: The vertebral arteries are patent. The basilar artery is normal in appearance. 3D images confirm these findings. IMPRESSION: No evidence of large vessel occlusion or hemodynamically significant stenosis. 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 THIS REPORT CONTAINS FINDINGS THAT MAYBE CRITICAL TO PATIENT CARE. The findings were verbally communicated via telephone to Frederick Cyr MD on 05/02/2025 10:12PM. . 22:45 ED course: CT Neck Angio - COMPARISON: No prior exam. FINDINGS: Dense venous contrast sp4 along the right internal jugular vein, and venous plexus throughout the cervical vertebral column bilaterally results in streak artifact which limits evaluation of the right carotid vessels with significant limitation along the bilateral vertebral arteries. AORTA: The imaged aortic arch is normal. Normal three-vessel configuration of the arch. CCA: The common carotid arteries are patent and normal in caliber. ICA/ECA: Bilateral internal and external carotid arteries are patent with bilateral ICA tortuosity. There is no significant internal carotid artery stenosis. VERTEBRAL: The cervical vertebral arteries are patent to the skull base. Vertebral arteries are codominant. SOFT TISSUE: No significant neck soft tissue abnormalities. The visualized lung apices are clear. 3D images confirm these findings. IMPRESSION: RADIOLOGY SERVICES REPORT No significant flow abnormality of the neck vessels is identified. . ED course: CLINICAL INDICATION: Female, 79 years old.,CHEST PAIN TECHNIQUE: Frontal chest projection is submitted. Examination is limited by patient positioning and technique. COMPARISON: 05/07/2025 FINDINGS: The lungs are somewhat hypoinflated, with moderate central interstitial prominence, stable. No pneumothorax or sizable effusion. The heart is moderately enlarged. Mediastinal contours are unremarkable. IMPRESSION: Central congestive changes or CHF, stable.. 22:47 Consideration of Admission/Observation Patient was admitted/placed on observation. sp4 Escalation of care including admission/observation considered. Management of patient was discussed with the following: Hospitalist: Olga Lidia SAHA . Patient Access Coordinator: Hayley SAHA with neurology. 23:22 ED course: Old MRI review - EXAMINATION: MRI BRAIN WITHOUT CONTRAST CLINICAL sp4 INDICATION: CVA TECHNIQUE: Multiplanar multisequence MR images of the brain were obtained without intravenous contrast. Unless otherwise specified, incidental findings do not require dedicated imaging follow-up. COMPARISON: 03/08/2025 FINDINGS: INTRACRANIAL: There is 25 x 13 mm oblong area of diffusion restriction seen left basal ganglia compatible with acute CVA. No hemorrhage is seen associated with this. No midline shift present. Moderate chronic periventricular deep white matter likely breast ischemic changes. No hydrocephalus. VASCULATURE: Normal signal voids in the larger intracranial arteries and dural venous sinuses. SINUSES: The paranasal sinuses and mastoid air cells are predominantly clear. BONE: The marrow signal pattern is within normal limits. IMPRESSION: 25 x 13 mm acute CVA left basal ganglia region, without evidence of hemorrhage or midline shift. . 05/03 00:45 ED course: Tenecteplase is not advised in this instance secondary to the NIH scale only sp4 being 2. Patient's deficits spontaneously improved while in the ER. This is indicative of transient ischemic attack. Also patient has very high risk for brain bleed secondary to her being on Plavix and aspirin daily. CT angiography unremarkable. Patient admitted for MRI of the brain.. 05/02 21:26 Order name: Basic Metabolic Panel; Complete Time: 22:33 sp4 05/02 21:26 Order name: CBC with Diff; Complete Time: 22:33 sp4 05/02 21:26 Order name: Hepatic Function; Complete Time: 22:33 sp4 05/02 21:26 Order name: High Sensitivity Troponin; Complete Time: 22:33 sp4 05/02 21:26 Order name: Magnesium; Complete Time: 22:33 sp4 05/02 21:26 Order name: Protime (+inr); Complete Time: 22:33 sp4 05/02 21:26 Order name: Ptt, Activated; Complete Time: 22:33 sp4 05/02 21:26 Order name: UDS sp4 05/02 21:49 Order name: CBC Smear Scan; Complete Time: 22:33 EDMS 05/02 23:13 Order name: UA W/Microscopic EDMS / 23:13 Order name: CBC with Automated Diff EDMS / 23:13 Order name: CBC with Automated Diff EDMS / 23:13 Order name: CBC with Automated Diff EDMS / 23:13 Order name: CBC with Automated Diff EDMS / 23:13 Order name: Comprehensive Metabolic Panel EDMS 05/02 23:13 Order name: Comprehensive Metabolic Panel EDMS 05/02 23:13 Order name: Comprehensive Metabolic Panel EDMS 05/02 23:13 Order name: Comprehensive Metabolic Panel EDMS 05/02 23:13 Order name: Comprehensive Metabolic Panel EDMS 05/02 23:13 Order name: Lipid Profile EDMS 05/02 23:13 Order name: Lipid Profile EDMS 05/02 23:13 Order name: Magnesium EDMS 05/02 23:13 Order name: Magnesium; Complete Time: 00:58 EDMS 05/02 23:13 Order name: Magnesium EDMS 05/02 23:13 Order name: Magnesium EDMS 05/02 21:26 Order name: CT Head Angio; Complete Time: 22:33 sp4 05/02 21:26 Order name: CT Neck Angio; Complete Time: 22:33 sp4 05/02 21:26 Order name: CT Stroke Brain w/o Contrast; Complete Time: 22:33 sp4 05/02 21:26 Order name: Stroke CXR 1 View; Complete Time: 22:42 sp4 05/02 23:13 Order name: Brain Wo Cont EDMS 05/02 23:13 Order name: CONS Physician Consult EDMS 05/02 23:13 Order name: Occupational Therapy Consult EDMS 05/02 23:13 Order name: Physical Therapy Consult EDMS 05/02 21:26 Order name: Accucheck; Complete Time: 22:14 sp4 05/02 21:26 Order name: Cardiac monitoring; Complete Time: 22:12 sp4 05/02 21:26 Order name: EKG - Nurse/Tech; Complete Time: 22:12 sp4 05/02 21:26 Order name: IV Saline Lock; Complete Time: 22:12 sp4 05/02 21:26 Order name: Labs collected and sent; Complete Time: 22:12 sp4 05/02 21:26 Order name: NPO; Complete Time: 21:36 sp4 05/02 21:26 Order name: O2 Per Protocol; Complete Time: 22:12 sp4 05/02 21:26 Order name: O2 Sat Monitoring; Complete Time: 22:12 sp4 05/02 21:26 Order name: Stroke Swallow Screen; Complete Time: 22:12 sp4 EC/07 22:08 Rate is 63 beats/min. Rhythm is regular, Sinus Rhythm. Left axis deviation noted. [place] sp4 interval is prolonged. QRS interval is normal. QT interval is normal. No Q waves. T waves are Normal. No ST changes noted. Clinical impression: No evidence of ischemia. Interpreted by me. Reviewed by me. Administered Medications: 22:10 Drug: Aspirin PO Chewable Tablet 324 mg PO once; 81 mg tablets x 4 [facility]: [facility] 23:46 Follow up: Response: No adverse reaction [facility] Disposition: 05/03 00:46 Chart complete. sp4 Disposition Summary: 05/02/25 22:53 Hospitalization Ordered Notes: Hospitalization Status: Inpatient Admission sp4 Provider: Olga Lidia Salazar spBashir [facility] sp[facility] Condition: Fair sp4 Problem: new sp4 Symptoms: have improved sp4 Bed/Room Type: Standard sp4 Room Assignment: 411(05/02/25 23:29) rv1 Diagnosis - Transient ischemic attack, Acute dysarthria sp4 Forms: - Medication Reconciliation Form sp4 - SBAR form sp4 - Leadership Thank You Letter sp4 NIH Stroke Scale - NIH Stroke Score Date: 05/02/2025 Time: 21:12 Total Score = 2 10. Dysarthria (speech clarity - read or repeat words) - 1(Mild to Moderate) 11. Extinction and Inattention (visual/tactile/auditory/spatial/personal) - 0(No abnormality) 1a. Level of Consciousness (LOC) - 0(Alert) 1b. Level of Consciousness (LOC) (Month \T\ Age) - 0(Both) 1c. LOC Commands (Open \T\ Closes Eyes/Adult Specialist) - 0(Both) 2. Best Gaze (Lateral Gaze Paresis) - 0(Normal) 3. Visual Field Loss - 0(No visual loss) 4. Facial Palsy - 1(Minor Paralysis) 5a. Left Arm: Motor (10-second hold) - 0(No drift) 5b. Right Arm: Motor (10-second hold) - 0(No drift) 6a. Left Leg: Motor (5-second hold - always test supine) - 0(No drift) 6b. Right Leg: Motor (5-second hold - always test supine) - 0(No drift) 7. Limb Ataxia (finger/nose \T\ heel/gabriel - test with eyes open) - 0(Absent) 8. Sensory Loss (pinprick arms/legs/face) - 0(Normal) 9. Best Language: Aphasia (description/naming/reading) - 0(No aphasia) Initials: sp4 NIH Stroke Scale - NIH Stroke Score Date: 05/02/2025 Time: 21:15 Total Score = 2 10. Dysarthria (speech clarity - read or repeat words) - 1(Mild to Moderate) 11. Extinction and Inattention (visual/tactile/auditory/spatial/personal) - 0(No abnormality) 1a. Level of Consciousness (LOC) - 0(Alert) 1b. Level of Consciousness (LOC) (Month \T\ Age) - 0(Both) 1c. LOC Commands (Open \T\ Closes Eyes/Adult Specialist) - 0(Both) 2. Best Gaze (Lateral Gaze Paresis) - 0(Normal) 3. Visual Field Loss - 0(No visual loss) 4. Facial Palsy - 1(Minor Paralysis) 5a. Left Arm: Motor (10-second hold) - 0(No drift) 5b. Right Arm: Motor (10-second hold) - 0(No drift) 6a. Left Leg: Motor (5-second hold - always test supine) - 0(No drift) 6b. Right Leg: Motor (5-second hold - always test supine) - 0(No drift) 7. Limb Ataxia (finger/nose \T\ heel/gabriel - test with eyes open) - 0(Absent) 8. Sensory Loss (pinprick arms/legs/face) - 0(Normal) 9. Best Language: Aphasia (description/naming/reading) - 0(No aphasia) Initials: km10 NIH Stroke Scale - NIH Stroke Score Date: 05/02/2025 Time: 21:45 Total Score = 2 10. Dysarthria (speech clarity - read or repeat words) - 1(Mild to Moderate) 11. Extinction and Inattention (visual/tactile/auditory/spatial/personal) - 0(No abnormality) 1a. Level of Consciousness (LOC) - 0(Alert) 1b. Level of Consciousness (LOC) (Month \T\ Age) - 0(Both) 1c. LOC Commands (Open \T\ Closes Eyes/Adult Specialist) - 0(Both) 2. Best Gaze (Lateral Gaze Paresis) - 0(Normal) 3. Visual Field Loss - 0(No visual loss) 4. Facial Palsy - 1(Minor Paralysis) 5a. Left Arm: Motor (10-second hold) - 0(No drift) 5b. Right Arm: Motor (10-second hold) - 0(No drift) 6a. Left Leg: Motor (5-second hold - always test supine) - 0(No drift) 6b. Right Leg: Motor (5-second hold - always test supine) - 0(No drift) 7. Limb Ataxia (finger/nose \T\ heel/gabriel - test with eyes open) - 0(Absent) 8. Sensory Loss (pinprick arms/legs/face) - 0(Normal) 9. Best Language: Aphasia (description/naming/reading) - 0(No aphasia) Initials: km10 NIH Stroke Scale - NIH Stroke Score Date: 05/02/2025 Time: 22:15 Total Score = 1 10. Dysarthria (speech clarity - read or repeat words) - 0(Normal) 11. Extinction and Inattention (visual/tactile/auditory/spatial/personal) - 0(No abnormality) 1a. Level of Consciousness (LOC) - 0(Alert) 1b. Level of Consciousness (LOC) (Month \T\ Age) - 0(Both) 1c. LOC Commands (Open \T\ Closes Eyes/Adult Specialist) - 0(Both) 2. Best Gaze (Lateral Gaze Paresis) - 0(Normal) 3. Visual Field Loss - 0(No visual loss) 4. Facial Palsy - 1(Minor Paralysis) 5a. Left Arm: Motor (10-second hold) - 0(No drift) 5b. Right Arm: Motor (10-second hold) - 0(No drift) 6a. Left Leg: Motor (5-second hold - always test supine) - 0(No drift) 6b. Right Leg: Motor (5-second hold - always test supine) - 0(No drift) 7. Limb Ataxia (finger/nose \T\ heel/gabriel - test with eyes open) - 0(Absent) 8. Sensory Loss (pinprick arms/legs/face) - 0(Normal) 9. Best Language: Aphasia (description/naming/reading) - 0(No aphasia) Initials: [facility] NIH Stroke Scale - NIH Stroke Score Date: 05/02/2025 Time: 22:45 Total Score = 1 10. Dysarthria (speech clarity - read or repeat words) - 0(Normal) 11. Extinction and Inattention (visual/tactile/auditory/spatial/personal) - 0(No abnormality) 1a. Level of Consciousness (LOC) - 0(Alert) 1b. Level of Consciousness (LOC) (Month \T\ Age) - 0(Both) 1c. LOC Commands (Open \T\ Closes Eyes/Adult Specialist) - 0(Both) 2. Best Gaze (Lateral Gaze Paresis) - 0(Normal) 3. Visual Field Loss - 0(No visual loss) 4. Facial Palsy - 1(Minor Paralysis) 5a. Left Arm: Motor (10-second hold) - 0(No drift) 5b. Right Arm: Motor (10-second hold) - 0(No drift) 6a. Left Leg: Motor (5-second hold - always test supine) - 0(No drift) 6b. Right Leg: Motor (5-second hold - always test supine) - 0(No drift) 7. Limb Ataxia (finger/nose \T\ heel/gabriel - test with eyes open) - 0(Absent) 8. Sensory Loss (pinprick arms/legs/face) - 0(Normal) 9. Best Language: Aphasia (description/naming/reading) - 0(No aphasia) Initials: [facility] NIH Stroke Scale - NIH Stroke Score Date: 05/02/2025 Time: 23:15 Total Score = 1 10. Dysarthria (speech clarity - read or repeat words) - 0(Normal) 11. Extinction and Inattention (visual/tactile/auditory/spatial/personal) - 0(No abnormality) 1a. Level of Consciousness (LOC) - 0(Alert) 1b. Level of Consciousness (LOC) (Month \T\ Age) - 0(Both) 1c. LOC Commands (Open \T\ Closes Eyes/Adult Specialist) - 0(Both) 2. Best Gaze (Lateral Gaze Paresis) - 0(Normal) 3. Visual Field Loss - 0(No visual loss) 4. Facial Palsy - 1(Minor Paralysis) 5a. Left Arm: Motor (10-second hold) - 0(No drift) 5b. Right Arm: Motor (10-second hold) - 0(No drift) 6a. Left Leg: Motor (5-second hold - always test supine) - 0(No drift) 6b. Right Leg: Motor (5-second hold - always test supine) - 0(No drift) 7. Limb Ataxia (finger/nose \T\ heel/gabriel - test with eyes open) - 0(Absent) 8. Sensory Loss (pinprick arms/legs/face) - 0(Normal) 9. Best Language: Aphasia (description/naming/reading) - 0(No aphasia) Initials: km10 Signatures: Dispatcher [employer] EDMS Majano Laura rv1 Frederick Cyr MD MD sp4 Mago Manzano RN RN km10 Corrections: (The following items were deleted from the chart) 05/02 21:27 21:27 BASIC METABOLIC PANEL+C.LAB.BRZ ordered. EDMS EDMS 21:27 21:27 CBC+H.LAB.BRZ ordered. EDMS EDMS 21:27 21:27 HEPATIC FUNCTION+C.LAB.BRZ ordered. EDMS EDMS 21:27 21:27 Troponin High Sensitivity+C.LAB.BRZ ordered. EDMS EDMS 21:27 21:27 MAGNESIUM+C.LAB.BRZ ordered. EDMS EDMS 21:27 21:27 PROTIME (+INR)+COAG.LAB.BRZ ordered. EDMS EDMS 21:27 21:27 PTT, ACTIVATED+COAG.LAB.BRZ ordered. EDMS EDMS 21:27 21:27 URINE DRUG SCREEN+UC.LAB.BRZ ordered. EDMS EDMS 21:27 21:27 Head Angio+CT.RAD.BRZ ordered. EDMS EDMS 21:27 21:27 Neck Angio+CT.RAD.BRZ ordered. EDMS EDMS 21:27 21:27 CT-STROKE BRAIN W/O CONTRAST+CT.RAD.BRZ ordered. EDMS EDMS 21:27 21:27 Chest Single View+RAD.RAD.BRZ ordered. EDMS EDMS 23:29 22:53 sp4 rv1 05/03 00:27 00:27 UA Rfx Bala Cult if indicated+U.LAB.BRZ ordered. EDMS EDMS
[2025-05-02] MEDS ORDERED: ONDANSETRON 4 MG/2 ML VIAL IV PRN (23:07)
--- NOTE | 2025-05-02 23:19 | P.HP ---
Certification for Inpatient With expected LOS: <2 Midnights Patient will require the following post-hospital care: None Practitioner: I am a practitioner with admitting privileges, knowledge of patient current condition, hospital course, and medical plan of care. 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 Daughter reported patient was noticed by her granddaughter to have slow sliding in the chair towards the left side and upon looking at the face they noted the patient had some mild right facial droop as well as slurred speech. Patient denies any headache or dizziness at the time of the event. She denies any chest pain. She denies any loss of consciousness. She was brought to the emergency room. On arrival in the ED 1.5 hours after onset of symptoms, hide initial NIH score was 2. head CT shows no acute intracranial pathology. 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 Laboratory workup shows mild elevated WBC of 11.9 with normal differentials, BMP was unremarkable. EKG shows no ST segment changes. Neurology was discussed with and recommended inpatient observation and MRI brain in the morning. At the time of interview patient speech as returned back to normal. Facial droop has resolved As per daughter patient required assist with activities of daily living and she has noted white beating since her last CVA so might weakness of the right lower leg but patient is able to ambulate with a walker at baseline. Patient is mainly Ukrainian-speaking but denies any complaint right now. Daughter also states patient has ran out of aspirin and Plavix since the last 1 week Allergies No Known Drug Allergies Allergy (Verified 04/23/21 23:42) Unknown Home Medications: Aspirin 81 mg PO DAILY 03/08/25 Carvedilol [Coreg] 12.5 mg PO BID 03/08/25 Fluticasone/Umeclidin/Vilanter [Trelegy Ellipta 100-62.5-25] 1 puff IH PRN PRN 03/08/25 Furosemide [Lasix*] 40 mg PO DAILY 03/08/25 Gabapentin 300 mg PO BID 03/08/25 Sacubitril/Valsartan [Entresto 24 mg-26 mg Tablet] 1 tab PO BID 03/08/25 Atorvastatin Calcium [Lipitor] 40 mg PO BEDTIME 30 Days #30 tab 03/11/25 Clopidogrel Bisulfate [Plavix*] 75 mg PO DAILY 30 Days #30 tab 03/11/25 Folic Acid 1 mg PO DAILY 30 Days #30 tab 03/11/25 Ipratropium Neb [Atrovent*] 0.5 mg NEB Q8HP #60 amp 04/29/25 Levalbuterol [Xopenex] 1.25 mg NEB Q8H #60 amp 04/29/25 Nebulizer 1 each MC DAILY #1 ea 04/29/25 Nebulizer Accessories [Aeroneb Go] 1 each MC DAILY #1 ea 04/29/25 levoFLOXacin [Levaquin*] 500 mg PO DAILY #7 tab 04/29/25 predniSONE [Prednisone*] 20 mg PO DAILY #20 tab 04/29/25 - Past Medical/Surgical History Diabetic: No -: HTN -: Diabetes mellitus type 2 -: CHFdiastolic -: DVT to left -: asthma -: Cardiomegaly. -: Essential hypertension. -: -: Cholecystectomy. -: Tubal ligation. Psychosocial/ Personal History: Patient lives at home with her family - Family History Father Notes: UNKNOWN- PATIENT WAS T[age] YEARS OLD WHEN FATHER . Mother Notes: UNKNOWN- PATIENT WAS 1 WHEN MOTHER . - Social History Smoking Status: Never smoker Alcohol use: No CD- Drugs: No Caffeine use: Yes Place of Residence: Home Review of Systems Neurological: Weakness, Change in Speech Physical Examination - Physical Exam General: Alert, In no apparent distress, Oriented x3, Obese, Other (No facial droop elicited) HEENT: Atraumatic, Normocephalic, PERRLA Neck: 2+ carotid pulse no bruit, JVD not distended Respiratory: Clear to auscultation bilaterally, Normal air movement Cardiovascular: Normal pulses, Regular rate/rhythm, Normal S1 S2 Gastrointestinal: Normal bowel sounds, Soft and benign, Non-distended, No ascites, No tenderness Musculoskeletal: No clubbing, No swelling Integumentary: No breakdown, No significant lesion, No tenderness/swelling Neurological: Normal speech, Normal strength at 5/5 x4 extr, Sensation intact, Cranial nerves 3-12 intact, Other ([id number] was normal, 3+ bilateral and symmetrical lower extremity power, upper extremity 4/5 bilateral, no pronator drift) - Studies Laboratory Data (last 24 hrs) 05/02/25 05/02/25 05/02/25 21:30 21:30 21:30 WBC 11.90 H Hgb 12.4 Hct 37.0 Plt Count 219 PT 13.1 H INR 1.16 APTT 42.0 H Sodium 140 Potassium 3.9 BUN 33 H Creatinine 1.19 H Glucose 139 H Magnesium 2.3 Total Bilirubin 0.4 AST 14 L ALT 22 Alkaline Phosphatase 82 Assessment and Plan - Problems (Diagnosis) (1) TIA (transient ischemic attack) Current Visit: Yes Status: Acute (2) Chronic diastolic heart failure Current Visit: No Status: Acute (3) Hypertension Current Visit: No Status: Chronic - Plan Impression Presumed TIA Leukocytosisrule out UTI HTN Pre-DM Recent CVA with mild residual right-sided weakness History of asthma/COPD History of diastolic CHF Plan We admit patient to observation Neurology consult in a.m. Restart aspirin and Plavix MRI brain PT and OT Obtain UA to rule out UTI as infectious etiology may be causing acute facial droop especially considering leukocytosis Start empiric Rocephin Obtain repeat troponin mildly elevated previously Resume Entresto and diuretics Subcutaneous Lovenox for DVT prophylaxis Advance directivefull code Disposition possible hospital stay for 24 to 48 hours Plan to discharge in: 48 Hours - Advance Directives Does patient have a Living Will: No Does patient have a Durable POA for Healthcare: No Time Spent Managing Pts Care (In Minutes): 70
[2025-05-03] MEDS ORDERED: MORPHINE 2 MG/ML SYR ONE (00:24)
[2025-05-03] MEDS: MORPHINE 2 MG/ML SYR IV PRN (00:27)
[2025-05-03 00:46] LABS: Urine Microscopic Reflex YN NO UMIC
[2025-05-03] MEDS: CLOPIDOGREL 75 MG TABLET PO ONE (00:52)
[2025-05-03] MEDS: ASPIRIN EC 81 MG TAB PO ONE (00:52)
[2025-05-03 00:54] VITALS: BMI 52.9
[2025-05-03 00:58] LABS: METHAMPHETAM NEGATIVE (NEGATIVE)
[2025-05-03 00:59] LABS: THC Cannibis NEGATIVE (NEGATIVE)
[2025-05-03 01:02] LABS: Urine Micro Reflex YN NO BILL NO MICROSCOPIC
[2025-05-03 04:51] LABS: Absolute Lymphocytes (CBC) 3.3 K/uL (0.7-4.9); Hematocrit 33.5 % (36.0-45.0); Hemoglobin 11.2 g/dL (12.0-15.0); MCH 30.0 pg (27.0-35.0); MCHC 33.4 g/dL (32.0-36.0); MCV 89.6 fL (80-100); MPV 9.5 fL (7.6-11.3); Nucleated RBC Absolute Count 0.0 (0-0); Nucleated Red Blood Cells % 0.1 % (0-0); RBC Red Blood Cell Count 3.74 M/uL (3.86-4.86); White Blood Count 11.10 thou/uL (4.3-10.9)
[2025-05-03 05:15] LABS: ALT/SGPT 26 U/L (13-56); Albumin 2.9 g/dL (3.4-5.0); Albumin/Globulin Ratio 0.8 (1.1-1.8); Alkaline Phosphatase 70 U/L (45-117); Anion Gap 6.6 mEq/L (5.0-15.0); BUN Blood Urea Nitrogen 36 mg/dL (7-18); Globulin 3.5 g/dL (2.3-3.5); Glucose Level 123 mg/dL (74-106); HDL Cholesterol 49 mg/dL (40-60); LDL Cholesterol, Calculated 46 mg/dL (<130); LDL Cholesterol,Calc NonReport 46; Potassium 3.6 mEq/L (3.5-5.1)
[2025-05-03 05:16] LABS: AST/SGOT < 10 U/L (15-37)
[2025-05-03] MEDS: GABAPENTIN 300 MG CAP PO SCH (07:43)
[2025-05-03] MEDS: CLOPIDOGREL 75 MG TABLET PO SCH (07:43)
[2025-05-03] MEDS: LORazepam 2 MG/ML VIAL IV ONE (07:43)
[2025-05-03] MEDS: FOLIC ACID 1 MG TABLET PO SCH (07:43)
[2025-05-03] MEDS: ASPIRIN EC 81 MG TAB PO SCH (07:44)
[2025-05-03] MEDS: SACUBITRIL/VALSARTAN 24/26 MG TAB PO SCH (07:44)
[2025-05-03] MEDS: FUROSEMIDE 40 MG TABLET PO SCH (07:44)
--- NOTE | 2025-05-03 09:27 | RAD REPORT ---
EXAMINATION: Brain Wo Cont CLINICAL INDICATION: Female, 79 years old. TIA TECHNIQUE: Multiplanar multisequence MR images of the brain were obtained without intravenous contras t. Unless otherwise specified, incidental findings do not require dedicated imaging follow-up. [id number]. COMPARISON: 03/11/2025 MRI, head CT yesterday FINDINGS: INTRACRANIAL: Punctate acute infarct at the left basal ganglia. Chronic left basal ganglia infarct al so noted. No significant mass effect or midline shift.No hydrocephalus. Moderate chronic small vessel ischemic changes.Moderate cerebral atrophy. VASCULATURE: Normal signal voids in the larger intracranial arteries and dural venous sinuses. SINUSES: The paranasal sinuses are predominantly clear.No mastoid effusions. BONE: The marrow signal pattern is within normal limits. IMPRESSION: Punctate acute left basal ganglia lacunar infarct. Background of moderate chronic small vessel ischem ic changes.
--- NOTE | 2025-05-03 10:49 | P.PN ---
Date of Service: 05/03/25 Subjective: facial droop improving denies pain or weakness dealing with some shoulder/knee pain Physical Exam: Gen: Alert, NAD, Orientedx3 CV: Regular rate and rhythm, no edema Pulm: Nonlabored respirations on room air, clear bilaterally Abdomen: Soft, nontender, nondistended Integumentary: No rashes Neuro: facial droop improving, 3+/5 bilateral lower extremity strength, 4/5 bilateral upper extremities Problem List: Acute left basal ganglia CVA Hx recent CVA with mild residual right-sided weakness Hypertension Chronic Diastolic CHF Chronic COPD NIDDM2 Hx DVT Acute left basal ganglia CVA Hx recent CVA with mild residual right-sided weakness MRI brain (05/03): punctate acute left basal ganglia lacunar infarct. Chronic left basal ganglia infarct. Moderate chronic small vessel ischemic changes Head/Neck CTA: incidentally noted posteriorly projecting 3mm anterior containing artery aneurysm, otherwise negative. Dr. Hardy, Neuro consulted PT/OT consult asa, plavix, folic acid, statin Continue supportive care UA not suggestive of UTI. Tox screen negative. Hypertension Chronic Diastolic CHF Chronic COPD NIDDM2 Hx DVT resume home coreg, lasix accu-cheks, SSI VTE: heparin sq Code: Full Dispo: Home vs SNF pending PT/OT eval, neuro recs
[2025-05-03] MEDS: ALBUTEROL 2.5 MG/3 ML NEB SOL NEB PRN (15:42)
[2025-05-03] MEDS: HEPARIN 5000 UNIT/ML 1 ML VIAL SQ SCH (16:20)
[2025-05-03] MEDS: ATORVASTATIN 40 MG TAB PO SCH (20:33)
[2025-05-03] MEDS ORDERED: CLOPIDOGREL 75 MG TABLET PO ONE (23:20)
--- NOTE | 2025-05-03 23:43 | CON ---
Reason For Consultation: Consultation called because of stroke. History Of Present Illness: Ms. Jain is a 79-year-old patient with prediabetes, hypertension, di astolic congestive heart failure, asthma, COPD who had stroke 2 months ago with some residual right b kay involvement, weakness, numbness. She reported recovered very well from that. However, on the 7t h, which is yesterday around 8:00 p.m. family, daughter, noted right facial weakness while sitting in the chair. Also, she had some inability to maintain her position in the chair and was sliding on th e left side while looking up with the right facial droop. She also has slurred speech. She was brou ght to [facility] where a CT scan of the head showed no acute ischemic or hemorrhagic findin gs. CT angiogram of the head and neck did show a 3 mm anterior communicating aneurysm. She had bloo d work showing dehydration. EKG showed no ST-segment abnormalities. She has had difficulty expressi ng herself because she is mostly Sinhala speaking. Swallowing was not involved. The following day, yesterday, brain MRI did identify a lacunar-type infarct in the left basal ganglia and was identified as punctate and acute. There was chronic left basal ganglia infarct also documented. 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 The patient has had some f air recovery thus far. She was able to ambulate with physical therapist using a rolling walker and s he is able to swallow without signs of aspiration. Still has some right nasolabial fold drooping. A s mentioned thus, however, fatigued very quickly as she ambulated and has decreased truncal support a nd would benefit significantly from aggressive rehabilitation to help her to regain her function towa rds normal. She was put on aspirin, Plavix, folic acid, and statin along with management of blood pressure and ot her risk factors. Past Medical History: As noted above including asthma, cardiomegaly. Past Surgical History: , cholecystectomy, tubal ligation. Allergies: NO KNOWN DRUG ALLERGIES. Medications At Home: Aspirin 81 mg daily, Coreg 12.5 mg twice daily, Trelegy Ellipta as needed inhal ed, Lasix 40 mg daily, gabapentin 300 mg twice daily, Entresto twice daily, Lipitor 40 mg at bedtime, Plavix 75 mg daily, folic acid 1 mg daily, Atrovent nebulizer treatment on board, levofloxacin compl eted 7 tablets from 04/29/2025, and prednisone 20 mg daily. Social History: Lives with family in single family home. No alcohol, tobacco, or IV drug use. Family History: Father unknown. He 2 years ago and mother also unknown. Mother . Review of Systems: Aside from mentioned above, facial weakness, some slurred speech, and mild right lower extremity and upper extremity weakness and numbness. She has no fevers, chills, nausea, vomiting. No myalgias, ar thralgias, rash, psychiatric complaints. Physical Examination: Vital Signs: Blood pressure 141/69, pulse 63, respiratory rate 18, temperature 98.1, oxygen saturat ion 97%. Weight 253 pounds, height 4 feet 10 inches, BMI 52. General: Ms. Jain is resting comfortably in bed. Daughter is at bedside. HEENT: She appears normocephalic, atraumatic. Sclerae anicteric. Oropharynx pink and moist. Neck: Supple. Chest: Clear. Extremities: No significant edema, cyanosis, or clubbing noted. Neuro: She does have right nasolabial fold decrease with great excursions and smiling. Mild weaknes s in the right upper and lower extremities around 4+/5. Decreased stocking glove loss to light touch and temperature. More numbness on the right upper and lower extremities compared to the left side. She will be ambulated with the gait belt, rolling walker, and physical therapist. Laboratory Studies: White blood cell count 11.1, hemoglobin 11.2, platelets 182. INR 1.16. Sodium 139, potassium 3.6, chloride 106, carbon dioxide 30, creatinine 1.05, glucose ranged from 84 to 133, calcium 8.3. Magnesium 2.3. AST less than 10, ALT 26, alkaline phosphatase 70. LDL cholesterol 46, HDL 49, total cholesterol 105. Cholesterol HDL ratio of 2.14. Triglycerides 52. Urinalysis: Spec ific gravity greater than 1.03. A urine drug screen is negative. X-ray/imaging: As noted brain MRI showing the pontine stroke in the left basal ganglia. CT angiogra m of head and neck, there is an anterior communicating artery aneurysm, 3 mm. Otherwise other than t hat, no significant stenosis identified. Assessment And Plan: Ms. Jain is a 79-year-old patient with multiple stroke risk factors, hypert ension, diabetes mellitus, dyslipidemia, prior stroke. She has morbid obesity and has mild dehydrati on. She has additional issues or risk factors for stroke, which include the asthma, prior deep venou s thrombosis, and diastolic congestive heart failure. In terms of a plan: 1. She should continue aspirin, Plavix, folic acid, statin. 2. She may be evaluated for admission to the inpatient rehabilitation unit to receive aggressive phys ical, occupational, and if maybe speech therapy. 3. If the patient is discharged, she should continue Home Health, which she was doing previously and she may follow up in Dr. Hardy's clinic within the month. She should follow up with her primary c are physician to continue addressing her comorbid conditions. RENETTA/YAMEL Voice ID: [id number] Report ID: [id number]
[2025-05-04 04:37] LABS: Absolute Lymphocytes (CBC) 3.3 K/uL (0.7-4.9); Hematocrit 36.6 % (36.0-45.0); Hemoglobin 12.3 g/dL (12.0-15.0); MCH 30.5 pg (27.0-35.0); MCHC 33.7 g/dL (32.0-36.0); MCV 90.4 fL (80-100); MPV 9.6 fL (7.6-11.3); Nucleated RBC Absolute Count 0.0 (0-0); Nucleated Red Blood Cells % 0.1 % (0-0); RBC Red Blood Cell Count 4.05 M/uL (3.86-4.86); White Blood Count 8.30 thou/uL (4.3-10.9)
[2025-05-04 05:12] LABS: ALT/SGPT 18.0 U/L (13-56); Albumin 2.9 g/dL (3.4-5.0); Albumin/Globulin Ratio 0.9 (1.1-1.8); Alkaline Phosphatase 68.0 U/L (45-117); Anion Gap 6.8 mEq/L (5.0-15.0); BUN Blood Urea Nitrogen 40.0 mg/dL (7-18); Globulin 3.4 g/dL (2.3-3.5); Glucose Level 117.0 mg/dL (74-106)
[2025-05-04 05:13] LABS: AST/SGOT 12.0 U/L (15-37); Magnesium 2.3 mg/dL (1.6-2.4); Potassium 3.8 mEq/L (3.5-5.1)
--- NOTE | 2025-05-04 07:06 | P.PN ---
Date of Service: 05/04/25 Subjective: No new complaints Resting in bed with daughter at bedside Denies weakness, fever, chills Vital stable overnight Physical Exam: Gen: Alert, NAD, Orientedx3 CV: Regular rate and rhythm, no edema Pulm: Nonlabored respirations on room air, clear bilaterally Abdomen: Soft, nontender, nondistended Integumentary: No rashes Neuro: facial droop improving, 3+/5 bilateral lower extremity strength, 4/5 bilateral upper extremities Problem List: Acute left basal ganglia CVA Hx recent CVA with mild residual right-sided weakness Hypertension Chronic Diastolic CHF Chronic COPD NIDDM2 Hx DVT Acute left basal ganglia CVA Hx recent CVA with mild residual right-sided weakness MRI brain (05/03): punctate acute left basal ganglia lacunar infarct. Chronic left basal ganglia infarct. Moderate chronic small vessel ischemic changes Head/Neck CTA: incidentally noted posteriorly projecting 3mm anterior containing artery aneurysm, otherwise negative. Dr. Hardy, Neuro consulted and appreciate recommendation PT/OT consult asa, plavix, folic acid, statin Continue supportive care UA not suggestive of UTI. Tox screen negative. Hypertension Chronic Diastolic CHF Chronic COPD NIDDM2 Hx DVT resume home coreg, lasix accu-cheks, SSI VTE: heparin sq Code: Full Dispo: Inpatient rehab versus senior care facility pending PT/OT eval, neuro recs
[2025-05-05 05:55] LABS: Absolute Lymphocytes (CBC) 3.4 K/uL (0.7-4.9); Hematocrit 35.8 % (36.0-45.0); Hemoglobin 12.2 g/dL (12.0-15.0); MCH 30.4 pg (27.0-35.0); MCHC 34.0 g/dL (32.0-36.0); MCV 89.4 fL (80-100); MPV 8.8 fL (7.6-11.3); Nucleated RBC Absolute Count 0.0 (0-0); Nucleated Red Blood Cells % 0.0 % (0-0); RBC Red Blood Cell Count 4.00 M/uL (3.86-4.86); White Blood Count 10.00 thou/uL (4.3-10.9)
[2025-05-05 06:19] LABS: ALT/SGPT 19.0 U/L (13-56); AST/SGOT 21.0 U/L (15-37); Albumin 3.0 g/dL (3.4-5.0); Albumin/Globulin Ratio 0.8 (1.1-1.8); Alkaline Phosphatase 65.0 U/L (45-117); Anion Gap 6.2 mEq/L (5.0-15.0); BUN Blood Urea Nitrogen 33.0 mg/dL (7-18); Globulin 3.7 g/dL (2.3-3.5); Glucose Level 125.0 mg/dL (74-106); Magnesium 2.5 mg/dL (1.6-2.4); Potassium 4.2 mEq/L (3.5-5.1)
[2025-05-05] MEDS: ACETAMINOPHEN 500 MG TAB PO PRN (12:05)
--- NOTE | 2025-05-05 13:20 | P.PN ---
Date of Service: 05/05/25 Subjective: Resting in bed. No acute issues Vital stable overnight Physical Exam: Gen: Alert, NAD, Orientedx3 CV: Regular rate and rhythm, no edema Pulm: Nonlabored respirations on room air, clear bilaterally Abdomen: Soft, nontender, nondistended Integumentary: No rashes Neuro: facial droop improving, 3+/5 bilateral lower extremity strength, 4/5 bilateral upper extremities Problem List: Acute left basal ganglia CVA Hx recent CVA with mild residual right-sided weakness Hypertension Chronic Diastolic CHF Chronic COPD NIDDM2 Hx DVT Acute left basal ganglia CVA Hx recent CVA with mild residual right-sided weakness MRI brain (05/03): punctate acute left basal ganglia lacunar infarct. Chronic left basal ganglia infarct. Moderate chronic small vessel ischemic changes Head/Neck CTA: incidentally noted posteriorly projecting 3mm anterior containing artery aneurysm, otherwise negative. Dr. Hardy, Neuro consulted and appreciate recommendation PT/OT consult asa, plavix, folic acid, statin Continue supportive care UA not suggestive of UTI. Tox screen negative. Hypertension Chronic Diastolic CHF Chronic COPD NIDDM2 Hx DVT resume home coreg, kiara accu-cheks, SSI VTE: heparin sq Code: Full Dispo: Inpatient rehab [facility] pending PT/OT eval, neuro recs
[2025-05-06 06:19] LABS: ALT/SGPT 17.0 U/L (13-56); AST/SGOT 15.0 U/L (15-37); Albumin 2.6 g/dL (3.4-5.0); Albumin/Globulin Ratio 0.8 (1.1-1.8); Alkaline Phosphatase 65.0 U/L (45-117); Anion Gap 9.8 mEq/L (5.0-15.0); BUN Blood Urea Nitrogen 30.0 mg/dL (7-18); Globulin 3.3 g/dL (2.3-3.5); Glucose Level 124.0 mg/dL (74-106); Potassium 3.8 mEq/L (3.5-5.1)
[2025-05-06 11:07] VITALS: O2SAT 96
--- NOTE | 2025-05-06 15:00 | P.PN ---
Date of Service: 05/06/20 Subjective: Resting in bed. No acute issues Vital stable overnight Denies fevers and chills Physical Exam: Gen: Alert, NAD, Orientedx3 CV: Regular rate and rhythm, no edema Pulm: Nonlabored respirations on room air, clear bilaterally Abdomen: Soft, nontender, nondistended Integumentary: No rashes Neuro: facial droop improving, 3+/5 bilateral lower extremity strength, 4/5 bilateral upper extremities Problem List: Acute left basal ganglia CVA Hx recent CVA with mild residual right-sided weakness Hypertension Chronic Diastolic CHF Chronic COPD NIDDM2 Hx DVT Acute left basal ganglia CVA Hx recent CVA with mild residual right-sided weakness MRI brain (05/03): punctate acute left basal ganglia lacunar infarct. Chronic left basal ganglia infarct. Moderate chronic small vessel ischemic changes Head/Neck CTA: incidentally noted posteriorly projecting 3mm anterior containing artery aneurysm, otherwise negative. Dr. Hardy, Neuro consulted and appreciate recommendation PT/OT consult asa, plavix, folic acid, statin Continue supportive care UA not suggestive of UTI. Tox screen negative. Hypertension Chronic Diastolic CHF Chronic COPD NIDDM2 Hx DVT resume home coreg, lasix accu-cheks, SSI VTE: heparin sq Code: Full Dispo[facility] PT/OT eval, neuro recs
--- NOTE | 2025-05-07 11:49 | P.DS ---
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 Daughter reported patient was noticed by her granddaughter to have slow sliding in the chair towards the left side and upon looking at the face they noted the patient had some mild right facial droop as well as slurred speech. Patient denies any headache or dizziness at the time of the event. She denies any chest pain. She denies any loss of consciousness. She was brought to the emergency room. On arrival in the ED 1.5 hours after onset of symptoms, hide initial NIH score was 2. head CT shows no acute intracranial pathology. 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 Laboratory workup shows mild elevated WBC of 11.9 with normal differentials, BMP was unremarkable. EKG shows no ST segment changes. Neurology was discussed with and recommended inpatient observation and MRI brain in the morning. At the time of interview patient speech as returned back to normal. Facial droop has resolved As per daughter patient required assist with activities of daily living and she has noted white beating since her last CVA so might weakness of the right lower leg but patient is able to ambulate with a walker at baseline. Patient is mainly Macedonian-speaking but denies any complaint right now. Daughter also states patient has ran out of aspirin and Plavix since the last 1 week Hospital Course: Patient is 79-year-old female with past medical history of prediabetes, HTN, diastolic CHF, asthma/COPD, recent CVA2 months ago with mild residual right- sided weakness who presents with complaint of right facial droop and slurred speech while sitting in a chair. In the ED 1.5 hours after onset of symptoms, initial NIH score was 2. CT Head indicated no acute intracranial pathology. 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 Laboratory workup shows mild elevated WBC of 11.9 with normal differentials, BMP was unremarkable. EKG shows no ST segment changes. Neurology was consulted. Aspirin, plavix, folic acid, statin were started. UA not suggestive of UTI. Tox screen negative. PT and OT were consulted. MRI brain indicated punctate acute left basal ganglia lacunar infarct. Chronic left basal ganglia infarct. Moderate chronic small vessel ischemic changes. Patient's clinical conditions improved over time. Therapist recommended IPR placement which patient declined and preferred to dcischarge home with home health w/ SN, PT, OT, ST. Patient was cleared for discharge by neurologist. Patient\family were instructed to follow-up with her PCP and neurologist. They verbalized understanding of discharge instructions and Patient was discharged in stable condition. <Pablo Edwards - Last Filed: 05/07/25 15:06> Admission Date: 05/02/25 Discharge Date: 05/08/25 Reason for Admission: Right facial droop <Jaquan Hartman - Last Filed: 05/08/25 06:35> Disposition: ROUTINE DISCHARGE Discharge Condition: GOOD Vital Signs/Physical Exam: Temp Pulse Resp BP Pulse Ox 98 F 63 17 125/59 L 98 05/07/25 12:00 05/07/25 12:00 05/07/25 12:00 05/07/25 12:00 05/07/25 12:00 General: Alert, Oriented x3, Cooperative HEENT: Atraumatic, PERRLA, EOMI Neck: Supple, JVD not distended Respiratory: Clear to auscultation bilaterally, Normal air movement Cardiovascular: No edema, Regular rate/rhythm, Normal S1 S2 Capillary refill: <2 Seconds Gastrointestinal: Normal bowel sounds, Soft and benign, Non-distended, No tenderness Musculoskeletal: No clubbing, No swelling, No tenderness Integumentary: No rashes, No breakdown, No tenderness/swelling Neurological: Normal speech, Normal tone, Normal affect, Other (Mild residual right-sided weakness) Lymphatics: No axilla or inguinal lymphadenopathy Laboratory Data at Discharge: WBC 10.00 thou/uL (4.3-10.9) 05/05/25 05:41 Hgb 12.2 g/dL (12.0-15.0) 05/05/25 05:41 Hct 35.8 % (36.0-45.0) L 05/05/25 05:41 Plt Count 205 thou/uL (152-406) D 05/05/25 05:41 PT 13.1 SECONDS (10-13.0) H 05/02/25 21:30 INR 1.16 05/02/25 21:30 APTT 42.0 SECONDS (27.2-37.4) H 05/02/25 21:30 Sodium 141 mEq/L (136-145) 05/06/25 05:12 Potassium 3.8 mEq/L (3.5-5.1) 05/06/25 05:12 BUN 30 mg/dL (7-18) H 05/06/25 05:12 Creatinine 0.90 mg/dL (0.55-1.02) 05/06/25 05:12 Glucose 124 mg/dL (74-106) H 05/06/25 05:12 Magnesium 2.5 mg/dL (1.6-2.4) H 05/05/25 05:41 Total Bilirubin 0.5 mg/dL (0.2-1.0) 05/06/25 05:12 AST 15 U/L (15-37) 05/06/25 05:12 ALT 17 U/L (13-56) 05/06/25 05:12 Alkaline Phosphatase 65 U/L (45-117) 05/06/25 05:12 Triglycerides 52 mg/dL (<150) 05/03/25 04:23 Cholesterol 105 mg/dL (<200) 05/03/25 04:23 HDL Cholesterol 49 mg/dL (40-60) 05/03/25 04:23 Cholesterol/HDL Ratio 2.14 05/03/25 04:23 <Pablo Edwards E - Last Filed: 05/07/25 15:06> Vital Signs/Physical Exam: Temp Pulse Resp BP Pulse Ox 97.6 F 58 17 145/72 H 96 05/07/25 08:00 05/07/25 08:46 05/07/25 08:00 05/07/25 08:46 05/07/25 08:00 Laboratory Data at Discharge: WBC 10.00 thou/uL (4.3-10.9) 05/05/25 05:41 Hgb 12.2 g/dL (12.0-15.0) 05/05/25 05:41 Hct 35.8 % (36.0-45.0) L 05/05/25 05:41 Plt Count 205 thou/uL (152-406) D 05/05/25 05:41 PT 13.1 SECONDS (10-13.0) H 05/02/25 21:30 INR 1.16 05/02/25 21:30 APTT 42.0 SECONDS (27.2-37.4) H 05/02/25 21:30 Sodium 141 mEq/L (136-145) 05/06/25 05:12 Potassium 3.8 mEq/L (3.5-5.1) 05/06/25 05:12 BUN 30 mg/dL (7-18) H 05/06/25 05:12 Creatinine 0.90 mg/dL (0.55-1.02) 05/06/25 05:12 Glucose 124 mg/dL (74-106) H 05/06/25 05:12 Magnesium 2.5 mg/dL (1.6-2.4) H 05/05/25 05:41 Total Bilirubin 0.5 mg/dL (0.2-1.0) 05/06/25 05:12 AST 15 U/L (15-37) 05/06/25 05:12 ALT 17 U/L (13-56) 05/06/25 05:12 Alkaline Phosphatase 65 U/L (45-117) 05/06/25 05:12 Triglycerides 52 mg/dL (<150) 05/03/25 04:23 Cholesterol 105 mg/dL (<200) 05/03/25 04:23 HDL Cholesterol 49 mg/dL (40-60) 05/03/25 04:23 Cholesterol/HDL Ratio 2.14 05/03/25 04:23 <Jaquan Hartman - Last Filed: 05/08/25 06:35> Diet: AHA Activity: Ad delonte Physician Review: Patient Assessed, Agree with Above Assessment and Plan Time spent managing pt's care (in minutes): 45 <Pablo Edwards - Last Filed: 05/07/25 15:06> Physician Review: Patient Assessed, Agree with Above Assessment and Plan <Jaquan Hartman - Last Filed: 05/08/25 06:35> Home Medications: Aspirin 81 mg PO DAILY 03/08/25 Carvedilol [Coreg] 12.5 mg PO BID 03/08/25 Fluticasone/Umeclidin/Vilanter [Trelegy Ellipta 100-62.5-25] 1 puff IH PRN PRN 03/08/25 Furosemide [Lasix*] 40 mg PO DAILY 03/08/25 Gabapentin 300 mg PO BID 03/08/25 Sacubitril/Valsartan [Entresto 24 mg-26 mg Tablet] 1 tab PO BID 03/08/25 Atorvastatin Calcium [Lipitor] 40 mg PO BEDTIME 30 Days #30 tab 03/11/25 Clopidogrel Bisulfate [Plavix*] 75 mg PO DAILY 30 Days #30 tab 03/11/25 Folic Acid 1 mg PO DAILY 30 Days #30 tab 03/11/25 Ipratropium Neb [Atrovent*] 0.5 mg NEB Q8HP #60 amp 04/29/25 Levalbuterol [Xopenex*] 1.25 mg NEB Q8H #60 amp 04/29/25 Nebulizer 1 each MC DAILY #1 ea 04/29/25 Nebulizer Accessories [Aeroneb Go] 1 each MC DAILY #1 ea 04/29/25 levoFLOXacin [Levaquin*] 500 mg PO DAILY #7 tab 04/29/25 predniSONE [Prednisone*] 20 mg PO DAILY #20 tab 04/29/25 Physician Discharge Instructions: Follow-up with PCP and neurologist in 2 weeks. Followup: Madi Flannery MD [Primary Care Provider] -
[2025-05-07 13:09] VITALS: BP 125/59; TEMP 98
== END 2025-05-07 15:13 | disposition home health service (06) | DRG 65 ==
LOC: ER 21:12 → ERHOLD 23:07 → 4TH 23:51
PROVIDERS: ADMIT Internal Medicine; ATTEND Family Medicine
DX: I63.9 Cerebral infarction, unspecified (principal); I50.32 Chronic diastolic (congestive) heart failure; I69.351 Hemiplegia and hemiparesis following cerebral infarction affecting right dominant side; Z68.43 Body mass index [BMI] 50.0-59.9, adult; E66.01 Morbid (severe) obesity due to excess calories; I11.0 Hypertensive heart disease with heart failure; E86.0 Dehydration; E78.5 Hyperlipidemia, unspecified; E11.9 Type 2 diabetes mellitus without complications; J44.9 Chronic obstructive pulmonary disease, unspecified; R29.702 NIHSS score 2; R47.81 Slurred speech; R29.810 Facial weakness; R47.1 Dysarthria and anarthria; Z79.82 Long term (current) use of aspirin; Z79.52 Long term (current) use of systemic steroids; Z79.02 Long term (current) use of antithrombotics/antiplatelets; Z90.49 Acquired absence of other specified parts of digestive tract; Z79.899 Other long term (current) drug therapy
CPT/HCPCS: 36415; 70450; 70496; 70498; 70551; 71045; 80048; 80053; 80061; 80076; 80307; 81003; 81015; 82947; 83735; 84484; 85025; 85610; 85730; 93005; 94640; 97116; 97161; 97530; 99285; J1644; J2270; J7613; Q9967

== ENCOUNTER 2025-06-17 13:47 | Emergency (ER) | payer MEDICARE ==
[2025-06-17 15:25] LABS: Absolute Lymphocytes (CBC) 1.8 K/uL (0.7-4.9); Hematocrit 33.5 % (36.0-45.0); Hemoglobin 11.2 g/dL (12.0-15.0); MCH 30.1 pg (27.0-35.0); MCHC 33.5 g/dL (32.0-36.0); MCV 89.8 fL (80-100); MPV 9.1 fL (7.6-11.3); Nucleated RBC Absolute Count 0.0 (0-0); Nucleated Red Blood Cells % 0.2 % (0-0); RBC Red Blood Cell Count 3.73 M/uL (3.86-4.86); White Blood Count 5.40 thou/uL (4.3-10.9)
[2025-06-17 15:39] LABS: Anion Gap 7.3 mEq/L (5.0-15.0); BUN Blood Urea Nitrogen 14.0 mg/dL (7-18); Glucose Level 112.0 mg/dL (74-106); Potassium 3.3 mEq/L (3.5-5.1)
--- NOTE | 2025-06-17 16:50 | RAD REPORT ---
EXAM: XR Knee Left 3 View HISTORY: [facility] MAIN PAIN Bed Name: IW3 COMPARISON: 08/16/2024 TECHNIQUE: 3 views of the left knee were obtained. FINDINGS: Mild knee effusion is seen. There is no evidence of acute fracture or dislocation. Tricomp artmental osteoarthritic changes. No soft tissue swelling or other soft tissue abnormality is present. IMPRESSION: No evidence of acute osseous abnormality. Mild joint effusion. Stable advanced tricompart mental osteoarthritic changes.
--- NOTE | 2025-06-17 16:50 | RAD REPORT ---
EXAMINATION: US LEFT LOWER EXTREMITY VENOUS DOPPLER CLINICAL INDICATION: [facility] MAIN Left Leg Pain;Swelling Bed Name: IW3 Y TECHNIQUE: Complete bilateral duplex sonography of the LEFT lower extremity veins was performed. The examination included compression for vein patency, color Doppler imaging and flow augmentation in response to distal compression of the distal external iliac, common femoral, femoral, popliteal, tibi al, and great and small saphenous veins. COMPARISON: No prior exam. FINDINGS: Duplex sonography testing of the veins of the LEFT lower extremity was performed. Color flow imaging shows all veins to be compressible with [id number] color filling. Pulsatile and phasic flow is present within all lower extremity deep and superficial veins examined. IMPRESSION: No evidence of deep venous thrombosis.
[2025-06-17] MEDS ORDERED: KETOROLAC 30 MG/ML INJ ONE (16:57)
[2025-06-17] MEDS ORDERED: HYDROCODONE/APAP 5/325 MG TAB ONE (16:58)
--- NOTE | 2025-06-17 17:00 | ER ---
Nurse's Notes [facility] Name: Nabila Jain Age: 79 yrs Sex: Female : 1945 Arrival Date: 06/17/2025 Time: 13:47 Bed 3 Private MD: Diagnosis: Effusion, left knee;Osteoarthritis of knee, unspecified Presentation: 06/17 13:50 Chief complaint: EMS states: TONED OUT FOR LT LEG PAIN AND SWELLING. EMS REPORTS HOME dd2 HEALTH NURSE CALLED 911 FOR LT LEG SWELLING AND LT PAIN. PT REPORTS LEG PAIN X 3 DAYS. Coronavirus screen: At this time, the client does not indicate any symptoms associated with coronavirus-19. Ebola Screen: No symptoms or risks identified at this time. Initial Sepsis Screen: Does the patient meet any 2 criteria? No. Patient's initial sepsis screen is negative. Does the patient have a suspected source of infection? No. Patient's initial sepsis screen is negative. Risk Assessment: Do you want to hurt yourself or someone else? Patient reports no desire to harm self or others. Onset of symptoms was June 14, 2025. 13:50 Method Of Arrival: EMS: [facility] dd2 13:50 Acuity: CHARLEEN 3 dd2 Triage Assessment: 13:53 General: Appears in no apparent distress. uncomfortable, Behavior is calm, cooperative, dd2 appropriate for age. Pain: Complains of pain in left leg Pain currently is 6 out of 10 on a pain scale. Musculoskeletal: Reports pain in left leg. Historical: - Allergies: 13:53 NKA; dd2 - PMHx: 13:53 cardiomegaly; Cerebrovascular accident; diabetes mellitus; Hypertension; dd2 - PSHx: 13:53 Cholecystectomy; tubal ligation; dd2 - Immunization history:: Adult Immunizations unknown. - Infectious Disease History:: Denies. - Social history:: Smoking status: Patient denies any tobacco usage or history of. Screenin:00 [facility] ED Fall Risk Assessment (Adult) History of falling in the last 3 months, bp including since admission No falls in past 3 months (0 pts) Confusion or Disorientation No (0 pts) Intoxicated or Sedated No (0 pts) Impaired Gait No (0 pts) Mobility Assist Device Used No (0 pt) Altered Elimination No (0 pt) Score/Fall Risk Level 0 - 2 = Low Risk Oriented to surroundings. Abuse screen: Denies threats or abuse. Denies injuries from another. Nutritional screening: No deficits noted. Tuberculosis screening: No symptoms or risk factors identified. Assessment: 14:00 General: SEE TRIAGE NOTE. bp 17:00 Reassessment: Patient appears in no apparent distress at this time. Patient is alert, bp oriented x 3, equal unlabored respirations, skin warm/dry/pink. Vital Signs: 13:50 BP 130 / 62; Pulse 73; Resp 17; Temp 98.1; Pulse Ox 95% ; Pain 6/10; dd2 17:06 BP 114 / 74; Pulse 69; Resp 18; Temp 98.1; Pulse Ox 96% ; pm7 13:50 Pain Scale: Adult dd2 ED Course: 13:49 Patient arrived in ED. dd2 13:53 Triage completed. dd2 13:53 Arm band placed on right wrist. dd2 14:00 Patient has correct armband on for positive identification. bp 14:01 Daniel Marcus FNP-Marisela is PHCP. dr5 14:01 Dandy Franklin MD is Attending Physician. dr5 14:47 Knee Left 3 View XRAY In Process Unspecified. EDMS 15:02 US Extremity Venous Unilateral Ltd In Process Unspecified. EDMS 15:04 BMP Sent. bc6 15:04 CBC with Diff Sent. bc6 15:04 Initial lab(s) drawn, by me, sent to lab. Inserted saline lock: 24 gauge in right upper bc6 arm, using aseptic technique. Blood collected. Flushed with 10 mL NS. 15:06 Gentry Roman, RN is Primary Nurse. bp 17:05 Female purewick. pm7 17:11 No provider procedures requiring assistance completed. IV discontinued, intact, bp bleeding controlled, No redness/swelling at site. Pressure dressing applied. 17:12 Provided Education on: NA. bp Administered Medications: 17:04 Drug: HYDROcodone-acetaminophen PO 5 mg-325 mg 2 tabs PO once Route: PO; bp 17:12 Follow up: Response: No adverse reaction bp 17:04 Drug: Ketorolac IVP 15 mg IVP once Route: IVP; Site: right upper arm; bp 17:12 Follow up: Response: No adverse reaction bp Medication: 17:12 VIS not applicable for this client. bp Outcome: 17:00 Discharge ordered by . dr5 17:11 Discharged to home via wheelchair, with family, bp 17:11 Condition: stable 17:11 Discharge instructions given to patient, family, Instructed on discharge instructions, follow up and referral plans. Demonstrated understanding of instructions, follow-up care, 17:12 Patient left the ED. bp Signatures: Dispatcher [employer] EDGentry Wilkinson RN RN bp Beulah Patel bc6 YVES LUCIO RN RN dd2 Daniel Marcus, ELECTRONIC TESTER-C ELECTRONIC TESTER-[facility]5 Daina Taylor pm7
--- NOTE | 2025-06-17 17:00 | EDPHYS ---
Physician Documentation [facility] Name: Nabila Jain Age: 79 yrs Sex: Female : 1945 Arrival Date: 06/17/2025 Time: 13:47 Bed 3 Private MD: ED Physician Dandy Franklin HPI: 06/17 14:24 This 79 yrs old Female presents to ER via EMS with complaints of Leg Pain. dr5 14:24 The patient presents with pain. The complaints affect the left leg. Onset: The dr5 symptoms/episode began/occurred 1 week(s) ago. Patient is a 79-year-old female with history of cardiomegaly, CVA, diabetes, hypertension coming in with 1 week of lower left extremity pain. Patient reports that she has been having left knee pain. Patient denies trauma. Patient states that she had nurse at home concerned about possible DVT of left leg and called ambulance for her. Patient denies chest pain, shortness of breath. Patient does not know the name of her medications that she is currently on as listed at home. Patient does not know the name of her current blood thinner. Patient denies taking medication prior to arrival. Patient in no distress during initial exam. Historical: - Allergies: 13:53 NKA; dd2 - PMHx: 13:53 cardiomegaly; Cerebrovascular accident; diabetes mellitus; Hypertension; dd2 - PSHx: 13:53 Cholecystectomy; tubal ligation; dd2 - Immunization history:: Adult Immunizations unknown. - Infectious Disease History:: Denies. - Social history:: Smoking status: Patient denies any tobacco usage or history of. ROS: 14:24 Constitutional: as per hpi dr5 Exam: 14:24 Constitutional: This is a well developed, well nourished patient who is awake, alert, dr5 and in no acute distress. Head/Face: Normocephalic, atraumatic. Eyes: Pupils equal round and reactive to light, extra-ocular motions intact. Lids and lashes normal. Conjunctiva and sclera are non-icteric and not injected. Cornea within normal limits. Periorbital areas with no swelling, redness, or edema. Neck: Trachea midline, no thyromegaly or masses palpated, and no cervical lymphadenopathy. Supple, full range of motion without nuchal rigidity, or vertebral point tenderness. No Meningismus. Chest/axilla: Normal chest wall appearance and motion. Nontender with no deformity. No lesions are appreciated. Cardiovascular: Regular rate and rhythm with a normal S1 and S2. Normal PMI, no JVD. No pulse deficits. Respiratory: Lungs have equal breath sounds bilaterally, clear to auscultation. No rales, rhonchi or wheezes noted. No increased work of breathing, no retractions or nasal flaring. Back: No spinal tenderness. No costovertebral tenderness. Full range of motion. Skin: Warm, dry with normal turgor. Normal color with no rashes, no lesions, and no evidence of cellulitis. MS/ Extremity: Pulses equal, no cyanosis. Neurovascular intact. Full, normal range of motion. Mild swelling noted to left lower extremity. No tenderness to palpation Neuro: Awake and alert, GCS 15, oriented to person, place, time, and situation. Cranial nerves II-XII grossly intact. Motor strength 5/5 in all extremities. Sensory grossly intact. Cerebellar exam normal. Normal gait. Vital Signs: 13:50 BP 130 / 62; Pulse 73; Resp 17; Temp 98.1; Pulse Ox 95% ; Pain 6/10; dd2 17:06 BP 114 / 74; Pulse 69; Resp 18; Temp 98.1; Pulse Ox 96% ; pm7 13:50 Pain Scale: Adult dd2 MDM: 14:01 Medical Screening Exam initiated dr5 17:21 Differential diagnosis: contusion, abrasion, Arthritis, DVT. Data reviewed: vital dr5 signs, nurses notes, lab test result(s), CBC, white blood cell count, hemoglobin, hematocrit, platelets, electrolytes, sodium, potassium, chloride, serum bicarbonate, BUN, creatinine, serum glucose, radiologic studies, plain films, ultrasound. Consideration of Admission/Observation Escalation of care including admission/observation considered. Escalation considered patient found to have DVT of left leg. I considered the following discharge prescriptions or medication management in the emergency department I discussed and recommended Over The Counter medications, Medications were administered in the Emergency Department. See MAR. Independent interpretation of the following test(s) in the Emergency Department X-Ray: My interpretation is Independent interpretation of x-ray does not reveal fracture. Test considered but Not performed: CT: CT considered if patient found to have fracture of left patella. Historians other than the Patient: Daughter/Son: Daughter at bedside. Care significantly affected by the following chronic conditions: Hypertension, diabetes, CVA, cardiomegaly. Care significantly affected by the following Social Determinants of Health: Poor access to healthcare and/or lack of insurance, Poor access to transportation, Problems related to employment. Scoring Tools. Counseling: I had a detailed discussion with the patient and/or guardian regarding the historical points, exam findings, and any diagnostic results supporting the discharge/admit diagnosis, the presence of at least one elevated blood pressure reading (>120/80) during this emergency department visit, lab results, radiology results, the need for outpatient follow up, for definitive care, a family practitioner, to return to the emergency department if symptoms worsen or persist or if there are any questions or concerns that arise at home. Medication response: Shelly. Response to treatment: the patient's symptoms have resolved after treatment. Special discussion: I discussed with the patient/guardian in detail that at this point there is no indication for admission to the hospital. It is understood, however, that if the symptoms persist or worsen the patient needs to return immediately for re-evaluation. Based on the history and exam findings, there is no indication for further emergent testing or inpatient evaluation. I discussed with the patient/guardian the need to see the primary care provider for further evaluation of the symptoms. ED course: Patient reports her pain is much better. Patient labs and diagnostic studies were printed and given to her to take with her to primary care doctor. All questions were answered. Patient is able to follow-up with her primary care doctor this week. Strict ER precautions given. Alternate Tylenol Motrin as needed for pain. All questions were answered. . 06/17 14:11 Order name: CBC with Diff; Complete Time: 15:32 dd2 06/17 14:11 Order name: BMP; Complete Time: 15:42 dd2 06/17 14:11 Order name: US Extremity Venous Unilateral Ltd; Complete Time: 16:57 dd2 06/17 14:11 Order name: Knee Left 3 View XRAY; Complete Time: 16:57 dd2 06/17 14:11 Order name: EKG; Complete Time: 14:11 dd2 06/17 14:11 Order name: EKG - Nurse/Tech; Complete Time: 15:19 dd2 EC:17 Rate is 63 beats/min. Rhythm is regular. QRS Mead is Normal. AR interval is normal at dr5 108 msec. QRS interval is normal at 26 msec. QT interval is normal at 174 msec. Clinical impression: Normal ECG and No evidence of ischemia. Administered Medications: 17:04 Drug: HYDROcodone-acetaminophen PO 5 mg-325 mg 2 tabs PO once Route: PO; bp 17:12 Follow up: Response: No adverse reaction bp 17:04 Drug: Ketorolac IVP 15 mg IVP once Route: IVP; Site: right upper arm; bp 17:12 Follow up: Response: No adverse reaction bp Disposition: 17:15 Co-signature as Attending Physician, Dandy Franklin MD I reviewed the patient's care rn provided by the Advanced Practice Provider and agree with the diagnosis and treatment plan. Disposition Summary: 06/17/25 17:00 Discharge Ordered Notes: Location: Home dr5 Condition: Stable dr5 Diagnosis - Effusion, left knee dr5 - Osteoarthritis of knee, unspecified dr5 Followup: dr5 - With: Emergency Department - When: As needed - Reason: Worsening of condition Followup: dr5 - With: Private Physician - When: 1 - 2 days - Reason: Recheck today's complaints, Continuance of care, Re-evaluation by your physician Discharge Instructions: - Discharge Summary Sheet dr5 - Knee Effusion dr5 - Osteoarthritis dr5 - RICE Therapy for Routine Care of Injuries dr5 Forms: - Medication Reconciliation Form dr5 - Patient Portal Instructions dr5 - Leadership Thank You Letter dr5 Signatures: Dispatcher [employer] Dandy Manning MD MD rn Peltier, Brian RN YVES Abbasi RN RN dd2 Daniel Marcus, RAMPMAN-C RAMPMAN-Cdr5
[2025-06-17 18:25] VITALS: TEMP 98.1
[2025-06-17 18:27] VITALS: BP 114/74; O2SAT 96
== END 2025-06-17 17:12 | disposition home or self-care (01) ==
LOC: ER 13:47
DX: M25.462 Effusion, left knee (principal); M17.12 Unilateral primary osteoarthritis, left knee
CPT/HCPCS: 36415; 80048; 85025; 93005; 93971; 96374; 99284